=== PATIENT | male | born 1990 | race Two or more races ===

== ENCOUNTER 2023-04-15 18:39 | Inpatient (IN) | payer MEDICAID, OTHER ==
[~2023-04-15] VITALS: Ht 177.8 cm; Wt 84.8 kg
[2023-04-15] MEDS ORDERED: LORazepam 2MG/ML-1ML VIAL IV ONE (19:15)
[2023-04-15 19:46] LABS: Basophils # (auto) 0.1 10 ^3/uL (0-0.2); Basophils % (auto) 0.9 % (0.0-2.0); Eosinophils # (auto) 0.1 10 ^3/uL (0-0.8); Eosinophils % (auto) 0.6 % (0.0-7.0); Hematocrit 50.3 % (41.0-53.0); Hemoglobin 16.8 g/dL (13.5-17.5); Lymphocytes # (auto) 0.6 10 ^3/uL (0.4-5.4); Mean Corpuscular Hgb Conc. 33.4 g/dL (32.0-36.0); Mean Corpuscular Volume 95.9 fL (80.0-100.0); Monocytes # (auto) 0.8 10 ^3/uL (0-1.3); Monocytes % (auto) 6.8 % (0.0-12.0); Neutrophils # (auto) 10.8 10 ^3/uL (1.6-8.6); Neutrophils % (auto) 86.7 % (37.0-80.0); Nucleated Red Blood Cells % 0.1 %; Red Blood Cells 5.24 10^6/uL (4.5-5.90); Red Cell Distribution Width 13.3 % (11.8-14.3); White Blood Cell 12.5 10^3/uL (4.4-10.8)
[2023-04-15 20:05] LABS: Alanine Aminotransferase 11 U/L (7-40); Albumin 4.7 g/dL (3.2-4.8); Alkaline Phosphatase 81 U/L (46-116); Anion Gap 11 (5-15); Aspartate Aminotransferase 16 U/L (13-40); BUN/Creatinine Ratio 17.6 (10.0-20.0); Bilirubin, Total 0.5 mg/dL (0.2-1.0); Blood Alcohol < 3.0 mg/dL (<10); Blood Urea Nitrogen 19 mg/dL (9-23); Carbon Dioxide 23 mmol/L (20-30); Chloride 108 mmol/L (98-107); Glucose 123 mg/dL (74-106); Potassium 4.1 mmol/L (3.5-5.1); Sodium 142 mmol/L (136-145); Total Protein 7.9 g/dL (5.7-8.2)
[2023-04-15 20:24] VITALS: PULSE 130; RESP 20; O2SAT 94
[2023-04-15] MEDS: LORazepam 2MG/ML-1ML VIAL ONE (20:58)
[2023-04-15] MEDS: LORazepam 2MG/ML-1ML VIAL IM ONE (21:07)
[2023-04-15] MEDS: levETIRAcetam 1000 mg/100ml 100 ML IV ONE ×2 (21:12→21:18)
[2023-04-15] MEDS ORDERED: LORazepam 2MG/ML-1ML VIAL IV PRN (21:45)
[2023-04-15] MEDS ORDERED: ONDANSETRON HCL 4 MG/2 ML VIAL IV PRN (21:45)
[2023-04-15] MEDS: ACETAMINOPHEN 325 MG TAB PO PRN (23:48)
[2023-04-16] VITALS (9 sets, daily range): BP systolic 108–124; BP diastolic 74–84; PULSE 83–129; RESP 16–22; TEMP 98–98.8; O2SAT 94–98
[2023-04-16 03:18] LABS: Urine Bacteria NONE SEEN /hpf (None Seen); Urine Blood Negative /uL (Negative); Urine Clarity Clear (Clear); Urine Color Yellow (Yellow); Urine Mucus FEW (None Seen); Urine Protein, UAD TRACE (Negative); Urine Specific Gravity 1.032 (1.001-1.035); Urine WBC 19 /hpf (0 - 3); Urine pH 5.5 (5.0-8.0)
[2023-04-16 03:19] LABS: Amphetamine Screen, Urine Neg (NEGATIVE); Barbiturate Scree,Urine Neg (NEGATIVE); Benzodiazephine Screen, Urine Neg (NEGATIVE); Cocaine Screen, Urine Neg (NEGATIVE); Opiate Scree,Urine Neg (NEGATIVE)
[2023-04-16 03:20] LABS: Cannabinoid Screen, Urine Neg (NEGATIVE); Phencyclidine Screen, Urine Neg (NEGATIVE)
[2023-04-16] MEDS ORDERED: DEXTROSE (50%) 50ML SYRG IV PRN (05:45)
[2023-04-16] MEDS: ACCU-CHEK COMFORT CURVE STRIP VI SCH (06:51)
[2023-04-16] MEDS: InsuLIN REG 1unit/0.01ml Soln (100units/ml) SC SCH (07:00)
[2023-04-16 07:29] LABS: Chloride 103 mmol/L (98-107); Potassium 3.9 mmol/L (3.5-5.1)
[2023-04-16 07:30] LABS: Anion Gap 9 (5-15); Basophils # (auto) 0 10 ^3/uL (0-0.2); Basophils % (auto) 0.3 % (0.0-2.0); Calcium 9.4 mg/dL (8.5-10.1); Carbon Dioxide 23 mmol/L (20-30); Eosinophils # (auto) 0.1 10 ^3/uL (0-0.8); Eosinophils % (auto) 0.6 % (0.0-7.0); Hematocrit 46.7 % (41.0-53.0); Hemoglobin 16.1 g/dL (13.5-17.5); Lymphocytes # (auto) 0.9 10 ^3/uL (0.4-5.4); Lymphocytes % (auto) 9.9 % (10.0-50.0); Mean Corpuscular Hemoglobin 32.8 pg (28.0-32.0); Mean Corpuscular Hgb Conc. 34.4 g/dL (32.0-36.0); Mean Corpuscular Volume 95.4 fL (80.0-100.0); Monocytes # (auto) 0.4 10 ^3/uL (0-1.3); Monocytes % (auto) 4.9 % (0.0-12.0); Neutrophils # (auto) 7.4 10 ^3/uL (1.6-8.6); Neutrophils % (auto) 84.3 % (37.0-80.0); Nucleated Red Blood Cells % 0.1 %; Red Cell Distribution Width 13.3 % (11.8-14.3); White Blood Cell 8.7 10^3/uL (4.4-10.8)
[2023-04-16 07:35] LABS: BUN/Creatinine Ratio 18.8 (10.0-20.0); Blood Urea Nitrogen 22 mg/dL (9-23)
[2023-04-16 07:42] LABS: Glucose 262 mg/dL (74-106); Sodium 135 mmol/L (136-145)
[2023-04-16] MEDS: ENOXAPARIN SOD 40 MG/0.4 ML SYRINGE SC SCH (10:25)
[2023-04-16] MEDS: levETIRAcetam 1000 mg/100ml 100 ML IV SCH (10:36)
[2023-04-17] VITALS (7 sets, daily range): BP systolic 111–122; BP diastolic 76–86; PULSE 79–96; RESP 17–22; TEMP 98–98.6; O2SAT 94–97
[2023-04-17] MEDS ORDERED: LORazepam 2MG/ML-1ML VIAL IV ONE (11:45)
[2023-04-17] MEDS: INSULIN LANTUS (GLARGINE) 1 /0.01ml (100units/ml) SC ONE (12:18)
[2023-04-17] MEDS: INSULIN LANTUS (GLARGINE) 1 /0.01ml (100units/ml) SC SCH (22:09)
[2023-04-18 05:00] VITALS: BP 130/73; PULSE 64; RESP 16; TEMP 98; O2SAT 96
[2023-04-18 08:00] VITALS: BP 113/88; PULSE 89; RESP 21; TEMP 98.3; O2SAT 94
[2023-04-18 08:06] VITALS: BP 113/88; PULSE 89; RESP 21; TEMP 98.3; O2SAT 94
[2023-04-18 12:00] VITALS: BP 133/76; PULSE 70; RESP 21; TEMP 98.3; O2SAT 93
[2023-04-18 16:00] VITALS: BP 139/69; PULSE 85; RESP 22; TEMP 98.3; O2SAT 95
[2023-04-18] MEDS: cefTRIAXone 1GM/50ML D5W 50 ML IV ONE (16:06)
[2023-04-18 21:54] VITALS: BP 136/79; PULSE 79; RESP 20; TEMP 98.6; O2SAT 96
[2023-04-18] MEDS: INSULIN LANTUS (GLARGINE) 1 /0.01ml (100units/ml) SC SCH (22:09)
[2023-04-19 05:00] VITALS: BP 133/66; PULSE 64; RESP 18; TEMP 98; O2SAT 97
[2023-04-19 08:37] VITALS: BP 122/72; PULSE 80; RESP 20; TEMP 98.4; O2SAT 94
[2023-04-19] MEDS: cefTRIAXone 1GM/50ML D5W 50 ML IV SCH (09:27)
[2023-04-19 13:18] VITALS: BP 124/72; PULSE 87; RESP 20; TEMP 98.7; O2SAT 96
[2023-04-19 16:59] VITALS: BP 117/78; PULSE 79; RESP 20; TEMP 98.3; O2SAT 96
[2023-04-19 22:00] VITALS: BP 108/71; PULSE 73; RESP 16; TEMP 98.3; O2SAT 95
[2023-04-20 05:00] VITALS: BP 111/63; PULSE 64; RESP 16; TEMP 98.4; O2SAT 97
[2023-04-20 08:50] VITALS: BP 109/79; PULSE 63; RESP 16; TEMP 98.2; O2SAT 97
[2023-04-20 12:54] VITALS: BP 123/80; PULSE 80; RESP 17; TEMP 98.1; O2SAT 95
[2023-04-20 17:00] VITALS: BP 124/87; PULSE 90; RESP 17; TEMP 98.2; O2SAT 94
[2023-04-20 22:00] VITALS: BP 124/87; PULSE 90; RESP 17; TEMP 98.4; O2SAT 94
[2023-04-20] MEDS: levETIRAcetam 500 MG TAB PO SCH (22:26)
[2023-04-21 05:00] VITALS: BP 111/74; PULSE 65; RESP 18; TEMP 98.2; O2SAT 95
[2023-04-21 09:00] VITALS: BP 121/77; PULSE 71; RESP 18; TEMP 97.7; O2SAT 95
[2023-04-21 13:00] VITALS: BP 122/80; PULSE 90; RESP 18; TEMP 98.8; O2SAT 95
[2023-04-21] MEDS ORDERED: LEVE100012 PO ×2 (14:56→16:27)
[2023-04-21] MEDS ORDERED: CEPH500C PO ×2 (15:02→16:27)
[2023-04-21 16:49] VITALS: BP 125/78; PULSE 84; RESP 20; TEMP 97.8; O2SAT 96
[2023-04-21] MEDS: INSULIN LANTUS (GLARGINE) 1 /0.01ml (100units/ml) SC SCH (21:52)
[2023-04-21 22:00] VITALS: BP 119/91; PULSE 72; RESP 21; TEMP 98.4; O2SAT 94
[2023-04-22 05:00] VITALS: BP 104/57; PULSE 88; RESP 18; TEMP 98.3; O2SAT 95
[2023-04-22 08:49] VITALS: BP 117/71; PULSE 72; RESP 16; TEMP 98.4; O2SAT 97
== END 2023-04-22 09:30 | disposition home or self-care (01) | DRG 53 ==
LOC: ER 18:39 → EDBD 18:39 → WEST WING 22:02 → OVERFLOW 22:02 → WEST WING 23:39
PROVIDERS: ADMIT Nurse Practitioner; ATTEND Internal Medicine Geriatric Medicine
DX: G40.909 Epilepsy, unspecified, not intractable, without status epilepticus (principal); G93.1 Anoxic brain damage, not elsewhere classified; R65.10 Systemic inflammatory response syndrome (SIRS) of non-infectious origin without acute organ dysfunction; E11.9 Type 2 diabetes mellitus without complications; N39.0 Urinary tract infection, site not specified
CPT/HCPCS: 36415; 70450; 70551; 80048; 80053; 80307; 80320; 81001; 82962; 85025; 87081; 93005; 96365; 96372; G0378; J1815

== ENCOUNTER 2023-06-10 10:55 | Emergency (ER) | payer MEDICAID ==
[~2023-06-10] VITALS: Ht 180.3 cm; Wt 84.0 kg
[~2023-06-10 10:55] MED LIST: CEPH500C PO; LEVE100012 PO
[2023-06-10 12:16] VITALS: PULSE 85; O2SAT 96
[2023-06-10] MEDS: SODIUM CHLORIDE 0.9% 1,000 ML IV ONE (13:00)
[2023-06-10] MEDS: SODIUM CHLORIDE 0.9% 500 ML IVB ONE (13:00)
[2023-06-10] MEDS: LORazepam 2MG/ML-1ML VIAL IV ONE (13:00)
[2023-06-10 13:36] LABS: Basophils # (auto) 0 10 ^3/uL (0-0.2); Basophils % (auto) 0.7 % (0.0-2.0); Eosinophils # (auto) 0.1 10 ^3/uL (0-0.8); Eosinophils % (auto) 1.2 % (0.0-7.0); Hematocrit 44.4 % (41.0-53.0); Lymphocytes # (auto) 1.9 10 ^3/uL (0.4-5.4); Lymphocytes % (auto) 31.6 % (10.0-50.0); Mean Corpuscular Hemoglobin 32.4 pg (28.0-32.0); Mean Corpuscular Hgb Conc. 33.7 g/dL (32.0-36.0); Monocytes # (auto) 0.5 10 ^3/uL (0-1.3); Monocytes % (auto) 7.7 % (0.0-12.0); Neutrophils # (auto) 3.4 10 ^3/uL (1.6-8.6); Neutrophils % (auto) 58.8 % (37.0-80.0); Nucleated Red Blood Cells % 0.3 %; Red Blood Cells 4.63 10^6/uL (4.5-5.90); White Blood Cell 5.9 10^3/uL (4.4-10.8)
[2023-06-10 14:28] LABS: Albumin 4.3 g/dL (3.2-4.8); Alkaline Phosphatase 84 U/L (46-116); Anion Gap 6 (5-15); Aspartate Aminotransferase < 8 U/L (13-40); BUN/Creatinine Ratio 12.1 (10.0-20.0); Blood Urea Nitrogen 11 mg/dL (9-23); Calcium 9.7 mg/dL (8.7-10.4); Carbon Dioxide 25 mmol/L (20-30); Chloride 107 mmol/L (98-107); Glucose 270 mg/dL (74-106); Magnesium 1.8 mg/dL (1.6-2.6); Potassium 4.1 mmol/L (3.5-5.1); Sodium 138 mmol/L (136-145)
[2023-06-10 14:29] LABS: Bilirubin, Total 0.6 mg/dL (0.2-1.0)
[2023-06-10 14:32] LABS: Alanine Aminotransferase < 9 U/L (7-40)
[2023-06-11 09:00] VITALS: TEMP 98.7
[2023-06-11 10:15] VITALS: BP 121/73; PULSE 77; RESP 18; O2SAT 98
== END 2023-06-11 10:30 | disposition home or self-care (01) ==
LOC: ER 10:55 → EDUNIT# 10:55 → EDBD 10:55 → ER 06-11 10:30
DX: S00.83XA Contusion of other part of head, initial encounter (principal); G40.909 Epilepsy, unspecified, not intractable, without status epilepticus; E11.65 Type 2 diabetes mellitus with hyperglycemia; R94.31 Abnormal electrocardiogram [ECG] [EKG]; W18.39XA Other fall on same level, initial encounter; Y93.89 Activity, other specified; Y92.89 Other specified places as the place of occurrence of the external cause; Y99.8 Other external cause status
CPT/HCPCS: 36415; 70450; 71045; 80053; 83735; 85025; 93005

== ENCOUNTER 2023-06-14 21:55 | Emergency (ER) | payer MEDICAID ==
[~2023-06-14] VITALS: Ht 170.2 cm; Wt 75.0 kg
[2023-06-14 21:55] VITALS: BP 125/80; PULSE 80; RESP 18; O2SAT 98
[2023-06-14 22:41] LABS: Basophils # (auto) 0.1 10 ^3/uL (0-0.2); Basophils % (auto) 1.2 % (0.0-2.0); Eosinophils # (auto) 0.2 10 ^3/uL (0-0.8); Eosinophils % (auto) 2.7 % (0.0-7.0); Hematocrit 40.4 % (41.0-53.0); Hemoglobin 13.7 g/dL (13.5-17.5); Lymphocytes % (auto) 32.5 % (10.0-50.0); Mean Corpuscular Hemoglobin 32.4 pg (28.0-32.0); Mean Corpuscular Volume 95.2 fL (80.0-100.0); Monocytes # (auto) 0.6 10 ^3/uL (0-1.3); Monocytes % (auto) 9.3 % (0.0-12.0); Neutrophils # (auto) 3.4 10 ^3/uL (1.6-8.6); Neutrophils % (auto) 54.3 % (37.0-80.0); Nucleated Red Blood Cells % 0.3 %; Red Blood Cells 4.24 10^6/uL (4.5-5.90); Red Cell Distribution Width 14.2 % (11.8-14.3); White Blood Cell 6.3 10^3/uL (4.4-10.8)
[2023-06-14 22:47] LABS: Chloride 109 mmol/L (98-107); Potassium 4.4 mmol/L (3.5-5.1); Sodium 139 mmol/L (136-145)
[2023-06-14 22:48] LABS: Anion Gap 6 (5-15); Calcium 9.1 mg/dL (8.5-10.1); Carbon Dioxide 24 mmol/L (20-30)
[2023-06-14 22:53] LABS: BUN/Creatinine Ratio 14.6 (10.0-20.0); Blood Urea Nitrogen 14 mg/dL (9-23); Glucose 273 mg/dL (74-106)
[2023-06-15] MEDS: LORazepam 2MG/ML-1ML VIAL IV ONE (06:02)
== END 2023-06-15 06:36 ==
LOC: EDSEX 21:55 → EDBD 21:55 → ER 21:55
DX: G40.909 Epilepsy, unspecified, not intractable, without status epilepticus (principal)
CPT/HCPCS: 36415; 80048; 85025; 96374; 99283; J2060

== ENCOUNTER 2023-10-23 11:23 | Inpatient (IN) | payer MEDICAID ==
[~2023-10-23] VITALS: Ht 170.2 cm; Wt 64.9 kg
[2023-10-23 12:40] LABS: Basophils # (auto) 0 10 ^3/uL (0-0.2); Basophils % (auto) 0.5 % (0.0-2.0); Eosinophils # (auto) 0.1 10 ^3/uL (0-0.8); Eosinophils % (auto) 1.1 % (0.0-7.0); Hematocrit 40.7 % (41.0-53.0); Hemoglobin 13.9 g/dL (13.5-17.5); Lymphocytes # (auto) 1.6 10 ^3/uL (0.4-5.4); Lymphocytes % (auto) 30.9 % (10.0-50.0); Mean Corpuscular Hemoglobin 33.4 pg (28.0-32.0); Mean Corpuscular Hgb Conc. 34.1 g/dL (32.0-36.0); Monocytes # (auto) 0.4 10 ^3/uL (0-1.3); Monocytes % (auto) 7.4 % (0.0-12.0); Neutrophils # (auto) 3.1 10 ^3/uL (1.6-8.6); Neutrophils % (auto) 60.1 % (37.0-80.0); Platelet Count (auto) 172 10^3/uL (140-450); Red Blood Cells 4.15 10^6/uL (4.5-5.90); Red Cell Distribution Width 14.2 % (11.8-14.3); White Blood Cell 5.1 10^3/uL (4.4-10.8)
[2023-10-23 13:38] LABS: Alanine Aminotransferase 13 U/L (7-40); Albumin 4.1 g/dL (3.2-4.8); Alkaline Phosphatase 81 U/L (46-116); Anion Gap 4 (5-15); Aspartate Aminotransferase 8 U/L (13-40); BUN/Creatinine Ratio 14.7 (10.0-20.0); Bilirubin, Total 0.5 mg/dL (0.2-1.0); Blood Urea Nitrogen 14 mg/dL (9-23); Calcium 9.7 mg/dL (8.7-10.4); Carbon Dioxide 26 mmol/L (20-30); Chloride 110 mmol/L (98-107); Glucose 226 mg/dL (74-106); Magnesium 1.7 mg/dL (1.6-2.6); Sodium 140 mmol/L (136-145); Total Protein 6.6 g/dL (5.7-8.2)
[2023-10-23] MEDS: ACETAMINOPHEN 325 MG TAB PO ONE (15:36)
[2023-10-23] MEDS: SODIUM CHLORIDE 0.9% 1,000 ML IV ONE (15:37)
[2023-10-23] MEDS: levETIRAcetam 1000 mg/100ml 100 ML IV ONE (15:39)
[2023-10-24] MEDS ORDERED: NITROGLYCERIN 0.4 MG SL TAB SL PRN (00:45)
[2023-10-24] MEDS ORDERED: DOCUSATE SOD 100 MG CAP PO PRN (00:45)
[2023-10-24] MEDS ORDERED: ACETAMINOPHEN 325 MG TAB PO PRN (00:45)
[2023-10-24] MEDS ORDERED: ONDANSETRON HCL 4 MG/2 ML VIAL IV PRN (00:45)
[2023-10-24] MEDS ORDERED: MORPHINE SULFATE INJ 2 MG/ml SYRG IV PRN (00:45)
[2023-10-24] MEDS: HYDROcodone-ACET 5/325MG TAB PO PRN (01:24)
[2023-10-24 01:31] LABS: Urine Bacteria None Seen /hpf (None Seen)
[2023-10-24 01:38] LABS: Urine Amorphous Crystal FEW /hpf (None Seen); Urine Blood Negative /uL (Negative); Urine Clarity Clear (Clear); Urine Protein, UAD Negative (Negative); Urine Specific Gravity 1.028 (1.001-1.035); Urine Urobilinogen Normal (Negative); Urine WBC <1 /hpf (0 - 3); Urine pH 7.5 (5.0-9.0)
[2023-10-24 01:40] LABS: Urine Color STRAW (Yellow)
[2023-10-24 01:45] LABS: Amphetamine Screen, Urine Neg (NEGATIVE); Benzodiazephine Screen, Urine Neg (NEGATIVE)
[2023-10-24 01:46] LABS: Barbiturate Scree,Urine Neg (NEGATIVE); Cannabinoid Screen, Urine Pos (NEGATIVE); Cocaine Screen, Urine Neg (NEGATIVE); Opiate Scree,Urine Neg (NEGATIVE); Phencyclidine Screen, Urine Neg (NEGATIVE)
[2023-10-24 05:00] VITALS: PULSE 76; RESP 17; O2SAT 98
[2023-10-24 05:41] LABS: Basophils # (auto) 0 10 ^3/uL (0-0.2); Eosinophils # (auto) 0.1 10 ^3/uL (0-0.8); Monocytes # (auto) 0.4 10 ^3/uL (0-1.3); White Blood Cell 5.9 10^3/uL (4.4-10.8)
[2023-10-24 05:43] LABS: Basophils % (auto) 0.8 % (0.0-2.0); Eosinophils % (auto) 1.7 % (0.0-7.0); Hematocrit 40.4 % (41.0-53.0); Hemoglobin 14.2 g/dL (13.5-17.5); Lymphocytes # (auto) 1.4 10 ^3/uL (0.4-5.4); Mean Corpuscular Hemoglobin 34.5 pg (28.0-32.0); Mean Corpuscular Hgb Conc. 35.1 g/dL (32.0-36.0); Mean Corpuscular Volume 98.2 fL (80.0-100.0); Monocytes % (auto) 6.4 % (0.0-12.0); Neutrophils % (auto) 67.1 % (37.0-80.0); Platelet Count (auto) 163 10^3/uL (140-450); Red Blood Cells 4.11 10^6/uL (4.5-5.90); Red Cell Distribution Width 13.8 % (11.8-14.3)
[2023-10-24 05:57] LABS: Alanine Aminotransferase 11 U/L (7-40); Alkaline Phosphatase 80 U/L (46-116); Anion Gap 8 (5-15); Aspartate Aminotransferase 9 U/L (13-40); BUN/Creatinine Ratio 13.8 (10.0-20.0); Blood Urea Nitrogen 12 mg/dL (9-23); Calcium 9.4 mg/dL (8.7-10.4); Carbon Dioxide 21 mmol/L (20-30); Chloride 109 mmol/L (98-107); Glucose 281 mg/dL (74-106); Potassium 3.8 mmol/L (3.5-5.1); Sodium 138 mmol/L (136-145)
[2023-10-24 05:58] LABS: Albumin 4.1 g/dL (3.2-4.8); Bilirubin, Total 0.7 mg/dL (0.2-1.0); Total Protein 6.5 g/dL (5.7-8.2)
[2023-10-24] MEDS: SODIUM CHLOR 0.9% PF (SALINE LOCK) 10ML VIAL/SYR IV SCH (06:07)
[2023-10-24] MEDS: ACCU-CHEK COMFORT CURVE STRIP VI SCH (06:32)
[2023-10-24] MEDS: InsuLIN REG 1unit/0.01ml Soln (100units/ml) SC SCH ×2 (06:38→21:47)
[2023-10-24 07:45] VITALS: PULSE 83; RESP 16; O2SAT 96
[2023-10-24] MEDS: levETIRAcetam 1000 mg/100ml 100 ML IV SCH (10:20)
[2023-10-24] MEDS: ASPirin 81 mg TAB PO SCH (10:20)
[2023-10-24] MEDS: INSULIN LANTUS (GLARGINE) 1 /0.01ml (100units/ml) SC SCH (11:25)
[2023-10-24] MEDS: LORazepam 2MG/ML-1ML VIAL IM ONE (12:20)
[2023-10-24] MEDS: LORazepam 2MG/ML-1ML VIAL ONE (13:24)
[2023-10-24] MEDS: levETIRAcetam 1000 mg/100ml 100 ML IV ONE (14:10)
[2023-10-24 17:55] VITALS: BP 131/90; PULSE 106; RESP 18; TEMP 98.2; O2SAT 97
[2023-10-24 18:26] VITALS: BP 131/90; PULSE 67; RESP 16; TEMP 98.2; O2SAT 97
[2023-10-24 20:00] VITALS: PULSE 67; PULSE 73; RESP 22; O2SAT 98
[2023-10-24 21:00] VITALS: BP 112/73; PULSE 73; RESP 22; TEMP 97.8; O2SAT 98
[2023-10-24] MEDS: ENOXAPARIN SOD 40 MG/0.4 ML SYRINGE SC ONE (22:07)
[2023-10-24] MEDS: MAGNESIUM OXIDE 400 MG TAB PO ONE (22:08)
[2023-10-25] VITALS (8 sets, daily range): BP systolic 114–133; BP diastolic 41–86; PULSE 59–97; RESP 18–22; TEMP 98–98.7; O2SAT 94–99
[2023-10-25 06:34] LABS: Basophils # (auto) 0 10 ^3/uL (0-0.2); Basophils % (auto) 0.6 % (0.0-2.0); Eosinophils # (auto) 0.1 10 ^3/uL (0-0.8); Eosinophils % (auto) 1.2 % (0.0-7.0); Lymphocytes # (auto) 1.7 10 ^3/uL (0.4-5.4); Monocytes # (auto) 0.6 10 ^3/uL (0-1.3); Neutrophils # (auto) 4.2 10 ^3/uL (1.6-8.6); Platelet Count (auto) 202 10^3/uL (140-450); Red Cell Distribution Width 14.2 % (11.8-14.3); White Blood Cell 6.6 10^3/uL (4.4-10.8)
[2023-10-25 06:54] LABS: Alanine Aminotransferase 12 U/L (7-40); Albumin 4.7 g/dL (3.2-4.8); Alkaline Phosphatase 93 U/L (46-116); Anion Gap 8 (5-15); Aspartate Aminotransferase 16 U/L (13-40); Blood Urea Nitrogen 15 mg/dL (9-23); Calcium 10.4 mg/dL (8.7-10.4); Carbon Dioxide 24 mmol/L (20-30); Chloride 107 mmol/L (98-107); Magnesium 1.9 mg/dL (1.6-2.6); Potassium 3.7 mmol/L (3.5-5.1); Sodium 139 mmol/L (136-145)
[2023-10-25 06:55] LABS: Bilirubin, Total 0.5 mg/dL (0.2-1.0); Total Protein 7.5 g/dL (5.7-8.2)
[2023-10-25 07:02] LABS: Glucose 126 mg/dL (74-106)
[2023-10-25 07:18] LABS: Hematocrit 45.7 % (41.0-53.0); Lymphocytes % (auto) 26.3 % (10.0-50.0); Mean Corpuscular Hemoglobin 34.3 pg (28.0-32.0); Mean Corpuscular Hgb Conc. 34.9 g/dL (32.0-36.0); Mean Corpuscular Volume 98.3 fL (80.0-100.0); Monocytes % (auto) 8.9 % (0.0-12.0); Red Blood Cells 4.65 10^6/uL (4.5-5.90)
[2023-10-25] MEDS: LORazepam 2MG/ML-1ML VIAL IV PRN ×2 (10:02→14:01)
[2023-10-25] MEDS: MAGNESIUM OXIDE 400 MG TAB PO SCH (10:04)
[2023-10-25] MEDS: ENOXAPARIN SOD 40 MG/0.4 ML SYRINGE SC SCH (10:05)
[2023-10-25] MEDS: BACLOFEN 10 MG TAB PO PRN (13:35)
[2023-10-25] MEDS: DEXTROSE (50%) 50ML SYRG IV PRN (15:34)
[2023-10-25] MEDS ORDERED: LEVEMIR SC (18:42)
[2023-10-25] MEDS ORDERED: OXYC325T14 PO (18:46)
[2023-10-25] MEDS ORDERED: METO5TAB2 PO (19:22)
[2023-10-25] MEDS ORDERED: POLYPOW85 PO (19:22)
[2023-10-25] MEDS ORDERED: BACL20TA PO (19:22)
[2023-10-25] MEDS ORDERED: PREG25CA PO (19:22)
[2023-10-25] MEDS ORDERED: PANT40TA2 PO (19:22)
[2023-10-25] MEDS ORDERED: APIX2.5T PO (19:22)
[2023-10-25] MEDS ORDERED: DIVA1TAB59 PO (19:22)
[2023-10-25] MEDS ORDERED: FAMO20TA10 PO (19:22)
[2023-10-25] MEDS ORDERED: ONDA-155 PO (19:22)
[2023-10-25] MEDS ORDERED: DIVA-139 PO (19:22)
[2023-10-25] MEDS ORDERED: TRAZ-228 PO (19:22)
[2023-10-25] MEDS ORDERED: DULO60CA41 PO (19:22)
[2023-10-25] MEDS: HYDROcodone-ACET 5/325MG TAB PO PRN (19:27)
[2023-10-25] MEDS ORDERED: CHOL20007 PO (21:08)
[2023-10-25] MEDS ORDERED: RAME8TAB17 PO (21:08)
[2023-10-25] MEDS ORDERED: SENN-58 PO (21:08)
[2023-10-25] MEDS ORDERED: TAMS1CAP25 PO (21:08)
[2023-10-25] MEDS ORDERED: ROSU5TAB5 PO (21:08)
[2023-10-25] MEDS ORDERED: [UNRECOGNIZED DRUG - CODE] PO (21:08)
[2023-10-25] MEDS ORDERED: TOPI50TA53 PO (21:08)
[2023-10-25] MEDS ORDERED: HYDR-3682 PO (21:08)
[2023-10-25] MEDS ORDERED: LIDO5DIS21 TOP (21:08)
[2023-10-25] MEDS ORDERED: ACET1CAP14 PO (21:08)
[2023-10-25] MEDS ORDERED: BISA-51 OR (21:08)
[2023-10-25] MEDS: MORPHINE SULFATE INJ 2 MG/ml SYRG IV PRN (21:12)
[2023-10-26] VITALS (8 sets, daily range): BP systolic 109–136; BP diastolic 62–82; PULSE 60–98; RESP 19–21; TEMP 97.9–98.4; O2SAT 95–100
[2023-10-26] MEDS ORDERED: DEXTROSE (50%) 50ML SYRG IV PRN ×2 (07:30→11:45)
[2023-10-26] MEDS: IBUPROFEN 400 MG TAB PO ONE (10:47)
[2023-10-26] MEDS ORDERED: InsuLIN REG 1unit/0.01ml Soln (100units/ml) SC SCH ×2 (11:30→22:00)
[2023-10-26] MEDS: ACCU-CHEK COMFORT CURVE STRIP VI SCH ×2 (11:34→16:52)
[2023-10-26] MEDS: HYDROcodone-ACET 5/325MG TAB PO PRN (11:34)
[2023-10-26] MEDS: InsuLIN REG 1unit/0.01ml Soln (100units/ml) SC SCH (12:12)
[2023-10-26 12:43] LABS: Alanine Aminotransferase 17 U/L (7-40); Albumin 4.6 g/dL (3.2-4.8); Alkaline Phosphatase 89 U/L (46-116); Anion Gap 4 (5-15); Aspartate Aminotransferase 14 U/L (13-40); BUN/Creatinine Ratio 18.8 (10.0-20.0); Blood Urea Nitrogen 18 mg/dL (9-23); Calcium 10.1 mg/dL (8.7-10.4); Carbon Dioxide 26 mmol/L (20-30); Chloride 105 mmol/L (98-107); Potassium 4.3 mmol/L (3.5-5.1); Sodium 135 mmol/L (136-145)
[2023-10-26 12:44] LABS: Bilirubin, Total 0.7 mg/dL (0.2-1.0); Phosphorus 2.6 mg/dL (2.4-5.1); Total Protein 7.3 g/dL (5.7-8.2)
[2023-10-26 12:47] LABS: Glucose 308 mg/dL (74-106)
[2023-10-26] MEDS: HYDROcodone-ACET 10/325MG TAB PO PRN (15:58)
[2023-10-26] MEDS ORDERED: ACETAMINOPHEN 325 MG TAB PO PRN (17:45)
[2023-10-26] MEDS: CYCLOBENZAPRINE HCL 10 MG TAB PO PRN (20:15)
[2023-10-27] VITALS (8 sets, daily range): BP systolic 110–141; BP diastolic 60–99; PULSE 62–101; RESP 18–20; TEMP 97.8–98.4; O2SAT 95–99
[2023-10-27] MEDS ORDERED: DEXTROSE (50%) 50ML SYRG IV PRN
[2023-10-27] MEDS: ACCU-CHEK COMFORT CURVE STRIP VI SCH (00:14)
[2023-10-27] MEDS: HYDROcodone-ACET 10/325MG TAB PO PRN (00:21)
[2023-10-27] MEDS: InsuLIN REG 1unit/0.01ml Soln (100units/ml) SC SCH (00:37)
[2023-10-27 07:21] LABS: Anion Gap 11 (5-15); Calcium 9.5 mg/dL (8.7-10.4); Carbon Dioxide 21 mmol/L (20-30); Chloride 104 mmol/L (98-107); Sodium 136 mmol/L (136-145)
[2023-10-27 07:27] LABS: BUN/Creatinine Ratio 14.5 (10.0-20.0); Blood Urea Nitrogen 12 mg/dL (9-23)
[2023-10-27 07:28] LABS: Glucose 115 mg/dL (74-106)
[2023-10-27] MEDS: levETIRAcetam 500 MG TAB PO SCH (21:50)
[2023-10-28] VITALS (7 sets, daily range): BP systolic 104–133; BP diastolic 60–81; PULSE 66–85; RESP 16–20; TEMP 97.6–98.1; O2SAT 95–99
[2023-10-28 08:07] LABS: Calcium 9.9 mg/dL (8.7-10.4); Chloride 102 mmol/L (98-107); Potassium 4.1 mmol/L (3.5-5.1); Sodium 136 mmol/L (136-145)
[2023-10-28 08:08] LABS: Anion Gap 6 (5-15); Carbon Dioxide 28 mmol/L (20-30)
[2023-10-28 08:14] LABS: BUN/Creatinine Ratio 16.5 (10.0-20.0); Blood Urea Nitrogen 16 mg/dL (9-23); Magnesium 1.9 mg/dL (1.6-2.6)
[2023-10-28 08:16] LABS: Glucose 218 mg/dL (74-106)
[2023-10-28] MEDS ORDERED: LORazepam 2MG/ML-1ML VIAL IV PRN (13:15)
== END 2023-10-28 18:05 | disposition home or self-care (01) | DRG 53 ==
LOC: EDBD 11:23 → ER 11:23 → TELE 10-24 00:44 → TELE-WESTW 10-24 00:44
PROVIDERS: ADMIT Internal Medicine; ATTEND Internal Medicine
DX: G40.909 Epilepsy, unspecified, not intractable, without status epilepticus (principal); E11.65 Type 2 diabetes mellitus with hyperglycemia; E78.5 Hyperlipidemia, unspecified; E83.42 Hypomagnesemia; F12.90 Cannabis use, unspecified, uncomplicated; G89.29 Other chronic pain; Z87.820 Personal history of traumatic brain injury; Z91.199 Patient's noncompliance with other medical treatment and regimen due to unspecified reason
CPT/HCPCS: 36415; 70450; 80048; 80053; 80307; 81001; 82542; 82550; 82962; 83036; 83605; 83735; 84100; 84484; 85025; 87081; 93005; 97110; 97163; G0378; J1815

== ENCOUNTER 2023-12-23 11:48 | Emergency (ER) | payer MEDICAID ==
[~2023-12-23] VITALS: Ht 172.7 cm; Wt 63.5 kg
[~2023-12-23 11:48] MED LIST changes: +ACET1CAP14 PO; +APIX2.5T PO; +BACL20TA PO; +BISA-51 OR; -CEPH500C PO; +CHOL20007 PO; +DIVA-139 PO; +DIVA1TAB59 PO; +DULO60CA41 PO; +FAMO20TA10 PO; +HYDR-3682 PO; +LEVEMIR SC; +LIDO5DIS21 TOP; +METO5TAB2 PO; +ONDA-155 PO; +OXYC325T14 PO; +PANT40TA2 PO; +POLYPOW85 PO; +PREG25CA PO; +RAME8TAB17 PO; +ROSU5TAB5 PO; +SENN-58 PO; +TAMS1CAP25 PO; +TOPI50TA53 PO; +TRAZ-228 PO; +[UNRECOGNIZED DRUG - CODE] PO
--- NOTE | 2023-12-23 11:53 | ED.PDOC ---
Back pain HPI HPI Comments HPI: Poor Historian. 33-year-old male brought in by ambulance from for [facility] facility where he resides there for a long time. Patient takes Percocet for chronic left hip pain. Patient has been complaining of worsening left hip pain lately. He is nonambulatory bed ridden. No history of fall or trauma or injury. Patient was brought to the ED for evaluation of acute on chronic left hip pain. Patient denies any other symptoms. PMHx: TBI, Seizures, HLD, DM, Chronic Left Hip Pain PSHx: None Allergies: Unknown Insulin Medication Initial Vital Signs: BP: 108/69 HR: 70 Temp: 98.6F SpO2: 98% RR: 18 REVIEW OF SYSTEMS: CONSTITUTIONAL: Denies acute: fever, diaphoresis, chills, generalized weakness. HEAD: Denies acute: headache, photophobia Eyes: Denies acute: Double vision, vision loss, eye pain, eye discharge. EARS: Denies acute: tinnitus, hearing loss, ear discharge, ear pain, THROAT: Denies acute: sore throat, swelling, difficulty swallowing , pain with swallowing, change in voice. NECK: Denies acute: neck pain, neck swelling, stiff neck. HEART: Denies acute : chest pain, palpitations, LUNGS: Denies acute: SOB, wheezing, cough, hemoptysis ABDOMEN: Denies acute: abdominal pain, Nausea, Vomiting, diarrhea, melena , hematemesis, hematochezia SKIN: Denies acute: rash, redness, lesions, itchiness. EXTREMITIES: Denies acute: calf pain, numbness, tingling, weakness, denies pain in extremity. Denies acute: Low back pain. Neuro: Denies acute: focal neurological deficit, motor or sensory focal neurological deficit, tremors, seizure like activity, confusion, dizziness, change in mental status, loss of bowel or bladder function, cauda equina like symptoms. : Denies acute: dysuria, hematuria, flank pain, increase in urinary frequency. PSYCH: Denies acute: hallucination, suicidal ideation, homicidal ideation. PHYSICAL EXAM: General: no acute distress, awake and alert. Head: normocephalic, atraumatic. Neck: supple, trachea is midline, no swelling. Throat: Normal phonation. Eyes:, no erythema, no purulent discharge, no proptosis, no icterus. Heart: regular rate, regular rhythm, no significant murmur appreciated. Lungs: no apparent respiratory distress, Able to speak in full sentences. No wheezing, no rhonchi, no crackles. No stridors Clear to auscultation bilaterally. Abdomen: non tender to palpation, non distended, soft, no guarding, no rebound, + bowel sounds. Neuro: Awake, Alert, oriented to name, self, situation, follows commands GCS=15. Speech is disabled due to brain injury. Skin: no petechia, no purpura, no cyanosis, non-pale, not jaundice. Lower extremities: --no - Pitting edema no deformity, no focal swelling, no calf TTP. Makes eye contact. moves all four extremities. Face: no apparent facial droop. 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 Home Meds Active Scripts Levetiracetam (Keppra) 1,000 Mg Tab, 1 TAB PO BID, #60 TAB 5 Refills Prov:REIGNA SANCHEZ MD 04/21/23 Reported Medications Cholecalciferol (VITAMIN D3) 2,000 Unit Tab, 25 MCG PO DAILY, TAB 10/25/23 Topiramate (Topiramate) 50 Mg Tab, 50 MG PO QPM, TAB 10/25/23 Tamsulosin HCl (Tamsulosin Hydrochloride) 0.4 Mg Cap, 0.4 MG PO, CAP 10/25/23 Acetaminophen (Tylenol) 325 Mg Cap, 500 MG PO DAILY, CAP 10/25/23 Lidocaine (LIDODERM 5% TOPICAL PATCH) 1 Patch Ph, 1 PATCH TOP DAILY, #30 PATCH 10/25/23 Hydroxyzine Hcl (Hydroxyzine Hcl) 25 Mg Tab, 25 MG PO Q6HPRN PRN for ANXIETY, TAB 10/25/23 Bisacodyl (KP BISACODYL) 5 Mg Tab, 10 MG OR, TAB 10/25/23 Alum & Mag Hydrox-Simethicone (Antacid Anti-Gas) 1 Ml Loree, 30 ML PO Q4HPRN, ML 10/25/23 Senna (Senokot) 8.6 Mg Tab, 1 TAB PO BID, #40 TAB 10/25/23 Rosuvastatin Calcium (Crestor) 5 Mg Tab, 5 MG PO QPM, TAB 10/25/23 Ramelteon (Rozerem) 8 Mg Tab, 1 TAB PO QPM, #30 TAB 1 Refill 10/25/23 Trazodone Hcl (Trazodone Hcl) 100 Mg Tab, 1 TAB PO QPM, #30 TAB 10/25/23 Ondansetron HCl (Ondansetron) 4 Mg Tab, 4 MG PO PRN PRN for Q6, TAB 10/25/23 Pantoprazole Sodium Sesquihydr (Protonix) 40 Mg Tab, 40 MG PO DAILY, #30 TAB 10/25/23 Metoclopramide Hcl (Metoclopramide Hcl) 5 Mg Tab, 5 MG PO TID, TAB 10/25/23 Famotidine (PEPCID TABLET) 20 Mg Tb, 1 TAB PO BID, #60 TAB 5 Refills 10/25/23 Duloxetine Hcl (Cymbalta) 60 Mg Cap, 1 CAP PO DAILY, #90 CAP 3 Refills 10/25/23 Divalproex Sodium (Divalproex Sodium Dr) 500 Mg Tab, 1 TAB PO BID, #60 TAB 1 Refill 10/25/23 Polyethylene Glycol 3350 (Clearlax) 17 Gm/Scoop Pow, 17 GM PO BID, POW 10/25/23 Baclofen (Baclofen) 20 Mg Tab, 5 MG PO TID, TAB 10/25/23 Pregabalin (LYRICA CAPSULE) 25 Mg Cp, 25 MG PO, CAP 10/25/23 Apixaban Base (ELIQUIS) 2.5 Mg Tab, 2.5 MG PO BID, TAB 10/25/23 Divalproex Sodium (Depakote) 250 Mg Tab, 1 TAB PO BID, #60 TAB 2 Refills 10/25/23 Oxycodone W/ Acetaminophen (Apap/Oxycodone) 1 Tab Tab, 1 TAB PO QID for hip pain, #120 TAB 10/25/23 Insulin Detemir (Levemir) Inj, 11 SC BID, INJ 10/25/23 Mode of Arrival: EMS Past Medical History PAST MEDICAL HISTORY: DM, High Lipids, Seizures Surgical History: Denies all surgeries Family History Family History: Reviewed,noncontributory to illness Social History Smoker: Non-Smoker Alcohol: Denies ETOH Use Drugs: Denies Drug Use Lives In: Assisted Care Was a procedure done? Was a procedure done?: No Back Pain Differential Dx Differential Diagnosis: Fracture (Dislocation, referred pain, chronic pain, radiculopathy,), Musculoskeletal Pain, Other X-Ray, Labs, Meds, VS Vital Signs Date Time Temp Pulse Resp B/P (MAP) Pulse Ox O2 Delivery O2 Flow Rate FiO2 12/23/23 12:37 72 18 98 Room Air* 0 21 12/23/23 12:37 98.3 72 26 119/65 (83) 98 98.3 12/23/23 12:31 98.6 70 18 108/69 (82) 98 Current Medications Medications (Trade) Dose Ordered Sig/Lisa Route Start Time Stop Time Status Last Admin Acetaminophen/ Hydrocodone Bitart ([place] 5/325MG Tab) 1 tab ONCE ONCE PO 12/23/23 12:45 12/23/23 12:46 DC 12/23/23 13:35 [place] [id number] Ph: [phone] DIAGNOSTIC IMAGING Diagnostic Imaging Report : [id number] Signed PATIENT: EMERY ANDRADE ACCT: [id number] UNIT: [id number] : 1990 LOC: ER ROOM / BED: / AGE / SEX: 33 / M ADM STATUS: REG ER SERVICE 1159 ORDERING PHYSICIAN: J LUIS JEROME DO PROCEDURE(s): LHIP - L HIP COMPLETE XRAY REASON: PAIN ORDER NUMBER(s): [id number], ACCESSION NUMBER(s): [id number] CLINICAL INDICATION: PAIN TECHNIQUE: 2 radiographic views of the pelvis and 2 views of the left hip were obtained. Comparison: None FINDINGS/IMPRESSION: Chronic deformity of the left proximal femur with severe osteoarthrosis of the left femoroacetabular joint. ATED BY: TROY WALTERS MD DICTATED DATE/TIME: 12/23/23 1257 SIGNED BY: TROY WALTERS MD SIGNED DATE/TIME: 12/23/23 1257 Time of 1ST Reevaluation: 13:43 Reevaluation 1ST: Improved Patient Education/Counseling: Diagnosis, Treatment Family Education/Counseling: No Family Present Comments Patient presented with the above HPI.--chronic hip pain----workup was initiated. patient was found with the above mentioned diagnosis. Patient was given: [place] Patient ED course and VS have been stabilized. Patient has been reassessed in the ED and remained in a stable condition. Pertinent incidental findings were discussed with the patient and/or family. Patient/family voices understanding and is agreeable with plan. Patient has been observed in the ED adequate length of time to insure improvement/stability. Patient is not in any acute distress. Patient denies any other symptoms. Patient will be discharged back to his facility. patient was discharged home in a stable condition. All the reports of any imaging studies that were ordered by myself were reviewed by myself. Departure 1 Departure Time of Disposition: 13:17 Impression: Primary Impression: Chronic hip pain Disposition: 01 HOME / SELF CARE / HOMELESS Condition: Stable Additional Instructions: Additional discharge instructions: You MUST follow-up with your primary care/family doctor in 1 to 2 days. If you are unable to see your primary care/family doctor, please return to our emergency room for re-assessment and re-evaluation in 1 to 2 days. Return to the emergency room here in our facility or to the nearest ER [facility] if your symptoms change or worsen. CONSULTATIONS: you MUST Follow-up for consultation as soon as possible with: -orthopedic surgery in 1-2 days. Please call for appointment You MUST call the consultants office yourself to make an appointment. You may need to arrange that through your insurance and/or your primary/family doctor. If you are unable to see the outbound sales consultant in 1 to 2 days, you must return to our emergency room (or any other ER of your choice) for re-assessment and re- evaluation. Adequate fluid hydration. [place] [address] Ph: [phone] DIAGNOSTIC IMAGING Diagnostic Imaging Report : [id number] Signed PATIENT: EMERY ANDRADE ACCT: [id number] UNIT: [id number] : 1990 LOC: ER ROOM / BED: / AGE / SEX: 33 / M ADM STATUS: REG ER SERVICE 1159 ORDERING PHYSICIAN: J LUIS JEROME DO PROCEDURE(s): LHIP - L HIP COMPLETE XRAY REASON: PAIN ORDER NUMBER(s): [id number], ACCESSION NUMBER(s): [id number] CLINICAL INDICATION: PAIN TECHNIQUE: 2 radiographic views of the pelvis and 2 views of the left hip were obtained. Comparison: None FINDINGS/IMPRESSION: Chronic deformity of the left proximal femur with severe osteoarthrosis of the left femoroacetabular joint. ATED BY: TROY WALTERS MD DICTATED DATE/TIME: 12/23/23 1257 SIGNED BY: TROY WALTERS MD SIGNED DATE/TIME: 12/23/23 1257 CC: Discharged With: Self Critical Care Note Critical Care Time?: No I personally scribed for J LUIS JEROME DO ([email or web address]) on 12/23/23 at 11:53. Electronically submitted by Kaushal Matthews ([email or web address]). I personally scribed for J LUIS JEROME DO ([email or web address]) on 12/23/23 at 11:56. Electronically submitted by Kaushal Matthews ([email or web address]). I personally scribed for J LUIS JEROME DO ([email or web address]) on 12/23/23 at 12:03. Electronically submitted by Kaushal Matthews ([email or web address]). I personally scribed for J LUIS JEROME DO ([email or web address]) on 12/23/23 at 13:05. Electronically submitted by Kaushal Matthews ([email or web address]). J LUIS JEROME DO Dec 23, 2023 11:53
[2023-12-23 12:37] VITALS: PULSE 72; RESP 18; O2SAT 98
--- NOTE | 2023-12-23 12:58 | DVH ---
CLINICAL INDICATION: PAIN TECHNIQUE: 2 radiographic views of the pelvis and 2 views of the left hip were obtained. Comparison: None FINDINGS/IMPRESSION: Chronic deformity of the left proximal femur with severe osteoarthrosis of the left femoroacetabular joint.
[2023-12-23] MEDS: HYDROcodone-ACET 5/325MG TAB PO ONE (13:35)
[2023-12-23 15:58] VITALS: TEMP 98.1
[2023-12-23 17:55] VITALS: BP 89/47; PULSE 60; RESP 15; O2SAT 97
== END 2023-12-23 19:24 ==
LOC: EDBD 11:48 → ER 11:48
DX: G89.29 Other chronic pain (principal); M25.552 Pain in left hip; E11.9 Type 2 diabetes mellitus without complications; E78.5 Hyperlipidemia, unspecified; Z79.01 Long term (current) use of anticoagulants; Z79.4 Long term (current) use of insulin; Z79.899 Other long term (current) drug therapy
CPT/HCPCS: 73502; 82962

== ENCOUNTER 2024-07-06 01:00 | Emergency (ER) | payer MEDICAID ==
[~2024-07-06] VITALS: Ht 172.7 cm; Wt 77.2 kg
[2024-07-06 02:00] VITALS: PULSE 78; RESP 18; O2SAT 96
--- NOTE | 2024-07-06 02:09 | ED.PDOC ---
Musculoskeletal HPI Comments 34 year old male presents to ER with complaints of left leg pain x 1 day. Patient presents VIA EMS from [facility] with PMH of anoxic brain injury, seizures, DM and chronic left hip pain/bed ridden stating that he fell while attempting to get into his wheelchair and landed on his left leg yesterday afternoon onto asphalt and has since been experiencing 10/10 left hip and left knee pain. Notes he did hit his forehead upon falling denying any LOC/denying seizure. Patient does present to ER febrile on arrival at 100.8 F, denying any known fever prior to arrival ER. Denies headache, neck pain, n/v, shortness of breath, chest pain, abdominal/pelvic pain, back pain or any further symptoms/complaints Chief Complaint: Lower Extremity Time Seen by MD: 01:42 Primary Care Provider: UNKNOWN NAME Reviewed Notes: Nurses Notes, Medications, Allergies Allergies: Coded Allergies: NO KNOWN ALLERGIES (Unverified , 10/25/23) [facility], where pt lives, states he is not allergic to anything. Home Meds Active Scripts Sulfamethoxazole W/Trimethopri (Bactrim Ds Tablet) 1 Tab Tb, 1 TAB PO BID for 7 Days, #14 TAB 0 Refills Prov:MEETA SALINAS 07/06/24 Levetiracetam (Keppra) 1,000 Mg Tab, 1 TAB PO BID, #60 TAB 5 Refills Prov:REGINA SANCHEZ MD 04/21/23 Reported Medications Cholecalciferol (VITAMIN D3) 2,000 Unit Tab, 25 MCG PO DAILY, TAB 10/25/23 Topiramate (Topiramate) 50 Mg Tab, 50 MG PO QPM, TAB 10/25/23 Tamsulosin HCl (Tamsulosin Hydrochloride) 0.4 Mg Cap, 0.4 MG PO, CAP 10/25/23 Acetaminophen (Tylenol) 325 Mg Cap, 500 MG PO DAILY, CAP 10/25/23 Lidocaine (LIDODERM 5% TOPICAL PATCH) 1 Patch Ph, 1 PATCH TOP DAILY, #30 PATCH 10/25/23 Hydroxyzine Hcl (Hydroxyzine Hcl) 25 Mg Tab, 25 MG PO Q6HPRN PRN for ANXIETY, TAB 10/25/23 Bisacodyl (KP BISACODYL) 5 Mg Tab, 10 MG OR, TAB 10/25/23 Alum & Mag Hydrox-Simethicone (Antacid Anti-Gas) 1 Ml Loree, 30 ML PO Q4HPRN, ML 10/25/23 Senna (Senokot) 8.6 Mg Tab, 1 TAB PO BID, #40 TAB 10/25/23 Rosuvastatin Calcium (Crestor) 5 Mg Tab, 5 MG PO QPM, TAB 10/25/23 Ramelteon (Rozerem) 8 Mg Tab, 1 TAB PO QPM, #30 TAB 1 Refill 10/25/23 Trazodone Hcl (Trazodone Hcl) 100 Mg Tab, 1 TAB PO QPM, #30 TAB 10/25/23 Ondansetron HCl (Ondansetron) 4 Mg Tab, 4 MG PO PRN PRN for Q6, TAB 10/25/23 Pantoprazole Sodium Sesquihydr (Protonix) 40 Mg Tab, 40 MG PO DAILY, #30 TAB 10/25/23 Metoclopramide Hcl (Metoclopramide Hcl) 5 Mg Tab, 5 MG PO TID, TAB 10/25/23 Famotidine (PEPCID TABLET) 20 Mg Tb, 1 TAB PO BID, #60 TAB 5 Refills 10/25/23 Duloxetine Hcl (Cymbalta) 60 Mg Cap, 1 CAP PO DAILY, #90 CAP 3 Refills 10/25/23 Divalproex Sodium (Divalproex Sodium Dr) 500 Mg Tab, 1 TAB PO BID, #60 TAB 1 Refill 10/25/23 Polyethylene Glycol 3350 (Clearlax) 17 Gm/Scoop Pow, 17 GM PO BID, POW 10/25/23 Baclofen (Baclofen) 20 Mg Tab, 5 MG PO TID, TAB 10/25/23 Pregabalin (LYRICA CAPSULE) 25 Mg Cp, 25 MG PO, CAP 10/25/23 Apixaban Base (ELIQUIS) 2.5 Mg Tab, 2.5 MG PO BID, TAB 10/25/23 Divalproex Sodium (Depakote) 250 Mg Tab, 1 TAB PO BID, #60 TAB 2 Refills 10/25/23 Oxycodone W/ Acetaminophen (Apap/Oxycodone) 1 Tab Tab, 1 TAB PO QID for hip pain, #120 TAB 10/25/23 Insulin Detemir (Levemir) Inj, 11 SC BID, INJ 10/25/23 Information Source: Patient Mode of Arrival: EMS Past Medical History PAST MEDICAL HISTORY: DM, High Lipids, Seizures Past Medical History (Other): Chronic left hip pain with chronic deformity to left hip anoxic brain injury/Bedbound Surgical History: Denies all surgeries Family History Family History: Unknown Social History Smoker: Non-Smoker Alcohol: Denies ETOH Use Drugs: Denies Drug Use Lives In: Assisted Care Constitutional: reports: others (As stated in HPI) EENTM: denies: blurred vision, double vision, ear bleeding, ear discharge, ear drainage, ear pain, ear ringing, eye pain, eye redness, hearing loss, mouth pain, mouth swelling, nasal discharge, nose bleeding, nose congestion, nose pain, photophobia, tearing, throat pain, throat swelling, voice changes, others Respiratory: denies: cough, hemoptysis, orthopnea, SOB at rest, shortness of breath, SOB with excertion, stridor, wheezing, others Cardiovascular: denies: chest pain, dizzy spells, diaphoresis, Dyspnea on exertion, edema, irregular heart beat, left arm pain, lightheadedness, palpitations, PND, syncope, others Gastrointestinal: denies: abdomen distended, abdominal pain, blood streaked bowels, constipated, diarrhea, dysphagia, difficulty swallowing, hematemesis, melena, nausea, poor appetite, poor fluid intake, rectal bleeding, rectal pain, vomiting, others Genitourinary: denies: burning, dysuria, flank pain, frequency, hematuria, incontinence, penile discharge, penile sore, pain, testicle pain, testicle swelling, urgency, others Neurological: reports: others (As stated in HPI) Musculoskeletal: reports: others (As stated in HPI) Integumetry: denies: bruises, change in color, change in hair/nails, dryness, laceration, lesions, lumps, rash, wounds, others Allergic/Immunocompromised: denies: Difficulty Healing, Frequent Infections, Hives, Itching, others Hematologic/Lymphatic: denies: anemia, blood clots, easy bleeding, easy bruising, swollen glands, others Endocrine: denies: excessive hunger, excessive sweating, excessive thirst, excessive urination, flushing, intolerance to cold, intolerance to heat, unexplained weight gain, unexplained weight loss, others Psychiatric: denies: anxiety, bipolar disorder, depression, hopeless, panic disorder, schizophrenia, sleepless, suicidal, others Physical Exam General Appearance: No Apparent Distress HEENT: Normal ENT Inspection, PERRL/EOMI, Pharynx Normal, TMs Normal Neck: Full Range of Motion, Non-Tender, Normal Respiratory: Chest Non-Tender, Lungs Clear, No Accessory Muscle Use, No Respiratory Distress, Normal Breath Sounds Cardiovascular: No Murmur, No Gallop, Regular Rate/Rhythm Breast Exam: Deferred Gastrointestinal: Non Tender, No Pulsatile Mass, Soft Genitalia: Deferred Pelvic: Deferred Rectal: Deferred Extremities: No calf tenderness, Normal capillary refill Musculoskeletal : Extremity Location: Hip (TTP to left hip and to left knee noted. Chronic ap pearing deformity to left hip noted, no deformity to left knee noted) Neurologic: Alert (GCS 15), sharepoint trainer II-XII nml as Tested, Motor Weakness (Chronic bilateral lower extremity), Normal Affect, No Sensory Deficits Cerebellar Function: Tremor (patient reports chronic from prior brain injury) Reflexes: Normal Skin: Dry, Normal Color, Warm Peripheral Pulses: 2+ carotid (R), 2+ carotid (L), 2+ femoral (R), 2+ femoral (L), 2+ dorsalis pedis (R), 2+ dorsalis pedis (L), 2+ Radial (R), 2+ Radial (L), 2+ Brachial (R), 2+ Brachial (L) Lymphatic: No Adenopathy Was a procedure done? Was a procedure done?: No Sedation Sedation?: No Differential Diagnosis EXT Differential Diagnosis: Fracture, Dislocation, Laceration, Septic, Neurovascular injury, Other (Subarachnoid hemorrhage, subdural hematoma, laceration) X-Ray, Labs, Meds, VS Vital Signs Date Time Temp Pulse Resp B/P (MAP) Pulse Ox O2 Delivery O2 Flow Rate FiO2 07/06/24 12:00 98.6 80 16 142/79 (100) 97 98.6 07/06/24 08:29 98.7 86 16 122/72 (89) 97 98.7 07/06/24 08:00 86 18 97 Room Air* 0 21 07/06/24 06:01 98.8 88 18 109/72 (84) 95 98.8 07/06/24 05:33 78 18 109/78 07/06/24 05:03 79 20 109/69 07/06/24 04:00 99.1 89 18 121/79 (93) 95 99.1 07/06/24 02:00 99.1 91 18 115/80 (92) 95 99.1 07/06/24 02:00 78 18 96 Room Air* 0 21 07/06/24 01:15 100.8 88 16 130/78 (95) 98 100.8 Lab Test 07/06/24 04:08 07/06/24 02:35 07/06/24 02:10 07/06/24 02:05 Range/Units Urine Color Colorless Yellow Urine Clarity Clear Clear Urine pH 7.5 5.0-9.0 Urine Specific [place] 1.012 1.001-1.035 Urine Protein Negative Negative Urine Ketones Negative Negative Urine Blood Negative Negative /uL Urine Nitrite Negative Negative Urine Bilirubin Negative Negative Urine Urobilinogen Normal Negative mg/dL Urine Leukocyte Esterase Trace Negative /uL Urine RBC 1 0 - 3 /hpf Urine Microscopic WBC 3 0-3 /HPF Urine Squamous Epithelial Cells Few <5 /hpf Urine Bacteria None seen None Seen /hpf Urine Glucose 3+ H Normal mg/dL Lactic Acid Level 1.6 0.4-2.0 mmol/L Influenza Type A Antigen Negative Negative Influenza Type B Antigen Negative Negative SARS-CoV-2 Antigen (Rapid) Negative NEGATIVE White Blood Count 9.5 4.4-10.8 10^3/uL Red Blood Count 3.91 L 4.5-5.90 10^6/uL Hemoglobin 13.1 L 13.5-17.5 g/dL Hematocrit 38.2 L 41.0-53.0 % Mean Corpuscular Volume 97.8 80.0-100.0 fL Mean Corpuscular Hemoglobin 33.5 H 28.0-32.0 pg Mean Corpuscular Hemoglobin Concent 34.2 32.0-36.0 g/dL Red Cell Distribution Width 13.7 11.8-14.3 % Platelet Count 164 140-450 10^3/uL Mean Platelet Volume 9.3 6.9-10.8 fL Neutrophils (%) (Auto) 80.4 H 37.0-80.0 % Lymphocytes (%) (Auto) 10.3 10.0-50.0 % Monocytes (%) (Auto) 8.1 0.0-12.0 % Eosinophils (%) (Auto) 0.8 0.0-7.0 % Basophils (%) (Auto) 0.4 0.0-2.0 % Neutrophils # (Auto) 7.7 1.6-8.6 10 ^3/uL Lymphocytes # (Auto) 1.0 0.4-5.4 10 ^3/uL Monocytes # (Auto) 0.8 0-1.3 10 ^3/uL Eosinophils # (Auto) 0.1 0-0.8 10 ^3/uL Basophils # (Auto) 0 0-0.2 10 ^3/uL Nucleated Red Blood Cells 0.0 % Erythrocyte Sedimentation Rate 2 0-20 mm/hr Prothrombin Time 10.5 9.3-11.8 sec Prothrombin Time INR 0.99 0.9-1.15 Activated Partial Thromboplast Time 28.6 24.5-34.5 SEC Sodium Level 139 136-145 mmol/L Potassium Level 3.6 3.5-5.1 mmol/L Chloride Level 106 98-107 mmol/L Carbon Dioxide Level 24 20-31 mmol/L Anion Gap 9 5-15 Blood Urea Nitrogen 17 9-23 mg/dL Creatinine 0.93 0.700-1.30 mg/dL Glomerular Filtration Rate Calc 110 >90 mL/min BUN/Creatinine Ratio 18.3 10.0-20.0 Serum Glucose 217 H 74-106 mg/dL Calcium Level 9.0 8.7-10.4 mg/dL Current Medications Medications (Trade) Dose Ordered Sig/Lisa Route Start Time Stop Time Status Last Admin Acetaminophen/ Hydrocodone Bitart ([facility] 5/325MG Tab) 1 tab ONCE ONCE PO 07/06/24 02:00 07/06/24 02:01 DC 07/06/24 02:19 Ondansetron HCl (Zofran Po) 4 mg ONCE ONCE PO 07/06/24 02:00 07/06/24 02:01 DC 07/06/24 02:22 Morphine Sulfate 2 mg ONCE ONCE IM 07/06/24 02:45 07/06/24 02:46 DC 07/06/24 05:03 Ceftriaxone Sodium (Rocephin) 1,000 mg ONCE ONCE IM 07/06/24 05:30 07/06/24 05:31 DC 07/06/24 05:52 PATIENT: LUPELOVET: [id number]: [id number] : 1990 LOC: ER ROOM / BED: / AGE / SEX: 34 / M ADM STATUS: REG ER SERVICE 0154 ORDERING PHYSICIAN: MEETA SALINAS PROCEDURE(s): LKNE3 - L KNEE 3V XRAY REASON: left knee pain ORDER NUMBER(s): [id number], ACCESSION NUMBER(s): [id number] EXAM: XY L KNEE 3V XRAY HISTORY: left knee pain COMPARISON: None TECHNIQUE: 3 views of the left knee were performed. FINDINGS: No acute fracture is identified about the left knee. No significant joint space narrowing. No evidence of significant joint effusion. Diffuse osseous demineralization. IMPRESSION: 1. No acute findings. ATED BY: MONTRELL ALCARAZ MD DICTATED DATE/TIME: 07/06/24339 SIGNED BY: MONTRELL ALCARAZ MD SIGNED DATE/TIME: 07/06/24339 CC: PATIENT: EMERY ANDRADE ACCT: [id number] UNIT: [id number] : 1990 LOC: ER ROOM / BED: / AGE / SEX: 34 / M ADM STATUS: REG ER SERVICE 0154 ORDERING PHYSICIAN: MEETA SALINAS PROCEDURE(s): LHIP - L HIP COMPLETE XRAY REASON: left hip pain ORDER NUMBER(s): [id number], ACCESSION NUMBER(s): [id number] XY L HIP COMPLETE XRAY, INDICATION: left hip pain TECHNICAL DATA: Frontal and frog lateral views were obtained of the left hip.] COMPARISON: XY L HIP COMPLETE XRAY on DOS: 12/23/23 IMPRESSION: No acute fracture or dislocation. Chronic appearing deformity of the left hip and acetabulum likely due to congenital hip dysplasia or other congenital etiology palm. Erosive changes at the superior aspect of the expected location of the left femoral neck is impossible to exclude. Consider CT or MRI if there is concern for osteomyelitis. ATED BY: MONTRELL ALCARAZ MD DICTATED DATE/TIME: 07/06/24341 SIGNED BY: MONTRELL ALCARAZ MD SIGNED DATE/TIME: 07/06/24 0342 CC: PATIENT: EMERY ANDRADE ACCT: [id number] UNIT: [id number] : 1990 LOC: ER ROOM / BED: / AGE / SEX: 34 / M ADM STATUS: REG ER SERVICE 0154 ORDERING PHYSICIAN: MEETA SALINAS PROCEDURE(s): HWOCT - HEAD WITHOUT CONTRAST REASON: head injury ORDER NUMBER(s): [id number], ACCESSION NUMBER(s): [id number] EXAM: CT HEAD WITHOUT CONTRAST INDICATION: head injury TECHNIQUE: CT of the head without intravenous contrast. Coronal and sagittal reformatted images are submitted. Radiation Dose : 1. Head: CT Dose: CTDI volume is 64.0 mGy. Dose-length product is 1024 mGy*cm The dose indicators for CT are the volume Computed Tomography (CT) Dose Index (CTDIvol) and the Dose Length Product (DLP), and are measured in units of mGy and mGy-cm, respectively. These indicators are not patient dose, but values generated from the CT scanner acquisition factors. The report includes radiation exposure data for exposures received during this examination. All CT scans at this medical facility are performed using dose modulation techniques as appropriate to a performed exam including the following: Automated exposure control was utilized; adjustment of the MA and/or KV according to patient size; and use of iterative reconstruction technique. COMPARISON: CT HEAD WITHOUT CONTRAST on DOS: 06/10/23 FINDINGS: There is no evidence of acute intracranial hemorrhage, extra-axial collection, mass effect, midline shift, herniation or hydrocephalus. Generalized volume loss. The ventricles, sulci and cisterns are age appropriate. The slater-white differentiation is intact. The visualized paranasal sinuses and mastoid air cells are clear. No depressed calvarial fracture. The surrounding soft tissues are unremarkable. IMPRESSION: 1. No evidence of acute intracranial abnormality. ATED BY: SAUMYA MURDOCK MD DICTATED DATE/TIME: 07/06/24413 SIGNED BY: SAUMYA MURDOCK MD SIGNED DATE/TIME: 07/06/24413 CC: PATIENT: EMERY ANDRADE ACCT: [id number] UNIT: [id number] : 1990 LOC: ER ROOM / BED: / AGE / SEX: 34 / M ADM STATUS: REG ER SERVICE 0347 ORDERING PHYSICIAN: MEETA SALINAS PROCEDURE(s): PL2CT - PELVIS WO CONTRAST REASON: left hip pain, r/o osteomyelitis ORDER NUMBER(s): [id number], ACCESSION NUMBER(s): [id number] Exam: CT PELVIS WO CONTRAST History: left hip pain, r/o osteomyelitis Comparison Study: None TECHNIQUE: CT of the abdomen pelvis was performed without intravenous contrast. Coronal and sagittal reformatted images are provided.. Radiation Dose Information: CT Dose: CTDI volume is 22.96 mGy. Dose-length product is 771.02 mGy*cm FINDINGS: Evaluation of solid organs is limited due to lack of intravenous contrast use. Bones: No acute fracture. There is left hip dysplasia with chronic superior subluxation of the femoral head which articulates with the lateral aspect of the acetabulum. There are bulky marginal osteophytes and loose bodies in the left hip joint. There is no cortical destruction to suggest osteomyelitis. Mild right hip joint space narrowing. Osteophyte formation along the superior margin of the acetabulum. The right hip alignment is maintained. Lower lumbar spine unremarkable. Soft tissues: Mild soft tissue thickening about the left hip. No fluid collection. No significant joint effusion. Fecal distention of the rectum. IMPRESSION: 1. No evidence of osteomyelitis. 2. 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 3. Stool in the rectum. Radiation optimization: All CT scans at this facility use at least one of these dose optimization techniques: automated exposure control mA and/or kV adjustment per patient size (includes targeted exams where dose is matched to clinical indication) or iterative reconstruction. ATED BY: SAUMYA MURDOCK MD DICTATED DATE/TIME: 07/06/24512 SIGNED BY: SAUMYA MURDOCK MD SIGNED DATE/TIME: 07/06/24512 CC: CBC reviewed without any significant abnormalities BMP reviewed without any significant abnormalities Lactic acid reviewed-normal PT/PTT reviewed - normal ESR reviewed - normal Urinalysis reviewed - leukocyte esterase trace, urine blood negative, urine nitrites negative CT head without contrast reviewed Left femur x-ray reviewed Left knee x-ray reviewed CT pelvis w/o contrast reviewed Swab results reviewed-negative [facility] 5/325 mg p.o. ordered Zofran 4 mg p.o. ordered Morphine 2 mg IM ordered Rocephin 1 g IM ordered Previous chart visits reviewed Advised to continue pain medications as currently prescribed Patient neurovascularly intact and had improvement in symptoms prior to discharge Patient will be discharged calli to [facility] Images Reviewed?: Images reviewed and evaluated by me Time of 1ST Reevaluation: 02:00 Reevaluation 1ST: N/A Time of 2ND Reevaluation: 04:10 Reevaluation 2ND: Improved Patient Education/Counseling: Diagnosis, Treatment, Prognosis, Need For Follow Up Family Education/Counseling: No Family Present Departure 1 Departure Time of Disposition: 05:12 Impression: Primary Impression: Head injury Qualified Codes: S09.90XA - Unspecified injury of head, initial encounter Additional Impressions: Contusion of left hip Qualified Codes: S70.02XA - Contusion of left hip, initial encounter History of anoxic brain injury Contusion of left knee Qualified Codes: S80.02XA - Contusion of left knee, initial encounter UTI (urinary tract infection) Qualified Codes: N30.00 - Acute cystitis without hematuria Disposition: 01 HOME / SELF CARE / HOMELESS ([facility]) Condition: Stable e-Prescriptions Sulfamethoxazole W/Trimethopri (Bactrim Ds Tablet) 1 Tab Tb 1 TAB PO BID for 7 Days, #14 TAB 0 Refills Prov: MEETA SALINAS 07/06/24 Discharged With: Friend Critical Care Note Critical Care Time?: No Stability Stability form required: No Heart Score Heart Score: Heart Score Response (Comments) Value History N/A 0 EKG N/A 0 Age N/A 0 Risk Factors N/A 0 Troponin N/A 0 Total 0 MEETA SALINAS July 06, 2024 02:09
[2024-07-06 02:19] LABS: Basophils # (auto) 0 10 ^3/uL (0-0.2); Basophils % (auto) 0.4 % (0.0-2.0); Eosinophils # (auto) 0.1 10 ^3/uL (0-0.8); Eosinophils % (auto) 0.8 % (0.0-7.0); Hematocrit 38.2 % (41.0-53.0); Hemoglobin 13.1 g/dL (13.5-17.5); Lymphocytes % (auto) 10.3 % (10.0-50.0); Mean Corpuscular Hemoglobin 33.5 pg (28.0-32.0); Mean Corpuscular Hgb Conc. 34.2 g/dL (32.0-36.0); Mean Corpuscular Volume 97.8 fL (80.0-100.0); Monocytes # (auto) 0.8 10 ^3/uL (0-1.3); Monocytes % (auto) 8.1 % (0.0-12.0); Neutrophils # (auto) 7.7 10 ^3/uL (1.6-8.6); Neutrophils % (auto) 80.4 % (37.0-80.0); Platelet Count (auto) 164 10^3/uL (140-450); Red Blood Cells 3.91 10^6/uL (4.5-5.90); Red Cell Distribution Width 13.7 % (11.8-14.3); White Blood Cell 9.5 10^3/uL (4.4-10.8)
[2024-07-06] MEDS: HYDROcodone-ACET 5/325MG TAB PO ONE (02:19)
[2024-07-06] MEDS: ONDANSETRON ODT 4 MG TAB PO ONE (02:22)
[2024-07-06 02:34] LABS: INR 0.99 (0.9-1.15); Partial Thromboplastin Time 28.6 SEC (24.5-34.5); Prothrombin Time 10.5 sec (9.3-11.8)
[2024-07-06 02:36] LABS: Anion Gap 9 (5-15); Carbon Dioxide 24 mmol/L (20-31); Chloride 106 mmol/L (98-107); Potassium 3.6 mmol/L (3.5-5.1); Sodium 139 mmol/L (136-145)
[2024-07-06 02:39] LABS: Rapid Influenza A Negative (Negative); Rapid Influenza B Negative (Negative)
[2024-07-06 02:40] LABS: COVID19 ANTIGEN SOFIA FIA NEGATIVE (NEGATIVE)
[2024-07-06 02:42] LABS: BUN/Creatinine Ratio 18.3 (10.0-20.0); Blood Urea Nitrogen 17 mg/dL (9-23)
[2024-07-06 02:59] VITALS: PULSE 91; O2SAT 96
[2024-07-06 03:34] LABS: Glucose 217 mg/dL (74-106)
--- NOTE | 2024-07-06 03:43 | DVH ---
EXAM: XY L KNEE 3V XRAY HISTORY: left knee pain COMPARISON: None TECHNIQUE: 3 views of the left knee were performed. FINDINGS: No acute fracture is identified about the left knee. No significant joint space narrowing. No evide nce of significant joint effusion. Diffuse osseous demineralization. IMPRESSION: 1. No acute findings.
--- NOTE | 2024-07-06 03:44 | DVH ---
XY L HIP COMPLETE XRAY, INDICATION: left hip pain TECHNICAL DATA: Frontal and frog lateral views were obtained of the left hip.] COMPARISON: XY L HIP COMPLETE XRAY on DOS: 12/23/23 IMPRESSION: No acute fracture or dislocation. Chronic appearing deformity of the left hip and acetabulum likely due to congenital hip dysplasia or other congenital etiology palm. Erosive changes at the superior as pect of the expected location of the left femoral neck is impossible to exclude. Consider CT or MRI i f there is concern for osteomyelitis.
--- NOTE | 2024-07-06 04:17 | DVH ---
EXAM: CT HEAD WITHOUT CONTRAST INDICATION: head injury TECHNIQUE: CT of the head without intravenous contrast. Coronal and sagittal reformatted images are s ubmitted. Radiation Dose : 1. Head: CT Dose: CTDI volume is 64.0 mGy. Dose-length product is 1024 mGy*cm The dose indicators for CT are the volume Computed Tomography (CT) Dose Index (CTDIvol) and the Dose Length Product (DLP), and are measured in units of mGy and mGy-cm, respectively. These indicators are not patient dose, but values generated from the CT scanner acquisition factors. The report includes radiation exposure data for exposures received during this examination. All CT scans at this medical facility are performed using dose modulation techniques as appropriate to a performed exam including the following: Automated exposure control was utilized; adjustment of the MA and/or KV according to patient size; and use of iterative reconstruction technique. COMPARISON: CT HEAD WITHOUT CONTRAST on DOS: 06/10/23 FINDINGS: There is no evidence of acute intracranial hemorrhage, extra-axial collection, mass effect, midline s hift, herniation or hydrocephalus. Generalized volume loss. The ventricles, sulci and cisterns are age appropriate. The slater-white differentiation is intact. The visualized paranasal sinuses and mastoid air cells are clear. No depressed calvarial fracture. The surrounding soft tissues are unremarkable. IMPRESSION: 1. No evidence of acute intracranial abnormality.
[2024-07-06 04:25] LABS: Urine Bacteria None Seen /hpf (None Seen)
[2024-07-06 04:52] LABS: Urine Blood Negative /uL (Negative); Urine Clarity Clear (Clear); Urine Color Colorless (Yellow); Urine Protein, UAD Negative (Negative); Urine Specific Gravity 1.012 (1.001-1.035); Urine Squamous Epithelial Cell FEW /hpf (<5); Urine Urobilinogen Normal (Negative); Urine WBC 3 /HPF (0-3); Urine pH 7.5 (5.0-9.0)
[2024-07-06] MEDS: MORPHINE SULFATE INJ 2 MG/ml SYRG IM ONE (05:03)
[2024-07-06 05:07] LABS: Erythrocyte Sedimentation Rate 2 mm/hr (0-20)
--- NOTE | 2024-07-06 05:16 | DVH ---
Exam: CT PELVIS WO CONTRAST History: left hip pain, r/o osteomyelitis Comparison Study: None TECHNIQUE: CT of the abdomen pelvis was performed without intravenous contrast. Coronal and sagittal reformatted images are provided.. Radiation Dose Information: CT Dose: CTDI volume is 22.96 mGy. Dose-length product is 771.02 mGy*cm FINDINGS: Evaluation of solid organs is limited due to lack of intravenous contrast use. Bones: No acute fracture. There is left hip dysplasia with chronic superior subluxation of the femora l head which articulates with the lateral aspect of the acetabulum. There are bulky marginal osteoph ytes and loose bodies in the left hip joint. There is no cortical destruction to suggest osteomyeliti s. Mild right hip joint space narrowing. Osteophyte formation along the superior margin of the aceta bulum. The right hip alignment is maintained. Lower lumbar spine unremarkable. Soft tissues: Mild soft tissue thickening about the left hip. No fluid collection. No significant caty int effusion. Fecal distention of the rectum. IMPRESSION: 1. No evidence of osteomyelitis. 2. 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 3. Stool in the rectum. Radiation optimization: All CT scans at this facility use at least one of these dose optimization paul hniques: automated exposure control mA and/or kV adjustment per patient size (includes targeted exam s where dose is matched to clinical indication) or iterative reconstruction.
[2024-07-06] MEDS ORDERED: BACDST PO (05:19)
[2024-07-06] MEDS: cefTRIAXone SOD 1,000 MG VL IM ONE (05:52)
[2024-07-06 08:00] VITALS: PULSE 86; RESP 18; O2SAT 97
[2024-07-06 12:00] VITALS: BP 142/79; PULSE 80; RESP 16; TEMP 98.6; O2SAT 97
== END 2024-07-06 12:53 | disposition home or self-care (01) ==
LOC: ER 01:00 → EDBD 01:00 → EDUNIT# 01:00 → ER 12:53
DX: S09.90XA Unspecified injury of head, initial encounter (principal); S70.02XA Contusion of left hip, initial encounter; S80.02XA Contusion of left knee, initial encounter; N39.0 Urinary tract infection, site not specified; E11.9 Type 2 diabetes mellitus without complications; E78.5 Hyperlipidemia, unspecified; Z87.898 Personal history of other specified conditions; Z87.820 Personal history of traumatic brain injury; Z79.899 Other long term (current) drug therapy; Z79.01 Long term (current) use of anticoagulants; Z20.822 Contact with and (suspected) exposure to COVID-19; Z79.4 Long term (current) use of insulin; W18.31XA Fall on same level due to stepping on an object, initial encounter; Y93.89 Activity, other specified; Y92.89 Other specified places as the place of occurrence of the external cause; Y99.0 Civilian activity done for income or pay
CPT/HCPCS: 36415; 70450; 72192; 73502; 73562; 80048; 81001; 83605; 85025; 85610; 85652; 85730; 87040; 87426; 87804; 96372; 99285; J0696; J2270; Q0162

== ENCOUNTER 2024-10-18 22:34 | Inpatient (IN) | payer MEDICAID ==
[~2024-10-18] VITALS: Ht 185.4 cm; Wt 75.2 kg
[~2024-10-18 22:34] MED LIST changes: +BACDST PO
--- NOTE | 2024-10-18 23:19 | ED.PDOC ---
History of Present Illness HPI Comments 34 year old male presents to the ED via EMS with a chief complaint of chronic LT hip pain. Per EMS, patient is from [facility], EMS was called due to chronic LT hip pain, upon EMS arrival patient was hyperglycemic was BS 385. Upon ED arrival, BS was 397. PMHx TBI - bed ridden, seizure, DM, chronic LT hip pain. Denies any fall, injury, fever, chills, nausea, vomiting, diarrhea, chest pain, shortness of breath. No other symptoms or modifying factors present at this time. Chief Complaint: Hyperglycemia Time Seen by MD: 22:55 Primary Care Provider: UNKNOWN NAME Reviewed Notes: Medications, Allergies Allergies: Coded Allergies: NO KNOWN ALLERGIES (Unverified , 10/25/23) [facility], where pt lives, states he is not allergic to anything. Home Meds Active Scripts Sulfamethoxazole W/Trimethopri (Bactrim Ds Tablet) 1 Tab Tb, 1 TAB PO BID for 7 Days, #14 TAB 0 Refills Prov:MEETA SALINAS 07/06/24 Levetiracetam (Keppra) 1,000 Mg Tab, 1 TAB PO BID, #60 TAB 5 Refills Prov:REGINA SANCHEZ MD 04/21/23 Reported Medications Cholecalciferol (VITAMIN D3) 2,000 Unit Tab, 25 MCG PO DAILY, TAB 10/25/23 Topiramate (Topiramate) 50 Mg Tab, 50 MG PO QPM, TAB 10/25/23 Tamsulosin HCl (Tamsulosin Hydrochloride) 0.4 Mg Cap, 0.4 MG PO, CAP 10/25/23 Acetaminophen (Tylenol) 325 Mg Cap, 500 MG PO DAILY, CAP 10/25/23 Lidocaine (LIDODERM 5% TOPICAL PATCH) 1 Patch Ph, 1 PATCH TOP DAILY, #30 PATCH 10/25/23 Hydroxyzine Hcl (Hydroxyzine Hcl) 25 Mg Tab, 25 MG PO Q6HPRN PRN for ANXIETY, TAB 10/25/23 Bisacodyl (KP BISACODYL) 5 Mg Tab, 10 MG OR, TAB 10/25/23 Alum & Mag Hydrox-Simethicone (Antacid Anti-Gas) 1 Ml Loree, 30 ML PO Q4HPRN, ML 10/25/23 Senna (Senokot) 8.6 Mg Tab, 1 TAB PO BID, #40 TAB 10/25/23 Rosuvastatin Calcium (Crestor) 5 Mg Tab, 5 MG PO QPM, TAB 10/25/23 Ramelteon (Rozerem) 8 Mg Tab, 1 TAB PO QPM, #30 TAB 1 Refill 10/25/23 Trazodone Hcl (Trazodone Hcl) 100 Mg Tab, 1 TAB PO QPM, #30 TAB 10/25/23 Ondansetron HCl (Ondansetron) 4 Mg Tab, 4 MG PO PRN PRN for Q6, TAB 10/25/23 Pantoprazole Sodium Sesquihydr (Protonix) 40 Mg Tab, 40 MG PO DAILY, #30 TAB 10/25/23 Metoclopramide Hcl (Metoclopramide Hcl) 5 Mg Tab, 5 MG PO TID, TAB 10/25/23 Famotidine (PEPCID TABLET) 20 Mg Tb, 1 TAB PO BID, #60 TAB 5 Refills 10/25/23 Duloxetine Hcl (Cymbalta) 60 Mg Cap, 1 CAP PO DAILY, #90 CAP 3 Refills 10/25/23 Divalproex Sodium (Divalproex Sodium Dr) 500 Mg Tab, 1 TAB PO BID, #60 TAB 1 Refill 10/25/23 Polyethylene Glycol 3350 (Clearlax) 17 Gm/Scoop Pow, 17 GM PO BID, POW 10/25/23 Baclofen (Baclofen) 20 Mg Tab, 5 MG PO TID, TAB 10/25/23 Pregabalin (LYRICA CAPSULE) 25 Mg Cp, 25 MG PO, CAP 10/25/23 Apixaban Base (ELIQUIS) 2.5 Mg Tab, 2.5 MG PO BID, TAB 10/25/23 Divalproex Sodium (Depakote) 250 Mg Tab, 1 TAB PO BID, #60 TAB 2 Refills 10/25/23 Oxycodone W/ Acetaminophen (Apap/Oxycodone) 1 Tab Tab, 1 TAB PO QID for hip pain, #120 TAB 10/25/23 Insulin Detemir (Levemir) Inj, 11 SC BID, INJ 10/25/23 Information Source: Patient, Emergency Med Personnel Mode of Arrival: EMS Severity: Moderate Timing: Hours Duration: Since onset Prehospital treatment: None Past Medical History PAST MEDICAL HISTORY: DM, High Lipids, Seizures Past Medical History (Other): TBI Surgical History: Denies all surgeries Family History Family History: Unknown Social History Smoker: Non-Smoker Alcohol: Denies ETOH Use Drugs: Denies Drug Use Lives In: Assisted Care Constitutional: denies: chills, diaphoresis, fatigue, fever, malaise, sweats, weakness, others EENTM: denies: blurred vision, double vision, ear bleeding, ear discharge, ear drainage, ear pain, ear ringing, eye pain, eye redness, hearing loss, mouth pa in, mouth swelling, nasal discharge, nose bleeding, nose congestion, nose pain, photophobia, tearing, throat pain, throat swelling, voice changes, others Respiratory: denies: cough, hemoptysis, orthopnea, SOB at rest, shortness of breath, SOB with excertion, stridor, wheezing, others Cardiovascular: denies: chest pain, dizzy spells, diaphoresis, Dyspnea on exertion, edema, irregular heart beat, left arm pain, lightheadedness, palpitations, PND, syncope, others Gastrointestinal: denies: abdomen distended, abdominal pain, blood streaked bowels, constipated, diarrhea, dysphagia, difficulty swallowing, hematemesis, melena, nausea, poor appetite, poor fluid intake, rectal bleeding, rectal pain, vomiting, others Genitourinary: denies: burning, dysuria, flank pain, frequency, hematuria, incontinence, penile discharge, penile sore, pain, testicle pain, testicle swelling, urgency, others Neurological: denies: dizziness, fainting, headache, left sided numbness, left sided weakness, numbness, paresthesia, pre-existing deficit, right sided numbness, right sided weakness, seizure, speech problems, tingling, tremors, weakness, others Musculoskeletal: reports: others (chronic LT hip pain); denies: back pain, gout, joint pain, joint swelling, muscle pain, muscle stiffness, neck pain Integumetry: denies: bruises, change in color, change in hair/nails, dryness, laceration, lesions, lumps, rash, wounds, others Allergic/Immunocompromised: denies: Difficulty Healing, Frequent Infections, Hives, Itching, others Hematologic/Lymphatic: denies: anemia, blood clots, easy bleeding, easy bruising, swollen glands, others Endocrine: reports: others (hyperglycemia); denies: excessive hunger, excessive sweating, excessive thirst, excessive urination, flushing, intolerance to cold, intolerance to heat, unexplained weight gain, unexplained weight loss Psychiatric: denies: anxiety, bipolar disorder, depression, hopeless, panic disorder, schizophrenia, sleepless, suicidal, others All Other Systems: Reviewed and Negative Physical Exam General Appearance: Normal HEENT: Normal ENT Inspection, Pharynx Normal, TMs Normal Neck: Full Range of Motion, Non-Tender, Normal, Normal Inspection Respiratory: Chest Non-Tender, Lungs Clear, No Accessory Muscle Use, No Respiratory Distress, Normal Breath Sounds Cardiovascular: No Edema, No JVD, No Murmur, No Gallop, Normal Peripheral Pulses, Regular Rate/Rhythm Breast Exam: Deferred Gastrointestinal: No Organomegaly, Non Tender, No Pulsatile Mass, Normal Bowel Sounds, Soft Genitalia: Deferred Pelvic: Deferred Rectal: Deferred Extremities: Other (Chronic left hip dislocation) Musculoskeletal : Apperance: Normal Neurologic: Motor Weakness Cerebellar Function: NOT DONE Reflexes: NOT DONE Skin: Dry, Normal Color, Warm Lymphatic: No Adenopathy Was a procedure done? Was a procedure done?: No Differential Dx Considerations may include: Chronic hip dislocation, uncontrolled diabetes X-Ray, Labs, Meds, VS Vital Signs Date Time Temp Pulse Resp B/P (MAP) Pulse Ox O2 Delivery O2 Flow Rate FiO2 10/19/24 02:02 73 15 Room Air* 0 21 10/19/24 01:29 68 16 122/79 10/19/24 01:00 98.2 68 14 105/62 (76) 98.2 10/19/24 00:00 75 10/18/24 23:00 98.2 77 21 108/60 (76) 98.2 10/18/24 22:53 98.2 73 15 105/64 (78) 98.2 10/18/24 22:38 98.1 97 16 121/89 97 98.1 Lab Test 10/18/24 23:49 10/18/24 23:14 Range/Units White Blood Count 7.6 4.4-10.8 10^3/uL Red Blood Count 4.19 L 4.5-5.90 10^6/uL Hemoglobin 14.0 13.5-17.5 g/dL Hematocrit 40.2 L 41.0-53.0 % Mean Corpuscular Volume 96.1 80.0-100.0 fL Mean Corpuscular Hemoglobin 33.5 H 28.0-32.0 pg Mean Corpuscular Hemoglobin Concent 34.9 32.0-36.0 g/dL Red Cell Distribution Width 13.3 11.8-14.3 % Platelet Count 238 140-450 10^3/uL Mean Platelet Volume 9.2 6.9-10.8 fL Neutrophils (%) (Auto) 72.6 37.0-80.0 % Lymphocytes (%) (Auto) 16.8 10.0-50.0 % Monocytes (%) (Auto) 9.6 0.0-12.0 % Eosinophils (%) (Auto) 0.4 0.0-7.0 % Basophils (%) (Auto) 0.6 0.0-2.0 % Neutrophils # (Auto) 5.6 1.6-8.6 10 ^3/uL Lymphocytes # (Auto) 1.3 0.4-5.4 10 ^3/uL Monocytes # (Auto) 0.7 0-1.3 10 ^3/uL Eosinophils # (Auto) 0 0-0.8 10 ^3/uL Basophils # (Auto) 0 0-0.2 10 ^3/uL Nucleated Red Blood Cells 0.0 % Sodium Level 135 L 136-145 mmol/L Potassium Level 4.3 3.5-5.1 mmol/L Chloride Level 105 98-107 mmol/L Carbon Dioxide Level 18 L 20-31 mmol/L Anion Gap 12 5-15 Blood Urea Nitrogen 11 9-23 mg/dL Creatinine 1.00 0.700-1.30 mg/dL Glomerular Filtration Rate Calc 101 >90 mL/min BUN/Creatinine Ratio 11.0 10.0-20.0 Serum Glucose 376 H 74-106 mg/dL Calcium Level 9.5 8.7-10.4 mg/dL Current Medications Medications (Trade) Dose Ordered Sig/Lisa Route Start Time Stop Time Status Last Admin Morphine Sulfate 4 mg ONCE ONCE IV 10/19/24 01:00 10/19/24 01:01 SD 10/19/24 01:29 Ondansetron HCl (Zofran) 4 mg ONCE ONCE IV 10/19/24 01:00 10/19/24 01:01 DC 10/19/24 01:29 Time of 1ST Reevaluation: 23:25 Reevaluation 1ST: Unchanged Patient Education/Counseling: Diagnosis, Treatment, Prognosis Family Education/Counseling: No Family Present SEPSIS Sepsis Screen Date sepsis recognized/suspect: Oct 18, 2024 Time Sepsis recognized/suspect: 2229 Recent Procedure: No On Antibiotic Therapy: No Respiratory Rate >20: No Heart Rate >90: Yes Temp<36 C (96.8 F) or >38.3 C: No SBP <90 or MAP <65 mmHG: No New Acute Mental Status Change: No Is the patient on CPAP, BIPAP,: No Physician Orders L Hip Complete Xray (10/19/24 01:09) Vital Signs Date Time Temp Pulse Resp B/P (MAP) Pulse Ox O2 Delivery O2 Flow Rate FiO2 10/19/24 02:02 73 15 Room Air* 0 21 10/19/24 01:29 68 16 122/79 10/19/24 01:00 98.2 68 14 105/62 (76) 98.2 10/19/24 00:00 75 10/18/24 23:00 98.2 77 21 108/60 (76) 98.2 10/18/24 22:53 98.2 73 15 105/64 (78) 98.2 10/18/24 22:38 98.1 97 16 121/89 97 98.1 Laboratory Tests Test 10/18/24 23:49 White Blood Count 7.6 10^3/uL (4.4-10.8) Medications Medications Dose Ordered Sig/Lias Route Start Time Stop Time Status Last Admin Dose Admin Morphine Sulfate 4 mg ONCE ONCE IV 10/19/24 01:00 10/19/24 01:01 DC 10/19/24 01:29 Ondansetron HCl 4 mg ONCE ONCE IV 10/19/24 01:00 10/19/24 01:01 DC 10/19/24 01:29 Departure 1 Departure Time of Disposition: 02:48 (Patient with a chronic left hip dislocation but with intractable pain. We will admit patient for pain control) Impression: Primary Impression: Left hip pain Additional Impression: Hip dislocation, congenital Disposition: 09 ADMITTED INPATIENT Admit to: Med Surg Condition: Serious Critical Care Note Critical Care Time?: No Stability Stability form required: No I personally scribed for MICHAEL DAY MD ([email or web address]) on 10/18/24 at 23:19. Electronically submitted by Mireya Trotter ([email or web address]). MICHAEL DAY MD Oct 18, 2024 23:19
[2024-10-18 23:39] LABS: Chloride 105 mmol/L (98-107); Potassium 4.3 mmol/L (3.5-5.1)
[2024-10-18 23:40] LABS: Anion Gap 12 (5-15); Calcium 9.5 mg/dL (8.7-10.4)
[2024-10-18 23:41] LABS: Carbon Dioxide 18 mmol/L (20-31); Sodium 135 mmol/L (136-145)
[2024-10-18 23:45] LABS: Glucose 376 mg/dL (74-106)
[2024-10-19 00:23] LABS: Hematocrit 40.2 % (41.0-53.0); Hemoglobin 14.0 g/dL (13.5-17.5); Mean Corpuscular Hemoglobin 33.5 pg (28.0-32.0); Mean Corpuscular Volume 96.1 fL (80.0-100.0); Nucleated Red Blood Cells % 0.0 %
[2024-10-19 00:24] LABS: BUN/Creatinine Ratio 11.0 (10.0-20.0); Blood Urea Nitrogen 11 mg/dL (9-23)
[2024-10-19] MEDS: MORPHINE SULFATE 4 MG/ML SYR/VIAL IV ONE (01:29)
[2024-10-19] MEDS: ONDANSETRON HCL 4 MG/2 ML VIAL IV ONE (01:29)
--- NOTE | 2024-10-19 01:57 | DVH ---
CLINICAL INDICATION: hip pain TECHNIQUE: XY L HIP COMPLETE XRAY Comparison: CT PELVIS WO CONTRAST on DOS: 07/06/24, FINDINGS/IMPRESSION: : Redemonstration of dysplasia of the left hip with chronic posterior and superior left hip dislocation . Pseudoarthrosis of the left femoral head and the left iliac bone posterior and superior to the acetab ulum. No acute fracture. Normal mineralization alignment. Right hip joint space is preserved. Overlying soft tissues are intact. Visualized bowel gas is nonobstructed.
[2024-10-19 02:02] VITALS: PULSE 73; RESP 15
[2024-10-19] MEDS ORDERED: DOCUSATE SOD 100 MG CAP PO PRN (06:15)
[2024-10-19] MEDS ORDERED: DEXTROSE (50%) 50ML SYRG IV PRN (07:00)
[2024-10-19 07:54] LABS: Hematocrit 42.9 % (41.0-53.0); Hemoglobin 14.3 g/dL (13.5-17.5); Mean Corpuscular Hemoglobin 33.0 pg (28.0-32.0); Mean Corpuscular Volume 99.2 fL (80.0-100.0); Nucleated Red Blood Cells % 0.1 %
[2024-10-19] MEDS: InsuLIN REG 1unit/0.01ml Soln (100units/ml) SC SCH (08:00)
[2024-10-19] MEDS: ACCU-CHEK COMFORT CURVE STRIP VI SCH (08:00)
[2024-10-19 08:10] LABS: Alanine Aminotransferase 10 U/L (7-40); Albumin 4.3 g/dL (3.2-4.8); Alkaline Phosphatase 69 U/L (46-116); Anion Gap 9 (5-15); BUN/Creatinine Ratio 9.9 (10.0-20.0); Bilirubin, Total 0.6 mg/dL (0.2-1.0); Blood Urea Nitrogen 9 mg/dL (9-23); Calcium 9.4 mg/dL (8.7-10.4); Carbon Dioxide 22 mmol/L (20-31); Potassium 3.8 mmol/L (3.5-5.1); Sodium 140 mmol/L (136-145); Total Protein 7.1 g/dL (5.7-8.2)
[2024-10-19 08:13] LABS: Chloride 109 mmol/L (98-107); Glucose 108 mg/dL (74-106)
[2024-10-19 08:21] LABS: Magnesium 2.1 mg/dL (1.6-2.6)
[2024-10-19 08:43] VITALS: PULSE 62
--- NOTE | 2024-10-19 09:32 | DVHHPRES ---
History of Present Illness Resident Creating Document: JOSE ROBERTO WHARTON RESIDENT History of Present Illness 37-year-old bed-bound patient with past medical history of seizures, traumatic brain injury, type 2 diabetes mellitus, polysubstance abuse, recurrent left dislocation, cardiac arrest as a child came with complaints of left hip pain. On admission the blood glucose was 376. X-ray showed left hip dislocation. PSHx: Patient denies Family history: Patient denies Social history: Admits to using alcohol, smoking and recreational drugs. Lives in [facility] Home medication: Reconcile home medications Allergic history: Patient denies Review of Systems Review of Systems General: patient denies fever, fatigue, weaknes, sweating, any recent changes in appetite and weight HEENT: No headaches, visiual changes, hearing loss, tinnitus, nasal congestion and discharge, and sore throat. Cardiovascular: Denies chest pain, palpitations, dyspnea on exertion, orthopnea, or claudication. Respiratory: No cough, and wheezing. Gastrointestinal: Denies nausea, vomiting, dysphagia, odynophagia, heartburn, abdominal pain, flatulence, bloating, diarrhea, constipation, change in stool, or blood in stool. Genitourinary: No dysuria, hematuria, discharge, frequency, urgency, nocturia, incontinence, and urinary retention. Endocrine: No heat or cold intolerance, polydipsia, polyuria, and polyphagia. Neurological: No dizziness, extremity weakness and numbness, tremors, gait disturbance, seizures, and memory impairment. Psychiatric: Denies depression, anxiety,or insomnia. Musculoskeletal: Complains of left hip pain Skin: No rashes, itching, skin lesion, changes in hair, nail, skin texture and breast. Hematologic/Lymphatic: Denies easy bruising, bleeding tendencies, or lymph node enlargement. Allergies: Coded Allergies: NO KNOWN ALLERGIES (Unverified , 10/25/23) [facility], where pt lives, states he is not allergic to anything. Medications Current Medications Medications Dose Ordered Sig/Lisa Route Start Time Stop Time Status Last Admin Dose Admin Ondansetron HCl 4 mg Q4HP PRN IV 10/19/24 06:15 Docusate Sodium 100 mg BIDPRN PRN PO 10/19/24 06:15 Diagnostic Test (Pha) 1 strip IQ4HR 10/19/24 08:00 Insulin Human Regular IQ4HR SC 10/19/24 08:00 Dextrose 50 ml UD PRN IV 10/19/24 07:00 Apixaban 2.5 mg BID PO 10/19/24 10:00 Lidocaine 1 patch DAILY TOP 10/19/24 10:00 Pantoprazole Sodium 40 mg DAILY PO 10/19/24 10:00 Pregabalin 25 mg DAILY PO 10/19/24 10:00 Tamsulosin HCl 0.4 mg DAILY PO 10/19/24 10:00 Patient Own Medication 5 mg TID PO 10/19/24 14:00 UNV Patient Own Medication 1 tab BID PO 10/19/24 10:00 UNV Patient Own Medication 1 cap DAILY PO 10/19/24 10:00 UNV Patient Own Medication 1 tab BID PO 10/19/24 10:00 UNV Patient Own Medication 17 gm BID PO 10/19/24 10:00 UNV Patient Own Medication 1 tab QPM PO 10/19/24 18:00 Patient Own Medication 5 mg QPM PO 10/19/24 18:00 UNV Patient Own Medication 50 mg QPM PO 10/19/24 18:00 UNV Patient Own Medication 1 tab QPM PO 10/19/24 18:00 UNV Baclofen 5 mg TID PO 10/19/24 14:00 Divalproex Sodium 500 mg BID PO 10/19/24 10:00 Duloxetine HCl 60 mg DAILY PO 10/19/24 10:00 Levetiracetam 1,000 mg BID PO 10/19/24 10:00 Polyethylene Glycol 17 gm BID PO 10/19/24 10:00 Atorvastatin Calcium 20 mg HS PO 10/19/24 22:00 Exam Vital Signs Vital Signs Date Time Temp Pulse Resp B/P (MAP) Pulse Ox O2 Delivery O2 Flow Rate FiO2 10/19/24 08:43 62 10/19/24 08:36 98.2 11 117/68 (84) 95 98.2 10/19/24 02:02 Room Air* 0 21 Exam General Appearance: Alert, Oriented X3, Cooperative, mild distress HEENT: Atraumatic, PERRLA, EOMI, Mucous membrane moist/pink Respiratory: Clear to auscultation, Normal air movement Cardiovascular: Regular rate, Normal S1, Normal S2, No murmurs, no chest wall tenderness Abdominal: Normal bowel sounds, Soft, No tenderness, No hepatospenomegaly, No masses Extremities: Tenderness in left hip joint Skin: No rashes, No breakdown, No significant lesion Neuro: Normal gait, Normal speech, Strength at 5/5 X4 ext, Normal tone, Sensation intact, Cranial nerves 3-12 NL, Reflexes 2+ Psych/Mental Status: Mental status NL, Mood NL Labs/Xrays Labs Test 10/19/24 07:42 10/19/24 03:23 Range/Units White Blood Count 6.5 4.4-10.8 10^3/uL Red Blood Count 4.33 L 4.5-5.90 10^6/uL Hemoglobin 14.3 13.5-17.5 g/dL Hematocrit 42.9 41.0-53.0 % Mean Corpuscular Volume 99.2 80.0-100.0 fL Mean Corpuscular Hemoglobin 33.0 H 28.0-32.0 pg Mean Corpuscular Hemoglobin Concent 33.3 32.0-36.0 g/dL Red Cell Distribution Width 13.7 11.8-14.3 % Platelet Count 249 140-450 10^3/uL Mean Platelet Volume 8.6 6.9-10.8 fL Neutrophils (%) (Auto) 55.5 37.0-80.0 % Lymphocytes (%) (Auto) 30.4 10.0-50.0 % Monocytes (%) (Auto) 11.6 0.0-12.0 % Eosinophils (%) (Auto) 1.7 0.0-7.0 % Basophils (%) (Auto) 0.8 0.0-2.0 % Neutrophils # (Auto) 3.6 1.6-8.6 10 ^3/uL Lymphocytes # (Auto) 2.0 0.4-5.4 10 ^3/uL Monocytes # (Auto) 0.8 0-1.3 10 ^3/uL Eosinophils # (Auto) 0.1 0-0.8 10 ^3/uL Basophils # (Auto) 0.1 0-0.2 10 ^3/uL Nucleated Red Blood Cells 0.1 % Sodium Level 140 # 136-145 mmol/L Potassium Level 3.8 3.5-5.1 mmol/L Chloride Level 109 H 98-107 mmol/L Carbon Dioxide Level 22 20-31 mmol/L Anion Gap 9 5-15 Blood Urea Nitrogen 9 9-23 mg/dL Creatinine 0.91 0.700-1.30 mg/dL Glomerular Filtration Rate Calc 113 >90 mL/min BUN/Creatinine Ratio 9.9 L 10.0-20.0 Serum Glucose 108 #H 74-106 mg/dL Hemoglobin A1c 10.1 H <5.7 % A1C Calcium Level 9.4 8.7-10.4 mg/dL Phosphorus Level 2.9 2.4-5.1 mg/dL Magnesium Level 2.1 1.6-2.6 mg/dL Total Bilirubin 0.6 0.2-1.0 mg/dL Aspartate Amino Transferase (AST) 16 13-40 U/L Alanine Aminotransferase (ALT) 10 7-40 U/L Alkaline Phosphatase 69 46-116 U/L Total Protein 7.1 5.7-8.2 g/dL Albumin 4.3 3.2-4.8 g/dL Vitamin D 25-Hydroxy 56.0 30.0-100 ng/mL POC Glucose 206 H 70-106 mg/dl SEPSIS Sepsis Screen Date sepsis recognized/suspect: Oct 18, 2024 Time Sepsis recognized/suspect: 2299 Recent Procedure: No On Antibiotic Therapy: No Respiratory Rate >20: No Heart Rate >90: No Temp<36 C (96.8 F) or >38.3 C: No SBP <90 or MAP <65 mmHG: No New Acute Mental Status Change: No Is the patient on CPAP, BIPAP,: No Physician Orders Admit (10/19/24 06:08) Allergies (10/19/24 06:08) Code Status (10/19/24 06:08) Ondansetron Hcl (Zofran) (10/19/24 06:15) Docusate Sodium Capsule (Colace Capsule) (10/19/24 06:15) Condition: Fair (10/19/24 06:08) Bedside Commode (10/19/24 06:08) Consistent Carb(Ccho)Diabetes (10/19/24 Breakfast) Glucose Blood (Accu-Chek Comfort Curve T (10/19/24 08:00) Insulin R (Human) (Insulin R) (10/19/24 08:00) Dextrose 50% Syringe (10/19/24 07:00) Vitamin B12 (10/19/24 07:46) Urinalysis (10/19/24 07:46) Thyroid Stimulating Hormone (10/19/24 07:46) * Orthopedic Consult (10/19/24 07:46) Apixaban (Eliquis) (10/19/24 10:00) Lidocaine 5% Topical Patch (Lidoderm 5% (10/19/24 10:00) Pantoprazole Tablet (Protonix Tablet) (10/19/24 10:00) Pregabalin Capsule (Lyrica Capsule) (10/19/24 10:00) Tamsulosin Hydrochloride (Flomax) (10/19/24 10:00) (Nf) Ramelteon (Rozerem) (10/19/24 18:00) (Nf) Rosuvastatin Calcium (Crestor) (10/19/24 18:00) (Nf) Topiramate (10/19/24 18:00) (Nf) Trazodone Hcl (10/19/24 18:00) Baclofen Tablet (Liorisal Tablet) (10/19/24 14:00) Divalproex Dr Tablet (Depakote "Dr" Tabl (10/19/24 10:00) Duloxetine Hcl Capsule (Cymbalta Capsule (10/19/24 10:00) Levetiracetam Tablet (Keppra Tablet) (10/19/24 10:00) Polyethylene Glycol 17g Powder (Miralax (10/19/24 10:00) Atorvastatin (Lipitor) (10/19/24 22:00) Vital Signs Date Time Temp Pulse Resp B/P (MAP) Pulse Ox O2 Delivery O2 Flow Rate FiO2 10/19/24 08:43 62 10/19/24 08:36 98.2 62 11 117/68 (84) 95 98.2 10/19/24 06:00 77 14 108/65 (79) 96 10/19/24 04:00 59 10/19/24 03:00 57 15 104/65 (78) 96 10/19/24 02:02 73 15 Room Air* 0 21 10/19/24 02:00 98.2 74 13 104/83 (90) 98.2 10/19/24 01:59 70 14 122/79 10/19/24 01:29 68 16 122/79 Laboratory Tests Test 10/18/24 23:49 10/19/24 07:42 White Blood Count 7.6 10^3/uL (4.4-10.8) 6.5 10^3/uL (4.4-10.8) Medications Medications Dose Ordered Sig/Lisa Route Start Time Stop Time Status Last Admin Dose Admin Morphine Sulfate 4 mg ONCE ONCE IV 10/19/24 01:00 10/19/24 01:01 DC 10/19/24 01:29 4 MG Ondansetron HCl 4 mg ONCE ONCE IV 10/19/24 01:00 10/19/24 01:01 DC 10/19/24 01:29 4 MG Assessment/Plan Assessment/Plan #Left hip dislocation on x-ray-ortho consult #Recurrent left hip dislocation, pain-rule out neurovascular compromise #Pseudoarthrosis of the left femoral head in the left iliac wounds posterior and superior to the acetabulum # no acute fracture. Normal mineralization and alignment. Right hip joint is preserved #Type 2 diabetes mellitus, blood glucose 376 on presentation-HB A1c, sliding scale #History of polysubstance abuse-urine drug screen #Follow seizure precaution #Follow alcohol level results #Order IV hydration #History of dyslipidemia #Chronic traumatic brain injury Barriers to discharge: Medical management in progress. Case discussed with Dr. Burnette Code status: Full code. Complex patient care discussion needed total 35 minutes Plan discussed with: Patient My Orders Orders - JOSE ROBERTO WHARTON RESIDENT Procedure Category Date Status Time Admit ADMIT 10/19/24 Transmitted 06:08 Allergies LISA 10/19/24 In Process 06:08 Code Status CODE 10/19/24 Transmitted 06:08 Ondansetron Hcl PHA 10/19/24 In Process (Zofran) 06:15 Docusate Sodium PHA 10/19/24 In Process Capsule (Colace 06:15 Condition: Fair LISA 10/19/24 In Process 06:08 Bedside Commode LISA 10/19/24 In Process 06:08 Consistent DIET 10/19/24 Transmitted Carb(Ccho)Diabetes Breakfast Glucose Blood PHA 10/19/24 In Process (Accu-Chek Comfort 08:00 Insulin R (Human) PHA 10/19/24 In Process (Insulin R) 08:00 Dextrose 50% Syringe PHA 10/19/24 In Process 07:00 Date of Service: Oct 19, 2024 Billing Provider: JOSETTE BURNETTE MD Common Visit Codes: 01478-[id number] INP/OBS CARE (HIGH) Secondary Visit Codes: [id number] CARE PLAN 30 MINUTES JOSE ROBERTO WHARTON RESIDENT Oct 19, 2024 09:17
[2024-10-19] MEDS ORDERED: PATIENTS OWN MEDICATION (Levetiracetam (Keppra) 1 TAB) PO SCH (10:00)
[2024-10-19] MEDS ORDERED: POLYETHYLENE GLYCOL 17 GM PO SCH (10:00)
[2024-10-19] MEDS: TAMSULOSIN HYDROCHLORIDE 0.4 MG CAP PO SCH (10:00)
[2024-10-19] MEDS ORDERED: DIVALPROEX SODIUM PO SCH (10:00)
[2024-10-19] MEDS: POLYETHYLENE GLYCOL 17 GM PWDR PO SCH (10:00)
[2024-10-19] MEDS ORDERED: PATIENTS OWN MEDICATION (Duloxetine Hcl (Cymbalta) 1 CAP) PO SCH (10:00)
[2024-10-19] MEDS: levETIRAcetam 500 MG TAB PO SCH (10:02)
[2024-10-19] MEDS: APIXABAN 2.5 MG TAB PO SCH (10:02)
[2024-10-19] MEDS: PANTOPRAZOLE 40 MG TAB PO SCH (10:03)
[2024-10-19] MEDS: PREGABALIN 25 MG CAP PO SCH (10:03)
[2024-10-19] MEDS: LIDOCAINE 5% TOPICAL PATCH TOP SCH (10:15)
[2024-10-19 12:00] VITALS: PULSE 68; RESP 15; O2SAT 96
[2024-10-19] MEDS ORDERED: BACLOFEN 5 MG PO SCH (14:00)
[2024-10-19] MEDS: BACLOFEN 10 MG TAB PO SCH (14:08)
--- NOTE | 2024-10-19 14:26 | DVHINCON2 ---
Consult Note Consult Consult Note The patient is a 34-year-old male with a significant past medical history of L hip dysplasia, hyperglycemia, seizure disorder, history of cardiac arrest as a child, traumatic brain injury (TBI), and polysubstance abuse. He was admitted through the Emergency Department for worsening left hip pain in the setting of hyperglycemia. He resides in an assisted living facility. He reports chronic left hip pain but states that the pain has been worse over the past several days. Pain is localized to the left groin and worsens with movement. No recent trauma report ed. No constitutional symptoms such as fever or chills were endorsed. Past Medical History Hip dysplasia Hyperglycemia Seizure disorder Cardiac arrest as a child Traumatic brain injury (TBI) Polysubstance abuse Social History Resides in assisted living. History of polysubstance abuse. Physical Exam pt laying in bed focused. Left Hip/Groin: Tenderness to palpation over the left groin. Pain with passive and active range of motion. Restricted motion due to pain. Neurovascular: Distal pulses palpable. Sensation grossly intact distally. Motor function intact. Other: No obvious deformity noted externally. Imaging X-rays of the pelvis and left hip (reviewed): Findings consistent with chronic left hip dysplasia. Advanced degenerative changes with significant deformity of the femoral head and acetabulum. Subchondral sclerosis and irregular joint margins. No acute displaced fracture identified on available images. Appearance consistent with chronic changes and likely progression of degenerative hip disease. Assessment 34-year-old male with history of hip dysplasia, chronic left hip pain, hyperglycemia, seizures, TBI, and polysubstance abuse, presenting with acute worsening of chronic left hip pain. X-ray demonstrates severe chronic deformity and degenerative changes of the left hip without evidence of acute fracture. Exam notable for tenderness over the left groin and pain with motion. Case discussed with Dr. Espino (on-call orthopedics). Given the chronicity, left hip pain,medical comorbidities and need for higher level of care, once patients pain and comorbidities are stable and well management, Patient can followup with [facility] Outpatient orthopedic Clinic for further care coordination for left hip. Plan 1. Pain Management: Optimize multimodal analgesia as per ER/primary team/HOSPITALIST. 2. Medical Optimization: Continue management of hyperglycemia and other comorbidities Per hospitalist 3. Follow-Up: [facility] Plan discussed with: Patient, Other (ER PROVIDER) Visit Coding Surgery Date of Service if different f: Oct 19, 2024 Billing Provider: MAGGIE MAK Surgery Visit Codes: 02698 - INP CONSULT <55 MIN MAGGIE MAK Oct 19, 2024 14:26
[2024-10-19] MEDS: ONDANSETRON HCL 4 MG/2 ML VIAL IV PRN (14:47)
[2024-10-19] MEDS: MORPHINE SULFATE INJ 2 MG/ml SYRG IV PRN (14:48)
[2024-10-19] MEDS ORDERED: GABA-1308 PO (17:31)
[2024-10-19] MEDS ORDERED: TAMS-35 PO (17:31)
[2024-10-19] MEDS ORDERED: METF-370 PO (17:31)
--- NOTE | 2024-10-19 17:48 | DVHPNRES ---
Progress Note Date Seen: Oct 19, 2024 Resident Creating Document: KEREN WEBSTER RESIDENT Medical Necessity Reason Pt with a Central, PICC or Fol: No Subjective Review of Systems This is a 34-year-old bed-bound male with a history of traumatic brain injury (TBI), seizures, type 2 diabetes mellitus, and chronic left hip pain presented to the ED via EMS from [facility]. EMS was called due to worsening chronic left hip pain. Patient history of fall few months ago and treated assisted living facility with pain management. As per patient, last night during shower he fall again on left side of the and hitting his left hip area since then continuous pain aggravated on movement and mildly relieved on rest. Patient also complained lower abdominal pain and dark-colored urine but denies any hematuria. Patient denies any recent fall, trauma, fever, chills, nausea, vomiting, diarrhea, chest pain, or shortness of breath. No other associated symptoms or modifying factors reported. PAST MEDICAL HISTORY: DM2, High Lipids, Seizures, TBI Surgical History: Denies all surgeries Family History: Unknown Lives In: Assisted Care, no family members Patient seen and evaluated in bedside. Patient currently denies any acute problem exit feeling anxious. Home medication started. Orthopedic consulted for left hip displacement. Orthopedic recommended referral for higher care possible left hip surgery. Objective vital signs Vital Sign Date Time Temp Pulse Resp B/P (MAP) Pulse Ox O2 Delivery O2 Flow Rate FiO2 10/19/24 15:38 68 14 103/62 (76) 10/19/24 12:00 96 Room Air* 0 21 10/19/24 08:36 98.2 98.2 medications Current Medications Medications Dose Ordered Sig/Lisa Route Start Time Stop Time Status Last Admin Dose Admin Ondansetron HCl 4 mg Q4HP PRN IV 10/19/24 06:15 10/19/24 14:47 4 MG Docusate Sodium 100 mg BIDPRN PRN PO 10/19/24 06:15 Diagnostic Test (Pha) 1 strip IQ4HR 10/19/24 08:00 10/19/24 12:08 1 STRIP Insulin Human Regular IQ4HR SC 10/19/24 08:00 10/19/24 12:15 6 UNITS Dextrose 50 ml UD PRN IV 10/19/24 07:00 Apixaban 2.5 mg BID PO 10/19/24 10:00 10/19/24 10:02 2.5 MG Lidocaine 1 patch DAILY TOP 10/19/24 10:00 10/19/24 10:15 1 PATCH Pantoprazole Sodium 40 mg DAILY PO 10/19/24 10:00 10/19/24 10:03 40 MG Pregabalin 25 mg DAILY PO 10/19/24 10:00 10/19/24 10:03 25 MG Tamsulosin HCl 0.4 mg DAILY PO 10/19/24 10:00 Patient Own Medication 5 mg TID PO 10/19/24 14:00 UNV Patient Own Medication 1 tab BID PO 10/19/24 10:00 UNV Patient Own Medication 1 cap DAILY PO 10/19/24 10:00 UNV Patient Own Medication 1 tab BID PO 10/19/24 10:00 UNV Patient Own Medication 17 gm BID PO 10/19/24 10:00 UNV Patient Own Medication 1 tab QPM PO 10/19/24 18:00 Patient Own Medication 5 mg QPM PO 10/19/24 18:00 UNV Patient Own Medication 50 mg QPM PO 10/19/24 18:00 UNV Patient Own Medication 1 tab QPM PO 10/19/24 18:00 UNV Baclofen 5 mg TID PO 10/19/24 14:00 10/19/24 14:08 5 MG Divalproex Sodium 500 mg BID PO 10/19/24 10:00 10/19/24 10:01 500 MG Duloxetine HCl 60 mg DAILY PO 10/19/24 10:00 10/19/24 10:00 60 MG Levetiracetam 1,000 mg BID PO 10/19/24 10:00 10/19/24 10:02 1,000 MG Polyethylene Glycol 17 gm BID PO 10/19/24 10:00 10/19/24 10:00 17 GM Atorvastatin Calcium 20 mg HS PO 10/19/24 22:00 Topiramate 50 mg QPM PO 10/19/24 18:00 Trazodone HCl 100 mg QPM PO 10/19/24 18:00 Morphine Sulfate 1 mg Q4HP PRN IV 10/19/24 14:30 10/19/24 14:48 1 MG Examination General: Generalized uncontrolled movement noted both upper and lower extremity, bedridden HEENT: No headaches, visiual changes, hearing loss Cardiovascular: Denies chest pain, palpitations, dyspnea Respiratory: No cough, and wheezing. Gastrointestinal: Denies nausea, vomiting, dysphagia, odynophagia, heartburn Genitourinary: No dysuria, hematuria, Endocrine: No heat or cold intolerance, polydipsia, polyuria, and polyphagia. Neurological: Patient having generalized moment unable to determine reflex Musculoskeletal: Complains of left hip pain Skin: No rashes, itching, skin lesion, changes in hair, nail, skin texture and breast. laboratory and microbiology Laboratory Tests 10/19/24 07:42 Test 10/19/24 07:42 Range/Units Serum Glucose 108 #H 74-106 mg/dL Problem List/Assessment/Plan Problem List/Assessment/Plan Assessment & Plan #Left Hip Dislocation X-ray tissues dysplasia left hip with chronic posterior and superior displacement. Orthopedic recommended continue pain management, higher level of care referral initiated for further orthopedic management. History of fall; consider underlying instability or chronic changes. No acute fracture noted. Normal mineralization and alignment. Right hip joint preserved. Monitor for functional impairment and pain management. #Type 2 Diabetes Mellitus with hyperglycemia Hemoglobin A1c 10.1 Blood glucose on presentation: 376 mg/dL. Initiate sliding scale insulin. Monitor for signs of hyperglycemia or complications. Detemir insulin 11 units-home medication #Polysubstance Abuse History of alcohol, tobacco, and recreational drug use. Order urine drug screen. Follow alcohol level results. Consider addiction medicine consult if appropriate. #Seizure disorder Review antiepileptic medication Started divalproex and levetiracetam regimen and levels if applicable. #Hyperlipidemia Home medication rosuvastatin 5 mg Continue atorvastatin 20 mg Review lipid panel. Continue or initiate statin therapy as indicated. #Chronic Traumatic Brain Injury Eliquis 2.5 mg b.i.d. Baclofen 20 mg t.i.d. #Bed-bound status likely related to neurological sequelae. #Supportive care and neuro follow-up as needed. #GERD Maalox-home medication #Chronic constipation likely due to bedridden Polyethylene glycol #Anxiety and depression Trazodone 100 mg Topiramate 50 mg Duloxetine 60 mg DVT prophylaxis: Lovenox 30 mg sc daily GI prophylaxis: Famotidine 40 mg p.o. daily Goals of care discussions. Spent 27 minute with patient. Full code status. Case discussed with Dr. Fercho Howell discussed with: Patient, Other My Orders My Orders Orders - KEREN WEBSTER Procedure Category Date Status Time Apixaban (Eliquis) PHA 10/19/24 In Process 10:00 Lidocaine 5% Topical PHA 10/19/24 In Process Patch (Lidoderm 5% 10:00 Pantoprazole Tablet PHA 10/19/24 In Process (Protonix Tablet) 10:00 Pregabalin Capsule PHA 10/19/24 In Process (Lyrica Capsule) 10:00 Tamsulosin PHA 10/19/24 In Process Hydrochloride (Flomax) 10:00 (Nf) Ramelteon PHA 10/19/24 In Process (Rozerem) 18:00 Baclofen Tablet PHA 10/19/24 In Process (Liorisal Tablet) 14:[address] Tablet PHA 10/19/24 In Process (Depakote "Dr" Tabl 10:00 Duloxetine Hcl PHA 10/19/24 In Process Capsule (Cymbalta 10:00 Levetiracetam Tablet PHA 10/19/24 In Process (Keppra Tablet) 10:00 Polyethylene Glycol PHA 10/19/24 In Process 17g Powder (Miralax 10:00 Atorvastatin (Lipitor) PHA 10/19/24 In Process 22:00 Topiramate (Topamax) PHA 10/19/24 In Process 18:00 Trazodone Hcl PHA 10/19/24 In Process (Desyrel) 18:00 Date of Service: Oct 19, 2024 Billing Provider: LIVIA ELIZABETH MD Common Visit Codes: [id number] INP/OBS CARE(HIGH) KEREN WEBSTER RESIDENT Oct 19, 2024 17:48 YASMANI CHU RESIDENT Oct 21, 2024 02:40 LIVIA ELIZABETH MD Oct 21, 2024 22:41
[2024-10-19] MEDS ORDERED: PATIENTS OWN MEDICATION (Trazodone Hcl 1 TAB) PO SCH (18:00)
[2024-10-19] MEDS ORDERED: PATIENTS OWN MEDICATION (Topiramate 50 MG) PO SCH (18:00)
[2024-10-19] MEDS ORDERED: ROSUVASTATIN CALCIUM 5 MG PO SCH (18:00)
[2024-10-19] MEDS: TOPIRAMATE 25 MG TAB PO SCH (18:00)
[2024-10-19 20:00] VITALS: PULSE 56; RESP 20; O2SAT 98
[2024-10-19 21:00] VITALS: BP 121/76; PULSE 56; RESP 20; TEMP 97.5; O2SAT 98
[2024-10-19] MEDS: INSULIN LANTUS (GLARGINE) 1 /0.01ml (100units/ml) SC SCH (22:40)
[2024-10-19] MEDS: ATORVASTATIN 20 MG TAB PO SCH (22:41)
[2024-10-20 05:00] VITALS: BP 96/64; PULSE 60; RESP 20; TEMP 97.6; O2SAT 98
[2024-10-20 06:53] LABS: Anion Gap 7 (5-15); Carbon Dioxide 26 mmol/L (20-31); Chloride 105 mmol/L (98-107); Potassium 4.1 mmol/L (3.5-5.1); Sodium 138 mmol/L (136-145)
[2024-10-20 06:54] LABS: Calcium 9.1 mg/dL (8.7-10.4)
[2024-10-20 06:59] LABS: BUN/Creatinine Ratio 11.4 (10.0-20.0); Blood Urea Nitrogen 12 mg/dL (9-23); Glucose 294 mg/dL (74-106)
[2024-10-20 07:04] LABS: Hematocrit 40.9 % (41.0-53.0); Hemoglobin 14.0 g/dL (13.5-17.5); Mean Corpuscular Hemoglobin 33.2 pg (28.0-32.0); Mean Corpuscular Volume 97.2 fL (80.0-100.0); Nucleated Red Blood Cells % 0.0 %
[2024-10-20 08:00] VITALS: RESP 16; O2SAT 98
[2024-10-20 09:00] VITALS: BP_SYST 108; BP_SYST 118; BP_DIAS 73; BP_DIAS 74; PULSE 67; PULSE 70; RESP 16; RESP 20; TEMP 97; TEMP 98.6; O2SAT 99
[2024-10-20] MEDS: ENOXAPARIN SOD 40 MG/0.4 ML SYRINGE SC SCH (10:04)
[2024-10-20] MEDS: INSULIN LISPRO (HUMAN) 100 UNITS/ML ML SC SCH (12:26)
[2024-10-20 17:00] VITALS: BP 113/66; PULSE 68; RESP 17; TEMP 98; O2SAT 96
[2024-10-20] MEDS: MORPHINE SULFATE 4 MG/ML SYR/VIAL IV PRN (18:17)
--- NOTE | 2024-10-20 19:59 | DVHDSRES ---
Discharge Summary Date of Admission Resident Creating Document: KEREN WEBSTER RESIDENT Oct 19, 2024 at 06:08 Date of Discharge: Oct 20, 2024 Labs/Diagnostic Data: Laboratory Results Test 10/20/24 17:04 10/20/24 06:02 10/19/24 07:42 POC Glucose 169 mg/dl (70-106) White Blood Count 6.5 10^3/uL (4.4-10.8) Red Blood Count 4.21 10^6/uL (4.5-5.90) Hemoglobin 14.0 g/dL (13.5-17.5) Hematocrit 40.9 % (41.0-53.0) Mean Corpuscular Volume 97.2 fL (80.0-100.0) Mean Corpuscular Hemoglobin 33.2 pg (28.0-32.0) Mean Corpuscular Hemoglobin Concent 34.1 g/dL (32.0-36.0) Red Cell Distribution Width 13.6 % (11.8-14.3) Platelet Count 236 10^3/uL (140-450) Mean Platelet Volume 9.1 fL (6.9-10.8) Neutrophils (%) (Auto) 62.4 % (37.0-80.0) Lymphocytes (%) (Auto) 26.3 % (10.0-50.0) Monocytes (%) (Auto) 9.4 % (0.0-12.0) Eosinophils (%) (Auto) 1.4 % (0.0-7.0) Basophils (%) (Auto) 0.5 % (0.0-2.0) Neutrophils # (Auto) 4.0 10 ^3/uL (1.6-8.6) Lymphocytes # (Auto) 1.7 10 ^3/uL (0.4-5.4) Monocytes # (Auto) 0.6 10 ^3/uL (0-1.3) Eosinophils # (Auto) 0.1 10 ^3/uL (0-0.8) Basophils # (Auto) 0 10 ^3/uL (0-0.2) Nucleated Red Blood Cells 0.0 % Sodium Level 138 mmol/L (136-145) Potassium Level 4.1 mmol/L (3.5-5.1) Chloride Level 105 mmol/L (98-107) Carbon Dioxide Level 26 mmol/L (20-31) Anion Gap 7 (5-15) Blood Urea Nitrogen 12 mg/dL (9-23) Creatinine 1.05 mg/dL (0.700-1.30) Glomerular Filtration Rate Calc 95 mL/min (>90) BUN/Creatinine Ratio 11.4 (10.0-20.0) Serum Glucose 294 mg/dL (74-106) Calcium Level 9.1 mg/dL (8.7-10.4) Hemoglobin A1c 10.1 % A1C (<5.7) Phosphorus Level 2.9 mg/dL (2.4-5.1) Magnesium Level 2.1 mg/dL (1.6-2.6) Total Bilirubin 0.6 mg/dL (0.2-1.0) Aspartate Amino Transferase (AST) 16 U/L (13-40) Alanine Aminotransferase (ALT) 10 U/L (7-40) Alkaline Phosphatase 69 U/L (46-116) Total Protein 7.1 g/dL (5.7-8.2) Albumin 4.3 g/dL (3.2-4.8) Vitamin B12 Level 585 pg/mL (211-911) Vitamin D 25-Hydroxy 56.0 ng/mL (30.0-100) Thyroid Stimulating Hormone (TSH) 2.59 uIU/mL (0.55-4.78) Other Laboratory Tests 10/20/24 06:02 Brief Hx & Hospital Course: This is a 34-year-old bed-bound male with a history of traumatic brain injury (TBI), seizures, type 2 diabetes mellitus, and chronic left hip pain presented to the ED via EMS from [facility]. EMS was called due to worsening chronic left hip pain. Patient history of fall few months ago and treated assisted living facility with pain management. As per patient, last night during shower he fall again on left side of the and hitting his left hip area since then continuous pain aggravated on movement and mildly relieved on rest. Patient also complained lower abdominal pain and dark-colored urine but denies any hematuria. Patient denies any recent fall, trauma, fever, chills, nausea, vomiting, diarrhea, chest pain, or shortness of breath. No other associated symptoms or modifying factors reported. PAST MEDICAL HISTORY: DM2, High Lipids, Seizure, TBI Surgical History: Denies all surgeries Family History: Unknown Lives In: Assisted Care, no family members PCP: Unknown Hospital course: This is a 34-year-old bed-bound male with a history of traumatic brain injury, seizures, type 2 diabetes mellitus, and chronic left hip pain was brought to the ED from [facility] due to worsening left hip pain following a reported fall during showering. The patient described continuous pain aggravated by movement and mildly relieved by rest, along with lower abdominal discomfort and dark-colored urine without hematuria. Physical exam revealed tenderness over the left hip; imaging showed chronic posterior and superior displacement consistent with tissue dysplasia, without acute fracture. Orthopedic consultation recommended referral to a higher level of care for possible surgical intervention. Patient advised to follow-up orthopedic department in [facility]. Pain management continued, and the patient was discharged with instructions to follow up for orthopedic evaluation and monitor for worsening symptoms or functional impairment. Patient is hemodynamically stable for discharge. Patient has received maximum benefit from inpatient treatment. Time was given to answer patient is questions and concerns in Layman terms. Patient verbalized understanding and agree with treatment and follow-up plan patient was recommended to return to ER if any experienced or any worsening of symptoms including fever, hemoptysis, worsening pain. Follow-up with outpatient discharge clinic on Thursday morning, with primary care within 2 weeks after discharge . Make schedule orthopedic department in [facility] for higher level of care. Patient is also advised to continue his home medication. Before discharge we will talk to [id number] to organized eventual higher level of care as outpatient for hip surgery. Physical examination General: Generalized uncontrolled movement noted both upper and lower extremity, bedridden HEENT: No headaches, visiual changes, hearing loss Cardiovascular: Denies chest pain, palpitations, dyspnea Respiratory: No cough, and wheezing. Gastrointestinal: Denies nausea, vomiting, dysphagia, odynophagia, heartburn Genitourinary: No dysuria, hematuria, Endocrine: No heat or cold intolerance, polydipsia, polyuria, and polyphagia. Neurological: Patient having generalized moment unable to determine reflex Musculoskeletal: Mild left hip pain, no swelling Skin: No rashes, itching, skin lesion, changes in hair, nail, skin texture and breast. Operations or Procedures ORDERING PHYSICIAN: MICHAEL DAY MD PROCEDURE(s): LHIP - L HIP COMPLETE XRAY REASON: hip pain ORDER NUMBER(s): [id number], ACCESSION NUMBER(s): [id number] CLINICAL INDICATION: hip pain TECHNIQUE: XY L HIP COMPLETE XRAY Comparison: CT PELVIS WO CONTRAST on DOS: 07/06/24, FINDINGS/IMPRESSION: : Redemonstration of dysplasia of the left hip with chronic posterior and superior left hip dislocation. Pseudoarthrosis of the left femoral head and the left iliac bone posterior and superior to the acetabulum. No acute fracture. Normal mineralization alignment. Right hip joint space is preserved. Overlying soft tissues are intact. Visualized bowel gas is nonobstructed. 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 Pseudoarthrosis of the left femoral head Left hip pain Hip dislocation, congenital Type 2 Diabetes Mellitus with hyperglycemia Polysubstance abuse Seizure disorder Hyperlipidemia Chronic traumatic brain injury Bed-bound status likely related to neurological sequelae GERD Chronic constipation due to bedridden Anxiety and depression Discharge Disposition: Assisted Living Facility Discharge Instruct/Medications Follow Up/Referral: Follow-up with PCP within 2 weeks. Follow-up outpatient clinic 1 week after discharge. Follow-up with orthopedic clinic within 2 weeks of discharge Follow-up orthopedic department in [facility]. Scheduled Acetaminophen (Tylenol), 500 MG PO DAILY, (Reported) Alum & Mag Hydrox-Simethicone (Antacid Anti-Gas), 30 ML PO Q4HPRN, (Reported) Apixaban Base (Eliquis), 2.5 MG PO BID, (Reported) Baclofen (Baclofen), 5 MG PO TID, (Reported) Cholecalciferol (Vitamin D3), 25 MCG PO DAILY, (Reported) Divalproex Sodium (Depakote), 1 TAB PO BID, (Reported) Divalproex Sodium (Divalproex Sodium Dr), 1 TAB PO BID, (Reported) Duloxetine Hcl (Cymbalta), 1 CAP PO DAILY, (Reported) Famotidine (Pepcid Tablet), 1 TAB PO BID, (Reported) Gabapentin (Gabapentin), Unknown Dose PO BID, (Reported) Ibuprofen Micronized (Motrin Tablet), 600 MG PO TID Insulin Detemir (Levemir), 11 SC BID, (Reported) Levetiracetam (Keppra), 1 TAB PO BID Lidocaine (Lidoderm 5% Topical Patch), 1 PATCH TOP DAILY, (Reported) Metformin Hydrochloride (Metformin Hcl), Unknown Dose PO DAILY, (Reported) Metoclopramide Hcl (Metoclopramide Hcl), 5 MG PO TID, (Reported) Oxycodone W/ Acetaminophen (Apap/Oxycodone), 1 TAB PO QID, (Reported) Pantoprazole Sodium Sesquihydr (Protonix), 40 MG PO DAILY, (Reported) Polyethylene Glycol 3350 (Clearlax), 17 GM PO BID, (Reported) Ramelteon (Rozerem), 1 TAB PO QPM, (Reported) Rosuvastatin Calcium (Crestor), 5 MG PO QPM, (Reported) Senna (Senokot), 1 TAB PO BID, (Reported) Sulfamethoxazole W/Trimethopri (Bactrim Ds Tablet), 1 TAB PO BID Tamsulosin Hcl (Flomax), 1 CAP PO DAILY, (Reported) Topiramate (Topiramate), 50 MG PO QPM, (Reported) Trazodone Hcl (Trazodone Hcl), 1 TAB PO QPM, (Reported) Scheduled PRN Hydrocodone-Acetaminophen (Hydrocodone Bitartrate/AC 5-325 mg), 1 TAB PO Q6HP PRN Hydroxyzine Hcl (Hydroxyzine Hcl), 25 MG PO Q6HPRN PRN for ANXIETY, (Reported) Ondansetron HCl (Ondansetron), 4 MG PO PRN PRN for Q6, (Reported) Miscellaneous Medications Bisacodyl (Kp Bisacodyl), 10 MG OR, (Reported) Pregabalin (Lyrica Capsule), 25 MG PO, (Reported) Tamsulosin HCl (Tamsulosin Hydrochloride), 0.4 MG PO, (Reported) Discharge Statement: "Patient was advised to return to the ER or call 911 if any headaches, dizziness, shortness of breath, chest pain, abdominal pain, bleeding, fevers, or worsening of medical condition. Patient was counseled about treatment plan, medications, possible side effects, patientverbalized understanding. All questions were answered to the best of my ability. This discharge took greater then 30 minutes in planning, reviewing documentation, counseling the patient, and discussing with other team members." ASSESSMENT ASSESSMENT Assessment KEREN WEBSTER RESIDENT Oct 20, 2024 19:59 YASMANI CHU RESIDENT Oct 21, 2024 02:44
[2024-10-20 20:00] VITALS: PULSE 67; RESP 19; O2SAT 97
[2024-10-20 20:43] VITALS: BP 114/76; PULSE 67; RESP 19; TEMP 98; O2SAT 97
[2024-10-21 05:21] VITALS: BP 103/67; PULSE 59; RESP 20; TEMP 98.7; O2SAT 100
[2024-10-21 07:48] LABS: Anion Gap 6 (5-15); Carbon Dioxide 26 mmol/L (20-31); Chloride 103 mmol/L (98-107); Potassium 4.3 mmol/L (3.5-5.1)
[2024-10-21 07:49] LABS: Calcium 9.3 mg/dL (8.7-10.4); Hematocrit 41.9 % (41.0-53.0); Hemoglobin 14.8 g/dL (13.5-17.5); Mean Corpuscular Hemoglobin 34.0 pg (28.0-32.0); Mean Corpuscular Volume 96.3 fL (80.0-100.0); Nucleated Red Blood Cells % 0.1 %
[2024-10-21 07:54] LABS: BUN/Creatinine Ratio 11.2 (10.0-20.0); Blood Urea Nitrogen 11 mg/dL (9-23)
[2024-10-21 07:57] LABS: Glucose 279 mg/dL (74-106); Sodium 135 mmol/L (136-145)
[2024-10-21 08:00] VITALS: PULSE 70; RESP 20; O2SAT 99
[2024-10-21 09:00] VITALS: BP 102/75; PULSE 55; RESP 17; TEMP 97.9; O2SAT 99
[2024-10-21 13:00] VITALS: BP 104/65; PULSE 84; RESP 19; TEMP 98.2; O2SAT 99
[2024-10-21] MEDS ORDERED: HYDR-4902 PO (14:01)
[2024-10-21] MEDS ORDERED: IBU600T PO (14:01)
[2024-10-21 15:38] VITALS: BP 115/70; PULSE 70; RESP 16
--- NOTE | 2024-10-21 20:35 | DVHPNRES ---
Progress Note Date Seen: Oct 21, 2024 Resident Creating Document: LEONIDAS WEBSTER Medical Necessity Reason Pt with a Central, PICC or Fol: No Subjective Review of Systems This is a 34-year-old bed-bound male with a history of traumatic brain injury (TBI), seizures, type 2 diabetes mellitus, and chronic left hip pain presented to the ED via EMS from [facility]. EMS was called due to worsening chronic left hip pain. Patient history of fall few months ago and treated assisted living facility with pain management. As per patient, last night during shower he fall again on left side of the and hitting his left hip area since then continuous pain aggravated on movement and mildly relieved on rest. Patient also complained lower abdominal pain and dark-colored urine but denies any hematuria. Patient denies any recent fall, trauma, fever, chills, nausea, vomiting, diarrhea, chest pain, or shortness of breath. No other associated symptoms or modifying factors reported. PAST MEDICAL HISTORY: DM2, High Lipids, Seizures, TBI Surgical History: Denies all surgeries Family History: Unknown Lives In: Assisted Care, no family members Patient seen and evaluated in bedside. Patient medically stable for discharge. Patient will be benefited for wheel chair due to limitation of mobility. Objective vital signs Vital Sign Date Time Temp Pulse Resp B/P (MAP) Pulse Ox O2 Delivery O2 Flow Rate FiO2 10/21/24 20:13 Room Air* 0 21 10/21/24 15:38 70 16 115/70 10/21/24 13:00 98.2 99 98.2 Total Intake and Output 10/20/24 10/20/24 10/21/24 15:00 23:00 07:00 Intake Total 983 ml 600 ml Balance 983 ml 600 ml medications Current Medications Medications Dose Ordered Sig/Lisa Route Start Time Stop Time Status Last Admin Dose Admin Patient Own Medication 5 mg TID PO 10/19/24 14:00 UNV Patient Own Medication 1 tab BID PO 10/19/24 10:00 UNV Patient Own Medication 1 cap DAILY PO 10/19/24 10:00 UNV Patient Own Medication 1 tab BID PO 10/19/24 10:00 UNV Patient Own Medication 17 gm BID PO 10/19/24 10:00 UNV Patient Own Medication 5 mg QPM PO 10/19/24 18:00 UNV Patient Own Medication 50 mg QPM PO 10/19/24 18:00 UNV Patient Own Medication 1 tab QPM PO 10/19/24 18:00 UNV Examination General: Generalized uncontrolled movement noted both upper and lower extremity, bedridden HEENT: No headaches, visiual changes, hearing loss Cardiovascular: Denies chest pain, palpitations, dyspnea Respiratory: No cough, and wheezing. Gastrointestinal: Denies nausea, vomiting, dysphagia, odynophagia, heartburn Genitourinary: No dysuria, hematuria, Endocrine: No heat or cold intolerance, polydipsia, polyuria, and polyphagia. Neurological: Patient having generalized moment unable to determine reflex Musculoskeletal: Complains of left hip pain Skin: No rashes, itching, skin lesion, changes in hair, nail, skin texture and breast. laboratory and microbiology Laboratory Tests 10/21/24 06:43 Test 10/21/24 06:43 Range/Units Serum Glucose 279 H 74-106 mg/dL Problem List/Assessment/Plan Problem List/Assessment/Plan #Left Hip Dislocation #Gait instability pt will be benefited with wheel chair due to limited mobility X-ray tissues dysplasia left hip with chronic posterior and superior displacement. Orthopedic recommended continue pain management, higher level of care referral initiated for further orthopedic management. History of fall; consider underlying instability or chronic changes. No acute fracture noted. Normal mineralization and alignment. Right hip joint preserved. Monitor for functional impairment and pain management. #Type 2 Diabetes Mellitus with hyperglycemia Hemoglobin A1c 10.1 Blood glucose on presentation: 376 mg/dL. Initiate sliding scale insulin. Monitor for signs of hyperglycemia or complications. Detemir insulin 11 units-home medication #Polysubstance Abuse History of alcohol, tobacco, and recreational drug use. Order urine drug screen. Follow alcohol level results. Consider addiction medicine consult if appropriate. #Seizure disorder Review antiepileptic medication Started divalproex and levetiracetam regimen and levels if applicable. #Hyperlipidemia Home medication rosuvastatin 5 mg Continue atorvastatin 20 mg Review lipid panel. Continue or initiate statin therapy as indicated. #Chronic Traumatic Brain Injury Eliquis 2.5 mg b.i.d. Baclofen 20 mg t.i.d. #Bed-bound status likely related to neurological sequelae. #Supportive care and neuro follow-up as needed. #GERD Maalox-home medication #Chronic constipation likely due to bedridden Polyethylene glycol #Anxiety and depression Trazodone 100 mg Topiramate 50 mg Duloxetine 60 mg DVT prophylaxis: Lovenox 30 mg sc daily GI prophylaxis: Famotidine 40 mg p.o. daily Goals of care discussions. Spent 19 minute with patient. Full code status. Medically stable for discharged. Case discussed with Dr. Elizabeth Plan discussed with: Patient, Other (nurse) My Orders My Orders Orders - KEREN WEBSTER Procedure Category Date Status Time Discharge DISCHARGE 10/21/24 Transmitted 15:19 * Database Operator CONS 10/21/24 Transmitted Consult Dietary Evaluation Review Comments: [id number] Eliot BID for wound healing Avoid drug use Expected Outcomes/Goals: controlled DM, healed wounds, gradual wt gain Date of Service: Oct 21, 2024 Billing Provider: LIVIA ELIZABETH MD Common Visit Codes: [id number] INP/OBS CARE(HIGH) KEREN WEBSTER Oct 21, 2024 20:35 LIVIA ELIZABETH MD Oct 21, 2024 21:52
== END 2024-10-21 20:20 | disposition home or self-care (01) | DRG 351 ==
LOC: EDBD 22:34 → ER 22:34 → OVERFLOW 10-19 06:08 → EAST 10-19 15:57
PROVIDERS: ADMIT Student in an Organized Health Care Education/Training Program; ATTEND Student in an Organized Health Care Education/Training Program
DX: Q65.02 Congenital dislocation of left hip, unilateral (principal); R53.2 Functional quadriplegia; Z86.74 Personal history of sudden cardiac arrest; Q65.89 Other specified congenital deformities of hip; S73.015A Posterior dislocation of left hip, initial encounter; E11.65 Type 2 diabetes mellitus with hyperglycemia; E78.5 Hyperlipidemia, unspecified; G40.909 Epilepsy, unspecified, not intractable, without status epilepticus; K21.9 Gastro-esophageal reflux disease without esophagitis; G89.29 Other chronic pain; K59.09 Other constipation; R26.89 Other abnormalities of gait and mobility; F41.9 Anxiety disorder, unspecified; F19.10 Other psychoactive substance abuse, uncomplicated; Z79.4 Long term (current) use of insulin; Z79.01 Long term (current) use of anticoagulants; Z79.899 Other long term (current) drug therapy; Z74.01 Bed confinement status; Z87.820 Personal history of traumatic brain injury; W18.39XA Other fall on same level, initial encounter; Y93.89 Activity, other specified; Y92.89 Other specified places as the place of occurrence of the external cause; Y99.8 Other external cause status
CPT/HCPCS: 36415; 73502; 80048; 80053; 82306; 82607; 82962; 83036; 83735; 84100; 84443; 85025; G0378; J1815; J2405

== ENCOUNTER 2024-10-23 22:08 | Inpatient (IN) | payer MEDICAID ==
[~2024-10-23] VITALS: Ht 172.7 cm; Wt 79.1 kg
[~2024-10-23 22:08] MED LIST changes: -BACDST PO; +GABA-1308 PO; +HYDR-4902 PO; +IBU600T PO; +METF-370 PO
--- NOTE | 2024-10-23 22:28 | ED.PDOC ---
History of Present Illness HPI Comments 34 y/o M is BIBA from [facility] for c/c left hip pain. Patient has a history of chronic left hip pain after shattering his left hip at the age of 17. Patient reports flare up of pain over the past few days. Was seen at another ED facility, yesterday, before being discharged back to facility. Additional hi story of anoxic brain injury, epilepsy, and DM. Denial of any further acute symptoms. Chief Complaint: Lower Extremity Time Seen by MD: 22:10 Primary Care Provider: UNKNOWN NAME Reviewed Notes: Nurses Notes, Box Brander Notes, Medications, Allergies Allergies: Coded Allergies: NO KNOWN ALLERGIES (Unverified , 10/25/23) [facility], where pt lives, states he is not allergic to anything. Home Meds Active Scripts Hydrocodone-Acetaminophen (Hydrocodone Bitartrate/AC 5-325 mg) 1 Tab Tab, 1 TAB PO Q6HP PRN for 5 Days, #20 TAB Prov:LIVIA ELIZABETH MD 10/21/24 Ibuprofen Micronized (MOTRIN TABLET) 600 Mg Tb, 600 MG PO TID for 5 Days, #15 TAB *Black box warning-NSAIDS can increase risk of RI & hypertension, GI irritation, ulceration, bleed, perferation. Do not use post cardiac surgery. Use short duration/lowest effective dose. Prov:LIVIA ELIZABETH MD 10/21/24 Levetiracetam (Keppra) 1,000 Mg Tab, 1 TAB PO BID, #60 TAB 5 Refills Prov:REGINA SANCHEZ MD 04/21/23 Reported Medications Metformin Hydrochloride (Metformin Hcl) 500 Mg Tab, PO DAILY for 30 Days, MG 10/19/24 Gabapentin (Gabapentin) 100 Mg Cap, PO BID for 30 Days, MG 10/19/24 Cholecalciferol (VITAMIN D3) 2,000 Unit Tab, 25 MCG PO DAILY, TAB 10/25/23 Topiramate (Topiramate) 50 Mg Tab, 50 MG PO QPM, TAB 10/25/23 Tamsulosin HCl (Tamsulosin Hydrochloride) 0.4 Mg Cap, 0.4 MG PO, CAP 10/25/23 Acetaminophen (Tylenol) 325 Mg Cap, 500 MG PO DAILY, CAP 10/25/23 Lidocaine (LIDODERM 5% TOPICAL PATCH) 1 Patch Ph, 1 PATCH TOP DAILY, #30 PATCH 10/25/23 Hydroxyzine Hcl (Hydroxyzine Hcl) 25 Mg Tab, 25 MG PO Q6HPRN PRN for ANXIETY, TAB 10/25/23 Bisacodyl (KP BISACODYL) 5 Mg Tab, 10 MG OR, TAB 10/25/23 Alum & Mag Hydrox-Simethicone (Antacid Anti-Gas) 1 Ml Loree, 30 ML PO Q4HPRN, ML 10/25/23 Senna (Senokot) 8.6 Mg Tab, 1 TAB PO BID, #40 TAB 10/25/23 Rosuvastatin Calcium (Crestor) 5 Mg Tab, 5 MG PO QPM, TAB 10/25/23 Ramelteon (Rozerem) 8 Mg Tab, 1 TAB PO QPM, #30 TAB 1 Refill 10/25/23 Trazodone Hcl (Trazodone Hcl) 100 Mg Tab, 1 TAB PO QPM, #30 TAB 10/25/23 Ondansetron HCl (Ondansetron) 4 Mg Tab, 4 MG PO PRN PRN for Q6, TAB 10/25/23 Pantoprazole Sodium Sesquihydr (Protonix) 40 Mg Tab, 40 MG PO DAILY, #30 TAB 10/25/23 Metoclopramide Hcl (Metoclopramide Hcl) 5 Mg Tab, 5 MG PO TID, TAB 10/25/23 Famotidine (PEPCID TABLET) 20 Mg Tb, 1 TAB PO BID, #60 TAB 5 Refills 10/25/23 Duloxetine Hcl (Cymbalta) 60 Mg Cap, 1 CAP PO DAILY, #90 CAP 3 Refills 10/25/23 Divalproex Sodium (Divalproex Sodium Dr) 500 Mg Tab, 1 TAB PO BID, #60 TAB 1 Refill 10/25/23 Polyethylene Glycol 3350 (Clearlax) 17 Gm/Scoop Pow, 17 GM PO BID, POW 10/25/23 Baclofen (Baclofen) 20 Mg Tab, 5 MG PO TID, TAB 10/25/23 Pregabalin (LYRICA CAPSULE) 25 Mg Cp, 25 MG PO, CAP 10/25/23 Apixaban Base (ELIQUIS) 2.5 Mg Tab, 2.5 MG PO BID, TAB 10/25/23 Divalproex Sodium (Depakote) 250 Mg Tab, 1 TAB PO BID, #60 TAB 2 Refills 10/25/23 Oxycodone W/ Acetaminophen (Apap/Oxycodone) 1 Tab Tab, 1 TAB PO QID for hip pain, #120 TAB 10/25/23 Insulin Detemir (Levemir) Inj, 11 SC BID, INJ 10/25/23 Discontinued Reported Medications Tamsulosin Hcl (Flomax) 0.4 Mg Cap, 1 CAP PO DAILY, #30 CAP 11 Refills 10/19/24 Discontinued Scripts Sulfamethoxazole W/Trimethopri (Bactrim Ds Tablet) 1 Tab Tb, 1 TAB PO BID for 7 Days, #14 TAB 0 Refills Prov:MEETA SALINAS 07/06/24 Information Source: Patient, Emergency Med Personnel Mode of Arrival: EMS Past Medical History PAST MEDICAL HISTORY: DM, High Lipids, Seizures Surgical History: Denies all surgeries Family History Family History: Unknown Social History Smoker: Non-Smoker Alcohol: Denies ETOH Use Drugs: Denies Drug Use Lives In: Assisted Care All Other Systems: Reviewed and Negative (As per HPI) Physical Exam General Appearance: No Apparent Distress, Normal HEENT: Normal ENT Inspection, Pharynx Normal, TMs Normal Neck: Full Range of Motion, Non-Tender, Normal, Normal Inspection Respiratory: Chest Non-Tender, Lungs Clear, No Accessory Muscle Use, No Respiratory Distress, Normal Breath Sounds Cardiovascular: No Edema, No JVD, No Murmur, No Gallop, Normal Peripheral Pulses, Regular Rate/Rhythm Breast Exam: Deferred Gastrointestinal: No Organomegaly, Non Tender, No Pulsatile Mass, Normal Bowel Sounds, Soft Genitalia: Deferred Pelvic: Deferred Rectal: Deferred Extremities: No calf tenderness, Normal capillary refill, Normal inspection, Normal range of motion, Non-tender, No pedal edema Musculoskeletal : Location: Left Extremity Location: Hip Apperance: Normal, Tenderness Neurologic: Alert, 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 Was a procedure done?: No Differential Dx Considerations may include: chronic hip pain, fracture, contusion, sprain, among others X-Ray, Labs, Meds, VS Vital Signs Date Time Temp Pulse Resp B/P (MAP) Pulse Ox O2 Delivery O2 Flow Rate FiO2 10/23/24 22:08 98.6 92 16 117/72 98 98.6 Lab Test 10/23/24 22:26 Range/Units White Blood Count 7.9 # 4.4-10.8 10^3/uL Red Blood Count 4.03 L 4.5-5.90 10^6/uL Hemoglobin 13.4 L 13.5-17.5 g/dL Hematocrit 38.4 L 41.0-53.0 % Mean Corpuscular Volume 95.3 80.0-100.0 fL Mean Corpuscular Hemoglobin 33.1 H 28.0-32.0 pg Mean Corpuscular Hemoglobin Concent 34.8 32.0-36.0 g/dL Red Cell Distribution Width 13.4 11.8-14.3 % Platelet Count 213 140-450 10^3/uL Mean Platelet Volume 9.1 6.9-10.8 fL Neutrophils (%) (Auto) 67.7 37.0-80.0 % Lymphocytes (%) (Auto) 23.2 10.0-50.0 % Monocytes (%) (Auto) 6.7 0.0-12.0 % Eosinophils (%) (Auto) 1.4 0.0-7.0 % Basophils (%) (Auto) 1.0 0.0-2.0 % Neutrophils # (Auto) 5.3 1.6-8.6 10 ^3/uL Lymphocytes # (Auto) 1.8 0.4-5.4 10 ^3/uL Monocytes # (Auto) 0.5 0-1.3 10 ^3/uL Eosinophils # (Auto) 0.1 0-0.8 10 ^3/uL Basophils # (Auto) 0.1 0-0.2 10 ^3/uL Nucleated Red Blood Cells 0.1 % Sodium Level 142 # 136-145 mmol/L Potassium Level 3.5 3.5-5.1 mmol/L Chloride Level 107 98-107 mmol/L Carbon Dioxide Level 28 20-31 mmol/L Anion Gap 7 5-15 Blood Urea Nitrogen 11 9-23 mg/dL Creatinine 0.88 0.700-1.30 mg/dL Glomerular Filtration Rate Calc 115 >90 mL/min BUN/Creatinine Ratio 12.5 10.0-20.0 Serum Glucose 101 # 74-106 mg/dL Calcium Level 9.2 8.7-10.4 mg/dL Magnesium Level 1.6 1.6-2.6 mg/dL Total Bilirubin 0.4 0.2-1.0 mg/dL Aspartate Amino Transferase (AST) 11 L 13-40 U/L Alanine Aminotransferase (ALT) 9 7-40 U/L Alkaline Phosphatase 70 46-116 U/L Total Protein 6.7 5.7-8.2 g/dL Albumin 4.3 3.2-4.8 g/dL Time of 1ST Reevaluation: 22:40 Reevaluation 1ST: Unchanged Patient Education/Counseling: Diagnosis, Treatment, Need For Follow Up Family Education/Counseling: No Family Present SEPSIS Sepsis Screen Physician Orders L Hip Complete Xray (10/23/24 22:18) Chest Xray 1 View (10/23/24 22:18) Vital Signs Date Time Temp Pulse Resp B/P (MAP) Pulse Ox O2 Delivery O2 Flow Rate FiO2 10/23/24 22:08 98.6 92 16 117/72 98 98.6 Laboratory Tests Test 10/23/24 22:26 White Blood Count 7.9 10^3/uL (4.4-10.8) # Departure 1 Departure Time of Disposition: 23:41 Impression: Primary Impression: Hip dislocation, congenital Additional Impressions: History of anoxic brain injury Metabolic encephalopathy Disposition: ADMITTED INPATIENT Condition: Guarded Comments 34-year-old male with a history of chronic left hip dislocation and anoxic brain injury now presents with persistent left hip pain and generalized weakness. Lab results reviewed. X-ray results reviewed. Left hip x-ray does show chronic dislocation of the left hip. Patient was given pain medicine but still is uncomfortable on re-evaluation. Patient will need to be admitted for metabolic encephalopathy and anoxic brain injury and left hip dislocation Critical Care Note Critical Care Time?: No Stability Stability form required: No Heart Score Heart Score: Heart Score Response (Comments) Value History N/A 0 EKG N/A 0 Age N/A 0 Risk Factors N/A 0 Troponin N/A 0 Total 0 I personally scribed for SOLE BISHOP MD ([email or web address]) on 10/23/24 at 22:28. Electronically submitted by Tariq Lo [email or web address]). SOLE BISHOP MD Oct 23, 2024 22:28
[2024-10-23 22:46] LABS: Hematocrit 38.4 % (41.0-53.0); Hemoglobin 13.4 g/dL (13.5-17.5); Mean Corpuscular Hemoglobin 33.1 pg (28.0-32.0); Mean Corpuscular Volume 95.3 fL (80.0-100.0); Nucleated Red Blood Cells % 0.1 %
[2024-10-23 23:03] LABS: Albumin 4.3 g/dL (3.2-4.8); Alkaline Phosphatase 70 U/L (46-116); Anion Gap 7 (5-15); BUN/Creatinine Ratio 12.5 (10.0-20.0); Bilirubin, Total 0.4 mg/dL (0.2-1.0); Blood Urea Nitrogen 11 mg/dL (9-23); Calcium 9.2 mg/dL (8.7-10.4); Carbon Dioxide 28 mmol/L (20-31); Glucose 101 mg/dL (74-106); Magnesium 1.6 mg/dL (1.6-2.6); Sodium 142 mmol/L (136-145); Total Protein 6.7 g/dL (5.7-8.2)
[2024-10-23 23:06] LABS: Alanine Aminotransferase 9 U/L (7-40); Chloride 107 mmol/L (98-107); Potassium 3.5 mmol/L (3.5-5.1)
--- NOTE | 2024-10-24 00:34 | DVH ---
CHEST RADIOGRAPH Indication: SOB Technique: Single frontal view of the chest was obtained COMPARISON: XY CHEST PORTABLE on DOS: 10/28/23, XY CHEST PORTABLE on DOS: 06/10/23 FINDINGS: Lines and Tubes: None Lungs: Clear. Left costophrenic sulcus excluded from the image. Pleura: No effusion. No pneumothorax. Cardiomediastinal contours: Unremarkable Bones: Unremarkable IMPRESSION: 1. No acute disease.
--- NOTE | 2024-10-24 00:38 | DVH ---
CLINICAL INDICATION: left hip pain TECHNIQUE: XY L HIP COMPLETE XRAY Comparison: CT PELVIS on DOS: 10/23/24, XY L HIP COMPLETE XRAY on DOS: 10/19/24, CT PELVIS WO CONTRAST on DOS: 07/06/24, XY L HIP COMPLETE XRAY on DOS: 07/06/24, XY L HIP COMPLETE XRAY on DOS: 12/23/23 FINDINGS/IMPRESSION: : Severe chronic appearing degeneration of the left hip marked by morphologic distortion and flattening of the femoral head, severe acetabular and femoral subchondral sclerosis and extensive periarticular and marginal osteophytosis. Moderate degenerative changes of the right hip include joint space narrowing, marginal osteophytosis and acetabular subchondral sclerosis. Soft tissues are unremarkable. Probable rectal fecal impaction.
[2024-10-24] MEDS: MORPHINE SULFATE 4 MG/ML SYR/VIAL IV ONE ×2 (01:51→11:40)
[2024-10-24] MEDS: ONDANSETRON HCL 4 MG/2 ML VIAL IV ONE (01:51)
[2024-10-24] MEDS: HYDROmorphone HCL 2 MG/ML VL/or syr IV ONE ×2 (03:00→03:49)
[2024-10-24] MEDS ORDERED: DOCUSATE SOD 100 MG CAP PO PRN (03:30)
--- NOTE | 2024-10-24 03:30 | DVHHPRES ---
History of Present Illness Resident Creating Document: LEO AARON RESIDENT History of Present Illness Philip Timmons is a 34-year-old male with past medical history of diabetes mellitus, left hip dysplasia, epilepsy, hyperlipidemia, chronic anoxic brain injury, GERD, anxiety, depression came to the ED with chief complaints of 10/10 pain in the left hip which has been increasing since the last 3 months. Patient states that he fell on his left hip 20 years ago after falling of his bed in the senior living, which never fully healed, but since 1 year his left leg has been stuck and stiff and he can not move the left leg without pain. He uses a wheelchair for ambulation at home. Past medical history : diabetes mellitus, left hip dysplasia, epilepsy, hyperlipidemia, chronic anoxic brain injury, GERD, anxiety, depression Past surgical history: Denies Family history: Reviewed, noncontributory Personal history: Does not smoke cigarettes or drink alcohol but smokes weed. Lives : In senior living Review of Systems Constitutional: No: Fever, Chills, Sweats, Weakness, Malaise, Other Eyes: No: Pain, Vision change, Conjunctivae inflammation, Eyelid inflammation, Other, Redness ENT: No: Ear pain, Ear discharge, Nose pain, Nose discharge, Nose congestion, Mouth pain, Mouth swelling, Throat pain, Throat swelling, Other Respiratory: No: Cough, Dry, Shortness of breath, SOB with excertion, Wheezing, Hemoptysis, Pleuritic Pain, Sputum, Wheezing, Other Cardiovascular: No: Chest Pain, Palpitations, Orthopnea, Paroxysmal Noc. Dyspnea, Edema, Lt Headedness, Other Gastrointestinal: No: Nausea, Vomiting, Abdominal Pain, Diarrhea, Constipation, Melena, Hematochezia, Other Genitourinary: No Dysuria, No Frequency, No Incontinence, No Hematuria, No Retention, No Other Musculoskeletal: other (left hip pain), leg pain; No: neck pain, shoulder pain, arm pain, back pain, hand pain, foot pain Skin: No: Rash, Lesions, Jaundice, Bruising, Other Neurological: No: Weakness, Numbness, Incoordination, Change in speech, Confusion, Seizures, Other Allergies: Coded Allergies: NO KNOWN ALLERGIES (Unverified , 10/25/23) [facility], where pt lives, states he is not allergic to anything. Exam Vital Signs Vital Signs Date Time Temp Pulse Resp B/P (MAP) Pulse Ox O2 Delivery O2 Flow Rate FiO2 10/24/24 01:51 76 18 116/67 10/23/24 22:08 98.6 98 98.6 Exam General: Patient alert and oriented in person, place and time. Patient following commands. In moderate distress HEENT: Normocephalic, atraumatic, moist mucous membranes Respiratory/pulmonary: Clear lungs bilaterally, vesicular murmurs present in almost all lung frank, no associated crackles or wheezes. Cardiovascular: Normal heart sounds S1 and S2 with no associated murmurs Abdomen: Abdomen nondistended, there is no pain to palpation in any of the abdominal quadrants, no palpable masses. Extremities: Left Hip tenderness and stiffness Peripheral Pulses: 3+ Radial (R). 3+ Radial (L). 3+ Dorsalis pedis (R). 3+ Dorsalis pedis(L) Skin: No rashes or pruritus, there is no sacral edema present at this time. Neurological: Intact cranial nerves with no focal neurologic deficits Psych/mood: Normal psych/mood Labs/Xrays Labs Test 10/23/24 22:26 Range/Units White Blood Count 7.9 # 4.4-10.8 10^3/uL Red Blood Count 4.03 L 4.5-5.90 10^6/uL Hemoglobin 13.4 L 13.5-17.5 g/dL Hematocrit 38.4 L 41.0-53.0 % Mean Corpuscular Volume 95.3 80.0-100.0 fL Mean Corpuscular Hemoglobin 33.1 H 28.0-32.0 pg Mean Corpuscular Hemoglobin Concent 34.8 32.0-36.0 g/dL Red Cell Distribution Width 13.4 11.8-14.3 % Platelet Count 213 140-450 10^3/uL Mean Platelet Volume 9.1 6.9-10.8 fL Neutrophils (%) (Auto) 67.7 37.0-80.0 % Lymphocytes (%) (Auto) 23.2 10.0-50.0 % Monocytes (%) (Auto) 6.7 0.0-12.0 % Eosinophils (%) (Auto) 1.4 0.0-7.0 % Basophils (%) (Auto) 1.0 0.0-2.0 % Neutrophils # (Auto) 5.3 1.6-8.6 10 ^3/uL Lymphocytes # (Auto) 1.8 0.4-5.4 10 ^3/uL Monocytes # (Auto) 0.5 0-1.3 10 ^3/uL Eosinophils # (Auto) 0.1 0-0.8 10 ^3/uL Basophils # (Auto) 0.1 0-0.2 10 ^3/uL Nucleated Red Blood Cells 0.1 % Sodium Level 142 # 136-145 mmol/L Potassium Level 3.5 3.5-5.1 mmol/L Chloride Level 107 98-107 mmol/L Carbon Dioxide Level 28 20-31 mmol/L Anion Gap 7 5-15 Blood Urea Nitrogen 11 9-23 mg/dL Creatinine 0.88 0.700-1.30 mg/dL Glomerular Filtration Rate Calc 115 >90 mL/min BUN/Creatinine Ratio 12.5 10.0-20.0 Serum Glucose 101 # 74-106 mg/dL Calcium Level 9.2 8.7-10.4 mg/dL Magnesium Level 1.6 1.6-2.6 mg/dL Total Bilirubin 0.4 0.2-1.0 mg/dL Aspartate Amino Transferase (AST) 11 L 13-40 U/L Alanine Aminotransferase (ALT) 9 7-40 U/L Alkaline Phosphatase 70 46-116 U/L Total Protein 6.7 5.7-8.2 g/dL Albumin 4.3 3.2-4.8 g/dL SEPSIS Sepsis Screen Date sepsis recognized/suspect: Oct 23, 2024 Time Sepsis recognized/suspect: 2207 Recent Procedure: No On Antibiotic Therapy: No Respiratory Rate >20: No Heart Rate >90: No Temp<36 C (96.8 F) or >38.3 C: No SBP <90 or MAP <65 mmHG: No New Acute Mental Status Change: No Is the patient on CPAP, BIPAP,: No Physician Orders L Hip Complete Xray (10/23/24 22:18) Chest Xray 1 View (10/23/24 22:18) Admit (10/24/24 03:04) Ketorolac Injection (Toradol Injection) (10/24/24 03:30) Docusate Sodium Capsule (Colace Capsule) (10/24/24 03:30) Tap Water Enema (10/24/24 03:17) * Orthopedic Consult (10/24/24 03:17) Vital Signs Date Time Temp Pulse Resp B/P (MAP) Pulse Ox O2 Delivery O2 Flow Rate FiO2 10/24/24 01:51 76 18 116/67 10/23/24 22:08 98.6 92 16 117/72 98 98.6 Laboratory Tests Test 10/23/24 22:26 White Blood Count 7.9 10^3/uL (4.4-10.8) # Medications Medications Dose Ordered Sig/Lisa Route Start Time Stop Time Status Last Admin Dose Admin Morphine Sulfate 4 mg ONCE ONCE IV 10/23/24 22:30 10/23/24 22:31 DC 10/24/24 01:51 4 MG Ondansetron HCl 4 mg ONCE ONCE IV 10/23/24 22:30 10/23/24 22:31 DC 10/24/24 01:51 4 MG Assessment/Plan Assessment/Plan # Intractable hip pain, likely due to hip dysplasia # Severe chronic degeneration of the left hip - left hip x-ray Severe chronic appearing degeneration of the left hip marked by morphologic distortion and flattening of the femoral head, severe acetabular and femoral subchondral sclerosis and extensive periarticular and marginal osteophytosis. Moderate degenerative changes of the right hip include joint space narrowing, marginal osteophytosis and acetabular subchondral sclerosis. - orthopedic consult, pending - Toradol 30 mg # abnormal involuntary body movements likely due to anoxic brain injury # H/O traumatic brain injury -consider neurology consult # uncontrolled diabetes mellitus HBA1c: 10.6 - consider mild ISS # hyperlipidemia -continue home meds # epilepsy -continue home meds # GERD - Continue home meds # slow transit constipation -water enema -Colace 100 mg # anxiety # depression -continue home meds # polysubstance abuse disorder - patient advised on cessation of marijuana, alcohol use for 13 minutes PPI prophylaxis: Pantoprazole 40 mg DVT prophylaxis: lovenox 30 mg Goals of care addressed with the patient for more than 31 minutes: Full code status Case discussed with , patient and nurse Plan discussed with: Patient My Orders Orders - LEO AARON RESIDENT Procedure Category Date Status Time Admit ADMIT 10/24/24 Transmitted 03:04 Ketorolac Injection PHA 10/24/24 Verified (Toradol Injection) 03:30 Docusate Sodium PHA 10/24/24 Verified Capsule (Colace 03:30 Tap Water Enema ORDERS 10/24/24 Verified 03:17 * Orthopedic Consult CONS 10/24/24 Verified 03:17 LEO AARON RESIDENT Oct 24, 2024 03:30
[2024-10-24 05:04] LABS: INR 1.04 (0.9-1.15); Prothrombin Time 11.0 sec (9.3-11.8)
[2024-10-24] MEDS: ENOXAPARIN SOD 30 MG/0.3 ML SYRINGE SC ONE (08:00)
[2024-10-24 08:10] LABS: Hematocrit 37.2 % (41.0-53.0); Hemoglobin 13.1 g/dL (13.5-17.5); Mean Corpuscular Hemoglobin 33.6 pg (28.0-32.0); Mean Corpuscular Volume 95.1 fL (80.0-100.0); Nucleated Red Blood Cells % 0.1 %
[2024-10-24 08:14] LABS: Alkaline Phosphatase 64 U/L (46-116)
[2024-10-24 08:15] LABS: Albumin 4.1 g/dL (3.2-4.8); Anion Gap 7 (5-15); BUN/Creatinine Ratio 13.8 (10.0-20.0); Bilirubin, Total 0.4 mg/dL (0.2-1.0); Blood Urea Nitrogen 12 mg/dL (9-23); Calcium 9.1 mg/dL (8.7-10.4); Carbon Dioxide 27 mmol/L (20-31); Glucose 89 mg/dL (74-106); Potassium 3.8 mmol/L (3.5-5.1); Sodium 143 mmol/L (136-145); Total Protein 6.7 g/dL (5.7-8.2)
[2024-10-24 08:18] LABS: Alanine Aminotransferase < 9 U/L (7-40); Chloride 109 mmol/L (98-107)
[2024-10-24] MEDS: KETOROLAC TROMETH 30 MG/ML 1ML VIAL IV PRN (09:15)
[2024-10-24] MEDS: SODIUM CHLORIDE 0.9% 1,000 ML IVB ONE (09:19)
[2024-10-24] MEDS: PANTOPRAZOLE 40 MG/10 ML VIAL INJ IV ONE (09:26)
[2024-10-24] MEDS ORDERED: ENOXAPARIN SOD 30 MG/0.3 ML SYRINGE SC SCH (10:00)
[2024-10-24 11:25] VITALS: PULSE 117; RESP 20; O2SAT 98
--- NOTE | 2024-10-24 17:06 | DVHPNRES ---
Progress Note Date Seen: Oct 24, 2024 Resident Creating Document: KEREN WEBSTER RESIDENT Medical Necessity Reason Pt with a Central, PICC or Fol: No Subjective Review of Systems This is a 34-year-old male came from assisted living facility with a complaint of left hip pain. Patient recently discharged from hospital on 10/21/2024 due to left hip pain. X-ray left hip on last admission shows dysplasia of left hip joint. Orthopedic consulted and recommended higher level of care for surgical intervention. Patient admitted today for same reason left hip pain. X-ray left hip10/23/2024-Severe chronic appearing degeneration of the left hip marked by morphologic distortion and flattening of the femoral head, severe acetabular and femoral subchondral sclerosis and extensive periarticular and marginal osteophytosis. Patient. Seen on bedside and no significant changes compared to last admission. offal worker consulted for transfer the patient. PAST MEDICAL HISTORY: DM2, High Lipids, Seizure, TBI Surgical History: Denies all surgeries Family History: Unknown Lives In: Assisted Care, no family members PCP: Unknown Patient seen and evaluated today. Patient still complained of left hip pain. Home medication started. Objective vital signs Vital Sign Date Time Temp Pulse Resp B/P (MAP) Pulse Ox O2 Delivery O2 Flow Rate FiO2 10/24/24 14:45 98.4 73 18 148/72 (97) 99 98.4 10/24/24 11:25 Room Air* 0 21 medications Current Medications Medications Dose Ordered Sig/Lisa Route Start Time Stop Time Status Last Admin Dose Admin Ketorolac Tromethamine 30 mg Q6HPRN PRN IV 10/24/24 03:30 10/29/24 03:29 10/24/24 15:25 30 MG Pantoprazole Sodium 40 mg DAILY IV 10/25/24 10:00 Apixaban 2.5 mg BID PO 10/24/24 22:00 UNV Patient Own Medication 500 mg DAILY PO 10/25/24 10:00 UNV Patient Own Medication 5 mg TID PO 10/24/24 22:00 UNV Patient Own Medication 1 tab BID PO 10/24/24 22:00 UNV Patient Own Medication 1 cap DAILY PO 10/25/24 10:00 UNV Patient Own Medication 11 unit HS SC 10/24/24 22:00 UNV Patient Own Medication 1 tab BID PO 10/24/24 22:00 UNV Patient Own Medication 17 gm BID PO 10/24/24 22:00 UNV Patient Own Medication 1 tab QPM PO 10/24/24 18:00 UNV Patient Own Medication 5 mg QPM PO 10/24/24 18:00 UNV Patient Own Medication 50 mg QPM PO 10/24/24 18:00 UNV Patient Own Medication 1 tab QPM PO 10/24/24 18:00 UNV Insulin Human Lispro AC SC 10/24/24 17:00 UNV Enoxaparin Sodium 40 mg DAILY SC 10/25/24 10:00 UNV Examination General: Patient alert and oriented in person, place and time. Patient following commands. In moderate distress HEENT: Normocephalic, atraumatic, moist mucous membranes Respiratory/pulmonary: Clear lungs bilaterally, vesicular murmurs present in almost all lung frank, no associated crackles or wheezes. Cardiovascular: Normal heart sounds S1 and S2 with no associated murmurs Abdomen: Abdomen nondistended, there is no pain to palpation in any of the abdominal quadrants, no palpable masses. Extremities: Left Hip tender on deep palpation and stiffness Peripheral Pulses: 3+ Radial (R). 3+ Radial (L). 3+ Dorsalis pedis (R). 3+ Dorsalis pedis(L) Skin: No rashes or pruritus, there is no sacral edema present at this time. Neurological: Unable to detect due to movement disorders Psych/mood: Normal psych/mood laboratory and microbiology Laboratory Tests 10/24/24 04:38 Test 10/24/24 04:38 Range/Units Serum Glucose 89 74-106 mg/dL Problem List/Assessment/Plan Problem List/Assessment/Plan # Left hip chronic dysplasia likely congenital #Left Hip Dislocation #Gait instability #Left hip morphologic distortion with severe acetabular and femoral subchondral sclerosis X-ray left hip10/23/2024-Severe chronic appearing degeneration of the left hip marked by morphologic distortion and flattening of the femoral head. severe acetabular and femoral subchondral sclerosis and extensive periarticular and marginal osteophytosis Recent admission, X-ray tissues dysplasia left hip with chronic posterior and superior displacement. Orthopedic recommended continue pain management, higher level of care referral initiated for further orthopedic management. History of fall; consider underlying instability or chronic changes. Pain management. Patient needs to transfer higher level of care for surgical procedure. #Type 2 Diabetes Mellitus - uncontrolled (Hemoglobin A1c 10.1) Initiate sliding scale insulin. Detemir insulin 11 units-home medication #Polysubstance Abuse History of alcohol, tobacco, and recreational drug use. Order urine drug screen. Follow alcohol level results. Consider addiction medicine consult if appropriate. #Seizure disorder Review antiepileptic medication Started divalproex and levetiracetam regimen and levels if applicable. #Hyperlipidemia Continue atorvastatin 20 mg Continue or initiate statin therapy as indicated. #Bed-bound status likely related to neurological sequelae. #Supportive care and neuro follow-up as needed. #Chronic Traumatic Brain Injury Eliquis 2.5 mg b.i.d.-HOME medication Baclofen #GERD Maalox-home medication #Chronic constipation likely due to bedridden Polyethylene glycol #Anxiety and depression Trazodone 100 mg Topiramate 50 mg Duloxetine 60 mg DVT prophylaxis: Lovenox 40 mg sc daily GI prophylaxis: Famotidine 40 mg p.o. daily Goals of care discussions. Spent 24 minute with patient. Full code status. Case discussed with Dr. Brantley Plan discussed with: Patient, Other (Nurse) My Orders My Orders Orders - KEREN WEBSTER RESIDENT Procedure Category Date Status Time (Nf) Acetaminophen PHA 10/25/24 Logged (Tylenol) 10:00 (Nf) Divalproex PHA 10/24/24 Logged Sodium (Divalproex 22:00 (Nf) Duloxetine Hcl PHA 10/25/24 Logged (Cymbalta) 10:00 (Nf) Insulin Detemir PHA 10/24/24 Logged (Levemir) 22:00 (Nf) Levetiracetam PHA 10/24/24 Logged (Keppra) 22:00 (Nf) Polyethylene PHA 10/24/24 Logged Glycol 3350 (Clearlax) 22:00 (Nf) Ramelteon PHA 10/24/24 Logged (Rozerem) 18:00 (Nf) Rosuvastatin PHA 10/24/24 Logged Calcium (Crestor) 18:00 (Nf) Topiramate PHA 10/24/24 Logged 18:00 (Nf) Trazodone Hcl PHA 10/24/24 Logged 18:00 Insulin Lispro PHA 10/24/24 Logged (Human) (Humalog) 17:00 (Nf) Baclofen PHA 10/24/24 Logged 22:00 * Spindraw Operator CONS 10/24/24 Transmitted Consult 16:48 Enoxaparin Sodium PHA 10/25/24 Logged (Lovenox) 10:00 Date of Service: Oct 24, 2024 Billing Provider: LIVIA BRANTLEY MD Common Visit Codes: [id number] INP/OBS CARE(HIGH) KEREN WEBSTER RESIDENT Oct 24, 2024 17:06 YASMANI CHU RESIDENT Oct 25, 2024 21:40 LIVIA BRANTLEY MD Oct 29, 2024 21:11
[2024-10-24] MEDS: RAMELTEON 8 MG PO SCH (18:00)
[2024-10-24] MEDS: INSULIN LISPRO (HUMAN) 100 UNITS/ML ML SC SCH (20:02)
[2024-10-24] MEDS: levETIRAcetam 500 MG TAB PO SCH (21:55)
[2024-10-24] MEDS: BACLOFEN 10 MG TAB PO SCH (21:56)
[2024-10-24] MEDS ORDERED: INSULIN DETEMIR SC SCH (22:00)
[2024-10-24] MEDS ORDERED: APIXABAN 2.5 MG TAB PO SCH (22:00)
[2024-10-24] MEDS: POLYETHYLENE GLYCOL 17 GM PWDR PO SCH (22:00)
[2024-10-24] MEDS: INSULIN DETEMIR SC SCH (22:00)
[2024-10-24] MEDS: MORPHINE SULFATE INJ 2 MG/ml SYRG IV ONE (22:40)
[2024-10-24 23:44] VITALS: PULSE 77; RESP 19; O2SAT 97
[2024-10-25 01:00] VITALS: BP 116/75; PULSE 93; RESP 19; TEMP 96.2; O2SAT 97
[2024-10-25 05:00] VITALS: BP 104/64; PULSE 60; RESP 18; TEMP 97.1; O2SAT 99
[2024-10-25 07:11] LABS: Hematocrit 41.0 % (41.0-53.0); Hemoglobin 14.1 g/dL (13.5-17.5); Mean Corpuscular Hemoglobin 34.2 pg (28.0-32.0); Mean Corpuscular Volume 99.6 fL (80.0-100.0); Nucleated Red Blood Cells % 0.0 %
[2024-10-25 07:14] LABS: Calcium 9.3 mg/dL (8.7-10.4); Chloride 101 mmol/L (98-107); Potassium 4.2 mmol/L (3.5-5.1)
[2024-10-25 07:15] LABS: Anion Gap 16 (5-15)
[2024-10-25 07:20] LABS: BUN/Creatinine Ratio 10.5 (10.0-20.0); Blood Urea Nitrogen 13 mg/dL (9-23)
[2024-10-25 07:27] LABS: Carbon Dioxide 17 mmol/L (20-31); Sodium 134 mmol/L (136-145)
[2024-10-25 07:29] LABS: Glucose 468 mg/dL (74-106)
[2024-10-25 07:30] VITALS: RESP 16
[2024-10-25 08:50] VITALS: BP 105/63; PULSE 67; RESP 17; TEMP 97.9; O2SAT 98
[2024-10-25] MEDS: PANTOPRAZOLE 40 MG/10 ML VIAL INJ IV SCH (08:54)
[2024-10-25] MEDS: ENOXAPARIN SOD 40 MG/0.4 ML SYRINGE SC SCH (08:55)
[2024-10-25] MEDS: ACETAMINOPHEN 500 MG TAB or CAP PO SCH (09:11)
[2024-10-25] MEDS ORDERED: INSULIN DETEMIR(LEVEMIR) 1unit/0.01ml Soln (100units/ml) SC SCH (10:00)
[2024-10-25] MEDS ORDERED: INSULIN DETEMIR SC SCH (10:00)
[2024-10-25] MEDS: INSULIN LANTUS (GLARGINE) 1 /0.01ml (100units/ml) SC SCH (10:00)
[2024-10-25] MEDS: SODIUM CHLORIDE 0.9% 1,000 ML IV ONE (10:52)
--- NOTE | 2024-10-25 11:41 | DVHPNRES ---
Progress Note Medical Necessity Reason Pt with a Central, PICC or Fol: No Objective vital signs Vital Sign Date Time Temp Pulse Resp B/P (MAP) Pulse Ox O2 Delivery O2 Flow Rate FiO2 10/25/24 08:50 97.9 67 17 105/63 (77) 98 97.9 10/25/24 07:30 Room Air* 0 21 Total Intake and Output 10/24/24 10/24/24 10/25/24 15:00 23:00 07:00 Intake Total 500 ml Balance 500 ml medications Current Medications Medications Dose Ordered Sig/Lisa Route Start Time Stop Time Status Last Admin Dose Admin Ketorolac Tromethamine 30 mg Q6HPRN PRN IV 10/24/24 03:30 10/29/24 03:29 10/25/24 08:54 30 MG Pantoprazole Sodium 40 mg DAILY IV 10/25/24 10:00 10/25/24 08:54 40 MG Apixaban 2.5 mg BID PO 10/24/24 22:00 UNV Acetaminophen 500 mg DAILY PO 10/25/24 10:00 Baclofen 5 mg TID PO 10/24/24 22:00 10/25/24 06:18 5 MG Divalproex Sodium 500 mg BID PO 10/24/24 22:00 10/25/24 08:54 500 MG Duloxetine HCl 60 mg DAILY PO 10/25/24 10:00 10/25/24 08:55 60 MG Levetiracetam 1,000 mg BID PO 10/24/24 22:00 10/25/24 08:54 1,000 MG Polyethylene Glycol 17 gm BID PO 10/24/24 22:00 10/24/24 22:33 17 GM Patient Own Medication 1 tab QPM PO 10/24/24 18:00 Atorvastatin Calcium 10 mg QPM PO 10/25/24 18:00 Topiramate 50 mg QPM PO 10/25/24 18:00 Trazodone HCl 100 mg HS PO 10/24/24 22:00 Insulin Human Lispro AC SC 10/24/24 17:00 10/25/24 10:51 5 UNITS Enoxaparin Sodium 40 mg DAILY SC 10/25/24 10:00 10/25/24 08:55 40 MG Insulin Detemir 15 BID SC 10/25/24 10:00 UNV Insulin Glargine 15 units BID@1000,2200 SC 10/25/24 10:00 10/25/24 10:00 15 UNITS laboratory and microbiology Laboratory Tests 10/25/24 05:51 Test 10/25/24 05:51 Range/Units Serum Glucose 468 #*H 74-106 mg/dL Problem List/Assessment/Plan Problem List/Assessment/Plan # 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 severe acetabular and femoral subchondral sclerosis and extensive periarticular and marginal osteophytosis Recent admission, X-ray tissues dysplasia left hip with chronic posterior and superior displacement. Orthopedic recommended continue pain management, higher level of care referral initiated for further orthopedic management. History of fall; consider underlying instability or chronic changes. Pain management. Patient needs to transfer higher level of care for surgical procedure. #Type 2 Diabetes Mellitus with hyperglycemia Hemoglobin A1c 10.1 Initiate sliding scale insulin. Detemir insulin 11 units-home medication #Polysubstance Abuse History of alcohol, tobacco, and recreational drug use. Order urine drug screen. Follow alcohol level results. Consider addiction medicine consult if appropriate. #Seizure disorder Review antiepileptic medication Started divalproex and levetiracetam regimen and levels if applicable. #Hyperlipidemia Continue atorvastatin 20 mg Continue or initiate statin therapy as indicated. #Chronic Traumatic Brain Injury Eliquis 2.5 mg b.i.d.-HOME medication Baclofen #Bed-bound status likely related to neurological sequelae. #Supportive care and neuro follow-up as needed. #GERD Maalox-home medication #Chronic constipation likely due to bedridden Polyethylene glycol #Anxiety and depression Trazodone 100 mg Topiramate 50 mg Duloxetine 60 mg DVT prophylaxis: Lovenox 40 mg sc daily GI prophylaxis: Famotidine 40 mg p.o. daily Goals of care discussions. Spent 24 minute with patient. Full code status. Case discussed with Dr. Brantley My Orders My Orders Orders - KEREN WEBSTER RESIDENT Procedure Category Date Status Time Acetaminophen Tab Or PHA 10/25/24 In Process Cap (Tylenol Tablet 10:[address] Tablet PHA 10/24/24 In Process (Depakote "Dr" Tabl 22:00 Duloxetine Hcl PHA 10/25/24 In Process Capsule (Cymbalta 10:00 Levetiracetam Tablet PHA 10/24/24 In Process (Keppra Tablet) 22:00 Polyethylene Glycol PHA 10/24/24 In Process 17g Powder (Miralax 22:00 (Nf) Ramelteon PHA 10/24/24 In Process (Rozerem) 18:00 Trazodone Hcl PHA 10/24/24 In Process (Desyrel) 22:00 Insulin Lispro PHA 10/24/24 In Process (Human) (Humalog) 17:00 Baclofen Tablet PHA 10/24/24 In Process (Liorisal Tablet) 22:00 * Cosmetic Chemist CONS 10/24/24 Transmitted Consult 16:48 Enoxaparin Sodium PHA 10/25/24 In Process (Lovenox) 10:00 Topiramate (Topamax) PHA 10/25/24 In Process 18:00 Atorvastatin (Lipitor) PHA 10/25/24 In Process 18:00 Mrsa Screen SILVIA 10/25/24 Uncollected 03:46 * Cosmetic Chemist CONS 10/25/24 Transmitted Consult Insulin Lantus PHA 10/25/24 In Process (Glargine) (Lantus) 10:00 Insulin Lispro PHA 10/25/24 Logged (Human) (Humalog) 11:45 KEREN WEBSTER RESIDENT Oct 25, 2024 11:41
[2024-10-25] MEDS: INSULIN LISPRO (HUMAN) 100 UNITS/ML ML SC ONE (11:45)
[2024-10-25 13:00] VITALS: BP 105/56; PULSE 81; RESP 18; TEMP 98.1; O2SAT 99
[2024-10-25] MEDS ORDERED: OXYC-900 PO (13:27)
[2024-10-25] MEDS ORDERED: ATORVASTATIN 20 MG TAB PO SCH (18:00)
[2024-10-25] MEDS ORDERED: TOPIRAMATE 25 MG TAB PO SCH (18:00)
--- NOTE | 2024-10-25 20:15 | DVHDSRES ---
Discharge Summary Date of Admission Resident Creating Document: KEREN WEBSTER RESIDENT Oct 24, 2024 at 03:04 Date of Discharge: Oct 25, 2024 Labs/Diagnostic Data: Laboratory Results Test 10/25/24 13:57 10/25/24 05:51 10/24/24 04:38 10/23/24 22:26 POC Glucose 281 mg/dl (70-106) White Blood Count 7.5 10^3/uL (4.4-10.8) Red Blood Count 4.12 10^6/uL (4.5-5.90) Hemoglobin 14.1 g/dL (13.5-17.5) Hematocrit 41.0 % (41.0-53.0) Mean Corpuscular Volume 99.6 fL (80.0-100.0) Mean Corpuscular Hemoglobin 34.2 pg (28.0-32.0) Mean Corpuscular Hemoglobin Concent 34.3 g/dL (32.0-36.0) Red Cell Distribution Width 13.3 % (11.8-14.3) Platelet Count 202 10^3/uL (140-450) Mean Platelet Volume 10.0 fL (6.9-10.8) Neutrophils (%) (Auto) 76.8 % (37.0-80.0) Lymphocytes (%) (Auto) 15.9 % (10.0-50.0) Monocytes (%) (Auto) 6.4 % (0.0-12.0) Eosinophils (%) (Auto) 0.5 % (0.0-7.0) Basophils (%) (Auto) 0.4 % (0.0-2.0) Neutrophils # (Auto) 5.8 10 ^3/uL (1.6-8.6) Lymphocytes # (Auto) 1.2 10 ^3/uL (0.4-5.4) Monocytes # (Auto) 0.5 10 ^3/uL (0-1.3) Eosinophils # (Auto) 0 10 ^3/uL (0-0.8) Basophils # (Auto) 0 10 ^3/uL (0-0.2) Nucleated Red Blood Cells 0.0 % Sodium Level 134 mmol/L (136-145) Potassium Level 4.2 mmol/L (3.5-5.1) Chloride Level 101 mmol/L (98-107) Carbon Dioxide Level 17 mmol/L (20-31) Anion Gap 16 (5-15) Blood Urea Nitrogen 13 mg/dL (9-23) Creatinine 1.24 mg/dL (0.700-1.30) Glomerular Filtration Rate Calc 78 mL/min (>90) BUN/Creatinine Ratio 10.5 (10.0-20.0) Serum Glucose 468 mg/dL (74-106) Serum Osmolality 309 mOsm/kg (278-298) Calcium Level 9.3 mg/dL (8.7-10.4) Beta-Hydroxybutyric Acid > 4.500 mmol/L (< 0.4) Prothrombin Time 11.0 sec (9.3-11.8) Prothrombin Time INR 1.04 (0.9-1.15) Total Bilirubin 0.4 mg/dL (0.2-1.0) Aspartate Amino Transferase (AST) 15 U/L (13-40) Alanine Aminotransferase (ALT) < 9 U/L (7-40) Alkaline Phosphatase 64 U/L (46-116) Total Protein 6.7 g/dL (5.7-8.2) Albumin 4.1 g/dL (3.2-4.8) Magnesium Level 1.6 mg/dL (1.6-2.6) Other Laboratory Tests 10/25/24 05:51 Brief Hx & Hospital Course: This is a 34-year-old male came from assisted living facility with a complaint of left hip pain. Patient recently discharged from hospital on 10/21/2024 due to left hip pain. X-ray left hip on last admission shows dysplasia of left hip joint. Orthopedic consulted and recommended higher level of care for surgical intervention. Patient admitted today for same reason left hip pain. X-ray left hip10/23/2024-Severe chronic appearing degeneration of the left hip marked by morphologic distortion and flattening of the femoral head, severe acetabular and femoral subchondral sclerosis and extensive periarticular and marginal osteophytosis. Patient Seen on bedside and no significant changes compared to last admission. bog worker consulted for transfer the patient. Past medical history: DM2, High Lipids, Seizure, TBI, chronic left hip pain due to dysplasia, 3 moth comatose state in 2015 (per chart secondary to polysubstance abuse) Surgical History: Denies all surgeries Family History: Unknown Lives In: Assisted Care ([facility]), no family members PCP: Unknown Hospital course: Readmitted due to intractable pain of left hip pain, repeating x-ray left hip which shows Severe chronic appearing degeneration of the left hip marked by morphologic distortion and flattening of the femoral head, severe acetabular and femoral subchondral sclerosis and extensive periarticular and marginal osteophytosis. Orthopedic recommended referral to a higher level of care for surgical intervention. fulfillment specialist had peer to peer with orthopedic some of higher level of Care, recommending outpatient follow-up with Orthopedic since left hip lesion is chronic. Optimized pain management and discharged patient with instructions to follow up for orthopedic evaluation as outpatient to complete elective surgery. Patient is hemodynamically stable for discharge. Patient has received maximum benefit from inpatient treatment. Time was given to answer patient's questions and concerns in Layman terms. Patient verbalized understanding and agree with treatment and follow-up plan patient was recommended to return to ER if any experienced or any worsening of symptoms including fever, hemoptysis, worsening pain. Follow-up with outpatient discharge clinic on Thursday morning, with primary care within 2 weeks after discharge . Make schedule orthopedic department in [facility] for higher level of care. Patient is also advised to continue his home medication. [facility] will organize eventually higher level of care as outpatient for left hip surgery. Goals of care discussed with patient for over 18 minutes: Full code status. Sp marianna to mother (Alyssa:[phone]) discussed about the current management plan Discussed plan with Dr. Brantley, patient and nurses. Physical examination General: Patient alert and oriented in person, place and time. Patient following commands. In moderate distress HEENT: Normocephalic, atraumatic, moist mucous membranes Respiratory/pulmonary: Clear lungs bilaterally, vesicular murmurs present in almost all lung frank, no associated crackles or wheezes. Cardiovascular: Normal heart sounds S1 and S2 with no associated murmurs Abdomen: Abdomen nondistended, there is no pain to palpation in any of the abdominal quadrants, no palpable masses. Extremities: Left Hip tender on deep palpation and stiffness Peripheral Pulses: 3+ Radial (R). 3+ Radial (L). 3+ Dorsalis pedis (R). 3+ Dorsalis pedis(L) Skin: No rashes or pruritus, there is no sacral edema present at this time. Neurological: Unable to detect due to movement disorders Psych/mood: Normal psych/mood Operations or Procedures CHEST RADIOGRAPH Indication: SOB Technique: Single frontal view of the chest was obtained COMPARISON: XY CHEST PORTABLE on DOS: 10/28/23, XY CHEST PORTABLE on DOS: 06/10/23 FINDINGS: Lines and Tubes: None Lungs: Clear. Left costophrenic sulcus excluded from the image. Pleura: No effusion. No pneumothorax. Cardiomediastinal contours: Unremarkable Bones: Unremarkable IMPRESSION: 1. No acute disease. ATED BY: RAMSES JAMES MD DICTATED DATE/TIME: 10/24/2431. CLINICAL INDICATION: left hip pain TECHNIQUE: XY L HIP COMPLETE XRAY Comparison: CT PELVIS on DOS: 10/23/24, XY L HIP COMPLETE XRAY on DOS: 10/19/24, CT PELVIS WO CONTRAST on DOS: 07/06/24, XY L HIP COMPLETE XRAY on DOS: 07/06/24, XY L HIP COMPLETE XRAY on DOS: 12/23/23 FINDINGS/IMPRESSION: : Severe chronic appearing degeneration of the left hip marked by morphologic distortion and flattening of the femoral head, severe acetabular and femoral subchondral sclerosis and extensive periarticular and marginal osteophytosis. Moderate degenerative changes of the right hip include joint space narrowing, marginal osteophytosis and acetabular subchondral sclerosis. Soft tissues are unremarkable. Probable rectal fecal impaction. ATED BY: RAMSES JAMES MD DICTATED DATE/TIME: 10/24/2434 Condition at Discharge: Stable Final Diagnosis/Problems List Intractable left hip pain due to dysplasia Left hip morphologic distortion with severe acetabular and femoral subchondral sclerosis Dysplasia left hip with chronic posterior and superior displacement. Pseudoarthrosis of the left femoral head Left hip pain Hip dislocation, congenital Type 2 Diabetes Mellitus with hyperglycemia Polysubstance abuse Seizure disorder Hyperlipidemia Chronic traumatic brain injury Bed-bound status likely related to neurological sequelae GERD Chronic constipation due to bedridden Anxiety and depression Discharge Disposition: Assisted Living Facility Discharge Instruct/Medications Diet: Regular Activity: No Restrictions, As Tolerated Follow Up/Referral: PCP Discharge clinic Orthopedics Medications: Oxycodone Scheduled Acetaminophen (Tylenol), 500 MG PO DAILY, (Reported) Alum & Mag Hydrox-Simethicone (Antacid Anti-Gas), 30 ML PO Q4HPRN, (Reported) Apixaban Base (Eliquis), 2.5 MG PO BID, (Reported) Baclofen (Baclofen), 5 MG PO TID, (Reported) Cholecalciferol (Vitamin D3), 25 MCG PO DAILY, (Reported) Divalproex Sodium (Depakote), 1 TAB PO BID, (Reported) Duloxetine Hcl (Cymbalta), 1 CAP PO DAILY, (Reported) Famotidine (Pepcid Tablet), 1 TAB PO BID, (Reported) Gabapentin (Gabapentin), Unknown Dose PO BID, (Reported) Ibuprofen Micronized (Motrin Tablet), 600 MG PO TID Insulin Detemir (Levemir), 11 SC BID, (Reported) Levetiracetam (Keppra), 1 TAB PO BID Lidocaine (Lidoderm 5% Topical Patch), 1 PATCH TOP DAILY, (Reported) Metformin Hydrochloride (Metformin Hcl), Unknown Dose PO DAILY, (Reported) Metoclopramide Hcl (Metoclopramide Hcl), 5 MG PO TID, (Reported) Oxycodone HCl (Oxycodone Hydrochloride), 5 MG PO Q6HR Oxycodone W/ Acetaminophen (Apap/Oxycodone), 1 TAB PO QID, (Reported) Pantoprazole Sodium Sesquihydr (Protonix), 40 MG PO DAILY, (Reported) Polyethylene Glycol 3350 (Clearlax), 17 GM PO BID, (Reported) Ramelteon (Rozerem), 1 TAB PO QPM, (Reported) Rosuvastatin Calcium (Crestor), 5 MG PO QPM, (Reported) Senna (Senokot), 1 TAB PO BID, (Reported) Topiramate (Topiramate), 50 MG PO QPM, (Reported) Trazodone Hcl (Trazodone Hcl), 1 TAB PO QPM, (Reported) Scheduled PRN Hydrocodone-Acetaminophen (Hydrocodone Bitartrate/AC 5-325 mg), 1 TAB PO Q6HP PRN Hydroxyzine Hcl (Hydroxyzine Hcl), 25 MG PO Q6HPRN PRN for ANXIETY, (Reported) Ondansetron HCl (Ondansetron), 4 MG PO PRN PRN for Q6, (Reported) Miscellaneous Medications Bisacodyl ( Bisacodyl), 10 MG OR, (Reported) Pregabalin (Lyrica Capsule), 25 MG PO, (Reported) Tamsulosin HCl (Tamsulosin Hydrochloride), 0.4 MG PO, (Reported) Discontinued Medications Divalproex Sodium (Divalproex Sodium Dr), 1 TAB PO BID, (Reported) Discharge Statement: "Patient was advised to return to the ER or call 911 if any headaches, dizziness, shortness of breath, chest pain, abdominal pain, bleeding, fevers, or worsening of medical condition. Patient was counseled about treatment plan, medications, possible side effects, patientverbalized understanding. All questions were answered to the best of my ability. This discharge took greater then 30 minutes in planning, reviewing documentation, counseling the patient, and discussing with other team members." ASSESSMENT ASSESSMENT Assessment Intractable pain due to left jip displasia Date of Service: Oct 25, 2024 Billing Provider: LIVIA BRANTLEY MD Common Visit Codes: 44345-MOM/OBS DISCH DAY >30min KEREN WEBSTER RESIDENT Oct 25, 2024 20:15 YASMANI CHU RESIDENT Oct 25, 2024 22:05 LIVIA BRANTLEY MD Oct 29, 2024 21:37
== END 2024-10-25 16:26 | disposition home or self-care (01) | DRG 351 ==
LOC: EDBD 22:08 → ER 22:08 → OVERFLOW 10-24 03:04 → CENTRAL 10-24 21:10
PROVIDERS: ADMIT Student in an Organized Health Care Education/Training Program; ATTEND Student in an Organized Health Care Education/Training Program
DX: Q65.89 Other specified congenital deformities of hip (principal); E11.65 Type 2 diabetes mellitus with hyperglycemia; E78.5 Hyperlipidemia, unspecified; G40.909 Epilepsy, unspecified, not intractable, without status epilepticus; K21.9 Gastro-esophageal reflux disease without esophagitis; F41.9 Anxiety disorder, unspecified; F32.A Depression, unspecified; K59.01 Slow transit constipation; F19.10 Other psychoactive substance abuse, uncomplicated; Q65.02 Congenital dislocation of left hip, unilateral; Z87.820 Personal history of traumatic brain injury; Z74.01 Bed confinement status; Q68.8 Other specified congenital musculoskeletal deformities
CPT/HCPCS: 36415; 36600; 80048; 80053; 82010; 82805; 82962; 83735; 83930; 85025; 85610; 87081; 96361; 96374; 96375; G0378; J1815; J1885; J2405; J2470

== ENCOUNTER 2024-12-10 23:24 | Inpatient (IN) | payer MEDICAID ==
[~2024-12-10] VITALS: Ht 170.2 cm; Wt 74.2 kg
[~2024-12-10 23:24] MED LIST changes: -DIVA1TAB59 PO; +OXYC-900 PO
[2024-12-10] MEDS: InsuLIN REG 1unit/0.01ml Soln (100units/ml) SC ONE (23:59)
[2024-12-11] LABS: Hematocrit 36.0 % (41.0-53.0); Hemoglobin 12.4 g/dL (13.5-17.5); Mean Corpuscular Hemoglobin 33.7 pg (28.0-32.0); Mean Corpuscular Volume 98.3 fL (80.0-100.0); Nucleated Red Blood Cells % 0.0 %
[2024-12-11] MEDS: SODIUM CHLORIDE 0.9% 1,000 ML IV ONE (00:02)
[2024-12-11 00:07] LABS: Chloride 103 mmol/L (98-107); Potassium 4.9 mmol/L (3.5-5.1); Sodium 136 mmol/L (136-145)
[2024-12-11 00:08] LABS: Anion Gap 6 (5-15); Calcium 9.3 mg/dL (8.7-10.4); Carbon Dioxide 27 mmol/L (20-31)
[2024-12-11 00:13] LABS: BUN/Creatinine Ratio 17.6 (10.0-20.0); Blood Urea Nitrogen 19 mg/dL (9-23)
[2024-12-11 00:14] LABS: Glucose 374 mg/dL (74-106)
[2024-12-11] MEDS: HYDROcodone-ACET 10/325MG TAB PO ONE (00:52)
--- NOTE | 2024-12-11 01:19 | ED.PDOC ---
History of Present Illness HPI Comments This patient is a 34-year-old male who lives at [facility] assisted living due to medical concerns of TBI, diabetes and history of chronic left hip pain. Patient arrives via EMS due to a hyperglycemic event at [facility] with a blood sugar of 332. Additionally, patient continues to complain of left hip pain. Patient denies any recent traumatic events. Patient appears to be relatively bed-bound due to multiple concerns. Patient's speech pattern and cognition has been affected. Patient denies any fever nausea or vomiting. Vital signs were stable. Chief Complaint: Hyperglycemia Time Seen by MD: 23:40 Primary Care Provider: UNKNOWN NAME Reviewed Notes: Nurses Notes, Dry Molder Notes Allergies: Coded Allergies: NO KNOWN ALLERGIES (Unverified , 10/25/23) [facility], where pt lives, states he is not allergic to anything. Home Meds Active Scripts Oxycodone HCl (Oxycodone Hydrochloride) 5 Mg Tab, 5 MG PO Q6HR for 14 Days, #56 TAB Prov:LIVIA ELIZABETH MD 10/25/24 Hydrocodone-Acetaminophen (Hydrocodone Bitartrate/AC 5-325 mg) 1 Tab Tab, 1 TAB PO Q6HP PRN for 5 Days, #20 TAB Prov:LIVIA ELIZABETH MD 10/21/24 Ibuprofen Micronized (MOTRIN TABLET) 600 Mg Tb, 600 MG PO TID for 5 Days, #15 TAB *Black box warning-NSAIDS can increase risk of [place] & hypertension, GI irritation, ulceration, bleed, perferation. Do not use post cardiac surgery. Use short duration/lowest effective dose. Prov:LIVIA ELIZABETH MD 10/21/24 Levetiracetam (Keppra) 1,000 Mg Tab, 1 TAB PO BID, #60 TAB 5 Refills Prov:REGINA SANCHEZ MD 04/21/23 Reported Medications Metformin Hydrochloride (Metformin Hcl) 500 Mg Tab, PO DAILY for 30 Days, MG 10/19/24 Gabapentin (Gabapentin) 100 Mg Cap, PO BID for 30 Days, MG 10/19/24 Cholecalciferol (VITAMIN D3) 2,000 Unit Tab, 25 MCG PO DAILY, TAB 10/25/23 Topiramate (Topiramate) 50 Mg Tab, 50 MG PO QPM, TAB 10/25/23 Tamsulosin HCl (Tamsulosin Hydrochloride) 0.4 Mg Cap, 0.4 MG PO, CAP 10/25/23 Acetaminophen (Tylenol) 325 Mg Cap, 500 MG PO DAILY, CAP 10/25/23 Lidocaine (LIDODERM 5% TOPICAL PATCH) 1 Patch Ph, 1 PATCH TOP DAILY, #30 PATCH 10/25/23 Hydroxyzine Hcl (Hydroxyzine Hcl) 25 Mg Tab, 25 MG PO Q6HPRN PRN for ANXIETY, TAB 10/25/23 Bisacodyl (KP BISACODYL) 5 Mg Tab, 10 MG OR, TAB 10/25/23 Alum & Mag Hydrox-Simethicone (Antacid Anti-Gas) 1 Ml Loree, 30 ML PO Q4HPRN, ML 10/25/23 Senna (Senokot) 8.6 Mg Tab, 1 TAB PO BID, #40 TAB 10/25/23 Rosuvastatin Calcium (Crestor) 5 Mg Tab, 5 MG PO QPM, TAB 10/25/23 Ramelteon (Rozerem) 8 Mg Tab, 1 TAB PO QPM, #30 TAB 1 Refill 10/25/23 Trazodone Hcl (Trazodone Hcl) 100 Mg Tab, 1 TAB PO QPM, #30 TAB 10/25/23 Ondansetron HCl (Ondansetron) 4 Mg Tab, 4 MG PO PRN PRN for Q6, TAB 10/25/23 Pantoprazole Sodium Sesquihydr (Protonix) 40 Mg Tab, 40 MG PO DAILY, #30 TAB 10/25/23 Metoclopramide Hcl (Metoclopramide Hcl) 5 Mg Tab, 5 MG PO TID, TAB 10/25/23 Famotidine (PEPCID TABLET) 20 Mg Tb, 1 TAB PO BID, #60 TAB 5 Refills 10/25/23 Duloxetine Hcl (Cymbalta) 60 Mg Cap, 1 CAP PO DAILY, #90 CAP 3 Refills 10/25/23 Polyethylene Glycol 3350 (Clearlax) 17 Gm/Scoop Pow, 17 GM PO BID, POW 10/25/23 Baclofen (Baclofen) 20 Mg Tab, 5 MG PO TID, TAB 10/25/23 Pregabalin (LYRICA CAPSULE) 25 Mg Cp, 25 MG PO, CAP 10/25/23 Apixaban Base (ELIQUIS) 2.5 Mg Tab, 2.5 MG PO BID, TAB 10/25/23 Divalproex Sodium (Depakote) 250 Mg Tab, 1 TAB PO BID, #60 TAB 2 Refills 10/25/23 Oxycodone W/ Acetaminophen (Apap/Oxycodone) 1 Tab Tab, 1 TAB PO QID for hip pain, #120 TAB 10/25/23 Insulin Detemir (Levemir) Inj, 11 SC BID, INJ 10/25/23 Information Source: Patient, Emergency Med Personnel Mode of Arrival: EMS Severity: Moderate Timing: Hours Duration: Since onset Prehospital treatment: [facility] Past Medical History PAST MEDICAL HISTORY: DM, High Lipids, [place], Seizures Past Medical History (Other): History of TBI Surgical History: Denies all surgeries Family History Family History: Unknown Social History Smoker: Non-Smoker Alcohol: Denies ETOH Use Drugs: Denies Drug Use Lives In: Assisted Care Constitutional: denies: chills, diaphoresis, fatigue, fever, malaise, sweats, weakness, others EENTM: denies: blurred vision, double vision, ear bleeding, ear discharge, ear drainage, ear pain, ear ringing, eye pain, eye redness, hearing loss, mouth pain, mouth swelling, nasal discharge, nose bleeding, nose congestion, nose pain, photophobia, tearing, throat pain, throat swelling, voice changes, others Respiratory: denies: cough, hemoptysis, orthopnea, SOB at rest, shortness of breath, SOB with excertion, stridor, wheezing, others Cardiovascular: denies: chest pain, dizzy spells, diaphoresis, Dyspnea on exertion, edema, irregular heart beat, left arm pain, lightheadedness, palpitations, PND, syncope, others Gastrointestinal: denies: abdomen distended, abdominal pain, blood streaked bowels, constipated, diarrhea, dysphagia, difficulty swallowing, hematemesis, melena, nausea, poor appetite, poor fluid intake, rectal bleeding, rectal pain, vomiting, others Genitourinary: denies: burning, dysuria, flank pain, frequency, hematuria, i ncontinence, penile discharge, penile sore, pain, testicle pain, testicle swelling, urgency, others Neurological: denies: dizziness, fainting, headache, left sided numbness, left sided weakness, numbness, paresthesia, pre-existing deficit, right sided numbness, right sided weakness, seizure, speech problems, tingling, tremors, weakness, others Musculoskeletal: reports: others (Hip pain); denies: back pain, gout, joint pain, joint swelling, muscle pain, muscle stiffness, neck pain Integumetry: denies: bruises, change in color, change in hair/nails, dryness, laceration, lesions, lumps, rash, wounds, others Allergic/Immunocompromised: denies: Difficulty Healing, Frequent Infections, Hives, Itching, others Hematologic/Lymphatic: denies: anemia, blood clots, easy bleeding, easy bruising, swollen glands, others Endocrine: denies: excessive hunger, excessive sweating, excessive thirst, excessive urination, flushing, intolerance to cold, intolerance to heat, unexplained weight gain, unexplained weight loss, others Psychiatric: denies: anxiety, bipolar disorder, depression, hopeless, panic disorder, schizophrenia, sleepless, suicidal, others Physical Exam General Appearance: Moderate Distress (Patient was in moderate distress due to hip pain concerns. Patient is status post TBI with significant cognition and verbal deficits.), Normal HEENT: Normal ENT Inspection, Pharynx Normal, TMs Normal Neck: Full Range of Motion, Non-Tender, Normal, Normal Inspection Respiratory: Chest Non-Tender, Lungs Clear, No Accessory Muscle Use, No Respiratory Distress, Normal Breath Sounds Cardiovascular: No Edema, No JVD, No Murmur, No Gallop, Normal Peripheral Pulses, Regular Rate/Rhythm Breast Exam: Deferred Gastrointestinal: No Organomegaly, Non Tender, No Pulsatile Mass, Normal Bowel Sounds, Soft Genitalia: Deferred Pelvic: Deferred Rectal: Deferred Extremities: Other (Diffuse anterior and lateral left hip pain extending into the leg. No signs of recent trauma.) Neurologic: Alert Cerebellar Function: NOT DONE Reflexes: NOT DONE Skin: Dry, Normal Color, Warm Lymphatic: No Adenopathy Was a procedure done? Was a procedure done?: No Differential Dx Considerations may include: Hyperglycemia due to diabetes myelitis, chronic left hip pain , sepsis, electrolyte abnormality X-Ray, Labs, Meds, VS Vital Signs Date Time Temp Pulse Resp B/P (MAP) Pulse Ox O2 Delivery O2 Flow Rate FiO2 12/10/24 23:31 97.9 70 20 113/7 99 97.9 Lab Test 12/11/24 00:20 12/10/24 23:23 Range/Units Troponin I High Sensitivity 4 3 L </=54 ng/L White Blood Count 7.9 4.4-10.8 10^3/uL Red Blood Count 3.66 L 4.5-5.90 10^6/uL Hemoglobin 12.4 L 13.5-17.5 g/dL Hematocrit 36.0 L 41.0-53.0 % Mean Corpuscular Volume 98.3 80.0-100.0 fL Mean Corpuscular Hemoglobin 33.7 H 28.0-32.0 pg Mean Corpuscular Hemoglobin Concent 34.3 32.0-36.0 g/dL Red Cell Distribution Width 13.6 11.8-14.3 % Platelet Count 192 140-450 10^3/uL Mean Platelet Volume 9.2 6.9-10.8 fL Neutrophils (%) (Auto) 63.4 37.0-80.0 % Lymphocytes (%) (Auto) 27.3 10.0-50.0 % Monocytes (%) (Auto) 7.5 0.0-12.0 % Eosinophils (%) (Auto) 0.9 0.0-7.0 % Basophils (%) (Auto) 0.9 0.0-2.0 % Neutrophils # (Auto) 5.0 1.6-8.6 10 ^3/uL Lymphocytes # (Auto) 2.2 0.4-5.4 10 ^3/uL Monocytes # (Auto) 0.6 0-1.3 10 ^3/uL Eosinophils # (Auto) 0.1 0-0.8 10 ^3/uL Basophils # (Auto) 0.1 0-0.2 10 ^3/uL Nucleated Red Blood Cells 0.0 % Sodium Level 136 136-145 mmol/L Potassium Level 4.9 3.5-5.1 mmol/L Chloride Level 103 98-107 mmol/L Carbon Dioxide Level 27 20-31 mmol/L Anion Gap 6 5-15 Blood Urea Nitrogen 19 9-23 mg/dL Creatinine 1.08 0.700-1.30 mg/dL Glomerular Filtration Rate Calc 92 >90 mL/min BUN/Creatinine Ratio 17.6 10.0-20.0 Serum Glucose 374 H 74-106 mg/dL Calcium Level 9.3 8.7-10.4 mg/dL B-Type Natriuretic Peptide 52.67 0-100 pg/mL Beta-Hydroxybutyric Acid Pending Current Medications Medications (Trade) Dose Ordered Sig/Lisa Route Start Time Stop Time Status Last Admin Sodium Chloride 1,000 ml @ 1,000 mls/hr Q1H ONCE IV 12/10/24 23:45 12/11/24 00:44 DC 12/11/24 00:02 Insulin Human Regular (InsuLIN R) 8 units ONCE ONCE SC 12/10/24 23:45 12/10/24 23:47 DC 12/10/24 23:59 Acetaminophen/ Hydrocodone Bitart ([place] 10/325MG Tab) 1 tab ONCE ONCE PO 12/11/24 00:15 12/11/24 00:16 DC 12/11/24 00:52 X-Ray, Labs, Meds, VS Comment All studies performed the ED were evaluated by me personally. Serum laboratories revealed a blood glucose of 374. Cardiac markers were unremarkable. Patient received rehydration and insulin as well as pain medication. Once treatment is completed, patient will be available for discharge back to [facility]. Time of 1ST Reevaluation: 01:17 Reevaluation 1ST: Improved Consultation: PCP Patient Education/Counseling: Diagnosis, Treatment Family Education/Counseling: Diagnosis, Treatment SEPSIS Sepsis Screen Date sepsis recognized/suspect: Dec 10, 2024 Time Sepsis recognized/suspect: 2326 Recent Procedure: No On Antibiotic Therapy: No Respiratory Rate >20: No Heart Rate >90: No Temp<36 C (96.8 F) or >38.3 C: No SBP <90 or MAP <65 mmHG: No New Acute Mental Status Change: No Is the patient on CPAP, BIPAP,: No Physician Orders Urinalysis (12/10/24 23:45) Electrocardigram (12/10/24 23:45) Troponin-I Hs (12/11/24 02:45) Beta-Hydroxybutyrate (12/10/24 23:45) Vital Signs Date Time Temp Pulse Resp B/P (MAP) Pulse Ox O2 Delivery O2 Flow Rate FiO2 12/10/24 23:31 97.9 70 20 113/7 99 97.9 Laboratory Tests Test 12/10/24 23:23 White Blood Count 7.9 10^3/uL (4.4-10.8) Medications Medications Dose Ordered Sig/Lisa Route Start Time Stop Time Status Last Admin Dose Admin Acetaminophen/ Hydrocodone Bitart 1 tab ONCE ONCE PO 12/11/24 00:15 12/11/24 00:16 DC 12/11/24 00:52 Insulin Human Regular 8 units ONCE ONCE SC 12/10/24 23:45 12/10/24 23:47 DC 12/10/24 23:59 Sodium Chloride 1,000 ml @ 1,000 mls/hr Q1H ONCE IV 12/10/24 23:45 12/11/24 00:44 DC 12/11/24 00:02 Departure 1 Departure Time of Disposition: 01:17 Impression: Primary Impression: Diabetes mellitus with hyperglycemia Additional Impressions: Chronic hip pain TBI (traumatic brain injury) Disposition: 04 INTERMEDIATE CARE FACILITY Condition: Stable Additional Instructions: Patient needs to follow up with his primary care provider for evaluation of blood sugar management as well as assistance with left hip pain management. Discharged With: Self, [facility] Critical Care Note Critical Care Time?: No Stability Stability form required: No Heart Score Heart Score: Heart Score Response (Comments) Value History Slightly Suspicious 0 EKG Repolarization Disturb 1 Age <45 0 Risk Factors 1 or 2 risk factors 1 Troponin Normal limit 0 Total 2 CAMILA AVILA PAC Dec 11, 2024 01:19
[2024-12-11 07:20] VITALS: PULSE 60; RESP 16; O2SAT 95
--- NOTE | 2024-12-11 08:19 | DVHHP2 ---
History of Present Illness HPI This patient is a 34-year-old male who lives at [facility] assisted living due to medical concerns of TBI, diabetes and history of chronic left hip pain. Patient arrives via EMS due to a hyperglycemic event at [facility] with a blood sugar of 332. Additionally, patient continues to complain of left hip pain. Patient denies any recent traumatic events. Patient appears to be relatively bed-bound due to multiple concerns. Patient's speech pattern and cognition has been affected. Patient denies any fever nausea or vomiting. Vital signs were stable. Home Meds Active Scripts Oxycodone HCl (Oxycodone Hydrochloride) 5 Mg Tab, 5 MG PO Q6HR for 14 Days, #56 TAB Prov:LIVIA ELIZABETH MD 10/25/24 Hydrocodone-Acetaminophen (Hydrocodone Bitartrate/AC 5-325 mg) 1 Tab Tab, 1 TAB PO Q6HP PRN for 5 Days, #20 TAB Prov:LIVIA ELIZABETH MD 10/21/24 Ibuprofen Micronized (MOTRIN TABLET) 600 Mg Tb, 600 MG PO TID for 5 Days, #15 TAB *Black box warning-NSAIDS can increase risk of [place] & hypertension, GI irritation, ulceration, bleed, perferation. Do not use post cardiac surgery. Use short duration/lowest effective dose. Prov:LIVIA ELIZABETH MD 10/21/24 Levetiracetam (Keppra) 1,000 Mg Tab, 1 TAB PO BID, #60 TAB 5 Refills Prov:REGINA SANCHEZ MD 04/21/23 Reported Medications Metformin Hydrochloride (Metformin Hcl) 500 Mg Tab, PO DAILY for 30 Days, MG 10/19/24 Gabapentin (Gabapentin) 100 Mg Cap, PO BID for 30 Days, MG 10/19/24 Cholecalciferol (VITAMIN D3) 2,000 Unit Tab, 25 MCG PO DAILY, TAB 10/25/23 Topiramate (Topiramate) 50 Mg Tab, 50 MG PO QPM, TAB 10/25/23 Tamsulosin HCl (Tamsulosin Hydrochloride) 0.4 Mg Cap, 0.4 MG PO, CAP 10/25/23 Acetaminophen (Tylenol) 325 Mg Cap, 500 MG PO DAILY, CAP 10/25/23 Lidocaine (LIDODERM 5% TOPICAL PATCH) 1 Patch Ph, 1 PATCH TOP DAILY, #30 PATCH 10/25/23 Hydroxyzine Hcl (Hydroxyzine Hcl) 25 Mg Tab, 25 MG PO Q6HPRN PRN for ANXIETY, TAB 10/25/23 Bisacodyl (KP BISACODYL) 5 Mg Tab, 10 MG OR, TAB 10/25/23 Alum & Mag Hydrox-Simethicone (Antacid Anti-Gas) 1 Ml Loree, 30 ML PO Q4HPRN, ML 10/25/23 Senna (Senokot) 8.6 Mg Tab, 1 TAB PO BID, #40 TAB 10/25/23 Rosuvastatin Calcium (Crestor) 5 Mg Tab, 5 MG PO QPM, TAB 10/25/23 Ramelteon (Rozerem) 8 Mg Tab, 1 TAB PO QPM, #30 TAB 1 Refill 10/25/23 Trazodone Hcl (Trazodone Hcl) 100 Mg Tab, 1 TAB PO QPM, #30 TAB 10/25/23 Ondansetron HCl (Ondansetron) 4 Mg Tab, 4 MG PO PRN PRN for Q6, TAB 10/25/23 Pantoprazole Sodium Sesquihydr (Protonix) 40 Mg Tab, 40 MG PO DAILY, #30 TAB 10/25/23 Metoclopramide Hcl (Metoclopramide Hcl) 5 Mg Tab, 5 MG PO TID, TAB 10/25/23 Famotidine (PEPCID TABLET) 20 Mg Tb, 1 TAB PO BID, #60 TAB 5 Refills 10/25/23 Duloxetine Hcl (Cymbalta) 60 Mg Cap, 1 CAP PO DAILY, #90 CAP 3 Refills 10/25/23 Polyethylene Glycol 3350 (Clearlax) 17 Gm/Scoop Pow, 17 GM PO BID, POW 10/25/23 Baclofen (Baclofen) 20 Mg Tab, 5 MG PO TID, TAB 10/25/23 Pregabalin (LYRICA CAPSULE) 25 Mg Cp, 25 MG PO, CAP 10/25/23 Apixaban Base (ELIQUIS) 2.5 Mg Tab, 2.5 MG PO BID, TAB 10/25/23 Divalproex Sodium (Depakote) 250 Mg Tab, 1 TAB PO BID, #60 TAB 2 Refills 10/25/23 Oxycodone W/ Acetaminophen (Apap/Oxycodone) 1 Tab Tab, 1 TAB PO QID for hip pain, #120 TAB 10/25/23 Insulin Detemir (Levemir) Inj, 11 SC BID, INJ 10/25/23 Past Medical History Patient Family History: Patient reports no known family medical history. Review of Systems Pulmonary/Respiratory: Dyspnea Gastrointestinal: Nausea, Vomiting Psychiatric: Tremors H&P Exam Vital Signs Vital Signs Date Time Temp Pulse Resp B/P (MAP) Pulse Ox O2 Delivery O2 Flow Rate FiO2 12/11/24 07:20 97.7 60 16 115/71 (86) 95 97.7 12/10/24 23:50 Room Air* 0 21 General Appeara: Well developed Head Exam: Normal inspection Pulmonary/Respiratory: Normal inspection SEPSIS Sepsis Screen Date sepsis recognized/suspect: Dec 10, 2024 Time Sepsis recognized/suspect: 2326 Recent Procedure: No On Antibiotic Therapy: No Respiratory Rate >20: No Heart Rate >90: No Temp<36 C (96.8 F) or >38.3 C: No SBP <90 or MAP <65 mmHG: No New Acute Mental Status Change: No Is the patient on CPAP, BIPAP,: No Vital Signs Date Time Temp Pulse Resp B/P (MAP) Pulse Ox O2 Delivery O2 Flow Rate FiO2 12/11/24 07:20 97.7 60 16 115/71 (86) 95 97.7 12/11/24 05:55 98.1 80 18 148/87 (107) 97 98.1 Laboratory Tests Test 12/10/24 23:23 White Blood Count 7.9 10^3/uL (4.4-10.8) Medications Medications Dose Ordered Sig/Lisa Route Start Time Stop Time Status Last Admin Dose Admin Acetaminophen/ Hydrocodone Bitart 1 tab ONCE ONCE PO 12/11/24 00:15 12/11/24 00:16 DC 12/11/24 00:52 1 TAB Insulin Human Regular 8 units ONCE ONCE SC 12/10/24 23:45 12/10/24 23:47 DC 12/10/24 23:59 8 UNITS Sodium Chloride 1,000 ml @ 1,000 mls/hr Q1H ONCE IV 12/10/24 23:45 12/11/24 00:44 DC 12/11/24 00:02 1,000 MLS/HR Labs/Xrays Labs Test 12/11/24 07:41 12/11/24 00:20 12/10/24 23:23 Range/Units POC Glucose 53 L 70-106 mg/dl Troponin I High Sensitivity 4 </=54 ng/L White Blood Count 7.9 4.4-10.8 10^3/uL Red Blood Count 3.66 L 4.5-5.90 10^6/uL Hemoglobin 12.4 L 13.5-17.5 g/dL Hematocrit 36.0 L 41.0-53.0 % Mean Corpuscular Volume 98.3 80.0-100.0 fL Mean Corpuscular Hemoglobin 33.7 H 28.0-32.0 pg Mean Corpuscular Hemoglobin Concent 34.3 32.0-36.0 g/dL Red Cell Distribution Width 13.6 11.8-14.3 % Platelet Count 192 140-450 10^3/uL Mean Platelet Volume 9.2 6.9-10.8 fL Neutrophils (%) (Auto) 63.4 37.0-80.0 % Lymphocytes (%) (Auto) 27.3 10.0-50.0 % Monocytes (%) (Auto) 7.5 0.0-12.0 % Eosinophils (%) (Auto) 0.9 0.0-7.0 % Basophils (%) (Auto) 0.9 0.0-2.0 % Neutrophils # (Auto) 5.0 1.6-8.6 10 ^3/uL Lymphocytes # (Auto) 2.2 0.4-5.4 10 ^3/uL Monocytes # (Auto) 0.6 0-1.3 10 ^3/uL Eosinophils # (Auto) 0.1 0-0.8 10 ^3/uL Basophils # (Auto) 0.1 0-0.2 10 ^3/uL Nucleated Red Blood Cells 0.0 % Sodium Level 136 136-145 mmol/L Potassium Level 4.9 3.5-5.1 mmol/L Chloride Level 103 98-107 mmol/L Carbon Dioxide Level 27 20-31 mmol/L Anion Gap 6 5-15 Blood Urea Nitrogen 19 9-23 mg/dL Creatinine 1.08 0.700-1.30 mg/dL Glomerular Filtration Rate Calc 92 >90 mL/min BUN/Creatinine Ratio 17.6 10.0-20.0 Serum Glucose 374 H 74-106 mg/dL Calcium Level 9.3 8.7-10.4 mg/dL B-Type Natriuretic Peptide 52.67 0-100 pg/mL Assessment/Plan Primary Diagnosis This patient is a 34-year-old male who lives at [facility] assisted living due to medical concerns of TBI, diabetes and history of chronic left hip pain. Patient arrives via EMS due to a hyperglycemic event at [facility] with a blood sugar of 332. Additionally, patient continues to complain of left hip pain. Patient denies any recent traumatic events. Patient appears to be relatively bed-bound due to multiple concerns. Patient's speech pattern and cognition has been affected. Patient denies any fever nausea or vomiting. Vital signs were stable. [facility] suspected seizure bed riddent hip pain, chronic TBI hx DM type II with hyperosmolarity admitted to med/surg sliding scale glargine started pain control Plan discussed with: Patient SUSANTARA Muñiz DO Dec 11, 2024 08:19
[2024-12-11] MEDS ORDERED: NITROGLYCERIN 0.4 MG SL TAB SL PRN (08:30)
[2024-12-11] MEDS ORDERED: ACETAMINOPHEN 325 MG TAB PO PRN (08:30)
[2024-12-11] MEDS: SODIUM CHLORIDE 0.9% 1,000 ML IV SCH (08:30)
[2024-12-11] MEDS ORDERED: MORPHINE SULFATE INJ 2 MG/ml SYRG IV PRN (08:30)
[2024-12-11] MEDS: ENOXAPARIN SOD 40 MG/0.4 ML SYRINGE SC SCH (10:00)
[2024-12-11] MEDS ORDERED: D5W/SOD CHLO 0.9% 1,000 ML IV SCH (11:30)
[2024-12-11] MEDS: D5W/SOD CHLO 0.9% 1,000 ML IV SCH (11:48)
[2024-12-11 20:10] VITALS: PULSE 67; RESP 21; O2SAT 96
[2024-12-11] MEDS: MORPHINE SULFATE INJ 2 MG/ml SYRG IV PRN (20:16)
[2024-12-11 21:07] VITALS: BP 152/91; PULSE 72; RESP 19; TEMP 98.2; O2SAT 97
[2024-12-11] MEDS: HYDROcodone-ACET 5/325MG TAB PO PRN (22:22)
[2024-12-12] VITALS (8 sets, daily range): BP systolic 102–134; BP diastolic 64–92; PULSE 60–88; RESP 17–20; TEMP 97.7–98.4; O2SAT 94–97
[2024-12-12 05:57] LABS: Hematocrit 38.6 % (41.0-53.0); Hemoglobin 13.2 g/dL (13.5-17.5); Mean Corpuscular Hemoglobin 33.0 pg (28.0-32.0); Mean Corpuscular Volume 96.7 fL (80.0-100.0); Nucleated Red Blood Cells % 0.1 %
[2024-12-12 06:27] LABS: Alanine Aminotransferase 10 U/L (7-40); Albumin 3.9 g/dL (3.2-4.8); Alkaline Phosphatase 69 U/L (46-116); Anion Gap 10 (5-15); BUN/Creatinine Ratio 13.6 (10.0-20.0); Bilirubin, Total 0.4 mg/dL (0.2-1.0); Blood Urea Nitrogen 12 mg/dL (9-23); Calcium 8.9 mg/dL (8.7-10.4); Carbon Dioxide 24 mmol/L (20-31); Chloride 104 mmol/L (98-107); Potassium 4.0 mmol/L (3.5-5.1); Sodium 138 mmol/L (136-145); Total Protein 6.4 g/dL (5.7-8.2)
[2024-12-12 06:33] LABS: Glucose 258 mg/dL (74-106)
[2024-12-12] MEDS ORDERED: LORazepam 2MG/ML-1ML VIAL ONE (11:30)
[2024-12-12] MEDS: levETIRAcetam 1000 mg/100ml 100 ML IV ONE ×2 (11:45→11:46)
[2024-12-12] MEDS ORDERED: DEXTROSE (50%) 50ML SYRG IV PRN ×2 (11:45→12:00)
[2024-12-12] MEDS ORDERED: LORazepam 2MG/ML-1ML VIAL IV PRN (11:45)
[2024-12-12 11:50] LABS: Hemoglobin 14.3 g/dL (13.5-17.5)
[2024-12-12 11:51] LABS: Hematocrit 43.9 % (41.0-53.0); Mean Corpuscular Hemoglobin 33.6 pg (28.0-32.0); Mean Corpuscular Volume 103.2 fL (80.0-100.0); Nucleated Red Blood Cells % 0.0 %
[2024-12-12] MEDS: InsuLIN REG 1unit/0.01ml Soln (100units/ml) SC SCH ×2 (11:58→11:59)
[2024-12-12] MEDS: ACCU-CHEK COMFORT CURVE STRIP VI SCH (11:59)
[2024-12-12 12:07] LABS: Alanine Aminotransferase 13 U/L (7-40); Alkaline Phosphatase 85 U/L (46-116); Anion Gap 22 (5-15); BUN/Creatinine Ratio 8.6 (10.0-20.0); Blood Urea Nitrogen 11 mg/dL (9-23); Calcium 9.7 mg/dL (8.7-10.4); Potassium 4.4 mmol/L (3.5-5.1); Total Protein 7.3 g/dL (5.7-8.2)
[2024-12-12 12:08] LABS: Albumin 4.4 g/dL (3.2-4.8); Bilirubin, Total 0.6 mg/dL (0.2-1.0)
[2024-12-12 12:31] LABS: Carbon Dioxide 16 mmol/L (20-31); Chloride 97 mmol/L (98-107); Sodium 135 mmol/L (136-145)
[2024-12-12 12:32] LABS: Glucose 569 mg/dL (74-106)
[2024-12-12 12:33] LABS: Lactic Acid w/Reflex 5.3 mmol/L (0.4-2.0)
[2024-12-12] MEDS: SODIUM CHLORIDE 0.9% 1,000 ML IV ONE (13:18)
--- NOTE | 2024-12-12 14:47 | DVH ---
CHEST RADIOGRAPH Indication: sob Technique: Single frontal view of the chest was obtained Comparison: XY CHEST XRAY 1 VIEW on DOS: 10/24/24, XY CHEST PORTABLE on DOS: 10/28/23, XY CHEST PORTABLE on DOS: 06/10/23 FINDINGS: Lines and Tubes: None Lungs: No focal consolidation. Pleura: No effusion. No pneumothorax. Cardiomediastinal contours: Cardiomegaly Bones: No acute osseous abnormality. IMPRESSION: Cardiomegaly with mild pulmonary edema
[2024-12-12] MEDS: SODIUM CHLORIDE 0.9% 1,000 ML IV SCH (16:02)
[2024-12-12] MEDS: OXYCODONE W/ ACETAMINOPHEN 5/325MG TABLET PO PRN (16:21)
[2024-12-12] MEDS ORDERED: ACCU-CHEK COMFORT CURVE STRIP VI SCH (17:00)
[2024-12-12] MEDS ORDERED: InsuLIN REG 1unit/0.01ml Soln (100units/ml) SC SCH ×2 (17:00→22:00)
--- NOTE | 2024-12-12 18:01 | RESUS ---
CODE ASSIST ASSESSSMENT Initial Information Code Assist Date: Dec 12, 2024 Code Assist Time: 11:23 Location of Arrest: [facility] Room # 221-A Provider Name Chago Tapia MD, Cece LOGAN Time Notified: 11:23 Time PMD returned call: 11:25 Crash Cart Opened and Supplies: No Situation Staff concerned/worried, speci: Seizures Situation comment: Per primary nurse Natalia RN, patient with seizure-like activity, became concerned due to sudden change in condition. Rapid response called. Upon staff arrival to room, seizure activity confirmed by provider. Hx seizures. Background Background: Hx seizures, TBI, diabetes Assessment Blood Pressure Systolic: 128 (1125) Blood Pressure Diastolic: 70 Respiratory Rate: 18 O2 Sat by Pulse Oximetry: 93 (room air) Bedside Blood Glucose: 561 (Checked at 1128) Assessment comment: 1132: BP 128/73, HR 91, O2sat 93% RA Recommendations/Interventions Procedures: Accu check, CMP, Suctioned Other Interventions Labs ordered: Lactic acid, hgb A1c, UA, UDS and Keppra 1 gm IVPB x1 Outcome Outcome: Problem Resolved Follow up Report Follow up Report No further seizure activity noted. Patient back to baseline. Able to answer simple questions as prior to seizure activity. Patient known history of seizures and diabetes. New orders received. See EMR. Team Members Team Members Dr. Zhao, Wil Tapia MD, Dee RN, Berkley RN, Natalia RN, Prateek RN, Brit RN, Radha RN, Moni Colunga RN Dec 12, 2024 18:01
[2024-12-12] MEDS: HYDROmorphone HCL 2 MG/ML VL/or syr IV PRN (20:31)
[2024-12-12] MEDS ORDERED: levETIRAcetam 1000 mg/100ml 100 ML IV SCH (22:00)
[2024-12-12] MEDS: levETIRAcetam 1000 mg/100ml 100 ML IV SCH (23:03)
[2024-12-13] VITALS (7 sets, daily range): BP systolic 100–131; BP diastolic 55–85; PULSE 57–85; RESP 17–20; TEMP 97.5–98.4; O2SAT 94–99
--- NOTE | 2024-12-13 14:43 | DVHPN2 ---
Progress Note Date Seen: Dec 13, 2024 Medical Necessity Reason Pt with a Central, PICC or Fol: No Subjective Patient reports: No new complaints Objective vital signs Vital Sign Date Time Temp Pulse Resp B/P (MAP) Pulse Ox O2 Delivery O2 Flow Rate FiO2 12/13/24 11:47 64 18 107/69 12/13/24 08:00 Room Air* 0 21 12/13/24 05:00 97.5 98 97.5 Total Intake and Output 12/12/24 12/12/24 12/13/24 15:00 23:00 07:00 Intake Total 1240 ml 2160 ml 1780 ml Balance 1240 ml 2160 ml 1780 ml medications Current Medications Medications Dose Ordered Sig/Lisa Route Start Time Stop Time Status Last Admin Dose Admin Enoxaparin Sodium 40 mg DAILY SC 12/11/24 10:00 12/13/24 09:11 40 MG Acetaminophen 650 mg Q6HP PRN PO 12/11/24 08:30 Nitroglycerin 0.4 mg Q5MINP PRN SL 12/11/24 08:30 Morphine Sulfate 2 mg Q30M PRN IV 12/11/24 08:30 Levetiracetam 100 ml @ 400 mls/hr BID IV 12/12/24 22:00 Cancel Lorazepam 1 mg Q5MINP PRN IV 12/12/24 11:45 Levetiracetam 100 ml @ 400 mls/hr BID IV 12/12/24 22:00 12/13/24 09:11 400 MLS/HR Diagnostic Test (Pha) 1 strip ACHS 12/12/24 12:00 12/13/24 11:35 1 STRIP Insulin Human Regular HS SC 12/12/24 12:00 12/12/24 23:03 10 UNITS Insulin Human Regular AC SC 12/12/24 12:00 12/13/24 11:34 15 UNITS Dextrose 50 ml UD PRN IV 12/12/24 12:00 Sodium Chloride 1,000 ml @ 75 mls/hr [id number] IV 12/12/24 15:30 12/13/24 04:10 75 MLS/HR Hydromorphone HCl 0.5 mg Q4HPRN PRN IV 12/12/24 15:30 12/13/24 11:17 0.5 MG Oxycodone/ Acetaminophen 1 tab Q4HP PRN PO 12/12/24 15:30 12/13/24 07:21 1 TAB Insulin Glargine 10 units BID@0700,2200 SC 12/13/24 22:00 laboratory and microbiology Laboratory Tests 12/12/24 11:37 Test 12/12/24 11:37 Range/Units Serum Glucose 569 #*H 74-106 mg/dL Labs and/or images reviewed: Labs reviewed by me, Image(s) reviewed by me Problem List/Assessment/Plan Problem List/Assessment/Plan This patient is a 34-year-old male who lives at [facility] assisted living due to medical concerns of TBI, diabetes and history of chronic left hip pain. Patient arrives via EMS due to a hyperglycemic event at [facility] with a blood sugar of 332. Additionally, patient continues to complain of left hip pain. Patient denies any recent traumatic events. Patient appears to be relatively bed-bound due to multiple concerns. Patient's speech pattern and cognition has been affected. Patient denies any fever nausea or vomiting. Vital signs were stable. [facility] seizure bed riddent hip pain, chronic TBI hx DM type II with hyperosmolarity admitted to med/surg sliding scale glargine started pain control Plan discussed with: Patient My Orders My Orders Orders - TARA DAVIS DO Procedure Category Date Status Time Sodium Chloride 0.9% PHA 12/12/24 In Process 15:30 Hydromorphone PHA 12/12/24 In Process Injection (Dilaudid 15:30 Oxycodone W/ Acet PHA 12/12/24 In Process 5/325mg Tab (Percocet 15:30 Insulin Lantus PHA 12/13/24 In Process (Glargine) (Lantus) 22:00 TARA DAVIS DO Dec 13, 2024 14:43
[2024-12-13] MEDS: INSULIN LANTUS (GLARGINE) 1 /0.01ml (100units/ml) SC SCH ×2 (16:02→22:01)
[2024-12-13] MEDS ORDERED: DEXTROSE (50%) 50ML SYRG IV PRN (18:15)
[2024-12-13] MEDS: ACCU-CHEK COMFORT CURVE STRIP VI SCH (20:26)
[2024-12-13] MEDS: InsuLIN REG 1unit/0.01ml Soln (100units/ml) SC SCH (20:26)
[2024-12-13] MEDS ORDERED: INSULIN LANTUS (GLARGINE) 1 /0.01ml (100units/ml) SC SCH (22:00)
[2024-12-14] VITALS (7 sets, daily range): BP systolic 110–136; BP diastolic 65–87; PULSE 61–77; RESP 16–20; TEMP 97.7–98.6; O2SAT 94–99
--- NOTE | 2024-12-16 11:17 | DVHPN2 ---
Progress Note Date Seen: Dec 14, 2024 Medical Necessity Reason Pt with a Central, PICC or Fol: No Subjective Review of Systems: HEENT:Normal, CVS:Normal, RESPIRATORY:Normal Objective vital signs Vital Sign Date Time Temp Pulse Resp B/P (MAP) Pulse Ox O2 Delivery O2 Flow Rate FiO2 12/14/24 19:08 77 18 118/77 12/14/24 17:00 98.1 99 98.1 12/14/24 08:30 Room Air* 0 21 Total Intake and Output 12/14/24 12/14/24 12/15/24 15:00 23:00 07:00 Intake Total 1060 ml Balance 1060 ml medications Current Medications Medications Dose Ordered Sig/Lisa Route Start Time Stop Time Status Last Admin Dose Admin Levetiracetam 100 ml @ 400 mls/hr BID IV 12/12/24 22:00 Cancel Examination: GENERAL:Normal, HEENT:Normal laboratory and microbiology Laboratory Tests 12/12/24 11:37 Test 12/12/24 11:37 Range/Units Serum Glucose 569 #*H 74-106 mg/dL Labs and/or images reviewed: Labs reviewed by me, Image(s) reviewed by me Problem List/Assessment/Plan Problem List/Assessment/Plan This patient is a 34-year-old male who lives at [facility] assisted living due to medical concerns of TBI, diabetes and history of chronic left hip pain. Patient arrives via EMS due to a hyperglycemic event at [facility] with a blood sugar of 332. Additionally, patient continues to complain of left hip pain. Patient denies any recent traumatic events. Patient appears to be relatively bed-bound due to multiple concerns. Patient's speech pattern and cognition has been affected. Patient denies any fever nausea or vomiting. Vital signs were stable. [facility] suspected seizure bed riddent hip pain, chronic TBI hx DM type II with hyperosmolarity admitted to med/surg sliding scale glargine started pain control Plan discussed with: Patient My Orders My Orders Orders - TARA DAVIS DO Procedure Category Date Status Time * Pipe Testing Technician CONS 12/14/24 Transmitted Consult Dietary Evaluation Review Recommendations by RD: Dietary education by RD Comments: 1) Continue 45g CCHO diet 2) Advise patient to limit intake of added sugars including sugar-sweetened beverages, desserts, candy, etc. Aim for a consistent intake of complex carbohydrates, paired with protein to promote glycemic control 3) Collect HbA1c 4) Refer to outpatient RD/CD[facility] for diabetes education 5) Continue to monitor I&O, labs, and skin integrity Expected Outcomes/Goals: 1) appetite and labs to improve 2) f/u in 3-5 days TARA DAVIS DO Dec 15, 2024 15:16
--- NOTE | 2024-12-16 11:17 | DVHDS2 ---
Discharge Summary Date of Admission Dec 11, 2024 at 08:20 Date of Discharge: Dec 14, 2024 Labs/Diagnostic Data: Laboratory Results Test 12/14/24 19:55 12/12/24 13:25 12/12/24 11:37 12/11/24 00:20 POC Glucose 186 mg/dl (70-106) Lactic Acid Level 4.3 mmol/L (0.4-2.0) White Blood Count 8.8 10^3/uL (4.4-10.8) Red Blood Count 4.25 10^6/uL (4.5-5.90) Hemoglobin 14.3 g/dL (13.5-17.5) Hematocrit 43.9 % (41.0-53.0) Mean Corpuscular Volume 103.2 fL (80.0-100.0) Mean Corpuscular Hemoglobin 33.6 pg (28.0-32.0) Mean Corpuscular Hemoglobin Concent 32.6 g/dL (32.0-36.0) Red Cell Distribution Width 13.7 % (11.8-14.3) Platelet Count 228 10^3/uL (140-450) Mean Platelet Volume 9.8 fL (6.9-10.8) Neutrophils (%) (Auto) 74.4 % (37.0-80.0) Lymphocytes (%) (Auto) 19.9 % (10.0-50.0) Monocytes (%) (Auto) 4.9 % (0.0-12.0) Eosinophils (%) (Auto) 0.4 % (0.0-7.0) Basophils (%) (Auto) 0.4 % (0.0-2.0) Neutrophils # (Auto) 6.6 10 ^3/uL (1.6-8.6) Lymphocytes # (Auto) 1.8 10 ^3/uL (0.4-5.4) Monocytes # (Auto) 0.4 10 ^3/uL (0-1.3) Eosinophils # (Auto) 0 10 ^3/uL (0-0.8) Basophils # (Auto) 0 10 ^3/uL (0-0.2) Nucleated Red Blood Cells 0.0 % Sodium Level 135 mmol/L (136-145) Potassium Level 4.4 mmol/L (3.5-5.1) Chloride Level 97 mmol/L (98-107) Carbon Dioxide Level 16 mmol/L (20-31) Anion Gap 22 (5-15) Blood Urea Nitrogen 11 mg/dL (9-23) Creatinine 1.28 mg/dL (0.700-1.30) Glomerular Filtration Rate Calc 75 mL/min (>90) BUN/Creatinine Ratio 8.6 (10.0-20.0) Serum Glucose 569 mg/dL (74-106) Calcium Level 9.7 mg/dL (8.7-10.4) Total Bilirubin 0.6 mg/dL (0.2-1.0) Aspartate Amino Transferase (AST) 24 U/L (13-40) Alanine Aminotransferase (ALT) 13 U/L (7-40) Alkaline Phosphatase 85 U/L (46-116) Total Protein 7.3 g/dL (5.7-8.2) Albumin 4.4 g/dL (3.2-4.8) Troponin I High Sensitivity 4 ng/L (</=54) Test 12/10/24 23:23 B-Type Natriuretic Peptide 52.67 pg/mL (0-100) Beta-Hydroxybutyric Acid 0.11 mmol/L (< 0.4) Other Laboratory Tests 12/12/24 11:37 Brief Hx & Hospital Course: This patient is a 34-year-old male who lives at [facility] assisted living due to medical concerns of TBI, diabetes and history of chronic left hip pain. Patient arrives via EMS due to a hyperglycemic event at [facility] with a blood sugar of 332. Additionally, patient continues to complain of left hip pain. Patient denies any recent traumatic events. Patient appears to be relatively bed-bound due to multiple concerns. Patient's speech pattern and cognition has been affected. Patient denies any fever nausea or vomiting. Vital signs were stable. [facility] suspected seizure bed riddent hip pain, chronic TBI hx DM type II with hyperosmolarity admitted to med/surg sliding scale glargine started pain control Condition at Discharge: Fair Final Diagnosis/Problems List hip pain Discharge Disposition: Assisted Living Facility Discharge Instruct/Medications Diet: Cardiac 2g Na,low cholest Activity: No Restrictions, As Tolerated Scheduled Acetaminophen (Tylenol), 500 MG PO DAILY, (Reported) Alum & Mag Hydrox-Simethicone (Antacid Anti-Gas), 30 ML PO Q4HPRN, (Reported) Apixaban Base (Eliquis), 2.5 MG PO BID, (Reported) Baclofen (Baclofen), 5 MG PO TID, (Reported) Cholecalciferol (Vitamin D3), 25 MCG PO DAILY, (Reported) Divalproex Sodium (Depakote), 1 TAB PO BID, (Reported) Duloxetine Hcl (Cymbalta), 1 CAP PO DAILY, (Reported) Famotidine (Pepcid Tablet), 1 TAB PO BID, (Reported) Gabapentin (Gabapentin), Unknown Dose PO BID, (Reported) Ibuprofen Micronized (Motrin Tablet), 600 MG PO TID Insulin Detemir (Levemir), 11 SC BID, (Reported) Levetiracetam (Keppra), 1 TAB PO BID Lidocaine (Lidoderm 5% Topical Patch), 1 PATCH TOP DAILY, (Reported) Metformin Hydrochloride (Metformin Hcl), Unknown Dose PO DAILY, (Reported) Metoclopramide Hcl (Metoclopramide Hcl), 5 MG PO TID, (Reported) Oxycodone HCl (Oxycodone Hydrochloride), 5 MG PO Q6HR Oxycodone W/ Acetaminophen (Apap/Oxycodone), 1 TAB PO QID, (Reported) Pantoprazole Sodium Sesquihydr (Protonix), 40 MG PO DAILY, (Reported) Polyethylene Glycol 3350 (Clearlax), 17 GM PO BID, (Reported) Ramelteon (Rozerem), 1 TAB PO QPM, (Reported) Rosuvastatin Calcium (Crestor), 5 MG PO QPM, (Reported) Senna (Senokot), 1 TAB PO BID, (Reported) Topiramate (Topiramate), 50 MG PO QPM, (Reported) Trazodone Hcl (Trazodone Hcl), 1 TAB PO QPM, (Reported) Scheduled PRN Hydrocodone-Acetaminophen (Hydrocodone Bitartrate/AC 5-325 mg), 1 TAB PO Q6HP PRN Hydroxyzine Hcl (Hydroxyzine Hcl), 25 MG PO Q6HPRN PRN for ANXIETY, (Reported) Ondansetron HCl (Ondansetron), 4 MG PO PRN PRN for Q6, (Reported) Miscellaneous Medications Bisacodyl (Kp Bisacodyl), 10 MG OR, (Reported) Pregabalin (Lyrica Capsule), 25 MG PO, (Reported) Tamsulosin HCl (Tamsulosin Hydrochloride), 0.4 MG PO, (Reported) Discharge Statement: "Patient was advised to return to the ER or call 911 if any headaches, dizziness, shortness of breath, chest pain, abdominal pain, bleeding, fevers, or worsening of medical condition. Patient was counseled about treatment plan, medications, possible side effects, patientverbalized understanding. All questions were answered to the best of my ability. This discharge took greater then 30 minutes in planning, reviewing documentation, counseling the patient, and discussing with other team members." ASSESSMENT ASSESSMENT Assessment hip pain TARA DAVIS DO Dec 15, 2024 15:16
--- NOTE | 2024-12-16 11:30 | DVHPN2 ---
Progress Note Date Seen: Dec 12, 2024 Medical Necessity Reason Pt with a Central, PICC or Fol: No Objective vital signs Vital Sign Date Time Temp Pulse Resp B/P (MAP) Pulse Ox O2 Delivery O2 Flow Rate FiO2 12/14/24 19:08 77 18 118/77 12/14/24 17:00 98.1 99 98.1 12/14/24 08:30 Room Air* 0 21 medications Current Medications Medications Dose Ordered Sig/Lisa Route Start Time Stop Time Status Last Admin Dose Admin Levetiracetam 100 ml @ 400 mls/hr BID IV 12/12/24 22:00 Cancel laboratory and microbiology Laboratory Tests 12/12/24 11:37 Test 12/12/24 11:37 Range/Units Serum Glucose 569 #*H 74-106 mg/dL Labs and/or images reviewed: Labs reviewed by me, Image(s) reviewed by me Problem List/Assessment/Plan Problem List/Assessment/Plan This patient is a 34-year-old male who lives at [facility] assisted living due to medical concerns of TBI, diabetes and history of chronic left hip pain. Patient arrives via EMS due to a hyperglycemic event at [facility] with a blood sugar of 332. Additionally, patient continues to complain of left hip pain. Patient denies any recent traumatic events. Patient appears to be relatively bed-bound due to multiple concerns. Patient's speech pattern and cognition has been affected. Patient denies any fever nausea or vomiting. Vital signs were stable. [facility] suspected seizure bed riddent hip pain, chronic TBI hx DM type II with hyperosmolarity admitted to med/surg sliding scale glargine started pain control Plan discussed with: Patient Dietary Evaluation Review Recommendations by RD: Dietary education by RD Comments: 1) Continue 45g CCHO diet 2) Advise patient to limit intake of added sugars including sugar-sweetened beverages, desserts, candy, etc. Aim for a consistent intake of complex carbohydrates, paired with protein to promote glycemic control 3) Collect HbA1c 4) Refer to outpatient RD/[facility] for diabetes education 5) Continue to monitor I&O, labs, and skin integrity Expected Outcomes/Goals: 1) appetite and labs to improve 2) f/u in 3-5 days TARA DAVIS DO Dec 16, 2024 00:23
== END 2024-12-14 20:25 | disposition home or self-care (01) | DRG 420 ==
LOC: ER 23:24 → EDBD 23:24 → OVERFLOW 12-11 08:20 → CENTRAL 12-11 21:07
PROVIDERS: ADMIT Internal Medicine; ATTEND Internal Medicine
DX: E11.00 Type 2 diabetes mellitus with hyperosmolarity without nonketotic hyperglycemic-hyperosmolar coma (NKHHC) (principal); R53.2 Functional quadriplegia; E87.20 Acidosis, unspecified; G40.89 Other seizures; G89.29 Other chronic pain; M25.552 Pain in left hip; Z87.820 Personal history of traumatic brain injury; Z79.899 Other long term (current) drug therapy
CPT/HCPCS: 36415; 71045; 80048; 80053; 82010; 82962; 83605; 83880; 84484; 85025; 96360; 96372; G0378; J1815

== ENCOUNTER 2024-12-15 14:03 | Inpatient (IN) | payer MEDICAID ==
[~2024-12-15] VITALS: Ht 182.9 cm; Wt 66.2 kg
[2024-12-15 14:45] VITALS: PULSE 88; RESP 13; O2SAT 96
[2024-12-15] MEDS: SODIUM CHLORIDE 0.9% 1,000 ML IV ONE (15:54)
[2024-12-15] MEDS: ONDANSETRON HCL 4 MG/2 ML VIAL IV ONE (15:54)
[2024-12-15] MEDS: HYDROmorphone HCL 2 MG/ML VL/or syr IV ONE ×2 (15:55→20:43)
--- NOTE | 2024-12-15 18:59 | DVH ---
CLINICAL INDICATION: left hip pain TECHNIQUE: 4 radiographic views of left hip were obtained. 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 There is flattening of the femoral head suggesting avascular necrosis and erosion of the superior por tion of the acetabulum. There may also be superior dislocation of the left femur. Consider CT of the pelvis for further evaluation.
[2024-12-15 19:51] VITALS: PULSE 60; RESP 12; O2SAT 96
--- NOTE | 2024-12-15 20:22 | DVH ---
COMPUTERIZED TOMOGRAPHY OF THE LEFT FEMUR WITHOUT CONTRAST REASON FOR EXAM: left hip pain COMPARISON: XY L HIP COMPLETE XRAY on DOS: 12/15/24, XY L HIP COMPLETE XRAY on DOS: 10/24/24, CT PELVIS on DOS: 10/23/24, XY L HIP COMPLETE XRAY on DOS: 10/19/24, CT PELVIS WO CONTRAST on DOS: 07/06/24 TECHNIQUE: The exam was performed on a multidetector scanner. Thin slices were acquired through the left femur. Sagittal and coronal reformations were performed on a separate workstation. Radiation optimization: All CT scans at this facility use at least one of these dose optimization paul hniques: Automated exposure control mA and/or kV adjustment per patient size (includes targeted exams where dose is matched to clinical indication) or iterative reconstruction. RADIATION DOSE: CTDI: 9 mGy DLP: 443 mGy-cm FINDINGS: Motion artifact degrades evaluation. There is severe chronic deformity of the left hip join t with a shallow acetabulum. There is deformity of the left femoral head. There are left hip joint b odies. There is severe periarticular sclerosis. No significant effusion is identified. No acute fract ure is identified. The visualized bony pelvis appears intact. No knee effusion is identified. There i s diffuse circumferential rectal wall thickening. The bladder wall appears thickened although this ma y be secondary to nondistention. IMPRESSION: Severe chronic deformity of the left hip joint. No acute fracture is identified. Circumferential rectal wall thickening. Correlate clinically for proctitis.
[2024-12-15] MEDS ORDERED: ACETAMINOPHEN 325 MG TAB PO PRN (20:30)
[2024-12-15] MEDS ORDERED: NITROGLYCERIN 0.4 MG SL TAB SL PRN (20:30)
[2024-12-15] MEDS ORDERED: MORPHINE SULFATE INJ 2 MG/ml SYRG IV PRN (20:30)
[2024-12-15] MEDS: HYDROcodone-ACET 5/325MG TAB PO PRN (22:26)
[2024-12-15] MEDS: INSULIN LANTUS (GLARGINE) 1 /0.01ml (100units/ml) SC SCH (23:10)
[2024-12-15 23:14] VITALS: BP 142/92; PULSE 71; RESP 18; TEMP 98.1; O2SAT 96
[2024-12-15 23:15] VITALS: BP 142/92; PULSE 71; RESP 18; TEMP 98.1; O2SAT 96
[2024-12-16] MEDS: ACCU-CHEK COMFORT CURVE STRIP VI SCH
[2024-12-16] MEDS: InsuLIN REG 1unit/0.01ml Soln (100units/ml) SC SCH (00:33)
[2024-12-16] MEDS: MORPHINE SULFATE INJ 2 MG/ml SYRG IV PRN (00:34)
[2024-12-16 01:00] VITALS: BP 112/78; PULSE 64; RESP 17; TEMP 97.9; O2SAT 98
[2024-12-16] MEDS ORDERED: ARIP2TAB PO (03:49)
[2024-12-16] MEDS ORDERED: INSU100I4 SC (03:52)
[2024-12-16 05:00] VITALS: BP 117/87; PULSE 57; RESP 18; TEMP 97.5; O2SAT 98
[2024-12-16 05:48] LABS: Hematocrit 38.0 % (41.0-53.0); Hemoglobin 13.1 g/dL (13.5-17.5); Mean Corpuscular Hemoglobin 33.3 pg (28.0-32.0); Mean Corpuscular Volume 97.0 fL (80.0-100.0); Nucleated Red Blood Cells % 0.1 %
[2024-12-16 06:08] LABS: Alanine Aminotransferase 11 U/L (7-40); Albumin 4.0 g/dL (3.2-4.8); Alkaline Phosphatase 67 U/L (46-116); Anion Gap 8 (5-15); BUN/Creatinine Ratio 17.2 (10.0-20.0); Bilirubin, Total 0.3 mg/dL (0.2-1.0); Blood Urea Nitrogen 15 mg/dL (9-23); Calcium 9.3 mg/dL (8.7-10.4); Carbon Dioxide 25 mmol/L (20-31); Chloride 106 mmol/L (98-107); Potassium 4.2 mmol/L (3.5-5.1); Sodium 139 mmol/L (136-145); Total Protein 6.4 g/dL (5.7-8.2)
[2024-12-16 06:22] LABS: Glucose 130 mg/dL (74-106)
[2024-12-16] MEDS: ONDANSETRON HCL 4 MG/2 ML VIAL IV ONE (07:49)
[2024-12-16] MEDS: ENOXAPARIN SOD 40 MG/0.4 ML SYRINGE SC SCH (08:46)
[2024-12-16 08:59] VITALS: BP 120/78; PULSE 61; RESP 18; TEMP 98; O2SAT 98
[2024-12-16 10:46] LABS: Hepatitis B Surface Antigen Negative (Negative)
[2024-12-16 11:10] LABS: Hepatitis C Antibody Negative (Negative)
--- NOTE | 2024-12-16 11:17 | ED.PDOC ---
Musculoskeletal HPI Comments 34-year-old male who presents to the ED via EMS for chief complaint of upper extremity pain. Patient lives at care home [facility] hand states he told staff that he has been having left hip pain since last night p.m. EMS was called today due to patient's increasing pain. EMS arrived on scene and states they were called due to patient having high blood sugar and noted Accu-Chek was in the 300s after hospital staff gave patient insulin. Patient now in ED denies any associated fall or trauma. Patient now in the ED has Accu-Chek of 188 but otherwise stable vitals. Patient otherwise has not noted history of TBI, type 2 diabetes. Patient otherwise denies any other symptoms. Chief Complaint: Lower Extremity Time Seen by MD: 15:39 Primary Care Provider: UNKNOWN NAME Reviewed Notes: Medications, Allergies Allergies: Coded Allergies: NO KNOWN ALLERGIES (Unverified , 10/25/23) [facility], where pt lives, states he is not allergic to anything. Home Meds Active Scripts Oxycodone HCl (Oxycodone Hydrochloride) 5 Mg Tab, 5 MG PO Q6HR for 14 Days, #56 TAB Prov:LIVIA ELIZABETH MD 10/25/24 Hydrocodone-Acetaminophen (Hydrocodone Bitartrate/AC 5-325 mg) 1 Tab Tab, 1 TAB PO Q6HP PRN for 5 Days, #20 TAB Prov:LIVIA ELIZABETH MD 10/21/24 Ibuprofen Micronized (MOTRIN TABLET) 600 Mg Tb, 600 MG PO TID for 5 Days, #15 TAB *Black box warning-NSAIDS can increase risk of [place] & hypertension, GI irritation, ulceration, bleed, perferation. Do not use post cardiac surgery. Use short duration/lowest effective dose. Prov:LIVIA ELIZABETH MD 10/21/24 Levetiracetam (Keppra) 1,000 Mg Tab, 1 TAB PO BID, #60 TAB 5 Refills Prov:REGINA SANCHEZ MD 04/21/23 Reported Medications Insulin Lispro (Humalog Kwikpen) 100 Unit/Ml Inj, 100 UNIT SC, INJ 12/16/24 Aripiprazole (Abilify) 2 Mg Tab, 5 TAB PO DAILY, #30 TAB 2 Refills 12/16/24 Metformin Hydrochloride (Metformin Hcl) 500 Mg Tab, PO DAILY for 30 Days, MG 10/19/24 Gabapentin (Gabapentin) 100 Mg Cap, PO BID for 30 Days, MG 10/19/24 Cholecalciferol (VITAMIN D3) 2,000 Unit Tab, 25 MCG PO DAILY, TAB 10/25/23 Topiramate (Topiramate) 50 Mg Tab, 50 MG PO QPM, TAB 10/25/23 Tamsulosin HCl (Tamsulosin Hydrochloride) 0.4 Mg Cap, 0.4 MG PO, CAP 10/25/23 Acetaminophen (Tylenol) 325 Mg Cap, 500 MG PO DAILY, CAP 10/25/23 Lidocaine (LIDODERM 5% TOPICAL PATCH) 1 Patch Ph, 1 PATCH TOP DAILY, #30 PATCH 10/25/23 Hydroxyzine Hcl (Hydroxyzine Hcl) 25 Mg Tab, 25 MG PO Q6HPRN PRN for ANXIETY, TAB 10/25/23 Bisacodyl (KP BISACODYL) 5 Mg Tab, 10 MG OR, TAB 10/25/23 Alum & Mag Hydrox-Simethicone (Antacid Anti-Gas) 1 Ml Loree, 30 ML PO Q4HPRN, ML 10/25/23 Senna (Senokot) 8.6 Mg Tab, 1 TAB PO BID, #40 TAB 10/25/23 Rosuvastatin Calcium (Crestor) 5 Mg Tab, 5 MG PO QPM, TAB 10/25/23 Ramelteon (Rozerem) 8 Mg Tab, 1 TAB PO QPM, #30 TAB 1 Refill 10/25/23 Trazodone Hcl (Trazodone Hcl) 100 Mg Tab, 1 TAB PO QPM, #30 TAB 10/25/23 Ondansetron HCl (Ondansetron) 4 Mg Tab, 4 MG PO PRN PRN for Q6, TAB 10/25/23 Pantoprazole Sodium Sesquihydr (Protonix) 40 Mg Tab, 40 MG PO DAILY, #30 TAB 10/25/23 Metoclopramide Hcl (Metoclopramide Hcl) 5 Mg Tab, 5 MG PO TID, TAB 10/25/23 Famotidine (PEPCID TABLET) 20 Mg Tb, 1 TAB PO BID, #60 TAB 5 Refills 10/25/23 Duloxetine Hcl (Cymbalta) 60 Mg Cap, 1 CAP PO DAILY, #90 CAP 3 Refills 9/8/24 Polyethylene Glycol 3350 (Clearlax) 17 Gm/Scoop Pow, 17 GM PO BID, POW 10/25/23 Baclofen (Baclofen) 20 Mg Tab, 5 MG PO TID, TAB 10/25/23 Pregabalin (LYRICA CAPSULE) 25 Mg Cp, 25 MG PO, CAP 10/25/23 Apixaban Base (ELIQUIS) 2.5 Mg Tab, 2.5 MG PO BID, TAB 10/25/23 Divalproex Sodium (Depakote) 250 Mg Tab, 1 TAB PO BID, #60 TAB 2 Refills 10/25/23 Oxycodone W/ Acetaminophen (Apap/Oxycodone) 1 Tab Tab, 1 TAB PO QID for hip pain, #120 TAB 10/25/23 Insulin Detemir (Levemir) Inj, 11 SC BID, INJ 10/25/23 Information Source: Patient, Emergency Med Personnel Mode of Arrival: EMS Brought in by: EMS Past Medical History PAST MEDICAL HISTORY: DM, High Lipids, [place], Seizures Surgical History: Denies all surgeries Family History Family History: Unknown Social History Smoker: Non-Smoker Alcohol: Denies ETOH Use Drugs: Denies Drug Use Lives In: Assisted Care Constitutional: denies: chills, diaphoresis, fatigue, fever, malaise, sweats, weakness, others EENTM: denies: blurred vision, double vision, ear bleeding, ear discharge, ear drainage, ear pain, ear ringing, eye pain, eye redness, hearing loss, mouth pain, mouth swelling, nasal discharge, nose bleeding, nose congestion, nose pain, photophobia, tearing, throat pain, throat swelling, voice changes, others Respiratory: denies: cough, hemoptysis, orthopnea, SOB at rest, shortness of breath, SOB with excertion, stridor, wheezing, others Cardiovascular: denies: chest pain, dizzy spells, diaphoresis, Dyspnea on exertion, edema, irregular heart beat, left arm pain, lightheadedness, palpitations, PND, syncope, others Gastrointestinal: denies: abdomen distended, abdominal pain, blood streaked bowels, constipated, diarrhea, dysphagia, difficulty swallowing, hematemesis, melena, nausea, poor appetite, poor fluid intake, rectal bleeding, rectal pain, vomiting, others Genitourinary: denies: burning, dysuria, flank pain, frequency, hematuria, incontinence, penile discharge, penile sore, pain, testicle pain, testicle swelling, urgency, others Neurological: denies: dizziness, fainting, headache, left sided numbness, left sided weakness, numbness, paresthesia, pre-existing deficit, right sided nu mbness, right sided weakness, seizure, speech problems, tingling, tremors, weakness, others Musculoskeletal: reports: joint pain (Left upper and lower extremity); denies: back pain, gout, joint swelling, muscle pain, muscle stiffness, neck pain, others Integumetry: denies: bruises, change in color, change in hair/nails, dryness, laceration, lesions, lumps, rash, wounds, others Allergic/Immunocompromised: denies: Difficulty Healing, Frequent Infections, Hives, Itching, others Hematologic/Lymphatic: denies: anemia, blood clots, easy bleeding, easy bruising, swollen glands, others Endocrine: denies: excessive hunger, excessive sweating, excessive thirst, excessive urination, flushing, intolerance to cold, intolerance to heat, unexplained weight gain, unexplained weight loss, others Psychiatric: denies: anxiety, bipolar disorder, depression, hopeless, panic disorder, schizophrenia, sleepless, suicidal, others All Other Systems: Reviewed and Negative Physical Exam General Appearance: No Apparent Distress, Normal HEENT: Normal ENT Inspection, Pharynx Normal, TMs Normal Neck: Full Range of Motion, Non-Tender, Normal, Normal Inspection Respiratory: Chest Non-Tender, Lungs Clear, No Accessory Muscle Use, No Respiratory Distress, Normal Breath Sounds Cardiovascular: No Edema, No JVD, No Murmur, No Gallop, Normal Peripheral Pulses, Regular Rate/Rhythm Breast Exam: Deferred Gastrointestinal: No Organomegaly, Non Tender, No Pulsatile Mass, Normal Bowel Sounds, Soft Genitalia: Deferred Pelvic: Deferred Rectal: Deferred Extremities: No calf tenderness, Other (left hip with severe tenderness to palpation) Musculoskeletal : Apperance: Normal Neurologic: Alert, 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 Was a procedure done?: No Differential Diagnosis EXT Differential Diagnosis: Deep Vein Thrombosis, Fracture, Sprain, Strain, Arthritis X-Ray, Labs, Meds, VS Vital Signs Date Time Temp Pulse Resp B/P (MAP) Pulse Ox O2 Delivery O2 Flow Rate FiO2 12/15/24 20:00 66 12/15/24 19:51 60 12 96 Room Air* 0 21 12/15/24 19:50 60 12 101/63 (76) 96 12/15/24 18:00 64 12 99/58 (72) 96 12/15/24 17:10 64 12 99/58 12/15/24 16:00 71 18 100/71 (81) 93 12/15/24 15:55 88 13 111/73 12/15/24 14:45 88 13 96 Room Air* 0 21 12/15/24 14:45 99.3 88 13 111/73 (86) 96 99.3 12/15/24 14:07 98.7 95 16 134/48 98 98.7 Lab Test 12/15/24 17:25 12/15/24 14:57 Range/Units POC Glucose 74 188 H 70-106 mg/dl Time of 1ST Reevaluation: 16:10 Reevaluation 1ST: Unchanged Patient Education/Counseling: Diagnosis, Treatment Family Education/Counseling: No Family Present Departure 1 Departure Time of Disposition: 18:55 (Patient with concern for left hip fracture. Will admit for ct and ortho evaluation) Impression: Primary Impression: Left hip pain Additional Impression: Inability to ambulate due to hip Disposition: ADMITTED INPATIENT Admit to: Med Surg Condition: Guarded Critical Care Note Critical Care Time?: No Stability Stability form required: No Heart Score Heart Score: Heart Score Response (Comments) Value History N/A 0 EKG N/A 0 Age N/A 0 Risk Factors N/A 0 Troponin N/A 0 Total 0 I personally scribed for MICHAEL DAY MD ([email or web address]) on 12/15/24 at 15:23. Electronically submitted by Fanny Jaquez ([facility] I personally scribed for MICHAEL DAY MD ([email or web address]) on 12/15/24 at 15:40. Electronically submitted by Fanny Jaquez ([email or web address]). MICHAEL DAY MD Dec 15, 2024 15:23
--- NOTE | 2024-12-16 11:25 | DVHHP2 ---
Admitting Diagnosis: [facility] History of Present Illness HPI 34-year-old male who presents to the ED via EMS for chief complaint of upper extremity pain. Patient lives at senior care facility hand states he told staff that he has been having left hip pain since last night p.m. EMS was called today due to patient's increasing pain. EMS arrived on scene and states they were called due to patient having high blood sugar and noted Accu-Chek was in the 300s after hospital staff gave patient insulin. Patient now in ED denies any associated fall or trauma. Patient now in the ED has Accu-Chek of 188 but otherwise stable vitals. Patient otherwise has not noted history of TBI, type 2 diabetes. Patient otherwise denies any other symptoms. Home Meds Active Scripts Oxycodone HCl (Oxycodone Hydrochloride) 5 Mg Tab, 5 MG PO Q6HR for 14 Days, #56 TAB Prov:LIVIA ELIZABETH MD 10/25/24 Hydrocodone-Acetaminophen (Hydrocodone Bitartrate/AC 5-325 mg) 1 Tab Tab, 1 TAB PO Q6HP PRN for 5 Days, #20 TAB Prov:LIVIA ELZIABETH MD 10/21/24 Ibuprofen Micronized (MOTRIN TABLET) 600 Mg Tb, 600 MG PO TID for 5 Days, #15 TAB *Black box warning-NSAIDS can increase risk of ID & hypertension, GI irritation, ulceration, bleed, perferation. Do not use post cardiac surgery. Use short duration/lowest effective dose. Prov:LIVIA ELIZABETH MD 10/21/24 Levetiracetam (Keppra) 1,000 Mg Tab, 1 TAB PO BID, #60 TAB 5 Refills Prov:REGINA SANCHEZ MD 04/21/23 Reported Medications Insulin Lispro (Humalog Kwikpen) 100 Unit/Ml Inj, 100 UNIT SC, INJ 12/16/24 Aripiprazole (Abilify) 2 Mg Tab, 5 TAB PO DAILY, #30 TAB 2 Refills 12/16/24 Metformin Hydrochloride (Metformin Hcl) 500 Mg Tab, PO DAILY for 30 Days, MG 10/19/24 Gabapentin (Gabapentin) 100 Mg Cap, PO BID for 30 Days, MG 10/19/24 Cholecalciferol (VITAMIN D3) 2,000 Unit Tab, 25 MCG PO DAILY, TAB 10/25/23 Topiramate (Topiramate) 50 Mg Tab, 50 MG PO QPM, TAB 10/25/23 Tamsulosin HCl (Tamsulosin Hydrochloride) 0.4 Mg Cap, 0.4 MG PO, CAP 10/25/23 Acetaminophen (Tylenol) 325 Mg Cap, 500 MG PO DAILY, CAP 10/25/23 Lidocaine (LIDODERM 5% TOPICAL PATCH) 1 Patch Ph, 1 PATCH TOP DAILY, #30 PATCH 10/25/23 Hydroxyzine Hcl (Hydroxyzine Hcl) 25 Mg Tab, 25 MG PO Q6HPRN PRN for ANXIETY, TAB 10/25/23 Bisacodyl (KP BISACODYL) 5 Mg Tab, 10 MG OR, TAB 10/25/23 Alum & Mag Hydrox-Simethicone (Antacid Anti-Gas) 1 Ml Loree, 30 ML PO Q4HPRN, ML 10/25/23 Senna (Senokot) 8.6 Mg Tab, 1 TAB PO BID, #40 TAB 10/25/23 Rosuvastatin Calcium (Crestor) 5 Mg Tab, 5 MG PO QPM, TAB 10/25/23 Ramelteon (Rozerem) 8 Mg Tab, 1 TAB PO QPM, #30 TAB 1 Refill 10/25/23 Trazodone Hcl (Trazodone Hcl) 100 Mg Tab, 1 TAB PO QPM, #30 TAB 10/25/23 Ondansetron HCl (Ondansetron) 4 Mg Tab, 4 MG PO PRN PRN for Q6, TAB 10/25/23 Pantoprazole Sodium Sesquihydr (Protonix) 40 Mg Tab, 40 MG PO DAILY, #30 TAB 10/25/23 Metoclopramide Hcl (Metoclopramide Hcl) 5 Mg Tab, 5 MG PO TID, TAB 10/25/23 Famotidine (PEPCID TABLET) 20 Mg Tb, 1 TAB PO BID, #60 TAB 5 Refills 10/25/23 Duloxetine Hcl (Cymbalta) 60 Mg Cap, 1 CAP PO DAILY, #90 CAP 3 Refills 10/25/23 Polyethylene Glycol 3350 (Clearlax) 17 Gm/Scoop Pow, 17 GM PO BID, POW 10/25/23 Baclofen (Baclofen) 20 Mg Tab, 5 MG PO TID, TAB 10/25/23 Pregabalin (LYRICA CAPSULE) 25 Mg Cp, 25 MG PO, CAP 10/25/23 Apixaban Base (ELIQUIS) 2.5 Mg Tab, 2.5 MG PO BID, TAB 10/25/23 Divalproex Sodium (Depakote) 250 Mg Tab, 1 TAB PO BID, #60 TAB 2 Refills 10/25/23 Oxycodone W/ Acetaminophen (Apap/Oxycodone) 1 Tab Tab, 1 TAB PO QID for hip pain, #120 TAB 10/25/23 Insulin Detemir (Levemir) Inj, 11 SC BID, INJ 10/25/23 Past Medical History Patient Family History: Patient reports no known family medical history. Review of Systems Constitutional: No symptom reported Pulmonary/Respiratory: No symptom reported Cardiovascular: No symptom reported Genitourinary: No symptom reported H&P Exam Vital Signs Vital Signs Date Time Temp Pulse Resp B/P (MAP) Pulse Ox O2 Delivery O2 Flow Rate FiO2 12/15/24 19:51 60 12 96 Room Air* 0 21 12/15/24 19:50 101/63 (76) 12/15/24 14:45 99.3 99.3 General Appeara: Well developed Head Exam: Normal inspection Neck Exam: Normal inspection Back Exam: Normal inspection Pelvic Exam: Not done SEPSIS Sepsis Screen Date sepsis recognized/suspect: Dec 15, 2024 Time Sepsis recognized/suspect: 1949 Recent Procedure: No On Antibiotic Therapy: No Respiratory Rate >20: No Heart Rate >90: No Temp<36 C (96.8 F) or >38.3 C: No SBP <90 or MAP <65 mmHG: No New Acute Mental Status Change: No Is the patient on CPAP, BIPAP,: No Physician Orders L Hip Complete Xray (12/15/24 18:19) Ct L Femur Wo Contrast (12/15/24 19:16) Admit (12/15/24 20:16) Allergies (12/15/24 20:16) Code Status (12/15/24 20:16) Hydrocodone-Acet 5/325mg Tab ([place] 5/32 (12/15/24 20:30) Enoxaparin Sodium (Lovenox) (12/16/24 10:00) Fall Risk Precautions In Place QSHIFT (12/15/24 20:16) Complete Blood Count (12/16/24 04:00) Comprehensive Metabolic Panel (12/16/24 04:00) Condition: Serious (12/15/24 20:16) Acetaminophen Tablet (Tylenol Tablet) (12/15/24 20:30) Morphine Sulfate Injection (12/15/24 20:30) Nitroglycerin Sublingual (Ntrostat Subli (12/15/24 20:30) Morphine Sulfate Injection (12/15/24 20:30) Stat Ekg For Chest Pain (12/15/24 20:16) Notify Md Of Changes From Base (12/15/24 20:16) Public Relations Writer For 24 Hours (12/15/24 20:16) Emergency Dysrhythmia Protocol (12/15/24 20:16) Rhythm Strips Once Every Shift (12/15/24 20:16) Oxygen By Nasal Cannula (12/15/24 20:16) Vital Signs Date Time Temp Pulse Resp B/P (MAP) Pulse Ox O2 Delivery O2 Flow Rate FiO2 12/15/24 19:51 60 12 96 Room Air* 0 21 12/15/24 19:50 60 12 101/63 (76) 96 12/15/24 18:00 64 12 99/58 (72) 96 12/15/24 17:10 64 12 99/58 12/15/24 16:00 71 18 100/71 (81) 93 12/15/24 15:55 88 13 111/73 12/15/24 14:45 88 13 96 Room Air* 0 21 12/15/24 14:45 99.3 88 13 111/73 (86) 96 99.3 12/15/24 14:07 98.7 95 16 134/48 98 98.7 Medications Medications Dose Ordered Sig/Lisa Route Start Time Stop Time Status Last Admin Dose Admin Hydromorphone HCl 1 mg ONCE ONCE IV 12/15/24 15:30 12/15/24 15:40 DC 12/15/24 15:55 1 MG Ondansetron HCl 4 mg ONCE ONCE IV 12/15/24 15:30 12/15/24 15:40 DC 12/15/24 15:54 4 MG Sodium Chloride 1,000 ml @ 1,000 mls/hr Q1H ONCE IV 12/15/24 15:30 12/15/24 16:29 DC 12/15/24 15:54 1,000 MLS/HR Labs/Xrays Labs Test 12/15/24 17:25 Range/Units POC Glucose 74 70-106 mg/dl Assessment/Plan Primary Diagnosis 34-year-old male who presents to the ED via EMS for chief complaint of upper extremity pain. Patient lives at [facility] hand states he told staff that he has been having left hip pain since last night p.m. EMS was called today due to patient's increasing pain. EMS arrived on scene and states they were called due to patient having high blood sugar and noted Accu-Chek was in the 300s after hospital staff gave patient insulin. Patient now in ED denies any associated fall or trauma. Patient now in the ED has Accu-Chek of 188 but otherwise stable vitals. Patient otherwise has not noted history of TBI, type 2 diabetes. Patient otherwise denies any other symptoms. hip pain intractable pain [facility] Inability to ambulate due to hip chronic pain dehydration admitted to med/surg started on sliding scale and glargine pain control imaging reviewed Plan discussed with: Patient DAVISTARA Cee Antonino DO Dec 15, 2024 20:21
[2024-12-16 12:55] VITALS: BP 111/63; PULSE 70; RESP 18; TEMP 98; O2SAT 98
[2024-12-16 16:47] VITALS: BP 115/75; PULSE 70; RESP 16; TEMP 98.1; O2SAT 97
[2024-12-16 21:00] VITALS: BP 119/72; PULSE 64; RESP 17; TEMP 98.7; O2SAT 95
[2024-12-16] MEDS: MUPIROCIN 2% OINT 15gm or 22gm FOR MRSA NARES EACHNOSTRI SCH (23:11)
[2024-12-17 01:00] VITALS: BP 125/90; PULSE 62; RESP 17; TEMP 98.1; O2SAT 98
[2024-12-17 05:00] VITALS: BP 112/59; PULSE 65; RESP 17; TEMP 97; O2SAT 97
[2024-12-17 09:00] VITALS: BP 130/91; PULSE 70; RESP 18; TEMP 98.5; O2SAT 98
[2024-12-17 16:37] VITALS: BP 128/87; PULSE 70; RESP 20; TEMP 99; O2SAT 98
[2024-12-17 20:58] VITALS: BP 128/86; PULSE 75; RESP 17; TEMP 97.8; O2SAT 96
[2024-12-18 00:40] VITALS: BP 127/70; PULSE 67; RESP 17; TEMP 97.8; O2SAT 95
[2024-12-18 04:57] VITALS: BP 130/90; PULSE 73; RESP 19; TEMP 97.8; O2SAT 99
[2024-12-18 09:00] VITALS: BP 119/68; PULSE 77; RESP 17; TEMP 98.9; O2SAT 99
--- NOTE | 2024-12-18 13:55 | DVHPN2 ---
Progress Note Date Seen: Dec 17, 2024 Medical Necessity Reason Pt with a Central, PICC or Fol: No Objective vital signs Vital Sign Date Time Temp Pulse Resp B/P (MAP) Pulse Ox O2 Delivery O2 Flow Rate FiO2 12/18/24 09:00 98.9 77 17 119/68 (85) 99 98.9 12/18/24 08:00 Room Air* 0 21 Total Intake and Output 12/17/24 12/17/24 12/18/24 15:00 23:00 07:00 Intake Total 760 ml 900 ml Balance 760 ml 900 ml medications Current Medications Medications Dose Ordered Sig/Lisa Route Start Time Stop Time Status Last Admin Dose Admin Acetaminophen/ Hydrocodone Bitart 1 tab Q4HP PRN PO 12/15/24 20:30 12/18/24 06:47 1 TAB Enoxaparin Sodium 40 mg DAILY SC 12/16/24 10:00 12/18/24 11:17 40 MG Acetaminophen 650 mg Q6HP PRN PO 12/15/24 20:30 Morphine Sulfate 2 mg Q4HPRN PRN IV 12/15/24 20:30 12/18/24 08:25 2 MG Nitroglycerin 0.4 mg Q5MINP PRN SL 12/15/24 20:30 Morphine Sulfate 2 mg Q30M PRN IV 12/15/24 20:30 Diagnostic Test (Pha) 1 strip Q6HR 12/16/24 00:00 12/18/24 11:27 1 STRIP Insulin Human Regular Q6HR SC 12/16/24 00:00 12/17/24 17:44 6 UNITS Dextrose 50 ml UD PRN IV 12/15/24 20:30 Insulin Glargine 10 units BID@0700,2200 SC 12/15/24 22:00 12/18/24 06:28 10 UNITS Mupirocin 1 applic BID EACHNOSTRI 12/16/24 22:00 12/21/24 21:59 12/18/24 11:17 1 APPLIC Metronidazole 100 ml @ 100 mls/hr Q8HR IV 12/17/24 14:00 12/18/24 06:31 100 MLS/HR Examination: GENERAL:Normal, HEENT:Abnormal laboratory and microbiology Laboratory Tests 12/16/24 05:27 Test 12/16/24 05:27 Range/Units Serum Glucose 130 #H 74-106 mg/dL Microbiology Date/Time Source Procedure Growth Status 12/16/24 03:52 Nose MRSA Screen - Final Methicillin Resistant S.aureus Complete Labs and/or images reviewed: Labs reviewed by me, Image(s) reviewed by me Problem List/Assessment/Plan Problem List/Assessment/Plan 34-year-old male who presents to the ED via EMS for chief complaint of upper extremity pain. [facility] lives at [facility] hand states he told staff that he has been having left hip pain since last night p.m. EMS was called today due to patient's increasing pain. EMS arrived on scene and states they were called due to patient having high blood sugar and noted Accu-Chek was in the 300s after hospital staff gave patient insulin. Patient now in ED denies any associated fall or trauma. Patient now in the ED has Accu-Chek of 188 but otherwise stable vitals. Patient otherwise has not noted history of TBI, type 2 diabetes. Patient otherwise denies any other symptoms. hip pain intractable pain HHS Inability to ambulate due to hip chronic pain dehydration pain control serum glucose control Plan discussed with: Patient My Orders My Orders Orders - TARA DAVIS DO Procedure Category Date Status Time Discharge DISCHARGE 12/18/24 Verified 13:53 Dietary Evaluation Review Comments: 1) Continue 60g CCHO diet 2) Encourage optimal PO intake 3) Collect HbA1c 4) Refer to outpatient RD/[facility] for diabetes counseling 5) Continue to monitor I&O, labs, and skin integrity Expected Outcomes/Goals: 1) appetite and labs to improve 2) f/u in 3-5 days TARA DAVIS DO Dec 18, 2024 13:55
--- NOTE | 2024-12-18 20:56 | DVHDS2 ---
Discharge Summary Date of Admission Dec 15, 2024 at 20:16 Date of Discharge: Dec 18, 2024 Labs/Diagnostic Data: Laboratory Results Test 12/18/24 17:34 12/16/24 05:27 POC Glucose 113 mg/dl (70-106) White Blood Count 5.9 10^3/uL (4.4-10.8) Red Blood Count 3.92 10^6/uL (4.5-5.90) Hemoglobin 13.1 g/dL (13.5-17.5) Hematocrit 38.0 % (41.0-53.0) Mean Corpuscular Volume 97.0 fL (80.0-100.0) Mean Corpuscular Hemoglobin 33.3 pg (28.0-32.0) Mean Corpuscular Hemoglobin Concent 34.4 g/dL (32.0-36.0) Red Cell Distribution Width 13.2 % (11.8-14.3) Platelet Count 207 10^3/uL (140-450) Mean Platelet Volume 8.8 fL (6.9-10.8) Neutrophils (%) (Auto) 53.9 % (37.0-80.0) Lymphocytes (%) (Auto) 35.0 % (10.0-50.0) Monocytes (%) (Auto) 7.6 % (0.0-12.0) Eosinophils (%) (Auto) 2.4 % (0.0-7.0) Basophils (%) (Auto) 1.1 % (0.0-2.0) Neutrophils # (Auto) 3.2 10 ^3/uL (1.6-8.6) Lymphocytes # (Auto) 2.1 10 ^3/uL (0.4-5.4) Monocytes # (Auto) 0.4 10 ^3/uL (0-1.3) Eosinophils # (Auto) 0.1 10 ^3/uL (0-0.8) Basophils # (Auto) 0.1 10 ^3/uL (0-0.2) Nucleated Red Blood Cells 0.1 % Sodium Level 139 mmol/L (136-145) Potassium Level 4.2 mmol/L (3.5-5.1) Chloride Level 106 mmol/L (98-107) Carbon Dioxide Level 25 mmol/L (20-31) Anion Gap 8 (5-15) Blood Urea Nitrogen 15 mg/dL (9-23) Creatinine 0.87 mg/dL (0.700-1.30) Glomerular Filtration Rate Calc 115 mL/min (>90) BUN/Creatinine Ratio 17.2 (10.0-20.0) Serum Glucose 130 mg/dL (74-106) Calcium Level 9.3 mg/dL (8.7-10.4) Total Bilirubin 0.3 mg/dL (0.2-1.0) Aspartate Amino Transferase (AST) 14 U/L (13-40) Alanine Aminotransferase (ALT) 11 U/L (7-40) Alkaline Phosphatase 67 U/L (46-116) Total Protein 6.4 g/dL (5.7-8.2) Albumin 4.0 g/dL (3.2-4.8) Hepatitis B Surface Antigen Negative (Negative) Hepatitis C Antibody Negative (Negative) Other Laboratory Tests 12/16/24 05:27 Brief Hx & Hospital Course: 34-year-old male who presents to the ED via EMS for chief complaint of upper extremity pain. Patient lives at [facility] hand states he told staff that he has been having left hip pain since last night p.m. EMS was called today due to patient's increasing pain. EMS arrived on scene and states they were called due to patient having high blood sugar and noted Accu-Chek was in the 300s after hospital staff gave patient insulin. Patient now in ED denies any associated fall or trauma. Patient now in the ED has Accu-Chek of 188 but otherwise stable vitals. Patient otherwise has not noted history of TBI, type 2 diabetes. Patient otherwise denies any other symptoms. hip pain intractable pain HHS Inability to ambulate due to hip chronic pain dehydration discharged back to [facility] Condition at Discharge: Fair Final Diagnosis/Problems List see above Discharge Disposition: Assisted Living Facility Discharge Instruct/Medications Diet: Cardiac 2g Na,low cholest Activity: No Restrictions, As Tolerated Scheduled Acetaminophen (Tylenol), 500 MG PO DAILY, (Reported) Alum & Mag Hydrox-Simethicone (Antacid Anti-Gas), 30 ML PO Q4HPRN, (Reported) Apixaban Base (Eliquis), 2.5 MG PO BID, (Reported) Aripiprazole (Abilify), 5 TAB PO DAILY, (Reported) Baclofen (Baclofen), 5 MG PO TID, (Reported) Cholecalciferol (Vitamin D3), 25 MCG PO DAILY, (Reported) Divalproex Sodium (Depakote), 1 TAB PO BID, (Reported) Duloxetine Hcl (Cymbalta), 1 CAP PO DAILY, (Reported) Famotidine (Pepcid Tablet), 1 TAB PO BID, (Reported) Gabapentin (Gabapentin), Unknown Dose PO BID, (Reported) Ibuprofen Micronized (Motrin Tablet), 600 MG PO TID Insulin Detemir (Levemir), 11 SC BID, (Reported) Levetiracetam (Keppra), 1 TAB PO BID Lidocaine (Lidoderm 5% Topical Patch), 1 PATCH TOP DAILY, (Reported) Metformin Hydrochloride (Metformin Hcl), Unknown Dose PO DAILY, (Reported) Metoclopramide Hcl (Metoclopramide Hcl), 5 MG PO TID, (Reported) Oxycodone HCl (Oxycodone Hydrochloride), 5 MG PO Q6HR Oxycodone W/ Acetaminophen (Apap/Oxycodone), 1 TAB PO QID, (Reported) Pantoprazole Sodium Sesquihydr (Protonix), 40 MG PO DAILY, (Reported) Polyethylene Glycol 3350 (Clearlax), 17 GM PO BID, (Reported) Ramelteon (Rozerem), 1 TAB PO QPM, (Reported) Rosuvastatin Calcium (Crestor), 5 MG PO QPM, (Reported) Senna (Senokot), 1 TAB PO BID, (Reported) Topiramate (Topiramate), 50 MG PO QPM, (Reported) Trazodone Hcl (Trazodone Hcl), 1 TAB PO QPM, (Reported) Scheduled PRN Hydrocodone-Acetaminophen (Hydrocodone Bitartrate/AC 5-325 mg), 1 TAB PO Q6HP PRN Hydroxyzine Hcl (Hydroxyzine Hcl), 25 MG PO Q6HPRN PRN for ANXIETY, (Reported) Ondansetron HCl (Ondansetron), 4 MG PO PRN PRN for Q6, (Reported) Miscellaneous Medications Bisacodyl (Kp Bisacodyl), 10 MG OR, (Reported) Insulin Lispro (Humalog Kwikpen), 100 UNIT SC, (Reported) Pregabalin (Lyrica Capsule), 25 MG PO, (Reported) Tamsulosin HCl (Tamsulosin Hydrochloride), 0.4 MG PO, (Reported) Discharge Statement: "Patient was advised to return to the ER or call 911 if any headaches, dizziness, shortness of breath, chest pain, abdominal pain, bleeding, fevers, or worsening of medical condition. Patient was counseled about treatment plan, medications, possible side effects, patientverbalized understanding. All questions were answered to the best of my ability. This discharge took greater then 30 minutes in planning, reviewing documentation, counseling the patient, and discussing with other team members." ASSESSMENT ASSESSMENT Assessment TARA DAVIS DO Dec 18, 2024 20:56
[2024-12-18 21:00] VITALS: BP 121/92; PULSE 86; RESP 19; TEMP 97.7; O2SAT 96
[2024-12-19 01:00] VITALS: BP 117/75; PULSE 65; RESP 20; TEMP 97.7; O2SAT 96
[2024-12-19] MEDS: DEXTROSE (50%) 50ML SYRG IV PRN (02:39)
[2024-12-19 04:33] VITALS: BP 125/78; PULSE 59; RESP 19; TEMP 97.7; O2SAT 94
[2024-12-19 08:37] VITALS: BP 137/87; PULSE 71; RESP 18; TEMP 98.2; O2SAT 99
[2024-12-19 09:00] VITALS: BP 137/87; PULSE 71; RESP 18; TEMP 98.2; O2SAT 99
[2024-12-19 09:54] VITALS: BP 125/85; PULSE 78; RESP 20
== END 2024-12-19 12:04 | DRG 420 ==
LOC: EDUNIT# 14:03 → EDBD 14:03 → ER 14:03 → OVERFLOW 20:16 → WEST WING 22:00 → EAST 12-16 21:00
PROVIDERS: ADMIT Internal Medicine; ATTEND Internal Medicine
DX: E11.00 Type 2 diabetes mellitus with hyperosmolarity without nonketotic hyperglycemic-hyperosmolar coma (NKHHC) (principal); E86.0 Dehydration; M25.552 Pain in left hip; G89.29 Other chronic pain; I25.2 Old myocardial infarction; Z79.4 Long term (current) use of insulin; Z79.899 Other long term (current) drug therapy
CPT/HCPCS: 36415; 73502; 73700; 80053; 82962; 85025; 86803; 87081; 87340; 96361; 96374; 96375; G0378; J1815; J2405; J3490

== ENCOUNTER 2024-12-20 05:47 | Emergency (ER) | payer MEDICAID ==
[~2024-12-20] VITALS: Ht 177.8 cm; Wt 72.6 kg
[~2024-12-20 05:47] MED LIST changes: +ARIP2TAB PO; +INSU100I4 SC
[2024-12-20 05:53] VITALS: TEMP 98.3
--- NOTE | 2024-12-20 07:20 | ED.PDOC ---
Back pain HPI HPI Comments 34-year-old male brought in by ambulance with a prior MHx of seizures, high lipids, CT, diabetes in the chief complaint of a fall injury. Patient is a poor historian but triage notes stated that the patient came from [facility] facility, came to the ER due from having chronic left hip pain S/P falling out of his bed two weeks ago. To contact [facility] nursing facility or Dr. Ortiz is [phone] was admitted doing and/or to contact Dr. Mancia is [phone]. Denies any other symptoms at this time. Chief Complaint: Fall Injury Time Seen by MD: 07:00 Primary Care Provider: UNKNOWN NAME Reviewed Notes: Nurses Notes, Medications, Allergies Allergies: Coded Allergies: NO KNOWN ALLERGIES (Unverified , 10/25/23) [facility] staff, where pt lives, states he is not allergic to anything. Home Meds Active Scripts Oxycodone HCl (Oxycodone Hydrochloride) 5 Mg Tab, 5 MG PO Q6HR for 14 Days, #56 TAB Prov:LIVIA ELIZABETH MD 10/25/24 Hydrocodone-Acetaminophen (Hydrocodone Bitartrate/AC 5-325 mg) 1 Tab Tab, 1 TAB PO Q6HP PRN for 5 Days, #20 TAB Prov:LIVIA ELIZABETH MD 10/21/24 Ibuprofen Micronized (MOTRIN TABLET) 600 Mg Tb, 600 MG PO TID for 5 Days, #15 TAB *Black box warning-NSAIDS can increase risk of CT & hypertension, GI irritation, ulceration, bleed, perferation. Do not use post cardiac surgery. Use short duration/lowest effective dose. Prov:LIVIA ELIZABETH MD 10/21/24 Levetiracetam (Keppra) 1,000 Mg Tab, 1 TAB PO BID, #60 TAB 5 Refills Prov:REGINA SANCHEZ MD 04/21/23 Reported Medications Insulin Lispro (Humalog Kwikpen) 100 Unit/Ml Inj, 100 UNIT SC, INJ 12/16/24 Aripiprazole (Abilify) 2 Mg Tab, 5 TAB PO DAILY, #30 TAB 2 Refills 12/16/24 Metformin Hydrochloride (Metformin Hcl) 500 Mg Tab, PO DAILY for 30 Days, MG 10/19/24 Gabapentin (Gabapentin) 100 Mg Cap, PO BID for 30 Days, MG 10/19/24 Cholecalciferol (VITAMIN D3) 2,000 Unit Tab, 25 MCG PO DAILY, TAB 10/25/23 Topiramate (Topiramate) 50 Mg Tab, 50 MG PO QPM, TAB 10/25/23 Tamsulosin HCl (Tamsulosin Hydrochloride) 0.4 Mg Cap, 0.4 MG PO, CAP 10/25/23 Acetaminophen (Tylenol) 325 Mg Cap, 500 MG PO DAILY, CAP 10/25/23 Lidocaine (LIDODERM 5% TOPICAL PATCH) 1 Patch Ph, 1 PATCH TOP DAILY, #30 PATCH 10/25/23 Hydroxyzine Hcl (Hydroxyzine Hcl) 25 Mg Tab, 25 MG PO Q6HPRN PRN for ANXIETY, TAB 10/25/23 Bisacodyl (KP BISACODYL) 5 Mg Tab, 10 MG OR, TAB 10/25/23 Alum & Mag Hydrox-Simethicone (Antacid Anti-Gas) 1 Ml Loree, 30 ML PO Q4HPRN, ML 10/25/23 Senna (Senokot) 8.6 Mg Tab, 1 TAB PO BID, #40 TAB 10/25/23 Rosuvastatin Calcium (Crestor) 5 Mg Tab, 5 MG PO QPM, TAB 10/25/23 Ramelteon (Rozerem) 8 Mg Tab, 1 TAB PO QPM, #30 TAB 1 Refill 10/25/23 Trazodone Hcl (Trazodone Hcl) 100 Mg Tab, 1 TAB PO QPM, #30 TAB 10/25/23 Ondansetron HCl (Ondansetron) 4 Mg Tab, 4 MG PO PRN PRN for Q6, TAB 10/25/23 Pantoprazole Sodium Sesquihydr (Protonix) 40 Mg Tab, 40 MG PO DAILY, #30 TAB 10/25/23 Metoclopramide Hcl (Metoclopramide Hcl) 5 Mg Tab, 5 MG PO TID, TAB 10/25/23 Famotidine (PEPCID TABLET) 20 Mg Tb, 1 TAB PO BID, #60 TAB 5 Refills 10/25/23 Duloxetine Hcl (Cymbalta) 60 Mg Cap, 1 CAP PO DAILY, #90 CAP 3 Refills 10/25/23 Polyethylene Glycol 3350 (Clearlax) 17 Gm/Scoop Pow, 17 GM PO BID, POW 10/25/23 Baclofen (Baclofen) 20 Mg Tab, 5 MG PO TID, TAB 10/25/23 Pregabalin (LYRICA CAPSULE) 25 Mg Cp, 25 MG PO, CAP 10/25/23 Apixaban Base (ELIQUIS) 2.5 Mg Tab, 2.5 MG PO BID, TAB 10/25/23 Divalproex Sodium (Depakote) 250 Mg Tab, 1 TAB PO BID, #60 TAB 2 Refills 10/25/23 Oxycodone W/ Acetaminophen (Apap/Oxycodone) 1 Tab Tab, 1 TAB PO QID for hip pain, #120 TAB 10/25/23 Insulin Detemir (Levemir) Inj, 11 SC BID, INJ 10/25/23 Information Source: Patient Mode of Arrival: EMS Timing: Weeks Duration: Since onset Severity: Moderate Prehospital treatment: None Quality: Burning Onset: Fall (Two weeks ago) History of: None Associated signs and symptoms: None Past Medical History PAST MEDICAL HISTORY: DM, High Lipids, CT, Seizures Surgical History: Denies all surgeries Family History Family History: Reviewed,noncontributory to illness, Unknown Social History Smoker: Non-Smoker Alcohol: Denies ETOH Use Drugs: Denies Drug Use Lives In: Assisted Care Constitutional: denies: chills, diaphoresis, fatigue, fever, malaise, sweats, weakness, others EENTM: denies: blurred vision, double vision, ear bleeding, ear discharge, ear drainage, ear pain, ear ringing, eye pain, eye redness, hearing loss, mouth pain, mouth swelling, nasal discharge, nose bleeding, nose congestion, nose pain, photophobia, tearing, throat pain, throat swelling, voice changes, others Respiratory: denies: cough, hemoptysis, orthopnea, SOB at rest, shortness of breath, SOB with excertion, stridor, wheezing, others Cardiovascular: denies: chest pain, dizzy spells, diaphoresis, Dyspnea on exertion, edema, irregular heart beat, left arm pain, lightheadedness, palpitations, PND, syncope, others Gastrointestinal: denies: abdomen distended, abdominal pain, blood streaked bowels, constipated, diarrhea, dysphagia, difficulty swallowing, hematemesis, melena, nausea, poor appetite, poor fluid intake, rectal bleeding, rectal pain, vomiting, others Genitourinary: denies: burning, dysuria, flank pain, frequency, hematuria, incontinence, penile discharge, penile sore, pain, testicle pain, testicle swelling, urgency, others Neurological: denies: dizziness, fainting, headache, left sided numbness, left sided weakness, numbness, paresthesia, pre-existing deficit, right sided numbness, right sided weakness, seizure, speech problems, tingling, tremors, weakness, others Musculoskeletal: reports: others (Left hip pain S/P fall two weeks ago); denies: back pain, gout, joint pain, joint swelling, muscle pain, muscle stiffness, neck pain Integumetry: denies: bruises, change in color, change in hair/nails, dryness, laceration, lesions, lumps, rash, wounds, others Allergic/Immunocompromised: denies: Difficulty Healing, Frequent Infections, Hives, Itching, others Hematologic/Lymphatic: denies: anemia, blood clots, easy bleeding, easy bruising, swollen glands, others Endocrine: denies: excessive hunger, excessive sweating, excessive thirst, excessive urination, flushing, intolerance to cold, intolerance to heat, unexp lained weight gain, unexplained weight loss, others Psychiatric: denies: anxiety, bipolar disorder, depression, hopeless, panic disorder, schizophrenia, sleepless, suicidal, others All Other Systems: Reviewed and Negative Physical Exam General Appearance: No Apparent Distress, Normal HEENT: Normal ENT Inspection, Pharynx Normal, TMs Normal Neck: Full Range of Motion, Non-Tender, Normal, Normal Inspection Respiratory: Chest Non-Tender, Lungs Clear, No Accessory Muscle Use, No Respiratory Distress, Normal Breath Sounds Cardiovascular: No Edema, No JVD, No Murmur, No Gallop, Normal Peripheral Pulse s, Regular Rate/Rhythm Breast Exam: Deferred Gastrointestinal: No Organomegaly, Non Tender, No Pulsatile Mass, Normal Bowel Sounds, Soft Genitalia: Deferred Pelvic: Deferred Rectal: Deferred Extremities: No calf tenderness, Normal capillary refill, Normal inspection, Normal range of motion, Non-tender, No pedal edema Musculoskeletal : Location: Right Extremity Location: Hip (Localized TTP) Apperance: Normal Neurologic: Alert, relay worker II-XII nml as Tested, No Motor Deficits, Normal Affect, Normal Mood, No Sensory Deficits Cerebellar Function: Normal Reflexes: Normal Skin: Dry, Normal Color, Warm Lymphatic: No Adenopathy Was a procedure done? Was a procedure done?: No Back Pain Differential Dx Differential Diagnosis: Other X-Ray, Labs, Meds, VS Vital Signs Date Time Temp Pulse Resp B/P (MAP) Pulse Ox O2 Delivery O2 Flow Rate FiO2 12/20/24 10:06 63 17 101/58 (72) 99 12/20/24 08:12 78 17 104/63 12/20/24 05:53 98.3 77 16 116/78 99 98.3 Lab Test 12/20/24 07:27 Range/Units White Blood Count 5.3 4.4-10.8 10^3/uL Red Blood Count 4.11 L 4.5-5.90 10^6/uL Hemoglobin 13.8 13.5-17.5 g/dL Hematocrit 39.8 L 41.0-53.0 % Mean Corpuscular Volume 96.8 80.0-100.0 fL Mean Corpuscular Hemoglobin 33.5 H 28.0-32.0 pg Mean Corpuscular Hemoglobin Concent 34.6 32.0-36.0 g/dL Red Cell Distribution Width 13.3 11.8-14.3 % Platelet Count 201 140-450 10^3/uL Mean Platelet Volume 8.8 6.9-10.8 fL Neutrophils (%) (Auto) 62.8 37.0-80.0 % Lymphocytes (%) (Auto) 20.7 10.0-50.0 % Monocytes (%) (Auto) 14.1 H 0.0-12.0 % Eosinophils (%) (Auto) 1.2 0.0-7.0 % Basophils (%) (Auto) 1.2 0.0-2.0 % Neutrophils # (Auto) 3.3 1.6-8.6 10 ^3/uL Lymphocytes # (Auto) 1.1 0.4-5.4 10 ^3/uL Monocytes # (Auto) 0.8 0-1.3 10 ^3/uL Eosinophils # (Auto) 0.1 0-0.8 10 ^3/uL Basophils # (Auto) 0.1 0-0.2 10 ^3/uL Nucleated Red Blood Cells 0.1 % Sodium Level 144 # 136-145 mmol/L Potassium Level 4.4 3.5-5.1 mmol/L Chloride Level 107 98-107 mmol/L Carbon Dioxide Level 28 20-31 mmol/L Anion Gap 9 5-15 Blood Urea Nitrogen 18 9-23 mg/dL Creatinine 1.00 0.700-1.30 mg/dL Glomerular Filtration Rate Calc 101 >90 mL/min BUN/Creatinine Ratio 18.0 10.0-20.0 Serum Glucose 117 H 74-106 mg/dL Calcium Level 9.4 8.7-10.4 mg/dL PATIENT: LOVE ANDRADET: [id number]: [id number] : 1990 LOC: ER ROOM / BED: / AGE / SEX: 34 / M ADM STATUS: REG ER SERVICE 0 ORDERING PHYSICIAN: CATHERINE MARAVILLA NP PROCEDURE(s): LHIP - L HIP COMPLETE XRAY REASON: Chx HIp pain ORDER NUMBER(s): [id number], ACCESSION NUMBER(s): [id number] PROCEDURE: Left hip Radiographs. INDICATION: Chx HIp pain TECHNIQUE: Frontal and lateral radiographs of the left hip. COMPARISON: Radiographs left hip 12/15/2024. FINDINGS: Left hip dysplasia with chronic subluxation of the left femoral head relative to the shallow acetabulum. There is severe left hip joint space narro wing with [id number] contact and subchondral sclerosis on both size of the left hip joint. Extensive sclerosis overlies the left femoral neck precluding adequate evaluation for fracture. Mild right hip joint space narrowing. Foreshortening of the right femoral neck. IMPRESSION: 1. Foreshortening of the right femoral neck. This could be positional. Dedicated radiographs of the right hip recommended to exclude fracture. 2. Severe left hip osteoarthritis. Sclerosis and osteophyte formation from the Left hip Osteoarthritis limit evaluation for acute fracture of the left femoral neck. No definite fracture seen. ATED BY: SAUMYA MURDOCK MD DICTATED DATE/TIME: 12/20/24846 SIGNED BY: SAUMYA MURDOCK MD SIGNED DATE/TIME: 12/20/24846 CC: X-Ray, Labs, Meds, VS Comment 42-year-old male brought in by ambulance with a prior MHx of seizures, high lipids, CT, diabetes in the chief complaint of a fall injury. Patient arrives alert and oriented, ABC's intact, afebrile, vital signs stable, saturating well in room air Peripheral IV insertion+ labs were ordered. CBC was ordered to exclude anemia, blood loss, or infection. BMP was ordered to exclude electrolyte abnormalities, renal failure, dehydration, hyperglycemia Diagnostic imaging ordered by me and results interpreted by radiology : X-ray to the left hip 1. Foreshortening of the right femoral neck. This could be positional. Dedicated radiographs of the right hip recommended to exclude fracture. 2. Severe left hip osteoarthritis. Sclerosis and osteophyte formation from the Left hip Osteoarthritis limit evaluation for acute fracture of the left femoral neck. No definite fracture seen. X-ray of the left knee X-ray interpreted by radiologist and reviewed by me Prescribed NSAIDs for the management of acute knee pain. Take ibuprofen p.o. 600 mg every 8 hours with food as needed for pain Recommend light walking under the sun for 30 minutes a day Avoiding running jogging high-impact activities Stretch as tolerated Ice 3x/day for 5 minutes Patient is stable for discharge at this time. External notes reviewed. Test results and diagnostic imaging interpreted. All diagnostic findings, discharge care, education and instructions provided Follow-up with PCP in 2 to 3 days Patient verbalized understanding and agreed to treatment plan Vital signs stable, afebrile, no acute distress noted Patient ambulatory with strong steady gait Advised to return precautions for any new or worsening symptoms, return to ER immediately for re-evaluation Patient is aware that the purpose of this visit was for an acute medical emergency requiring emergent stabilization. Chronic conditions, including malignancies have not been ruled out. Patient is instructed to follow up with PCP as directed and discharge instructions for continued care and workup. If unable to arrange follow-up, patient is to return to the emergency department for reassessment. Patient (parent or legal guardian if applicable) was given verbal and written discharge instructions and acknowledges understanding. Patients work up was remarkable for right hip pain and severe hip OA. On re-evaluation patient reported minimal improvement therefore patient will be admitted for intractable hip pain The patient's workup reveals that the patient needs further evaluation and/or treatment for the above medical conditions. Patient verbalized understanding of the above and is awaiting further evaluation by the admitting service. Time of 1ST Reevaluation: 07:30 Reevaluation 1ST: Unchanged Patient Education/Counseling: Diagnosis, Treatment, Prognosis Family Education/Counseling: No Family Present SEPSIS Sepsis Screen Date sepsis recognized/suspect: Dec 20, 2024 Time Sepsis recognized/suspect: 05 Recent Procedure: No On Antibiotic Therapy: No Respiratory Rate >20: No Heart Rate >90: No Temp<36 C (96.8 F) or >38.3 C: No SBP <90 or MAP <65 mmHG: No New Acute Mental Status Change: No Is the patient on CPAP, BIPAP,: No Physician Orders L Hip Complete Xray (12/20/24 07:11) Vital Signs Date Time Temp Pulse Resp B/P (MAP) Pulse Ox O2 Delivery O2 Flow Rate FiO2 12/20/24 10:06 63 17 101/58 (72) 99 12/20/24 08:12 78 17 104/63 12/20/24 05:53 98.3 77 16 116/78 99 98.3 Laboratory Tests Test 12/20/24 07:27 White Blood Count 5.3 10^3/uL (4.4-10.8) Departure 1 Departure Time of Disposition: 09:02 Impression: Primary Impression: Hip osteoarthritis Qualified Codes: M16.12 - Unilateral primary osteoarthritis, left hip Disposition: 01 HOME / SELF CARE / HOMELESS Condition: Fair Critical Care Note Critical Care Time?: No Stability Stability form required: No Heart Score Heart Score: Heart Score Response (Comments) Value History N/A 0 EKG N/A 0 Age N/A 0 Risk Factors N/A 0 Troponin N/A 0 Total 0 I personally scribed for CATHERINE MARAVILLA NP ([email or web address]) on 12/20/24 at 07:20. Electronically submitted by Almas Pastor ([email or web address]). CATHERINE MARAVILLA NP Dec 20, 2024 07:20
[2024-12-20 07:46] LABS: Hematocrit 39.8 % (41.0-53.0); Hemoglobin 13.8 g/dL (13.5-17.5); Mean Corpuscular Hemoglobin 33.5 pg (28.0-32.0); Mean Corpuscular Volume 96.8 fL (80.0-100.0); Nucleated Red Blood Cells % 0.1 %
[2024-12-20 07:48] LABS: Chloride 107 mmol/L (98-107); Potassium 4.4 mmol/L (3.5-5.1); Sodium 144 mmol/L (136-145)
[2024-12-20 07:49] LABS: Anion Gap 9 (5-15); Calcium 9.4 mg/dL (8.7-10.4); Carbon Dioxide 28 mmol/L (20-31)
[2024-12-20 07:54] LABS: BUN/Creatinine Ratio 18.0 (10.0-20.0); Blood Urea Nitrogen 18 mg/dL (9-23); Glucose 117 mg/dL (74-106)
[2024-12-20] MEDS: MORPHINE SULFATE 4 MG/ML SYR/VIAL IV ONE (08:12)
[2024-12-20] MEDS: SODIUM CHLORIDE 0.9% 1,000 ML IV ONE (08:14)
--- NOTE | 2024-12-20 08:49 | DVH ---
PROCEDURE: Left hip Radiographs. INDICATION: Chx HIp pain TECHNIQUE: Frontal and lateral radiographs of the left hip. COMPARISON: Radiographs left hip 12/15/2024. FINDINGS: Left hip dysplasia with chronic subluxation of the left femoral head relative to the shallow acetabulum. There is severe left hip joint space narrowing with [id number] contact and subchondral sclerosis on both size of the left hip joint. Extensive sclerosis overlies the left femoral neck pr ecluding adequate evaluation for fracture. Mild right hip joint space narrowing. Foreshortening of the right femoral neck. IMPRESSION: 1. Foreshortening of the right femoral neck. This could be positional. Dedicated radiographs of the right hip recommended to exclude fracture. 2. Severe left hip osteoarthritis. Sclerosis and osteophyte formation from the Left hip Osteoarthritis limit evaluation for acute fracture of the left femoral neck. No definite fracture seen.
[2024-12-20 10:06] VITALS: BP 101/58; PULSE 63; RESP 17; O2SAT 99
== END 2024-12-20 11:15 | disposition home or self-care (01) ==
LOC: EDBD 05:47 → ER 05:47
DX: M16.12 Unilateral primary osteoarthritis, left hip (principal); I10 Essential (primary) hypertension; E11.9 Type 2 diabetes mellitus without complications; E78.5 Hyperlipidemia, unspecified; Z79.84 Long term (current) use of oral hypoglycemic drugs; Z79.899 Other long term (current) drug therapy; Z88.8 Allergy status to other drugs, medicaments and biological substances
CPT/HCPCS: 36415; 73502; 80048; 85025; 96361; 96374; 99284; J2270; J7030

== ENCOUNTER 2024-12-28 20:28 | Emergency (ER) | payer MEDICAID ==
[~2024-12-28] VITALS: Ht 180.3 cm; Wt 72.2 kg
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
[2024-12-29 00:05] VITALS: PULSE 88; RESP 18; TEMP 98.5; O2SAT 98
[2024-12-29] MEDS: HYDROmorphone HCL 2 MG/ML VL/or syr IM ONE (00:10)
[2024-12-29 00:40] VITALS: BP 108/69; PULSE 82; RESP 16
== END 2024-12-29 03:46 | disposition home or self-care (01) ==
LOC: EDBD 20:28 → ER 20:28
DX: T24.012A Burn of unspecified degree of left thigh, initial encounter (principal); E11.9 Type 2 diabetes mellitus without complications; E78.5 Hyperlipidemia, unspecified; Z79.899 Other long term (current) drug therapy; Z79.84 Long term (current) use of oral hypoglycemic drugs; Z79.4 Long term (current) use of insulin; Z79.1 Long term (current) use of non-steroidal anti-inflammatories (NSAID); Z79.01 Long term (current) use of anticoagulants; X08.8XXA Exposure to other specified smoke, fire and flames, initial encounter; Y93.89 Activity, other specified; Y92.89 Other specified places as the place of occurrence of the external cause; Y99.8 Other external cause status
CPT/HCPCS: 96372; 99283; J1171

== ENCOUNTER 2024-12-30 00:27 | Emergency (ER) | payer MEDICAID ==
[~2024-12-30] VITALS: Ht 172.7 cm; Wt 72.0 kg
[2024-12-30 00:30] VITALS: BP 139/89; PULSE 88; RESP 16; TEMP 98.2; O2SAT 99
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
[2024-12-30] MEDS: KETOROLAC TROMETH 60MG/2ML VIAL IM ONE (02:11)
[2024-12-30] MEDS: OXYCODONE W/ ACETAMINOPHEN 5/325MG TABLET PO ONE (02:19)
== END 2024-12-31 11:21 | disposition home or self-care (01) ==
LOC: ER 00:27 → EDBD 00:27 → ER 12-31 11:21
DX: T24.202D Burn of second degree of unspecified site of left lower limb, except ankle and foot, subsequent encounter (principal); E11.9 Type 2 diabetes mellitus without complications; Z79.84 Long term (current) use of oral hypoglycemic drugs; Z79.899 Other long term (current) drug therapy; Z87.820 Personal history of traumatic brain injury; X58.XXXD Exposure to other specified factors, subsequent encounter
CPT/HCPCS: 82947; J1885

== ENCOUNTER 2025-01-06 00:13 | Inpatient (IN) | payer MEDICAID, OTHER ==
[~2025-01-06] VITALS: Ht 175.3 cm; Wt 69.9 kg
--- NOTE | 2025-01-06 00:54 | ED.PDOC ---
History of Present Illness HPI Comments 34-year-old male who came to ER via EMS for hyperglycemia. Patient picked up at [facility]. Has history of the type 1 diabetes, anoxic brain injury and seizures. Was having headaches, abdominal pain and diarrhea for a week. Upon arrival of paramedics noted blood sugar levels showed Err (meaning blood sugar levels of >600), was bradycardic at 40s REVIEW OF SYSTEMS: General: No fever, no chills, or fatigue HEENT: No sore throat, no earache, no congestion, no neck pain. Cardiac: No chest pain. No palpitations. Lungs: No shortness of breath, no cough. GI: No nausea, no vomiting, (+) diarrhea, no constipation, (+) abdominal pain : No dysuria, frequency, or urgency. No hematuria. Musculoskeletal: No joint pain , no joint swelling, no extremity edema. Skin: No rash, no itching. Neuro: (+) headache, no dizziness, no weakness EXAM: General: Awake, alert and oriented. No acute distress. Skin: Skin in warm, dry and intact. Appropriate color for ethnicity. HEENT: Healing wounds over left face. Conjunctivae are clear without exudates or hemorrhage. Sclera is non-icteric. EOM are intact. No signs of nystagmus. Eyelids are normal in appearance without swelling or lesions. Oral mucosa is pink and moist Neck: The neck is supple with normal range of motion. No JVD. Cardiac: Heart rate and rhythm are normal. No murmurs, gallops, or rubs are auscultated. Respiratory: No signs of respiratory distress. Lung sounds are clear in all l obes bilaterally without rales, rhonchi, or wheezes. Abdominal: Abdomen is soft, generally-tender without distention. Bowel sounds are present and normoactive in all four quadrants. Extremities: Upper and lower extremities are atraumatic in appearance without deformity or edema. Neurological: The patient is awake, alert and oriented to person, place, and time with normal speech. Speech is clear. There is no facial asymmetry. Psychiatric: Appropriate mood and affect. Good judgement and insight Chief Complaint: Hyperglycemia Time Seen by MD: 00:53 Reviewed Notes: Nurses Notes Allergies: Coded Allergies: NO KNOWN ALLERGIES (Unverified , 01/06/25) Information Source: Patient, Emergency Med Personnel Mode of Arrival: EMS Past Medical History PAST MEDICAL HISTORY: DM, Seizures Past Medical History (Other): Anoxic brain injury, bed-bound Surgical History: Denies all surgeries Family History Family History: Reviewed,noncontributory to illness Social History Smoker: Non-Smoker Alcohol: Denies ETOH Use Drugs: Denies Drug Use Lives In: Care Home Was a procedure done? Was a procedure done?: No EKG EKG : Pulse Rate (adult): 45 Cardiac Rhythm: SB Differential Dx Considerations may include: Anemia, electrolyte imbalance, hyperglycemia, diabetic ketoacidosis. Gastroenteritis X-Ray, Labs, Meds, VS Vital Signs Date Time Temp Pulse Resp B/P (MAP) Pulse Ox O2 Delivery O2 Flow Rate FiO2 01/06/25 03:33 55 14 128/64 01/06/25 00:54 45 01/06/25 00:30 98.0 50 14 117/73 (88) 99 98.0 01/06/25 00:17 45 01/06/25 00:13 98.5 40 18 139/84 98 98.5 Lab Test 01/06/25 01:26 01/06/25 01:12 Range/Units Blood Gas Specimen Type Arterial Blood Gas Sample Site Left radial Blood Gas Patient Temperature 37.0 Arterial Blood Date Drawn [id number] Arterial Blood pH 7.421 7.350-7.450 Arterial Blood Partial Pressure CO2 34.5 L 35.0-48.0 mmHg Arterial Blood Partial Pressure O2 87.4 83.0-108.0 mmHg Arterial Blood HCO3 21.9 21.0-28.0 mmol/L Arterial Blood Oxygen Saturation 95.8 94.0-98.0 % Arterial Blood Base Excess -1.9 -2.0-3.0 mmol/L Arterial Blood Oxyhemoglobin 93.9 L 94.0-98.0 % Arterial Blood Carboxyhemoglobin 1.7 H 0.5-1.5 % Arterial Blood Methemoglobin 0.3 0.0-1.5 % Lázaro Test Yes Blood Gas Total Hemoglobin 13.00 L 13.5-17.5 g/dL Blood Gas Liter Flow 0.00 Blood Gas Modality Room air FiO2 % 21.0 White Blood Count 6.9 4.4-10.8 10^3/uL Red Blood Count 3.68 L 4.5-5.90 10^6/uL Hemoglobin 12.4 L 13.5-17.5 g/dL Hematocrit 36.9 L 41.0-53.0 % Mean Corpuscular Volume 100.2 H 80.0-100.0 fL Mean Corpuscular Hemoglobin 33.7 H 28.0-32.0 pg Mean Corpuscular Hemoglobin Concent 33.7 32.0-36.0 g/dL Red Cell Distribution Width 13.1 11.8-14.3 % Platelet Count 233 140-450 10^3/uL Mean Platelet Volume 9.0 6.9-10.8 fL Neutrophils (%) (Auto) 58.8 37.0-80.0 % Lymphocytes (%) (Auto) 28.3 10.0-50.0 % Monocytes (%) (Auto) 11.2 0.0-12.0 % Eosinophils (%) (Auto) 1.0 0.0-7.0 % Basophils (%) (Auto) 0.7 0.0-2.0 % Neutrophils # (Auto) 4.1 1.6-8.6 10 ^3/uL Lymphocytes # (Auto) 2.0 0.4-5.4 10 ^3/uL Monocytes # (Auto) 0.8 0-1.3 10 ^3/uL Eosinophils # (Auto) 0.1 0-0.8 10 ^3/uL Basophils # (Auto) 0 0-0.2 10 ^3/uL Nucleated Red Blood Cells 0.1 % Sodium Level 124 L 136-145 mmol/L Potassium Level 4.7 3.5-5.1 mmol/L Chloride Level 94 L 98-107 mmol/L Carbon Dioxide Level 21 20-31 mmol/L Anion Gap 9 5-15 Blood Urea Nitrogen 20 9-23 mg/dL Creatinine 1.15 0.700-1.30 mg/dL Glomerular Filtration Rate Calc 85 >90 mL/min BUN/Creatinine Ratio 17.4 10.0-20.0 Serum Glucose 729 *H 74-106 mg/dL Calcium Level 9.5 8.7-10.4 mg/dL Magnesium Level 2.2 1.6-2.6 mg/dL Total Bilirubin 0.4 0.2-1.0 mg/dL Aspartate Amino Transferase (AST) 158 H 13-40 U/L Alanine Aminotransferase (ALT) 102 H 7-40 U/L Alkaline Phosphatase 179 H 46-116 U/L Total Protein 6.7 5.7-8.2 g/dL Albumin 4.0 3.2-4.8 g/dL Beta-Hydroxybutyric Acid 0.342 < 0.4 mmol/L Current Medications Medications (Trade) Dose Ordered Sig/Lisa Route Start Time Stop Time Status Last Admin Sodium Chloride 1,000 ml @ 1,000 mls/hr Q1H ONCE IV 01/06/25 01:15 01/06/25 02:14 DC 01/06/25 02:05 Morphine Sulfate 2 mg ONCE ONCE IV 01/06/25 01:15 01/06/25 01:16 DC 01/06/25 03:33 Time of 1ST Reevaluation: 00:50 Reevaluation 1ST: Unchanged Patient Education/Counseling: Need For Follow Up Family Education/Counseling: No Family Present SEPSIS Sepsis Screen Date sepsis recognized/suspect: Jan 06, 2025 Time Sepsis recognized/suspect: 12 Recent Procedure: No On Antibiotic Therapy: No Respiratory Rate >20: No Heart Rate >90: No Temp<36 C (96.8 F) or >38.3 C: No SBP <90 or MAP <65 mmHG: No New Acute Mental Status Change: No Is the patient on CPAP, BIPAP,: No Physician Orders Electrocardigram (01/06/25 00:21) Abg W/ Co-Ox (01/06/25 01:02) Saline Lock (01/06/25 01:02) Urinalysis (01/06/25 01:02) NS (01/06/25 04:00) Insulin R (Human) (Insulin R) (01/06/25 04:00) Dextrose 50% Syringe (01/06/25 04:00) Dextrose 50% Syringe (01/06/25 04:00) Glucose Blood (Accu-Chek Comfort Curve T (01/06/25 21:15) Glucose Blood (Accu-Chek Comfort Curve T (01/06/25 03:57) Vital Signs Date Time Temp Pulse Resp B/P (MAP) Pulse Ox O2 Delivery O2 Flow Rate FiO2 01/06/25 03:33 55 14 128/64 01/06/25 00:54 45 01/06/25 00:30 98.0 50 14 117/73 (88) 99 98.0 01/06/25 00:17 45 01/06/25 00:13 98.5 40 18 139/84 98 98.5 Laboratory Tests Test 01/06/25 01:12 White Blood Count 6.9 10^3/uL (4.4-10.8) Medications Medications Dose Ordered Sig/Lisa Route Start Time Stop Time Status Last Admin Dose Admin Morphine Sulfate 2 mg ONCE ONCE IV 01/06/25 01:15 01/06/25 01:16 DC 01/06/25 03:33 Sodium Chloride 1,000 ml @ 1,000 mls/hr Q1H ONCE IV 01/06/25 01:15 01/06/25 02:14 DC 01/06/25 02:05 Departure 1 Departure Time of Disposition: 04:00 Impression: Primary Impression: Hyperglycemia Disposition: ADMITTED INPATIENT Condition: Other Comments 34-year-old male with type 1 diabetes presents with hyperglycemia. No DKA. Patient admitted to hospitalist service for further treatment, evaluation and monitoring. Critical Care Note Critical Care Time?: No Stability Stability form required: No Heart Score Heart Score: Heart Score Response (Comments) Value History N/A 0 EKG N/A 0 Age N/A 0 Risk Factors N/A 0 Troponin N/A 0 Total 0 I personally scribed for GUEVARA GEIGER MD ([email or web address]) on 01/06/25 at 00:54. Electronically submitted by Joel Steel ([facility]). GUEVARA GEIGER MD Jan 06, 2025 00:54
[2025-01-06 01:37] LABS: Base Excess -1.9 mmol/L (-2.0-3.0)
[2025-01-06] MEDS: SODIUM CHLORIDE 0.9% 1,000 ML IV ONE ×2 (02:05→04:51)
[2025-01-06 02:06] LABS: Hematocrit 36.9 % (41.0-53.0); Hemoglobin 12.4 g/dL (13.5-17.5); Mean Corpuscular Hemoglobin 33.7 pg (28.0-32.0); Mean Corpuscular Volume 100.2 fL (80.0-100.0); Nucleated Red Blood Cells % 0.1 %
[2025-01-06 02:08] LABS: Albumin 4.0 g/dL (3.2-4.8); Anion Gap 9 (5-15); BUN/Creatinine Ratio 17.4 (10.0-20.0); Blood Urea Nitrogen 20 mg/dL (9-23); Calcium 9.5 mg/dL (8.7-10.4); Carbon Dioxide 21 mmol/L (20-31); Magnesium 2.2 mg/dL (1.6-2.6); Potassium 4.7 mmol/L (3.5-5.1); Total Protein 6.7 g/dL (5.7-8.2)
[2025-01-06 02:09] LABS: Bilirubin, Total 0.4 mg/dL (0.2-1.0)
[2025-01-06 02:28] LABS: Alanine Aminotransferase 102 U/L (7-40); Alkaline Phosphatase 179 U/L (46-116); Chloride 94 mmol/L (98-107); Sodium 124 mmol/L (136-145)
[2025-01-06 02:34] LABS: Glucose 729 mg/dL (74-106)
[2025-01-06] MEDS ORDERED: MORPHINE SULFATE INJ 2 MG/ml SYRG ONE (03:31)
[2025-01-06] MEDS: MORPHINE SULFATE INJ 2 MG/ml SYRG IV ONE ×3 (03:33→23:06)
[2025-01-06 03:47] VITALS: PULSE 50; O2SAT 95
[2025-01-06] MEDS ORDERED: DEXTROSE (50%) 50ML SYRG IV PRN ×2 (04:00→04:15)
--- NOTE | 2025-01-06 04:11 | DVHHP2 ---
History of Present Illness Reason for Visit: Diabetes mellitus with hyperglycemia History of Present Illness The patient is a 34-year-old male bed-bound with past medical history of diabetes mellitus, seizure, and anoxic brain injury presented to [facility] ED for evaluation of elevated blood sugar. Patient was picked up at [facility] having headaches, abdominal pain, and diarrhea for a week. EMS noted patient to have hyperglycemia above 600, bradycardia in the 40s, EN route to our facility ED. Patient was seen and evaluated in the ED, laboratory data shows WBC 6.9, hemoglobin 12.4, hematocrit 36.9, platelets 233, sodium 124, potassium 4.7, BUN 20, creatinine 1.15, GFR 85, blood glucose 729, anion gap 9, calcium 9.5, AST 158, ALT 102, acetone 0.342, blood pressure 128/64, heart rate 55, temperature 98.0 F, O2 saturation 99% on room air. Please see medication orders section in the computer. On my assessment, patient denied chest pain, no headache, dizziness, diaphoresis, seizures activity, dizziness, shortness of breaths, no diarrhea, nausea, vomiting, fever, no chills. Patient was admitted for further evaluation and medical management. Past Medical History DM, Seizures, Anoxic brain injury, Bed-bound Past Surgical History Denies all surgeries Family History Reviewed, noncontributory to the management of this case. Past Social History The [facility], denies smoking, alcohol or illicit drugs abuse. Review of Systems Constitutional: Yes: Weakness; No: Fever, Chills, Sweats, Malaise, Other Eyes: No: Pain, Vision change, Conjunctivae inflammation, Eyelid inflammation, Other, Redness ENT: No: Ear pain, Ear discharge, Nose pain, Nose discharge, Nose congestion, Mouth pain, Mouth swelling, Throat pain, Throat swelling, Other Respiratory: No: Cough, Dry, Shortness of breath, SOB with excertion, Wheezing, Hemoptysis, Pleuritic Pain, Sputum, Wheezing, Other Cardiovascular: No: Chest Pain, Palpitations, Orthopnea, Paroxysmal Noc. Dyspnea, Edema, Lt Headedness, Other Gastrointestinal: No: Nausea, Vomiting, Abdominal Pain, Diarrhea, Constipation, Melena, Hematochezia, Other Genitourinary: No Dysuria, No Frequency, No Incontinence, No Hematuria, No Retention, No Other Musculoskeletal: No: other, neck pain, shoulder pain, arm pain, back pain, hand pain, leg pain, foot pain Skin: No: Rash, Lesions, Jaundice, Bruising, Other Neurological: No: Weakness, Numbness, Incoordination, Change in speech, Confusion, Seizures, Other Allergies: Coded Allergies: NO KNOWN ALLERGIES (Unverified , 01/06/25) Medications Current Medications Medications Dose Ordered Sig/Lisa Route Start Time Stop Time Status Last Admin Dose Admin Dextrose 50 ml PRN PRN IV 01/06/25 04:00 Dextrose 50 ml PRN PRN IV 01/06/25 04:00 Diagnostic Test (Pha) 1 strip IQ4HR 01/06/25 08:00 UNV Insulin Human Regular IQ4HR SC 01/06/25 08:00 UNV Exam Vital Signs Vital Signs Date Time Temp Pulse Resp B/P (MAP) Pulse Ox O2 Delivery O2 Flow Rate FiO2 01/06/25 03:47 50 95 Room Air* 0 21 01/06/25 03:33 14 128/64 01/06/25 00:30 98.0 98.0 General Appearance: Alert, Cooperative, No acute distress, Other (Oriented x2) HEENT: Atraumatic, PERRLA, EOMI, Mucous membr. moist/pink Respiratory: Normal air movement Cardiovascular: Regular rate, Normal S1, Normal S2, No murmurs Abdominal: Normal bowel sounds, Soft, No tenderness, No hepatospenomegaly, No masses Extremities: No clubbing, No cyanosis, No edema, Normal pulses, No tenderne ss/swelling Skin: No rashes, No significant lesion Neuro: Normal tone, Sensation intact, Cranial nerves 3-12 NL, Reflexes 2+, Other (Generalized weakness) Psych/Mental Status: Mental status NL, Mood NL Labs/Xrays Labs Test 01/06/25 01:26 01/06/25 01:12 Range/Units Blood Gas Specimen Type Arterial Blood Gas Sample Site Left radial Blood Gas Patient Temperature 37.0 Arterial Blood Date Drawn Arterial Blood pH 7.421 7.350-7.450 Arterial Blood Partial Pressure CO2 34.5 L 35.0-48.0 mmHg Arterial Blood Partial Pressure O2 87.4 83.0-108.0 mmHg Arterial Blood HCO3 21.9 21.0-28.0 mmol/L Arterial Blood Oxygen Saturation 95.8 94.0-98.0 % Arterial Blood Base Excess -1.9 -2.0-3.0 mmol/L Arterial Blood Oxyhemoglobin 93.9 L 94.0-98.0 % Arterial Blood Carboxyhemoglobin 1.7 H 0.5-1.5 % Arterial Blood Methemoglobin 0.3 0.0-1.5 % Lázaro Test Yes Blood Gas Total Hemoglobin 13.00 L 13.5-17.5 g/dL Blood Gas Liter Flow 0.00 Blood Gas Modality Room air FiO2 % 21.0 White Blood Count 6.9 4.4-10.8 10^3/uL Red Blood Count 3.68 L 4.5-5.90 10^6/uL Hemoglobin 12.4 L 13.5-17.5 g/dL Hematocrit 36.9 L 41.0-53.0 % Mean Corpuscular Volume 100.2 H 80.0-100.0 fL Mean Corpuscular Hemoglobin 33.7 H 28.0-32.0 pg Mean Corpuscular Hemoglobin Concent 33.7 32.0-36.0 g/dL Red Cell Distribution Width 13.1 11.8-14.3 % Platelet Count 233 140-450 10^3/uL Mean Platelet Volume 9.0 6.9-10.8 fL Neutrophils (%) (Auto) 58.8 37.0-80.0 % Lymphocytes (%) (Auto) 28.3 10.0-50.0 % Monocytes (%) (Auto) 11.2 0.0-12.0 % Eosinophils (%) (Auto) 1.0 0.0-7.0 % Basophils (%) (Auto) 0.7 0.0-2.0 % Neutrophils # (Auto) 4.1 1.6-8.6 10 ^3/uL Lymphocytes # (Auto) 2.0 0.4-5.4 10 ^3/uL Monocytes # (Auto) 0.8 0-1.3 10 ^3/uL Eosinophils # (Auto) 0.1 0-0.8 10 ^3/uL Basophils # (Auto) 0 0-0.2 10 ^3/uL Nucleated Red Blood Cells 0.1 % Sodium Level 124 L 136-145 mmol/L Potassium Level 4.7 3.5-5.1 mmol/L Chloride Level 94 L 98-107 mmol/L Carbon Dioxide Level 21 20-31 mmol/L Anion Gap 9 5-15 Blood Urea Nitrogen 20 9-23 mg/dL Creatinine 1.15 0.700-1.30 mg/dL Glomerular Filtration Rate Calc 85 >90 mL/min BUN/Creatinine Ratio 17.4 10.0-20.0 Serum Glucose 729 *H 74-106 mg/dL Calcium Level 9.5 8.7-10.4 mg/dL Magnesium Level 2.2 1.6-2.6 mg/dL Total Bilirubin 0.4 0.2-1.0 mg/dL Aspartate Amino Transferase (AST) 158 H 13-40 U/L Alanine Aminotransferase (ALT) 102 H 7-40 U/L Alkaline Phosphatase 179 H 46-116 U/L Total Protein 6.7 5.7-8.2 g/dL Albumin 4.0 3.2-4.8 g/dL Beta-Hydroxybutyric Acid 0.342 < 0.4 mmol/L SEPSIS Sepsis Screen Date sepsis recognized/suspect: Jan 06, 2025 Time Sepsis recognized/suspect: 0013 Recent Procedure: No On Antibiotic Therapy: No Respiratory Rate >20: No Heart Rate >90: No Temp<36 C (96.8 F) or >38.3 C: No SBP <90 or MAP <65 mmHG: No New Acute Mental Status Change: No Is the patient on CPAP, BIPAP,: No Physician Orders Electrocardigram (01/06/25 00:21) Abg W/ Co-Ox (01/06/25 01:02) Saline Lock (01/06/25 01:02) Urinalysis (01/06/25 01:02) Sodium Chloride 0.9% (01/06/25 04:00) Dextrose 50% Syringe (01/06/25 04:00) Dextrose 50% Syringe (01/06/25 04:00) Glucose Blood (Accu-Chek Comfort Curve T (01/06/25 21:15) Complete Blood Count (01/06/25 04:05) Comprehensive Metabolic Panel (01/06/25 04:05) Consistent Carb(Ccho)Diabetes (01/06/25 Breakfast) Glucose Blood (Accu-Chek Comfort Curve T (01/06/25 08:00) Agressive Insulin Ss (01/06/25 08:00) Dextrose 50% Syringe (01/06/25 04:15) Admit (01/06/25 04:05) Allergies (01/06/25 04:05) Code Status (01/06/25 04:05) 0.9% Ns 1000 Ml (01/06/25 04:15) Oxygen Per Hour (01/06/25 04:05) Hydrocodone-Acet 5/325mg Tab ([place] 5/32 (01/06/25 04:15) Ondansetron Hcl (Zofran) (01/06/25 04:15) Docusate Sodium Capsule (Colace Capsule) (01/06/25 04:15) Fall Risk Precautions In Place QSHIFT (01/06/25 04:05) Complete Blood Count (01/07/25 04:00) Comprehensive Metabolic Panel (01/07/25 04:00) Condition: Serious (01/06/25 04:05) Maintain Bed Rest (01/06/25 04:05) Sequential Compression Device (01/06/25 ) Nitroglycerin Sublingual (Ntrostat Subli (01/06/25 04:15) Morphine Sulfate Injection (01/06/25 04:15) Stat Ekg For Chest Pain (01/06/25 04:05) Notify Md Of Changes From Base (01/06/25 04:05) Fiberglass Machine Operator For 24 Hours (01/06/25 04:05) Emergency Dysrhythmia Protocol (01/06/25 04:05) Rhythm Strips Once Every Shift (01/06/25 04:05) Oxygen By Nasal Cannula (01/06/25 04:05) Ibuprofen Tablet (Motrin Tablet) (01/06/25 04:15) Vital Signs Date Time Temp Pulse Resp B/P (MAP) Pulse Ox O2 Delivery O2 Flow Rate FiO2 01/06/25 03:47 50 95 Room Air* 0 21 01/06/25 03:33 55 14 128/64 01/06/25 00:54 45 01/06/25 00:30 98.0 50 14 117/73 (88) 99 98.0 01/06/25 00:17 45 01/06/25 00:13 98.5 40 18 139/84 98 98.5 Laboratory Tests Test 01/06/25 01:12 White Blood Count 6.9 10^3/uL (4.4-10.8) Medications Medications Dose Ordered Sig/Lisa Route Start Time Stop Time Status Last Admin Dose Admin Morphine Sulfate 2 mg ONCE ONCE IV 01/06/25 01:15 01/06/25 01:16 DC 01/06/25 03:33 2 MG Sodium Chloride 1,000 ml @ 1,000 mls/hr Q1H ONCE IV 01/06/25 01:15 01/06/25 02:14 DC 01/06/25 02:05 1,000 MLS/HR Assessment/Plan Assessment/Plan Diabetes mellitus with hyperglycemia Hyponatremia Elevated liver enzymes Generalized weakness Plan 1. Admit to telemetry unit 2. Breathing treatment 3. Pain control management 4. Management of fluids and electrolytes 5. Consultation for hospitalist 6. Diagnostic tests chest x-ray 7. DVT prophylaxis on SCDs 8. Repeat labs CBC, CMP in a.m. 9. Continue with current medical management 10. Treatment plan discussed with patient and RN. Patient verbalized understanding. Plan discussed with: Patient, Other (RN) My Orders Orders - MASON BUCKLEY DNP Procedure Category Date Status Time Complete Blood Count LAB 01/06/25 Transmitted 04:05 Comprehensive LAB 01/06/25 Transmitted Metabolic Panel 04:05 Consistent DIET 01/06/25 Transmitted Carb(Ccho)Diabetes Breakfast Glucose Blood PHA 01/06/25 Logged (Accu-Chek Comfort 08:00 Agressive Insulin Ss PHA 01/06/25 Transmitted 08:00 Dextrose 50% Syringe PHA 01/06/25 Transmitted 04:15 Admit ADMIT 01/06/25 Transmitted 04:05 Allergies LISA 01/06/25 Transmitted 04:05 Code Status CODE 01/06/25 Transmitted 04:05 0.9% Ns 1000 Ml PHA 01/06/25 Transmitted 04:15 Oxygen Per Hour RT 01/06/25 Transmitted 04:05 Hydrocodone-Acet PHA 01/06/25 Transmitted 5/325mg Tab ([place] 04:15 Ondansetron Hcl PHA 01/06/25 Transmitted (Zofran) 04:15 Docusate Sodium PHA 01/06/25 Transmitted Capsule (Colace 04:15 Fall Risk Precautions LISA 01/06/[address] 04:05 Complete Blood Count LAB 01/07/25 Verified 04:00 Comprehensive LAB 01/07/25 Verified Metabolic Panel 04:00 Condition: Serious LISA 01/06/25 Transmitted 04:05 Maintain Bed Rest LISA 01/06/25 Transmitted 04:05 Sequential [facility] 01/06/25 Transmitted Compression Device Nitroglycerin [facility] 01/06/25 Transmitted Sublingual (Ntrostat 04:15 Morphine Sulfate [facility] 01/06/25 Transmitted Injection 04:15 Stat Ekg For Chest [facility] 01/06/25 Transmitted Pain 04:05 Notify Md Of Changes [facility] 01/06/25 Transmitted From Base 04:05 Fiberglass Machine Operator For [facility] 01/06/25 Transmitted 24 Hours 04:05 Emergency Dysrhythmia [facility] 01/06/25 Transmitted Protocol 04:05 Rhythm Strips Once [facility] 01/06/25 Transmitted Every Shift 04:05 Oxygen By Nasal 01/06/25 Transmitted Cannula 04:05 Ibuprofen Tablet [facility] 01/06/25 Transmitted (Motrin Tablet) 04:15 Problem List: (1) Diabetes mellitus with hyperglycemia (2) Hyponatremia (3) Elevated liver enzymes (4) Generalized weakness Date of Service: Jan 06, 2025 Billing Provider: MASON BUCKLEY DNP Common Visit Codes: [id number] INP/OBS CARE (HIGH) MASON BUCKLEY DNP Jan 06, 2025 04:11
[2025-01-06] MEDS ORDERED: ONDANSETRON HCL 4 MG/2 ML VIAL IV PRN (04:15)
[2025-01-06] MEDS ORDERED: IBUPROFEN 600 MG TAB PO PRN (04:15)
[2025-01-06] MEDS ORDERED: NITROGLYCERIN 0.4 MG SL TAB SL PRN (04:15)
[2025-01-06] MEDS ORDERED: DOCUSATE SOD 100 MG CAP PO PRN (04:15)
[2025-01-06] MEDS: InsuLIN REG 1unit/0.01ml Soln (100units/ml) IV ONE (04:20)
[2025-01-06] MEDS: ACCU-CHEK COMFORT CURVE STRIP VI STA (04:20)
[2025-01-06] MEDS ORDERED: InsuLIN REG 1unit/0.01ml Soln (100units/ml) ONE ×2 (04:21→08:22)
[2025-01-06] MEDS: SODIUM CHLORIDE 0.9% 1,000 ML IV SCH (04:51)
[2025-01-06 05:43] LABS: Hematocrit 38.3 % (41.0-53.0); Hemoglobin 13.0 g/dL (13.5-17.5); Mean Corpuscular Hemoglobin 33.5 pg (28.0-32.0); Mean Corpuscular Volume 98.2 fL (80.0-100.0); Nucleated Red Blood Cells % 0.1 %
[2025-01-06 05:54] LABS: Albumin 4.2 g/dL (3.2-4.8); Anion Gap 12 (5-15); BUN/Creatinine Ratio 16.8 (10.0-20.0); Blood Urea Nitrogen 17 mg/dL (9-23); Calcium 9.5 mg/dL (8.7-10.4); Carbon Dioxide 21 mmol/L (20-31); Chloride 102 mmol/L (98-107); Potassium 3.7 mmol/L (3.5-5.1); Total Protein 6.9 g/dL (5.7-8.2)
[2025-01-06 05:55] LABS: Bilirubin, Total 0.3 mg/dL (0.2-1.0)
[2025-01-06 05:58] LABS: Alanine Aminotransferase 94 U/L (7-40); Alkaline Phosphatase 167 U/L (46-116); Glucose 368 mg/dL (74-106); Sodium 135 mmol/L (136-145)
[2025-01-06 07:30] VITALS: PULSE 52; RESP 20; O2SAT 98
[2025-01-06] MEDS: ACCU-CHEK COMFORT CURVE STRIP VI SCH (08:21)
[2025-01-06] MEDS: InsuLIN REG 1unit/0.01ml Soln (100units/ml) SC SCH (08:21)
[2025-01-06] MEDS: HYDROcodone-ACET 5/325MG TAB PO PRN (09:00)
[2025-01-06] MEDS: DEXTROSE (50%) 50ML SYRG IV PRN (15:55)
[2025-01-06 16:21] VITALS: O2SAT 98
[2025-01-06 17:07] VITALS: BP 93/51; PULSE 68; RESP 20; TEMP 97.3; O2SAT 97
[2025-01-06 20:00] VITALS: PULSE 63; RESP 18; O2SAT 98
[2025-01-06 21:00] VITALS: BP 126/58; PULSE 67; RESP 18; TEMP 97.8; O2SAT 98
[2025-01-06] MEDS: ACCU-CHEK COMFORT CURVE STRIP VI ONE (21:15)
[2025-01-07] VITALS (8 sets, daily range): BP systolic 68–114; BP diastolic 64–87; PULSE 57–93; RESP 18–22; TEMP 97–98.3; O2SAT 94–99
[2025-01-07 06:57] LABS: Hematocrit 35.4 % (41.0-53.0); Hemoglobin 12.2 g/dL (13.5-17.5); Mean Corpuscular Hemoglobin 33.8 pg (28.0-32.0); Mean Corpuscular Volume 97.8 fL (80.0-100.0); Nucleated Red Blood Cells % 0.1 %
[2025-01-07 07:13] LABS: Albumin 3.8 g/dL (3.2-4.8); Alkaline Phosphatase 86 U/L (46-116); Anion Gap 12 (5-15); BUN/Creatinine Ratio 14.0 (10.0-20.0); Blood Urea Nitrogen 12 mg/dL (9-23); Calcium 8.9 mg/dL (8.7-10.4); Carbon Dioxide 21 mmol/L (20-31); Chloride 105 mmol/L (98-107); Potassium 3.9 mmol/L (3.5-5.1); Sodium 138 mmol/L (136-145); Total Protein 6.4 g/dL (5.7-8.2)
[2025-01-07 07:14] LABS: Alanine Aminotransferase 50 U/L (7-40); Bilirubin, Total 0.5 mg/dL (0.2-1.0); Glucose 217 mg/dL (74-106)
[2025-01-07] MEDS ORDERED: MORPHINE SULFATE INJ 2 MG/ml SYRG ONE ×2 (10:52→16:55)
[2025-01-07] MEDS ORDERED: ALUM-32 OR (10:55)
[2025-01-07] MEDS: MORPHINE SULFATE INJ 2 MG/ml SYRG IV PRN ×2 (10:56→21:40)
--- NOTE | 2025-01-07 11:00 | DVHPN2 ---
Progress Note Date Seen: Jan 07, 2025 Medical Necessity Reason Pt with a Central, PICC or Fol: No Objective vital signs Vital Sign Date Time Temp Pulse Resp B/P (MAP) Pulse Ox O2 Delivery O2 Flow Rate FiO2 01/07/25 10:56 89 18 127/76 01/07/25 09:00 97.9 97 97.9 01/06/25 20:00 Room Air* 0 21 Total Intake and Output 01/06/25 01/06/25 01/07/25 15:00 23:00 07:00 Intake Total 420 ml 794 ml Balance 420 ml 794 ml medications Current Medications Medications Dose Ordered Sig/Lisa Route Start Time Stop Time Status Last Admin Dose Admin Diagnostic Test (Pha) 1 strip IQ4HR 01/06/25 08:00 01/07/25 08:23 1 STRIP Insulin Human Regular IQ4HR SC 01/06/25 08:00 01/06/25 20:31 16 UNITS Dextrose 50 ml UD PRN IV 01/06/25 04:15 Sodium Chloride 1,000 ml @ 60 mls/hr [id number] IV 01/06/25 04:15 01/06/25 20:55 60 MLS/HR Acetaminophen/ Hydrocodone Bitart 1 tab Q4HP PRN PO 01/06/25 04:15 01/07/25 04:41 1 TAB Ondansetron HCl 4 mg Q4HP PRN IV 01/06/25 04:15 Docusate Sodium 100 mg BIDPRN PRN PO 01/06/25 04:15 Nitroglycerin 0.4 mg Q5MINP PRN SL 01/06/25 04:15 Morphine Sulfate 2 mg Q30M PRN IV 01/06/25 04:15 Ibuprofen 600 mg Q6HP PRN PO 01/06/25 04:15 Morphine Sulfate 2 mg Q4HPRN PRN IV 01/07/25 09:45 01/07/25 10:56 2 MG laboratory and microbiology Laboratory Tests 01/07/25 06:02 Test 01/07/25 06:02 Range/Units Serum Glucose 217 #H 74-106 mg/dL Labs and/or images reviewed: Labs reviewed by me, Image(s) reviewed by me Problem List/Assessment/Plan Problem List/Assessment/Plan DATE OF SERVICE 01/06/2025 Diabetes mellitus with hyperglycemia Hyponatremia Elevated liver enzymes Generalized weakness admitted to med/surg sliding scale Plan discussed with: Patient My Orders My Orders Orders - TARA DAVIS DO Procedure Category Date Status Time Morphine Sulfate PHA 01/07/25 In Process Injection 09:45 TARA DAVIS DO Jan 07, 2025 11:00
--- NOTE | 2025-01-07 11:00 | DVHHP2 ---
History of Present Illness HPI The patient is a 34-year-old male bed-bound with past medical history of diabetes mellitus, seizure, and anoxic brain injury presented to [facility] ED for evaluation of elevated blood sugar. [facility] having headaches, abdominal pain, and diarrhea for a week. EMS noted patient to have hyperglycemia above 600, bradycardia in the 40s, EN route to our facility ED. Patient was seen and evaluated in the ED, laboratory data shows WBC 6.9, hemoglobin 12.4, hematocrit 36.9, platelets 233, sodium 124, potassium 4.7, BUN 20, creatinine 1.15, GFR 85, blood glucose 729, anion gap 9, calcium 9.5, AST 158, ALT 102, acetone 0.342, blood pressure 128/64, heart rate 55, temperature 98.0 F, O2 saturation 99% on room air. Please see medication orders section in the computer. On my assessment, patient denied chest pain, no headache, dizziness, diaphoresis, seizures activity, dizziness, shortness of breaths, no diarrhea, nausea, vomiting, fever, no chills. Patient was admitted for further evaluation and medical management. Home Meds Active Scripts Oxycodone HCl (Oxycodone Hydrochloride) 5 Mg Tab, 5 MG PO Q6HR for 14 Days, #56 TAB Prov:LIVIA ELIZABETH MD 10/25/24 Hydrocodone-Acetaminophen (Hydrocodone Bitartrate/AC 5-325 mg) 1 Tab Tab, 1 TAB PO Q6HP PRN for 5 Days, #20 TAB Prov:LIVIA ELIZABETH MD 10/21/24 Ibuprofen Micronized (MOTRIN TABLET) 600 Mg Tb, 600 MG PO TID for 5 Days, #15 TAB *Black box warning-NSAIDS can increase risk of TN & hypertension, GI irritation, ulceration, bleed, perferation. Do not use post cardiac surgery. Use short duration/lowest effective dose. Prov:LIVIA ELIZABETH MD 10/21/24 Levetiracetam (Keppra) 1,000 Mg Tab, 1 TAB PO BID, #60 TAB 5 Refills Prov:REGINA SANCHEZ MD 04/21/23 Reported Medications Alum & Mag Hydrox-Simethicone (Itzel-Lanta) Loree, 1 OR, ML 01/07/25 Insulin Lispro (Humalog Kwikpen) 100 Unit/Ml Inj, 100 UNIT SC, INJ 12/16/24 Aripiprazole (Abilify) 2 Mg Tab, 5 TAB PO DAILY, #30 TAB 2 Refills 12/16/24 Metformin Hydrochloride (Metformin Hcl) 500 Mg Tab, PO DAILY for 30 Days, MG 10/19/24 Gabapentin (Gabapentin) 100 Mg Cap, PO BID for 30 Days, MG 10/19/24 Cholecalciferol (VITAMIN D3) 2,000 Unit Tab, 25 MCG PO DAILY, TAB 10/25/23 Topiramate (Topiramate) 50 Mg Tab, 50 MG PO QPM, TAB 10/25/23 Tamsulosin HCl (Tamsulosin Hydrochloride) 0.4 Mg Cap, 0.4 MG PO, CAP 10/25/23 Hydroxyzine Hcl (Hydroxyzine Hcl) 25 Mg Tab, 25 MG PO Q6HPRN PRN for ANXIETY, TAB 10/25/23 Alum & Mag Hydrox-Simethicone (Antacid Anti-Gas) 1 Ml Loree, 30 ML PO Q4HPRN, ML 10/25/23 Senna (Senokot) 8.6 Mg Tab, 1 TAB PO BID, #40 TAB 10/25/23 Rosuvastatin Calcium (Crestor) 5 Mg Tab, 5 MG PO QPM, TAB 10/25/23 Ramelteon (Rozerem) 8 Mg Tab, 1 TAB PO QPM, #30 TAB 1 Refill 10/25/23 Trazodone Hcl (Trazodone Hcl) 100 Mg Tab, 1 TAB PO QPM, #30 TAB 10/25/23 Ondansetron HCl (Ondansetron) 4 Mg Tab, 4 MG PO PRN PRN for Q6, TAB 10/25/23 Pantoprazole Sodium Sesquihydr (Protonix) 40 Mg Tab, 40 MG PO DAILY, #30 TAB 10/25/23 Metoclopramide Hcl (Metoclopramide Hcl) 5 Mg Tab, 5 MG PO TID, TAB 10/25/23 Famotidine (PEPCID TABLET) 20 Mg Tb, 1 TAB PO BID, #60 TAB 5 Refills 10/25/23 Duloxetine Hcl (Cymbalta) 60 Mg Cap, 1 CAP PO DAILY, #90 CAP 3 Refills 10/25/23 Baclofen (Baclofen) 20 Mg Tab, 5 MG PO TID, TAB 10/25/23 Pregabalin (LYRICA CAPSULE) 25 Mg Cp, 25 MG PO, CAP 10/25/23 Apixaban Base (ELIQUIS) 2.5 Mg Tab, 2.5 MG PO BID, TAB 10/25/23 Divalproex Sodium (Depakote) 250 Mg Tab, 1 TAB PO BID, #60 TAB 2 Refills 10/25/23 Insulin Detemir (Levemir) Inj, 11 SC BID, INJ 10/25/23 Past Medical History Patient Family History: Patient reports no known family medical history. Review of Systems Constitutional: No symptom reported Ears, Nose, & Throat: No symptom reported Pulmonary/Respiratory: No symptom reported Cardiovascular: No symptom reported Gastrointestinal: No symptom reported H&P Exam Vital Signs Vital Signs Date Time Temp Pulse Resp B/P (MAP) Pulse Ox O2 Delivery O2 Flow Rate FiO2 01/07/25 10:56 89 18 127/76 01/07/25 09:00 97.9 97 97.9 01/06/25 20:00 Room Air* 0 21 SEPSIS Sepsis Screen Date sepsis recognized/suspect: Jan 06, 2025 Time Sepsis recognized/suspect: 0 Recent Procedure: No On Antibiotic Therapy: No Respiratory Rate >20: No Heart Rate >90: No Temp<36 C (96.8 F) or >38.3 C: No SBP <90 or MAP <65 mmHG: No New Acute Mental Status Change: No Is the patient on CPAP, BIPAP,: No Physician Orders Morphine Sulfate Injection (01/07/25 09:45) Vital Signs Date Time Temp Pulse Resp B/P (MAP) Pulse Ox O2 Delivery O2 Flow Rate FiO2 01/07/25 10:56 89 18 127/76 01/07/25 09:00 97.9 65 22 112/64 (80) 97 97.9 01/07/25 05:00 97.0 62 20 68/ 98 97.0 Laboratory Tests Test 01/07/25 06:02 White Blood Count 10.1 10^3/uL (4.4-10.8) # Medications Medications Dose Ordered Sig/Lisa Route Start Time Stop Time Status Last Admin Dose Admin Morphine Sulfate 2 mg Q4HPRN PRN IV 01/07/25 09:45 01/07/25 10:56 2 MG Labs/Xrays Labs Test 01/07/25 08:04 01/07/25 06:02 01/06/25 01:26 01/06/25 01:12 Range/Units POC Glucose 348 H 70-106 mg/dl White Blood Count 10.1 # 4.4-10.8 10^3/uL Red Blood Count 3.62 L 4.5-5.90 10^6/uL Hemoglobin 12.2 L 13.5-17.5 g/dL Hematocrit 35.4 L 41.0-53.0 % Mean Corpuscular Volume 97.8 80.0-100.0 fL Mean Corpuscular Hemoglobin 33.8 H 28.0-32.0 pg Mean Corpuscular Hemoglobin Concent 34.6 32.0-36.0 g/dL Red Cell Distribution Width 13.3 11.8-14.3 % Platelet Count 272 140-450 10^3/uL Mean Platelet Volume 9.3 6.9-10.8 fL Neutrophils (%) (Auto) 73.5 37.0-80.0 % Lymphocytes (%) (Auto) 18.8 10.0-50.0 % Monocytes (%) (Auto) 6.3 0.0-12.0 % Eosinophils (%) (Auto) 0.9 0.0-7.0 % Basophils (%) (Auto) 0.5 0.0-2.0 % Neutrophils # (Auto) 7.5 1.6-8.6 10 ^3/uL Lymphocytes # (Auto) 1.9 0.4-5.4 10 ^3/uL Monocytes # (Auto) 0.6 0-1.3 10 ^3/uL Eosinophils # (Auto) 0.1 0-0.8 10 ^3/uL Basophils # (Auto) 0 0-0.2 10 ^3/uL Nucleated Red Blood Cells 0.1 % Sodium Level 138 136-145 mmol/L Potassium Level 3.9 3.5-5.1 mmol/L Chloride Level 105 98-107 mmol/L Carbon Dioxide Level 21 20-31 mmol/L Anion Gap 12 5-15 Blood Urea Nitrogen 12 9-23 mg/dL Creatinine 0.86 0.700-1.30 mg/dL Glomerular Filtration Rate Calc 116 >90 mL/min BUN/Creatinine Ratio 14.0 10.0-20.0 Serum Glucose 217 #H 74-106 mg/dL Calcium Level 8.9 8.7-10.4 mg/dL Total Bilirubin 0.5 0.2-1.0 mg/dL Aspartate Amino Transferase (AST) 24 13-40 U/L Alanine Aminotransferase (ALT) 50 H 7-40 U/L Alkaline Phosphatase 86 46-116 U/L Total Protein 6.4 5.7-8.2 g/dL Albumin 3.8 3.2-4.8 g/dL Blood Gas Specimen Type Arterial Blood Gas Sample Site Left radial Blood Gas Patient Temperature 37.0 Arterial Blood Date Drawn [id number] Arterial Blood pH 7.421 7.350-7.450 Arterial Blood Partial Pressure CO2 34.5 L 35.0-48.0 mmHg Arterial Blood Partial Pressure O2 87.4 83.0-108.0 mmHg Arterial Blood HCO3 21.9 21.0-28.0 mmol/L Arterial Blood Oxygen Saturation 95.8 94.0-98.0 % Arterial Blood Base Excess -1.9 -2.0-3.0 mmol/L Arterial Blood Oxyhemoglobin 93.9 L 94.0-98.0 % Arterial Blood Carboxyhemoglobin 1.7 H 0.5-1.5 % Arterial Blood Methemoglobin 0.3 0.0-1.5 % Lázaro Test Yes Blood Gas Total Hemoglobin 13.00 L 13.5-17.5 g/dL Blood Gas Liter Flow 0.00 Blood Gas Modality Room air FiO2 % 21.0 Magnesium Level 2.2 1.6-2.6 mg/dL Beta-Hydroxybutyric Acid 0.342 < 0.4 mmol/L Assessment/Plan Primary Diagnosis DATE OF SERVICE 01/06/2025 Diabetes mellitus with hyperglycemia Hyponatremia Elevated liver enzymes Generalized weakness admitted to med/surg sliding scale Plan discussed with: Patient TARA DAVIS Jan 07, 2025 11:00
[2025-01-07] MEDS: InsuLIN REG 1unit/0.01ml Soln (100units/ml) SC SCH (12:00)
[2025-01-07] MEDS ORDERED: DEXTROSE (50%) 50ML SYRG IV PRN (12:15)
[2025-01-07] MEDS ORDERED: InsuLIN REG 1unit/0.01ml Soln (100units/ml) ONE (12:32)
[2025-01-07] MEDS: ACCU-CHEK COMFORT CURVE STRIP VI SCH (16:14)
[2025-01-07] MEDS ORDERED: levETIRAcetam 500 MG TAB ONE (21:33)
[2025-01-07] MEDS: levETIRAcetam 500 MG TAB PO SCH (21:37)
[2025-01-08] VITALS (7 sets, daily range): BP systolic 103–125; BP diastolic 52–76; PULSE 64–96; RESP 17–20; TEMP 36.7; O2SAT 97–99
[2025-01-08] MEDS ORDERED: MORPHINE SULFATE 4 MG/ML SYR/VIAL ONE (02:41)
[2025-01-08] MEDS: INSULIN LANTUS (GLARGINE) 1 /0.01ml (100units/ml) SC SCH (06:57)
--- NOTE | 2025-01-17 23:46 | DVHDS2 ---
Discharge Summary Date of Admission Jan 06, 2025 at 04:05 Date of Discharge: Jan 08, 2025 Labs/Diagnostic Data: Laboratory Results Test 01/08/25 06:26 01/07/25 06:02 01/06/25 01:26 01/06/25 01:12 POC Glucose 140 mg/dl (70-106) White Blood Count 10.1 10^3/uL (4.4-10.8) Red Blood Count 3.62 10^6/uL (4.5-5.90) Hemoglobin 12.2 g/dL (13.5-17.5) Hematocrit 35.4 % (41.0-53.0) Mean Corpuscular Volume 97.8 fL (80.0-100.0) Mean Corpuscular Hemoglobin 33.8 pg (28.0-32.0) Mean Corpuscular Hemoglobin Concent 34.6 g/dL (32.0-36.0) Red Cell Distribution Width 13.3 % (11.8-14.3) Platelet Count 272 10^3/uL (140-450) Mean Platelet Volume 9.3 fL (6.9-10.8) Neutrophils (%) (Auto) 73.5 % (37.0-80.0) Lymphocytes (%) (Auto) 18.8 % (10.0-50.0) Monocytes (%) (Auto) 6.3 % (0.0-12.0) Eosinophils (%) (Auto) 0.9 % (0.0-7.0) Basophils (%) (Auto) 0.5 % (0.0-2.0) Neutrophils # (Auto) 7.5 10 ^3/uL (1.6-8.6) Lymphocytes # (Auto) 1.9 10 ^3/uL (0.4-5.4) Monocytes # (Auto) 0.6 10 ^3/uL (0-1.3) Eosinophils # (Auto) 0.1 10 ^3/uL (0-0.8) Basophils # (Auto) 0 10 ^3/uL (0-0.2) Nucleated Red Blood Cells 0.1 % Sodium Level 138 mmol/L (136-145) Potassium Level 3.9 mmol/L (3.5-5.1) Chloride Level 105 mmol/L (98-107) Carbon Dioxide Level 21 mmol/L (20-31) Anion Gap 12 (5-15) Blood Urea Nitrogen 12 mg/dL (9-23) Creatinine 0.86 mg/dL (0.700-1.30) Glomerular Filtration Rate Calc 116 mL/min (>90) BUN/Creatinine Ratio 14.0 (10.0-20.0) Serum Glucose 217 mg/dL (74-106) Calcium Level 8.9 mg/dL (8.7-10.4) Total Bilirubin 0.5 mg/dL (0.2-1.0) Aspartate Amino Transferase (AST) 24 U/L (13-40) Alanine Aminotransferase (ALT) 50 U/L (7-40) Alkaline Phosphatase 86 U/L (46-116) Total Protein 6.4 g/dL (5.7-8.2) Albumin 3.8 g/dL (3.2-4.8) Blood Gas Specimen Type Arterial Blood Gas Sample Site Left radial Blood Gas Patient Temperature 37.0 Arterial Blood Date Drawn Arterial Blood pH 7.421 (7.350-7.450) Arterial Blood Partial Pressure CO2 34.5 mmHg (35.0-48.0) Arterial Blood Partial Pressure O2 87.4 mmHg (83.0-108.0) Arterial Blood HCO3 21.9 mmol/L (21.0-28.0) Arterial Blood Oxygen Saturation 95.8 % (94.0-98.0) Arterial Blood Base Excess -1.9 mmol/L (-2.0-3.0) Arterial Blood Oxyhemoglobin 93.9 % (94.0-98.0) Arterial Blood Carboxyhemoglobin 1.7 % (0.5-1.5) Arterial Blood Methemoglobin 0.3 % (0.0-1.5) Lázaro Test Yes Blood Gas Total Hemoglobin 13.00 g/dL (13.5-17.5) Blood Gas Liter Flow 0.00 Blood Gas Modality Room air FiO2 % 21.0 Magnesium Level 2.2 mg/dL (1.6-2.6) Beta-Hydroxybutyric Acid 0.342 mmol/L (< 0.4) Other Laboratory Tests 01/07/25 06:02 Brief Hx & Hospital Course: DATE OF SERVICE 01/06/2025 Diabetes mellitus with hyperglycemia Hyponatremia Elevated liver enzymes Generalized weakness admitted to med/surg sliding scale improved and discharged back to [facility] Condition at Discharge: Fair Final Diagnosis/Problems List Diabetes Mellitus with hyperglycemia Discharge Disposition: Assisted Living Facility Discharge Instruct/Medications Diet: Cardiac 2g Na,low cholest Activity: No Restrictions, As Tolerated Scheduled Alum & Mag Hydrox-Simethicone (Antacid Anti-Gas), 30 ML PO Q4HPRN, (Reported) Apixaban Base (Eliquis), 2.5 MG PO BID, (Reported) Aripiprazole (Abilify), 5 TAB PO DAILY, (Reported) Baclofen (Baclofen), 5 MG PO TID, (Reported) Cholecalciferol (Vitamin D3), 25 MCG PO DAILY, (Reported) Divalproex Sodium (Depakote), 1 TAB PO BID, (Reported) Duloxetine Hcl (Cymbalta), 1 CAP PO DAILY, (Reported) Famotidine (Pepcid Tablet), 1 TAB PO BID, (Reported) Gabapentin (Gabapentin), Unknown Dose PO BID, (Reported) Ibuprofen Micronized (Motrin Tablet), 600 MG PO TID Insulin Detemir (Levemir), 11 SC BID, (Reported) Levetiracetam (Keppra), 1 TAB PO BID Metformin Hydrochloride (Metformin Hcl), Unknown Dose PO DAILY, (Reported) Metoclopramide Hcl (Metoclopramide Hcl), 5 MG PO TID, (Reported) Oxycodone HCl (Oxycodone Hydrochloride), 5 MG PO Q6HR Pantoprazole Sodium Sesquihydr (Protonix), 40 MG PO DAILY, (Reported) Ramelteon (Rozerem), 1 TAB PO QPM, (Reported) Rosuvastatin Calcium (Crestor), 5 MG PO QPM, (Reported) Senna (Senokot), 1 TAB PO BID, (Reported) Topiramate (Topiramate), 50 MG PO QPM, (Reported) Trazodone Hcl (Trazodone Hcl), 1 TAB PO QPM, (Reported) Scheduled PRN Hydrocodone-Acetaminophen (Hydrocodone Bitartrate/AC 5-325 mg), 1 TAB PO Q6HP PRN Hydroxyzine Hcl (Hydroxyzine Hcl), 25 MG PO Q6HPRN PRN for ANXIETY, (Reported) Ondansetron HCl (Ondansetron), 4 MG PO PRN PRN for Q6, (Reported) Miscellaneous Medications Alum & Mag Hydrox-Simethicone (Itzel-Lanta), 1 OR, (Reported) Insulin Lispro (Humalog Kwikpen), 100 UNIT SC, (Reported) Pregabalin (Lyrica Capsule), 25 MG PO, (Reported) Tamsulosin HCl (Tamsulosin Hydrochloride), 0.4 MG PO, (Reported) Discharge Statement: "Patient was advised to return to the ER or call 911 if any headaches, dizziness, shortness of breath, chest pain, abdominal pain, bleeding, fevers, or worsening of medical condition. Patient was counseled about treatment plan, medications, possible side effects, patientverbalized understanding. All questions were answered to the best of my ability. This discharge took greater then 30 minutes in planning, reviewing documentation, counseling the patient, and discussing with other team members." ASSESSMENT ASSESSMENT Assessment Diabetes Mellitus with hyperglycemia TARA DAVIS DO Jan 17, 2025 23:46
== END 2025-01-08 17:45 | disposition home or self-care (01) | DRG 420 ==
LOC: EDBD 00:13 → ER 00:13 → OVERFLOW 04:05 → EDUNIT# 04:05 → OVERFLOW 04:10 → TELE-WESTW 14:57
PROVIDERS: ADMIT Internal Medicine; ATTEND Internal Medicine
DX: E10.65 Type 1 diabetes mellitus with hyperglycemia (principal); R53.2 Functional quadriplegia; E87.1 Hypo-osmolality and hyponatremia; R74.8 Abnormal levels of other serum enzymes; Z74.01 Bed confinement status; Z79.4 Long term (current) use of insulin
CPT/HCPCS: 36415; 36600; 80053; 82010; 82805; 82962; 83735; 85025; 87081; 96361; 96374; G0378; J1815

== ENCOUNTER 2025-01-16 07:54 | Inpatient (IN) | payer MEDICAID ==
[~2025-01-16] VITALS: Ht 175.3 cm; Wt 72.2 kg
[~2025-01-16 07:54] MED LIST changes: -ACET1CAP14 PO; +ALUM-32 OR; -BISA-51 OR; -LIDO5DIS21 TOP; -OXYC325T14 PO; -POLYPOW85 PO
--- NOTE | 2025-01-16 08:08 | ED.PDOC ---
Musculoskeletal HPI Comments 34-year-old male with PMHx DM, seizure, TBI presents to the ED via EMS with a chief complaint of fall injury on today around 07:20. Per EMS, patient is from [facility], experienced an unwitnessed fall, was found on the ground by staff. Patient is currently experiencing LT hip pain, rates pain 10/10. Upon EMS arrival, BG was 214, he is A&O x4. Denies LOC, nausea, vomiting, headache, dizziness, shortness of breath, chest pain. No other symptoms or modifying factors present at this time. Chief Complaint: Lower Extremity Time Seen by MD: 08:05 Primary Care Provider: UNKNOWN NAME Reviewed Notes: Medications, Allergies Allergies: Coded Allergies: NO KNOWN ALLERGIES (Unverified , 10/25/23) [facility] staff, where pt lives, states he is not allergic to anything. Home Meds Active Scripts Oxycodone HCl (Oxycodone Hydrochloride) 5 Mg Tab, 5 MG PO Q6HR for 14 Days, #56 TAB Prov:LIVIA ELIZABETH MD 10/25/24 Hydrocodone-Acetaminophen (Hydrocodone Bitartrate/AC 5-325 mg) 1 Tab Tab, 1 TAB PO Q6HP PRN for 5 Days, #20 TAB Prov:LIVIA ELIZABETH MD 10/21/24 Ibuprofen Micronized (MOTRIN TABLET) 600 Mg Tb, 600 MG PO TID for 5 Days, #15 TAB *Black box warning-NSAIDS can increase risk of MS & hypertension, GI irritation, ulceration, bleed, perferation. Do not use post cardiac surgery. Use short duration/lowest effective dose. Prov:LIVIA ELIZABETH MD 10/21/24 Levetiracetam (Keppra) 1,000 Mg Tab, 1 TAB PO BID, #60 TAB 5 Refills Prov:REGINA SANCHEZ MD 04/21/23 Reported Medications Alum & Mag Hydrox-Simethicone (Itzel-Lanta) Loree, 1 OR, ML 01/07/25 Insulin Lispro (Humalog Kwikpen) 100 Unit/Ml Inj, 100 UNIT SC, INJ 12/16/24 Aripiprazole (Abilify) 2 Mg Tab, 5 TAB PO DAILY, #30 TAB 2 Refills 12/16/24 Metformin Hydrochloride (Metformin Hcl) 500 Mg Tab, PO DAILY for 30 Days, MG 10/19/24 Gabapentin (Gabapentin) 100 Mg Cap, PO BID for 30 Days, MG 10/19/24 Cholecalciferol (VITAMIN D3) 2,000 Unit Tab, 25 MCG PO DAILY, TAB 10/25/23 Topiramate (Topiramate) 50 Mg Tab, 50 MG PO QPM, TAB 10/25/23 Tamsulosin HCl (Tamsulosin Hydrochloride) 0.4 Mg Cap, 0.4 MG PO, CAP 10/25/23 Hydroxyzine Hcl (Hydroxyzine Hcl) 25 Mg Tab, 25 MG PO Q6HPRN PRN for ANXIETY, TAB 10/25/23 Alum & Mag Hydrox-Simethicone (Antacid Anti-Gas) 1 Ml Loree, 30 ML PO Q4HPRN, ML 10/25/23 Senna (Senokot) 8.6 Mg Tab, 1 TAB PO BID, #40 TAB 10/25/23 Rosuvastatin Calcium (Crestor) 5 Mg Tab, 5 MG PO QPM, TAB 10/25/23 Ramelteon (Rozerem) 8 Mg Tab, 1 TAB PO QPM, #30 TAB 1 Refill 10/25/23 Trazodone Hcl (Trazodone Hcl) 100 Mg Tab, 1 TAB PO QPM, #30 TAB 10/25/23 Ondansetron HCl (Ondansetron) 4 Mg Tab, 4 MG PO PRN PRN for Q6, TAB 10/25/23 Pantoprazole Sodium Sesquihydr (Protonix) 40 Mg Tab, 40 MG PO DAILY, #30 TAB 10/25/23 Metoclopramide Hcl (Metoclopramide Hcl) 5 Mg Tab, 5 MG PO TID, TAB 10/25/23 Famotidine (PEPCID TABLET) 20 Mg Tb, 1 TAB PO BID, #60 TAB 5 Refills 10/25/23 Duloxetine Hcl (Cymbalta) 60 Mg Cap, 1 CAP PO DAILY, #90 CAP 3 Refills 10/25/23 Baclofen (Baclofen) 20 Mg Tab, 5 MG PO TID, TAB 10/25/23 Pregabalin (LYRICA CAPSULE) 25 Mg Cp, 25 MG PO, CAP 10/25/23 Apixaban Base (ELIQUIS) 2.5 Mg Tab, 2.5 MG PO BID, TAB 10/25/23 Divalproex Sodium (Depakote) 250 Mg Tab, 1 TAB PO BID, #60 TAB 2 Refills 10/25/23 Insulin Detemir (Levemir) Inj, 11 SC BID, INJ 10/25/23 Information Source: Patient, Emergency Med Personnel Mode of Arrival: EMS Location: Left Extremity Location: Hip Timing: Hours Prehospital treatment: None Severity: Moderate Able to Move Extremity: Yes Pain: Moderate Mechanism: Spontaneous Circumstances: Fall Symptoms: Pain DVT Risk Factors: NONE Associated signs and symptoms: Hip pain Past Medical History PAST MEDICAL HISTORY: DM, Seizures Past Medical History (Other): TBI Surgical History: Denies all surgeries Family History Family History: Reviewed,noncontributory to illness Social History Smoker: Non-Smoker Alcohol: Denies ETOH Use Drugs: Denies Drug Use Lives In: Home, [facility] Constitutional: denies: chills, diaphoresis, fatigue, fever, malaise, sweats, weakness, others EENTM: denies: blurred vision, double vision, ear bleeding, ear discharge, ear drainage, ear pain, ear ringing, eye pain, eye redness, hearing loss, mouth pain, mouth swelling, nasal discharge, nose bleeding, nose congestion, nose pain , photophobia, tearing, throat pain, throat swelling, voice changes, others Respiratory: denies: cough, hemoptysis, orthopnea, SOB at rest, shortness of breath, SOB with excertion, stridor, wheezing, others Cardiovascular: denies: chest pain, dizzy spells, diaphoresis, Dyspnea on exertion, edema, irregular heart beat, left arm pain, lightheadedness, palpitations, PND, syncope, others Gastrointestinal: denies: abdomen distended, abdominal pain, blood streaked bowels, constipated, diarrhea, dysphagia, difficulty swallowing, hematemesis, melena, nausea, poor appetite, poor fluid intake, rectal bleeding, rectal pain, vomiting, others Genitourinary: denies: burning, dysuria, flank pain, frequency, hematuria, incontinence, penile discharge, penile sore, pain, testicle pain, testicle swelling, urgency, others Neurological: denies: dizziness, fainting, headache, left sided numbness, left sided weakness, numbness, paresthesia, pre-existing deficit, right sided numbness, right sided weakness, seizure, speech problems, tingling, tremors, weakness, others Musculoskeletal: reports: others (LT hip pain); denies: back pain, gout, joint pain, joint swelling, muscle pain, muscle stiffness, neck pain Integumetry: denies: bruises, change in color, change in hair/nails, dryness, laceration, lesions, lumps, rash, wounds, others Allergic/Immunocompromised: denies: Difficulty Healing, Frequent Infections, Hives, Itching, others Hematologic/Lymphatic: denies: anemia, blood clots, easy bleeding, easy bruising, swollen glands, others Endocrine: denies: excessive hunger, excessive sweating, excessive thirst, excessive urination, flushing, intolerance to cold, intolerance to heat, unexplained weight gain, unexplained weight loss, others Psychiatric: denies: anxiety, bipolar disorder, depression, hopeless, panic disorder, schizophrenia, sleepless, suicidal, others All Other Systems: Reviewed and Negative Physical Exam General Appearance: Moderate Distress, Normal HEENT: Normal ENT Inspection, Pharynx Normal, TMs Normal Neck: Full Range of Motion, Non-Tender, Normal, Normal Inspection Respiratory: Chest Non-Tender, Lungs Clear, No Accessory Muscle Use, No Respiratory Distress, Normal Breath Sounds Cardiovascular: No Edema, No JVD, No Murmur, No Gallop, Normal Peripheral Pulses, Regular Rate/Rhythm Breast Exam: Deferred Gastrointestinal: No Organomegaly, Non Tender, No Pulsatile Mass, Normal Bowel Sounds, Soft Genitalia: Deferred Pelvic: Deferred Rectal: Deferred Extremities: No calf tenderness, Normal capillary refill, No pedal edema Musculoskeletal : Apperance: Normal Neurologic: Alert, No Motor Deficits, Normal Affect, Normal Mood, No Sensory Deficits Cerebellar Function: NOT DONE Reflexes: NOT DONE Skin: Dry, Normal Color, Warm Peripheral Pulses: 3+ Radial (R), 3+ Radial (L) Lymphatic: No Adenopathy Was a procedure done? Was a procedure done?: No Differential Diagnosis EXT Differential Diagnosis: Sprain, Strain X-Ray, Labs, Meds, VS Vital Signs Date Time Temp Pulse Resp B/P (MAP) Pulse Ox O2 Delivery O2 Flow Rate FiO2 01/16/25 08:09 97.6 72 18 130/70 (90) 96 97.6 01/16/25 08:09 96 Room Air* 0 21 01/16/25 08:02 97.5 72 18 130/70 96 97.5 Lab Test 01/16/25 08:15 Range/Units White Blood Count 4.9 4.4-10.8 10^3/uL Red Blood Count 4.10 L 4.5-5.90 10^6/uL Hemoglobin 13.6 13.5-17.5 g/dL Hematocrit 40.8 L 41.0-53.0 % Mean Corpuscular Volume 99.4 80.0-100.0 fL Mean Corpuscular Hemoglobin 33.3 H 28.0-32.0 pg Mean Corpuscular Hemoglobin Concent 33.4 32.0-36.0 g/dL Red Cell Distribution Width 13.8 11.8-14.3 % Platelet Count 231 140-450 10^3/uL Mean Platelet Volume 9.3 6.9-10.8 fL Neutrophils (%) (Auto) 51.7 37.0-80.0 % Lymphocytes (%) (Auto) 37.5 10.0-50.0 % Monocytes (%) (Auto) 7.5 0.0-12.0 % Eosinophils (%) (Auto) 1.9 0.0-7.0 % Basophils (%) (Auto) 1.4 0.0-2.0 % Neutrophils # (Auto) 2.5 1.6-8.6 10 ^3/uL Lymphocytes # (Auto) 1.8 0.4-5.4 10 ^3/uL Monocytes # (Auto) 0.4 0-1.3 10 ^3/uL Eosinophils # (Auto) 0.1 0-0.8 10 ^3/uL Basophils # (Auto) 0.1 0-0.2 10 ^3/uL Nucleated Red Blood Cells 0.0 % Sodium Level 142 136-145 mmol/L Potassium Level 4.9 3.5-5.1 mmol/L Chloride Level 104 98-107 mmol/L Carbon Dioxide Level 31 20-31 mmol/L Anion Gap 7 5-15 Blood Urea Nitrogen 25 H 9-23 mg/dL Creatinine 1.02 0.700-1.30 mg/dL Glomerular Filtration Rate Calc 98 >90 mL/min BUN/Creatinine Ratio 24.5 H 10.0-20.0 Serum Glucose 229 H 74-106 mg/dL Calcium Level 8.3 L 8.7-10.4 mg/dL [facility] [id number] [facility] [address] Ph: [phone] DIAGNOSTIC IMAGING Diagnostic Imaging Report : [id number] Signed PATIENT: EMERY ANDRADE ACCT: [id number] UNIT: [id number] : 1990 LOC: ER ROOM / BED: / AGE / SEX: 34 / M ADM STATUS: REG ER SERVICE 4 ORDERING PHYSICIAN: HECTOR JARQUIN MD PROCEDURE(s): PELVS - PELVIS AP REASON: fall ORDER NUMBER(s): [id number], ACCESSION NUMBER(s): [id number] CLINICAL INFORMATION: Fall injury. TECHNIQUE: Single AP view of the pelvis was obtained. COMPARISON: Radiographs of the pelvis and left hip dated 10/24/2024. FINDINGS: Severe deformity of the left femoral head, likely sequelae of osteonecrosis. Severe arthritic changes at the left hip with severe joint space narrowing and prominent subchondral sclerosis. Findings appear similar compared to the prior radiographs. No acute fracture visualized. Moderate arthritic changes in the right hip. Prominent osseous spurring at the right anterior inferior iliac spine. Sacrum and coccyx are partially obscured by bowel gas and stool. No significant soft tissue abnormality identified. IMPRESSION: 1. No acute fracture visualized. Correlate with clinical findings. If there remains clinical concern for acute fracture, CT could be obtained. 2. Similar-appearing deformity at the left femoral head, likely sequelae of osteonecrosis and severe arthritic changes at the left hip. 3. Additional nonacute findings as described above. ATED BY: CORNEL VAZQUEZ DO DICTATED DATE/TIME: 01/16/25852 SIGNED BY: CORNEL VAZQUEZ DO SIGNED DATE/TIME: 01/16/25852 CC: Patient alert. Came in because of a fall. Vitals stable. Answering questions. Has a speech affected after his head injury. X-ray of the pelvis does show possible osteonecrosis worsening. Severe arthritis. No sign of any fracture. Spoke with hospitalist. Explained to the patient. Continue monitoring. Time of 1ST Reevaluation: 08:35 Reevaluation 1ST: Unchanged Patient Education/Counseling: Diagnosis, Treatment, Prognosis Family Education/Counseling: No Family Present Departure 1 Departure Time of Disposition: 09:46 Impression: Primary Impression: Osteonecrosis Disposition: ADMITTED INPATIENT Admit to: Med Surg Condition: Guarded Critical Care Note Critical Care Time?: No Stability Stability form required: No Heart Score Heart Score: Heart Score Response (Comments) Value History N/A 0 EKG N/A 0 Age N/A 0 Risk Factors N/A 0 Troponin N/A 0 Total 0 I personally scribed for HECTOR JARQUIN MD ([email or web address]) on 01/16/25 at 08:07. Electronically submitted by Mireya Trotter ([email or web address]). I personally scribed for HECTRO JARQUIN MD ([email or web address]) on 01/16/25 at 08:59. Electronically submitted by Mireya Trotter ([email or web address]). HECTOR JARQUIN MD Jan 16, 2025 08:07
[2025-01-16 08:09] VITALS: O2SAT 96
[2025-01-16 08:34] LABS: Hematocrit 40.8 % (41.0-53.0); Hemoglobin 13.6 g/dL (13.5-17.5); Mean Corpuscular Hemoglobin 33.3 pg (28.0-32.0); Mean Corpuscular Volume 99.4 fL (80.0-100.0); Nucleated Red Blood Cells % 0.0 %
[2025-01-16 08:43] LABS: Chloride 104 mmol/L (98-107); Potassium 4.9 mmol/L (3.5-5.1); Sodium 142 mmol/L (136-145)
[2025-01-16 08:44] LABS: Anion Gap 7 (5-15); Carbon Dioxide 31 mmol/L (20-31)
[2025-01-16 08:46] LABS: Calcium 8.3 mg/dL (8.7-10.4)
[2025-01-16 08:50] LABS: BUN/Creatinine Ratio 24.5 (10.0-20.0); Blood Urea Nitrogen 25 mg/dL (9-23); Glucose 229 mg/dL (74-106)
--- NOTE | 2025-01-16 08:55 | DVH ---
CLINICAL INFORMATION: Fall injury. TECHNIQUE: Single AP view of the pelvis was obtained. COMPARISON: Radiographs of the pelvis and left hip dated 10/24/2024. FINDINGS: Severe deformity of the left femoral head, likely sequelae of osteonecrosis. Severe arthritic changes at the left hip with severe joint space narrowing and prominent subchondral sclerosis. Findings appear similar compared to the prior radiographs. No acute fracture visualized. Moderate arthritic changes in the right hip. Prominent osseous spurring at the right anterior inferior iliac spine. Sacrum and coccyx are partially obscured by bowel gas and stool. No significant soft tissue abnormality identified. IMPRESSION: 1. No acute fracture visualized. Correlate with clinical findings. If there remains clinical concern for acute fracture, CT could be obtained. 2. Similar-appearing deformity at the left femoral head, likely sequelae of osteonecrosis and severe arthritic changes at the left hip. 3. Additional nonacute findings as described above.
[2025-01-16] MEDS ORDERED: ACETAMINOPHEN 325 MG TAB PO PRN (12:00)
[2025-01-16] MEDS ORDERED: NITROGLYCERIN 0.4 MG SL TAB SL PRN (12:00)
[2025-01-16] MEDS ORDERED: ONDANSETRON HCL 4 MG/2 ML VIAL IV PRN (12:00)
[2025-01-16] MEDS ORDERED: MORPHINE SULFATE INJ 2 MG/ml SYRG IV PRN (12:00)
[2025-01-16] MEDS: HYDROcodone-ACET 5/325MG TAB PO PRN (15:24)
[2025-01-16] MEDS: MORPHINE SULFATE INJ 2 MG/ml SYRG IV PRN (16:59)
[2025-01-16] MEDS: MORPHINE SULFATE 4 MG/ML SYR/VIAL ONE ×2 (16:59→21:25)
[2025-01-16 19:15] VITALS: PULSE 66; O2SAT 95
[2025-01-17 00:49] LABS: Urine Protein, UAD Negative (Negative)
[2025-01-17] MEDS: MORPHINE SULFATE 4 MG/ML SYR/VIAL ONE ×2 (01:31→06:06)
[2025-01-17 03:41] LABS: Hematocrit 39.4 % (41.0-53.0); Hemoglobin 13.4 g/dL (13.5-17.5); Mean Corpuscular Hemoglobin 33.4 pg (28.0-32.0); Mean Corpuscular Volume 98.4 fL (80.0-100.0); Nucleated Red Blood Cells % 0.1 %
[2025-01-17 04:07] LABS: Alanine Aminotransferase 17 U/L (7-40); Alkaline Phosphatase 105 U/L (46-116); Anion Gap 10 (5-15); BUN/Creatinine Ratio 17.3 (10.0-20.0); Blood Urea Nitrogen 17 mg/dL (9-23); Calcium 9.7 mg/dL (8.7-10.4); Carbon Dioxide 23 mmol/L (20-31); Chloride 103 mmol/L (98-107); Potassium 3.9 mmol/L (3.5-5.1); Sodium 136 mmol/L (136-145); Total Protein 7.1 g/dL (5.7-8.2)
[2025-01-17 04:08] LABS: Albumin 4.4 g/dL (3.2-4.8); Bilirubin, Total 0.4 mg/dL (0.2-1.0)
[2025-01-17 04:12] LABS: Glucose 377 mg/dL (74-106)
[2025-01-17 09:00] VITALS: PULSE 92; RESP 20; O2SAT 97
[2025-01-17] MEDS: ENOXAPARIN SOD 40 MG/0.4 ML SYRINGE SC SCH (09:50)
[2025-01-17] MEDS: MORPHINE SULFATE 4 MG/ML SYR/VIAL IV PRN (11:38)
[2025-01-17 19:30] VITALS: BP 115/56; PULSE 74; PULSE 75; RESP 16; TEMP 98.9; O2SAT 97
--- NOTE | 2025-01-17 20:37 | DVHPN2 ---
Progress Note Date Seen: Jan 17, 2025 Medical Necessity Reason Pt with a Central, PICC or Fol: No Subjective Review of Systems: HEENT:Normal, CVS:Normal Objective vital signs Vital Sign Date Time Temp Pulse Resp B/P (MAP) Pulse Ox O2 Delivery O2 Flow Rate FiO2 01/17/25 20:13 84 17 116/68 01/17/25 19:30 98.9 97 98.9 01/17/25 19:30 Room Air* 0 21 Total Intake and Output 01/16/25 01/16/25 01/17/25 15:00 23:00 07:00 Intake Total 675 ml Output Total 1100 ml Balance -425 ml medications Current Medications Medications Dose Ordered Sig/Lisa Route Start Time Stop Time Status Last Admin Dose Admin Acetaminophen/ Hydrocodone Bitart 1 tab Q4HP PRN PO 01/16/25 12:00 01/17/25 16:29 1 TAB Ondansetron HCl 4 mg Q4HP PRN IV 01/16/25 12:00 Enoxaparin Sodium 40 mg DAILY SC 01/17/25 10:00 01/17/25 09:50 40 MG Acetaminophen 650 mg Q6HP PRN PO 01/16/25 12:00 Nitroglycerin 0.4 mg Q5MINP PRN SL 01/16/25 12:00 Morphine Sulfate 2 mg Q30M PRN IV 01/16/25 12:00 Morphine Sulfate 2 mg Q4HPRN PRN IV 01/17/25 09:15 01/17/25 20:13 2 MG Examination: GENERAL:Normal laboratory and microbiology Laboratory Tests 01/17/25 02:53 Test 01/17/25 02:53 Range/Units Serum Glucose 377 #H 74-106 mg/dL Labs and/or images reviewed: Labs reviewed by me, Image(s) reviewed by me Problem List/Assessment/Plan Problem List/Assessment/Plan DATE OF SERVICE: 01/16/2025 Osteonecrosis left hip pain left hip/pelvis fracture, possible acute seizure hx DM hx of CVA pain control consult to ortho sliding scale Plan discussed with: Patient My Orders My Orders Orders - TARA DAVIS DO Procedure Category Date Status Time Morphine Sulfate PHA 01/17/25 In Process Injection 09:15 TARA DAVIS DO Jan 17, 2025 20:37
--- NOTE | 2025-01-17 20:38 | DVHHP2 ---
History of Present Illness HPI 34-year-old male with PMHx DM, seizure, TBI presents to the ED via EMS with a chief complaint of fall injury on today around 07:20. Per EMS, patient is from [facility], experienced an unwitnessed fall, was found on the ground by staff. Patient is currently experiencing LT hip pain, rates pain 10/10. Upon EMS arrival, BG was 214, he is A&O x4. Denies LOC, nausea, vomiting, headache, dizziness, shortness of breath, chest pain. No other symptoms or modifying factors present at this time. Home Meds Active Scripts Oxycodone HCl (Oxycodone Hydrochloride) 5 Mg Tab, 5 MG PO Q6HR for 14 Days, #56 TAB Prov:LIVIA ELIZABETH MD 10/25/24 Hydrocodone-Acetaminophen (Hydrocodone Bitartrate/AC 5-325 mg) 1 Tab Tab, 1 TAB PO Q6HP PRN for 5 Days, #20 TAB Prov:LIVIA ELIZABETH MD 10/21/24 Ibuprofen Micronized (MOTRIN TABLET) 600 Mg Tb, 600 MG PO TID for 5 Days, #15 TAB *Black box warning-NSAIDS can increase risk of OR & hypertension, GI irritation, ulceration, bleed, perferation. Do not use post cardiac surgery. Use short duration/lowest effective dose. Prov:LIVIA ELIZABETH MD 10/21/24 Levetiracetam (Keppra) 1,000 Mg Tab, 1 TAB PO BID, #60 TAB 5 Refills Prov:REGINA SANCHEZ MD 04/21/23 Reported Medications Alum & Mag Hydrox-Simethicone (Itzel-Lanta) Loree, 1 OR, ML 01/07/25 Insulin Lispro (Humalog Kwikpen) 100 Unit/Ml Inj, 100 UNIT SC, INJ 12/16/24 Aripiprazole (Abilify) 2 Mg Tab, 5 TAB PO DAILY, #30 TAB 2 Refills 12/16/24 Metformin Hydrochloride (Metformin Hcl) 500 Mg Tab, PO DAILY for 30 Days, MG 10/19/24 Gabapentin (Gabapentin) 100 Mg Cap, PO BID for 30 Days, MG 10/19/24 Cholecalciferol (VITAMIN D3) 2,000 Unit Tab, 25 MCG PO DAILY, TAB 10/25/23 Topiramate (Topiramate) 50 Mg Tab, 50 MG PO QPM, TAB 10/25/23 Tamsulosin HCl (Tamsulosin Hydrochloride) 0.4 Mg Cap, 0.4 MG PO, CAP 10/25/23 Hydroxyzine Hcl (Hydroxyzine Hcl) 25 Mg Tab, 25 MG PO Q6HPRN PRN for ANXIETY, TAB 10/25/23 Alum & Mag Hydrox-Simethicone (Antacid Anti-Gas) 1 Ml Loree, 30 ML PO Q4HPRN, ML 10/25/23 Senna (Senokot) 8.6 Mg Tab, 1 TAB PO BID, #40 TAB 10/25/23 Rosuvastatin Calcium (Crestor) 5 Mg Tab, 5 MG PO QPM, TAB 10/25/23 Ramelteon (Rozerem) 8 Mg Tab, 1 TAB PO QPM, #30 TAB 1 Refill 10/25/23 Trazodone Hcl (Trazodone Hcl) 100 Mg Tab, 1 TAB PO QPM, #30 TAB 10/25/23 Ondansetron HCl (Ondansetron) 4 Mg Tab, 4 MG PO PRN PRN for Q6, TAB 10/25/23 Pantoprazole Sodium Sesquihydr (Protonix) 40 Mg Tab, 40 MG PO DAILY, #30 TAB 10/25/23 Metoclopramide Hcl (Metoclopramide Hcl) 5 Mg Tab, 5 MG PO TID, TAB 10/25/23 Famotidine (PEPCID TABLET) 20 Mg Tb, 1 TAB PO BID, #60 TAB 5 Refills 10/25/23 Duloxetine Hcl (Cymbalta) 60 Mg Cap, 1 CAP PO DAILY, #90 CAP 3 Refills 10/25/23 Baclofen (Baclofen) 20 Mg Tab, 5 MG PO TID, TAB 10/25/23 Pregabalin (LYRICA CAPSULE) 25 Mg Cp, 25 MG PO, CAP 10/25/23 Apixaban Base (ELIQUIS) 2.5 Mg Tab, 2.5 MG PO BID, TAB 10/25/23 Divalproex Sodium (Depakote) 250 Mg Tab, 1 TAB PO BID, #60 TAB 2 Refills 10/25/23 Insulin Detemir (Levemir) Inj, 11 SC BID, INJ 10/25/23 Past Medical History Patient Family History: Patient reports no known family medical history. Review of Systems Constitutional: No symptom reported Ears, Nose, & Throat: No symptom reported Eyes: No symptom reported Pulmonary/Respiratory: No symptom reported Cardiovascular: No symptom reported H&P Exam Vital Signs Vital Signs Date Time Temp Pulse Resp B/P (MAP) Pulse Ox O2 Delivery O2 Flow Rate FiO2 01/17/25 20:13 84 17 116/68 01/17/25 19:30 98.9 97 98.9 01/17/25 19:30 Room Air* 0 21 General Appeara: Well developed, Well nourished, Normal Appearance Cardiovascular/Chest: Normal inspection SEPSIS Sepsis Screen Date sepsis recognized/suspect: Jan 17, 2025 Time Sepsis recognized/suspect: 829 Recent Procedure: No On Antibiotic Therapy: No Respiratory Rate >20: No Heart Rate >90: Yes Temp<36 C (96.8 F) or >38.3 C: No SBP <90 or MAP <65 mmHG: No New Acute Mental Status Change: No Is the patient on CPAP, BIPAP,: No Physician Orders Education - Smoking Cessation (01/17/25 20:16) * Smoking Cessation Consult (01/17/25 20:16) Vital Signs Date Time Temp Pulse Resp B/P (MAP) Pulse Ox O2 Delivery O2 Flow Rate FiO2 01/17/25 20:13 84 17 116/68 01/17/25 19:30 98.9 75 16 115/56 (75) 97 98.9 01/17/25 19:30 74 16 97 Room Air* 0 21 01/17/25 16:00 74 18 115/54 (74) 97 01/17/25 16:00 74 15 115/54 01/17/25 15:34 106 13 107/80 01/17/25 15:18 98.3 98.3 01/17/25 14:15 106 13 107/80 (89) 96 01/17/25 13:00 81 19 121/64 01/17/25 12:58 81 19 121/64 (83) 96 Medications Medications Dose Ordered Sig/Lisa Route Start Time Stop Time Status Last Admin Dose Admin Enoxaparin Sodium 40 mg DAILY SC 01/17/25 10:00 01/17/25 09:50 40 MG Morphine Sulfate 2 mg Q4HPRN PRN IV 01/17/25 09:15 01/17/25 20:13 2 MG Labs/Xrays Labs Test 01/17/25 15:01 01/17/25 02:53 01/16/25 23:40 Range/Units POC Glucose 335 H 70-106 mg/dl White Blood Count 9.5 # 4.4-10.8 10^3/uL Red Blood Count 4.00 L 4.5-5.90 10^6/uL Hemoglobin 13.4 L 13.5-17.5 g/dL Hematocrit 39.4 L 41.0-53.0 % Mean Corpuscular Volume 98.4 80.0-100.0 fL Mean Corpuscular Hemoglobin 33.4 H 28.0-32.0 pg Mean Corpuscular Hemoglobin Concent 33.9 32.0-36.0 g/dL Red Cell Distribution Width 13.4 11.8-14.3 % Platelet Count 229 140-450 10^3/uL Mean Platelet Volume 9.8 6.9-10.8 fL Neutrophils (%) (Auto) 72.2 37.0-80.0 % Lymphocytes (%) (Auto) 19.6 10.0-50.0 % Monocytes (%) (Auto) 6.6 0.0-12.0 % Eosinophils (%) (Auto) 0.5 0.0-7.0 % Basophils (%) (Auto) 1.1 0.0-2.0 % Neutrophils # (Auto) 6.9 1.6-8.6 10 ^3/uL Lymphocytes # (Auto) 1.9 0.4-5.4 10 ^3/uL Monocytes # (Auto) 0.6 0-1.3 10 ^3/uL Eosinophils # (Auto) 0 0-0.8 10 ^3/uL Basophils # (Auto) 0.1 0-0.2 10 ^3/uL Nucleated Red Blood Cells 0.1 % Sodium Level 136 # 136-145 mmol/L Potassium Level 3.9 3.5-5.1 mmol/L Chloride Level 103 98-107 mmol/L Carbon Dioxide Level 23 20-31 mmol/L Anion Gap 10 5-15 Blood Urea Nitrogen 17 9-23 mg/dL Creatinine 0.98 0.700-1.30 mg/dL Glomerular Filtration Rate Calc 103 >90 mL/min BUN/Creatinine Ratio 17.3 10.0-20.0 Serum Glucose 377 #H 74-106 mg/dL Calcium Level 9.7 8.7-10.4 mg/dL Total Bilirubin 0.4 0.2-1.0 mg/dL Aspartate Amino Transferase (AST) 16 13-40 U/L Alanine Aminotransferase (ALT) 17 7-40 U/L Alkaline Phosphatase 105 46-116 U/L Total Protein 7.1 5.7-8.2 g/dL Albumin 4.4 3.2-4.8 g/dL Urine Color Light-yellow Yellow Urine Clarity Clear Clear Urine pH 7.0 5.0-9.0 Urine Specific [place] 1.027 1.001-1.035 Urine Protein Negative Negative Urine Ketones 1+ H Negative Urine Blood Negative Negative /uL Urine Nitrite Negative Negative Urine Bilirubin Negative Negative Urine Urobilinogen Normal Negative mg/dL Urine Leukocyte Esterase Negative Negative /uL Urine RBC 3 0 - 3 /hpf Urine Microscopic WBC 1 0-3 /HPF Urine Squamous Epithelial Cells None seen <5 /hpf Urine Bacteria None seen None Seen /hpf Urine Glucose 4+ H Normal mg/dL Assessment/Plan Primary Diagnosis DATE OF SERVICE: 01/16/2025 Osteonecrosis left hip pain left hip/pelvis fracture, possible acute seizure hx DM hx of CVA pain control consult to ortho sliding scale Plan discussed with: Patient TARA DAVIS DO Jan 17, 2025 20:37
[2025-01-17 21:00] VITALS: BP 116/68; PULSE 87; RESP 18; TEMP 97.6; O2SAT 96
[2025-01-17] MEDS: levETIRAcetam 500 MG TAB PO SCH (21:21)
[2025-01-18] VITALS (7 sets, daily range): BP systolic 111–125; BP diastolic 72–80; PULSE 68–94; RESP 16–19; TEMP 97–98.2; O2SAT 94–97
[2025-01-18] MEDS: InsuLIN REG 1unit/0.01ml Soln (100units/ml) SC SCH ×3 (00:28→22:05)
[2025-01-18] MEDS: INSULIN LANTUS (GLARGINE) 1 /0.01ml (100units/ml) SC SCH ×2 (00:29→06:44)
[2025-01-18] MEDS ORDERED: DEXTROSE (50%) 50ML SYRG IV PRN ×2 (03:15)
[2025-01-18] MEDS: ACCU-CHEK COMFORT CURVE STRIP VI SCH (06:42)
[2025-01-18] MEDS ORDERED: InsuLIN REG 1unit/0.01ml Soln (100units/ml) SC SCH (07:00)
[2025-01-18] MEDS ORDERED: ACCU-CHEK COMFORT CURVE STRIP VI SCH (07:00)
--- NOTE | 2025-01-18 10:09 | DVH ---
INDICATION: left hip fracture COMPARISON: XY L HIP COMPLETE XRAY on DOS: 12/20/24 TECHNIQUE: CT of the left hip was performed without contrast. Volume transverse images were obtained and reconstructed in multiple planes using bone and soft tissue algorithms. CONTRAST: None Radiation Dose Information: CT Dose: CTDI volume is 14.49 mGy. Dose-length product is 431.37 mGy*cm FINDINGS: Kessler catheter in place with partially decompressed bladder with mild bladder wall thickening which could be related to underdistention. Mild rectal wall thickening. Severe chronic deformity of the left hip joint with shallow acetabulum. There are multiple hip joint osseous bodies. Unchanged chronic lucencies and sclerosis seen in the deformed left femur. No significant left hip soft tissue swelling or hematoma. IMPRESSION: Unchanged severe left hip chronic deformity. No acute fracture. Persistent circumferential rectal wall thickening. Correlate for proctitis. Consider colonoscopy if not recently performed if there is concern for underlying mass. Mild bladder wall thickening. Correlate for cystitis with urinalysis.
[2025-01-18 13:01] LABS: Urine Protein, UAD 2+ (Negative)
[2025-01-19] VITALS (8 sets, daily range): BP systolic 107–120; BP diastolic 69–85; PULSE 71–88; RESP 16–20; TEMP 97.6–99.1; O2SAT 93–99
[2025-01-20] VITALS (7 sets, daily range): BP systolic 102–130; BP diastolic 68–98; PULSE 67–91; RESP 16–20; TEMP 97.6–98.5; O2SAT 95–98
[2025-01-20] MEDS: ALPRAZolam 0.5 MG TAB PO ONE (00:33)
[2025-01-20] MEDS: ALPRAZolam 0.5 MG TAB PO SCH (20:40)
[2025-01-21] VITALS (7 sets, daily range): BP systolic 115–137; BP diastolic 77–84; PULSE 68–88; RESP 16–20; TEMP 97.6–98.9; O2SAT 96–99
[2025-01-21] MEDS: LORazepam 2MG/ML-1ML VIAL IM ONE (00:47)
--- NOTE | 2025-01-21 08:22 | DVHHP2 ---
History Allergies: Coded Allergies: NO KNOWN ALLERGIES (Unverified , 10/25/23) [facility] staff, where pt lives, states he is not allergic to anything. Chief Complaint: Left hip pain Present Illness(Onset/Duration 34M, left hip pain, several years. H/o CVA and subsequent TBI, non ambulator for several years, mechanical fall from WC a few days ago with increase in left hip/groin pain. no F,C,N,V Past Surgical History non contrib Physical Exam Skin intact Abdomen ND NT, soft Extremities Pt poor commuinicator due to TBI poor motor control of all extremities Left hip, 30 deg flexion contracture, pain with PROM, NVI, no warmth Vital Signs Vital Signs Date Time Temp Pulse Resp B/P (MAP) Pulse Ox O2 Delivery O2 Flow Rate FiO2 01/21/25 05:00 98.0 74 18 124/84 (97) 99 98.0 01/20/25 19:31 Room Air* 0 21 Impressions/Description 34M, traumatic brain injury, non-ambulator x several years, end stage OA left hip with no current evidence of infection 1) clear for dc from ortho view 2) future elective options could include [place] resectin of proximal femur, no indication for acture ortho intervention at this time 3) f/U ortho clinic 2-4 wks, prn Plan see above clear for dc from ortho view F/U ortho clinic 2-4 wks / prn ALISSA MOSCOSO MD Jan 21, 2025 08:22
[2025-01-21] MEDS ORDERED: MORPHINE SULFATE 4 MG/ML SYR/VIAL IV PRN (17:15)
[2025-01-21] MEDS: HALOPERIDOL LACTATE 5 MG/ML INJ VIAL IM ONE (17:42)
== END 2025-01-21 20:15 | disposition home or self-care (01) | DRG 351 ==
LOC: EDBD 07:54 → ER 07:54 → OVERFLOW 12:00 → WEST WING 01-17 18:33
PROVIDERS: ADMIT Internal Medicine; ATTEND Internal Medicine
DX: M87.852 Other osteonecrosis, left femur (principal); E11.9 Type 2 diabetes mellitus without complications; Z86.73 Personal history of transient ischemic attack (TIA), and cerebral infarction without residual deficits
CPT/HCPCS: 36415; 72170; 73700; 80048; 80053; 81001; 82962; 85025; 87081; G0378; J1815

== ENCOUNTER 2025-01-22 08:36 | Emergency (ER) | payer MEDICAID ==
[~2025-01-22] VITALS: Ht 175.3 cm; Wt 86.0 kg
--- NOTE | 2025-01-22 08:39 | ED.PDOC ---
[place]. trauma (HPI) HPI Comments 34 y/o M, BIBA, with PMHx of epilepsy and DM presents to the ED for CC of s/p fall injury. EMS reports, patient is coming from [facility] where patient had an unwitnessed fall. Per faculty, following trauma patient c/o left- hip pain. EMS further relays, patient has chronic left hip pain d/t chronic left hip dislocation. Patient is A&Ox1 to self only, and no other symptoms or modifying factors are obtainable. Time Seen by MD: 08:40 Primary Care Provider: UNKNOWN NAME Reviewed notes: Nurses Notes, Buckle Sewer Machine Notes, Medications, Allergies Allergies: Coded Allergies: NO KNOWN ALLERGIES (Unverified , 10/25/23) [facility] staff, where pt lives, states he is not allergic to anything. Home Meds Active Scripts Oxycodone HCl (Oxycodone Hydrochloride) 5 Mg Tab, 5 MG PO Q6HR for 14 Days, #56 TAB Prov:LIVIA ELIZABETH MD 10/25/24 Hydrocodone-Acetaminophen (Hydrocodone Bitartrate/AC 5-325 mg) 1 Tab Tab, 1 TAB PO Q6HP PRN for 5 Days, #20 TAB Prov:LIVIA ELIZABETH MD 10/21/24 Ibuprofen Micronized (MOTRIN TABLET) 600 Mg Tb, 600 MG PO TID for 5 Days, #15 TAB *Black box warning-NSAIDS can increase risk of KS & hypertension, GI irritation, ulceration, bleed, perferation. Do not use post cardiac surgery. Use short duration/lowest effective dose. Prov:LIVIA ELIZABETH MD 10/21/24 Levetiracetam (Keppra) 1,000 Mg Tab, 1 TAB PO BID, #60 TAB 5 Refills Prov:REGINA SANCHEZ MD 04/21/23 Reported Medications Alum & Mag Hydrox-Simethicone (Itzel-Lanta) Loree, 1 OR, ML 01/07/25 Insulin Lispro (Humalog Kwikpen) 100 Unit/Ml Inj, 100 UNIT SC, INJ 12/16/24 Aripiprazole (Abilify) 2 Mg Tab, 5 TAB PO DAILY, #30 TAB 2 Refills 12/16/24 Metformin Hydrochloride (Metformin Hcl) 500 Mg Tab, PO DAILY for 30 Days, MG 9/3/25 Gabapentin (Gabapentin) 100 Mg Cap, PO BID for 30 Days, MG 10/19/24 Cholecalciferol (VITAMIN D3) 2,000 Unit Tab, 25 MCG PO DAILY, TAB 10/25/23 Topiramate (Topiramate) 50 Mg Tab, 50 MG PO QPM, TAB 10/25/23 Tamsulosin HCl (Tamsulosin Hydrochloride) 0.4 Mg Cap, 0.4 MG PO, CAP 10/25/23 Hydroxyzine Hcl (Hydroxyzine Hcl) 25 Mg Tab, 25 MG PO Q6HPRN PRN for ANXIETY, TAB 10/25/23 Alum & Mag Hydrox-Simethicone (Antacid Anti-Gas) 1 Ml Loree, 30 ML PO Q4HPRN, ML 10/25/23 Senna (Senokot) 8.6 Mg Tab, 1 TAB PO BID, #40 TAB 10/25/23 Rosuvastatin Calcium (Crestor) 5 Mg Tab, 5 MG PO QPM, TAB 10/25/23 Ramelteon (Rozerem) 8 Mg Tab, 1 TAB PO QPM, #30 TAB 1 Refill 10/25/23 Trazodone Hcl (Trazodone Hcl) 100 Mg Tab, 1 TAB PO QPM, #30 TAB 10/25/23 Ondansetron HCl (Ondansetron) 4 Mg Tab, 4 MG PO PRN PRN for Q6, TAB 10/25/23 Pantoprazole Sodium Sesquihydr (Protonix) 40 Mg Tab, 40 MG PO DAILY, #30 TAB 10/25/23 Metoclopramide Hcl (Metoclopramide Hcl) 5 Mg Tab, 5 MG PO TID, TAB 10/25/23 Famotidine (PEPCID TABLET) 20 Mg Tb, 1 TAB PO BID, #60 TAB 5 Refills 10/25/23 Duloxetine Hcl (Cymbalta) 60 Mg Cap, 1 CAP PO DAILY, #90 CAP 3 Refills 10/25/23 Baclofen (Baclofen) 20 Mg Tab, 5 MG PO TID, TAB 10/25/23 Pregabalin (LYRICA CAPSULE) 25 Mg Cp, 25 MG PO, CAP 10/25/23 Apixaban Base (ELIQUIS) 2.5 Mg Tab, 2.5 MG PO BID, TAB 10/25/23 Divalproex Sodium (Depakote) 250 Mg Tab, 1 TAB PO BID, #60 TAB 2 Refills 10/25/23 Insulin Detemir (Levemir) Inj, 11 SC BID, INJ 10/25/23 Information Source: Emergency Med Personnel Mode of Arrival: EMS Severity: Moderate Timing: Days Duration: Since onset Prehospital treatment: None Location: (L) Hip Location of laceration: None Mechanism: Fall Associated signs and symtoms: None Past Medical History PAST MEDICAL HISTORY: DM, Seizures Surgical History: Denies all surgeries Family History Family History: Reviewed,noncontributory to illness Social History Smoker: Non-Smoker Alcohol: Denies ETOH Use Drugs: Denies Drug Use Lives In: Home, Care Home Unable to Obtain due to: Other (A&Ox1) Physical Exam General Appearance: No Apparent Distress, Normal HEENT: Normal ENT Inspection, Pharynx Normal Neck: Full Range of Motion, Non-Tender, Normal, Normal Inspection Respiratory: Chest Non-Tender, Lungs Clear, No Accessory Muscle Use, No Respiratory Distress, Normal Breath Sounds Cardiovascular: No Edema, No Murmur, No Gallop, Normal Peripheral Pulses, Regular Rate/Rhythm Breast Exam: Deferred Gastrointestinal: No Organomegaly, Non Tender, No Pulsatile Mass, Normal Bowel Sounds, Soft Genitalia: Deferred Pelvic: Deferred Rectal: Deferred Extremities: No calf tenderness, Normal capillary refill, Normal inspection, Normal range of motion, Non-tender, No pedal edema Musculoskeletal : Location: Left Extremity Location: Hip Apperance: Tenderness (chronic) 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 Was a procedure done?: No Differential Diagnosis Multiple Trauma: Other (chronic left hip pain, dislocation) X-Ray, Labs, Meds, VS Vital Signs Date Time Temp Pulse Resp B/P (MAP) Pulse Ox O2 Delivery O2 Flow Rate FiO2 01/22/25 10:00 61 12 117/78 (91) 96 01/22/25 09:30 70 12 97 Room Air* 0 21 01/22/25 09:15 98.4 70 12 126/77 (93) 97 98.4 01/22/25 08:43 97.8 75 18 118/78 97 97.8 Lab Test 01/22/25 10:21 01/22/25 09:18 Range/Units Troponin I High Sensitivity 4 3 L </=54 ng/L White Blood Count 6.2 # 4.4-10.8 10^3/uL Red Blood Count 3.93 L 4.5-5.90 10^6/uL Hemoglobin 13.3 L 13.5-17.5 g/dL Hematocrit 39.1 L 41.0-53.0 % Mean Corpuscular Volume 99.5 80.0-100.0 fL Mean Corpuscular Hemoglobin 33.8 H 28.0-32.0 pg Mean Corpuscular Hemoglobin Concent 33.9 32.0-36.0 g/dL Red Cell Distribution Width 13.7 11.8-14.3 % Platelet Count 168 140-450 10^3/uL Mean Platelet Volume 9.2 6.9-10.8 fL Neutrophils (%) (Auto) 73.2 37.0-80.0 % Lymphocytes (%) (Auto) 16.5 10.0-50.0 % Monocytes (%) (Auto) 5.7 0.0-12.0 % Eosinophils (%) (Auto) 3.6 0.0-7.0 % Basophils (%) (Auto) 1.0 0.0-2.0 % Neutrophils # (Auto) 4.6 1.6-8.6 10 ^3/uL Lymphocytes # (Auto) 1.0 0.4-5.4 10 ^3/uL Monocytes # (Auto) 0.4 0-1.3 10 ^3/uL Eosinophils # (Auto) 0.2 0-0.8 10 ^3/uL Basophils # (Auto) 0.1 0-0.2 10 ^3/uL Nucleated Red Blood Cells 0.0 % Prothrombin Time 10.3 9.3-11.8 sec Prothrombin Time INR 0.97 0.9-1.15 Activated Partial Thromboplast Time 25.9 24.5-34.5 SEC Sodium Level 135 L 136-145 mmol/L Potassium Level 4.5 3.5-5.1 mmol/L Chloride Level 102 98-107 mmol/L Carbon Dioxide Level 28 20-31 mmol/L Anion Gap 5 5-15 Blood Urea Nitrogen 17 9-23 mg/dL Creatinine 1.08 0.700-1.30 mg/dL Glomerular Filtration Rate Calc 92 >90 mL/min BUN/Creatinine Ratio 15.7 10.0-20.0 Serum Glucose 436 *H 74-106 mg/dL Calcium Level 9.5 8.7-10.4 mg/dL Current Medications Medications (Trade) Dose Ordered Sig/Lisa Route Start Time Stop Time Status Last Admin Haloperidol Lactate (Haldol) 10 mg ONCE ONCE IM 01/22/25 09:30 01/22/25 09:31 DC 01/22/25 09:48 [place] [id number] Ph: [phone] DIAGNOSTIC IMAGING Diagnostic Imaging Report : [id number] Signed PATIENT: EMERY ANDRADE ACCT: [id number] UNIT: [id number] : 1990 LOC: ER ROOM / BED: / AGE / SEX: 34 / M ADM STATUS: REG ER SERVICE 8 ORDERING PHYSICIAN: MICHAEL DAY MD PROCEDURE(s): CXRP - CHEST PORTABLE REASON: fall ORDER NUMBER(s): [id number], ACCESSION NUMBER(s): [id number] CLINICAL INFORMATION: Fall injury. TECHNIQUE: Single AP portable chest radiograph was obtained. COMPARISON: XY CHEST XRAY 1 VIEW on DOS: 12/12/24, XY CHEST XRAY 1 VIEW on DOS: 10/24/24, XY CHEST PORTABLE on DOS: 10/28/23 FINDINGS: Lungs: Mild atelectasis in the lung bases. No focal consolidation. No pneumothorax or pleural effusion. Cardiac: Heart size is within normal limits. Pulmonary vasculature: Unremarkable. Mediastinum/xuan: Unremarkable. Bones: No acute osseous abnormality identified. Other: No other significant findings. IMPRESSION: No evidence of acute disease in the chest. ATED BY: CORNEL VAZQUEZ DO DICTATED DATE/TIME: 01/22/25935 SIGNED BY: CORNEL VAZQUEZ DO SIGNED DATE/TIME: 01/22/25935 CC: Time of 1ST Reevaluation: 09:10 Reevaluation 1ST: Unchanged Patient Education/Counseling: Diagnosis, Treatment Family Education/Counseling: No Family Present Departure 1 Departure Time of Disposition: 12:06 (Patient well known to the ER. Patient had baseline. Workup is benign. Patient DrLeonela Granados we will follow up patient's labs.) Impression: Primary Impression: Abrasion Disposition: 03 [facility] FACILITY Condition: Stable Additional Instructions: Your workup today was benign. You can take Tylenol or Motrin as needed for pain. You should follow up with your regular doctor within 1 week. You should stay well rested and well hydrated. If your symptoms worsen or you have any other concerns please return to the emergency room. Discharged With: Self, Professional Nurse Critical Care Note Critical Care Time?: No Stability Stability form required: No Heart Score Heart Score: Heart Score Response (Comments) Value History N/A 0 EKG N/A 0 Age N/A 0 Risk Factors N/A 0 Troponin N/A 0 Total 0 I personally scribed for MICHAEL DAY MD ([email or web address]) on 01/22/25 at 08:39. Electronically submitted by Marina Terrell ([email or web address]). I personally scribed for MICHAEL DAY MD ([email or web address]) on 01/22/25 at 08:57. Electronically submitted by Marina Terrell ([email or web address]). I personally scribed for MICHAEL DAY MD ([email or web address]) on 01/22/25 at 10:20. Electronically submitted by Marina Terrell ([email or web address]). MICHAEL DAY MD Jan 22, 2025 08:39
[2025-01-22 09:30] VITALS: PULSE 70; RESP 12; O2SAT 97
--- NOTE | 2025-01-22 09:38 | DVH ---
CLINICAL INFORMATION: Fall injury. TECHNIQUE: Single AP portable chest radiograph was obtained. COMPARISON: XY CHEST XRAY 1 VIEW on DOS: 12/12/24, XY CHEST XRAY 1 VIEW on DOS: 10/24/24, XY CHEST PORTABLE on DOS: 10/28/23 FINDINGS: Lungs: Mild atelectasis in the lung bases. No focal consolidation. No pneumothorax or pleural effusion. Cardiac: Heart size is within normal limits. Pulmonary vasculature: Unremarkable. Mediastinum/xuan: Unremarkable. Bones: No acute osseous abnormality identified. Other: No other significant findings. IMPRESSION: No evidence of acute disease in the chest.
[2025-01-22 09:41] LABS: Hematocrit 39.1 % (41.0-53.0); Hemoglobin 13.3 g/dL (13.5-17.5); Mean Corpuscular Hemoglobin 33.8 pg (28.0-32.0); Mean Corpuscular Volume 99.5 fL (80.0-100.0); Nucleated Red Blood Cells % 0.0 %
[2025-01-22] MEDS: HALOPERIDOL LACTATE 5 MG/ML INJ VIAL IM ONE (09:48)
[2025-01-22 09:55] LABS: INR 0.97 (0.9-1.15); Partial Thromboplastin Time 25.9 SEC (24.5-34.5); Prothrombin Time 10.3 sec (9.3-11.8)
[2025-01-22 10:01] LABS: Chloride 102 mmol/L (98-107); Potassium 4.5 mmol/L (3.5-5.1)
[2025-01-22 10:02] LABS: Anion Gap 5 (5-15); Calcium 9.5 mg/dL (8.7-10.4); Carbon Dioxide 28 mmol/L (20-31)
[2025-01-22 10:03] LABS: Sodium 135 mmol/L (136-145)
[2025-01-22 10:07] LABS: BUN/Creatinine Ratio 15.7 (10.0-20.0); Blood Urea Nitrogen 17 mg/dL (9-23)
[2025-01-22 10:09] LABS: Glucose 436 mg/dL (74-106)
[2025-01-22] MEDS: MIDAZOLAM HCL 5 MG/ML-1ML VIAL IM ONE (10:28)
--- NOTE | 2025-01-22 11:58 | DVH ---
CLINICAL INFORMATION: 34 years old, Male; fall. TECHNIQUE: Axial imaging was obtained through the brain without contrast. Coronal and sagittal reformatted images were obtained, reviewed, and stored. Images were reviewed in brain and bone windows. All CT scans at this medical facility are performed using dose modulation techniques as appropriate to a performed exam including the following: Automated exposure control was utilized; adjustment of the MA and/or KV according to patient size; and use of iterative reconstruction technique. CTDIvol = 62.06 mGy DLP = 1222.84 mGy-cm COMPARISON: CT HEAD WITHOUT CONTRAST on DOS: 07/06/24, CT HEAD WITHOUT CONTRAST on DOS: 10/29/23, CT HEAD WITHOUT CONTRAST on DOS: 10/23/23 FINDINGS: There is no acute intracranial hemorrhage. No mass effect or midline shift. The ventricles and sulci are within normal limits in size for age. Basal cisterns are patent. The calvarium is unremarkable. Mild mucosal thickening of the paranasal sinuses. IMPRESSION: No CT evidence of acute intracranial abnormality.
[2025-01-22 14:00] VITALS: TEMP 98.4
[2025-01-22 16:00] VITALS: BP 115/70; PULSE 65; RESP 18; O2SAT 98
[2025-01-22] MEDS: InsuLIN REG 1unit/0.01ml Soln (100units/ml) SC ONE (16:19)
== END 2025-01-22 16:30 ==
LOC: ER 08:36 → EDUNIT# 08:36 → EDBD 08:36 → ER 16:30
DX: S70.212A Abrasion, left hip, initial encounter (principal); E11.9 Type 2 diabetes mellitus without complications; G89.29 Other chronic pain; R42 Dizziness and giddiness; Z79.899 Other long term (current) drug therapy; Z86.2 Personal history of diseases of the blood and blood-forming organs and certain disorders involving the immune mechanism; W19.XXXA Unspecified fall, initial encounter; Y93.89 Activity, other specified; Y92.89 Other specified places as the place of occurrence of the external cause; Y99.8 Other external cause status
CPT/HCPCS: 36415; 70450; 71045; 80048; 82947; 84484; 85025; 85610; 85730; 96372; 99285; J1630; J1815; 82962; J2250

== ENCOUNTER 2025-02-08 13:49 | Inpatient (IN) | payer MEDICAID ==
[~2025-02-08] VITALS: Ht 170.2 cm; Wt 74.2 kg
--- NOTE | 2025-02-08 14:22 | ED.PDOC ---
History of Present Illness HPI Comments This is a 34-year old male with past medical history of traumatic brain injury, diabetes mellitus-insulin dependent, cardiac arrest, seizure disorder and chronic hip pain who was brought in by ambulance form [facility] living [facility] for 2 witnessed seizures this morning. Per EMS, he refused to take kep pra dose this morning, following which he had 2 generalised tonic clonic seizures with no oral trauma or incontinence. On the way to the hospital, his blood glucose was 351. He was given 5mg im versed. Chief Complaint: seizure Time Seen by MD: 13:55 Primary Care Provider: UNKNOWN NAME Allergies: Coded Allergies: NO KNOWN ALLERGIES (Unverified , 10/25/23) [facility], where pt lives, states he is not allergic to anything. Home Meds Active Scripts Oxycodone HCl (Oxycodone Hydrochloride) 5 Mg Tab, 5 MG PO Q6HR for 14 Days, #56 TAB Prov:LIVIA ELIZABETH MD 10/25/24 Hydrocodone-Acetaminophen (Hydrocodone Bitartrate/AC 5-325 mg) 1 Tab Tab, 1 TAB PO Q6HP PRN for 5 Days, #20 TAB Prov:LIVIA ELIZABETH MD 10/21/24 Ibuprofen Micronized (MOTRIN TABLET) 600 Mg Tb, 600 MG PO TID for 5 Days, #15 TAB *Black box warning-NSAIDS can increase risk of [place] & hypertension, GI irritation, ulceration, bleed, perferation. Do not use post cardiac surgery. Use short duration/lowest effective dose. Prov:LIVIA ELIZABETH MD 10/21/24 Levetiracetam (Keppra) 1,000 Mg Tab, 1 TAB PO BID, #60 TAB 5 Refills Prov:REGINA SANCHEZ MD 04/21/23 Reported Medications Alum & Mag Hydrox-Simethicone (Itzel-Lanta) Loree, 1 OR, ML 01/07/25 Insulin Lispro (Humalog Kwikpen) 100 Unit/Ml Inj, 100 UNIT SC, INJ 12/16/24 Aripiprazole (Abilify) 2 Mg Tab, 5 TAB PO DAILY, #30 TAB 2 Refills 12/16/24 Metformin Hydrochloride (Metformin Hcl) 500 Mg Tab, PO DAILY for 30 Days, MG 10/19/24 Gabapentin (Gabapentin) 100 Mg Cap, PO BID for 30 Days, MG 10/19/24 Cholecalciferol (VITAMIN D3) 2,000 Unit Tab, 25 MCG PO DAILY, TAB 10/25/23 Topiramate (Topiramate) 50 Mg Tab, 50 MG PO QPM, TAB 10/25/23 Tamsulosin HCl (Tamsulosin Hydrochloride) 0.4 Mg Cap, 0.4 MG PO, CAP 10/25/23 Hydroxyzine Hcl (Hydroxyzine Hcl) 25 Mg Tab, 25 MG PO Q6HPRN PRN for ANXIETY, TAB 10/25/23 Alum & Mag Hydrox-Simethicone (Antacid Anti-Gas) 1 Ml Loree, 30 ML PO Q4HPRN, ML 10/25/23 Senna (Senokot) 8.6 Mg Tab, 1 TAB PO BID, #40 TAB 10/25/23 Rosuvastatin Calcium (Crestor) 5 Mg Tab, 5 MG PO QPM, TAB 10/25/23 Ramelteon (Rozerem) 8 Mg Tab, 1 TAB PO QPM, #30 TAB 1 Refill 10/25/23 Trazodone Hcl (Trazodone Hcl) 100 Mg Tab, 1 TAB PO QPM, #30 TAB 10/25/23 Ondansetron HCl (Ondansetron) 4 Mg Tab, 4 MG PO PRN PRN for Q6, TAB 10/25/23 Pantoprazole Sodium Sesquihydr (Protonix) 40 Mg Tab, 40 MG PO DAILY, #30 TAB 10/25/23 Metoclopramide Hcl (Metoclopramide Hcl) 5 Mg Tab, 5 MG PO TID, TAB 10/25/23 Famotidine (PEPCID TABLET) 20 Mg Tb, 1 TAB PO BID, #60 TAB 5 Refills 10/25/23 Duloxetine Hcl (Cymbalta) 60 Mg Cap, 1 CAP PO DAILY, #90 CAP 3 Refills 10/25/23 Baclofen (Baclofen) 20 Mg Tab, 5 MG PO TID, TAB 10/25/23 Pregabalin (LYRICA CAPSULE) 25 Mg Cp, 25 MG PO, CAP 10/25/23 Apixaban Base (ELIQUIS) 2.5 Mg Tab, 2.5 MG PO BID, TAB 10/25/23 Divalproex Sodium (Depakote) 250 Mg Tab, 1 TAB PO BID, #60 TAB 2 Refills 10/25/23 Insulin Detemir (Levemir) Inj, 11 SC BID, INJ 10/25/23 Information Source: Emergency Med Personnel Mode of Arrival: EMS Severity: Moderate Timing: Hours Duration: Since onset Prehospital treatment: Other (versed 5mg im) Past Medical History PAST MEDICAL HISTORY: DM, Seizures Surgical History: Denies all surgeries Family History Family History: Reviewed,noncontributory to illness Social History Smoker: Non-Smoker Alcohol: Denies ETOH Use Drugs: Denies Drug Use Lives In: Assisted Care, [facility] Constitutional: denies: chills, diaphoresis, fatigue, fever, malaise, sweats, weakness, others EENTM: denies: blurred vision, double vision, ear bleeding, ear discharge, ear drainage, ear pain, ear ringing, eye pain, eye redness, hearing loss, mouth pain, mouth swelling, nasal discharge, nose bleeding, nose congestion, nose pain, photophobia, tearing, throat pain, throat swelling, voice changes, others Respiratory: denies: cough, hemoptysis, orthopnea, SOB at rest, shortness of breath, SOB with excertion, stridor, wheezing, others Cardiovascular: denies: chest pain, dizzy spells, diaphoresis, Dyspnea on exertion, edema, irregular heart beat, left arm pain, lightheadedness, palpitations, PND, syncope, others Gastrointestinal: denies: abdomen distended, abdominal pain, blood streaked bowels, constipated, diarrhea, dysphagia, difficulty swallowing, hematemesis, melena, nausea, poor appetite, poor fluid intake, rectal bleeding, rectal pain, vomiting, others Genitourinary: denies: burning, dysuria, flank pain, frequency, hematuria, incontinence, penile discharge, penile sore, pain, testicle pain, testicle swelling, urgency, others Neurological: reports: seizure; denies: dizziness, fainting, headache, left sided numbness, left sided weakness, numbness, paresthesia, pre-existing deficit, right sided numbness, right sided weakness, speech problems, tingling, tremors, weakness, others Musculoskeletal: denies: back pain, gout, joint pain, joint swelling, muscle pain, muscle stiffness, neck pain, others Integumetry: denies: bruises, change in color, change in hair/nails, dryness, laceration, lesions, lumps, rash, wounds, others Allergic/Immunocompromised: denies: Difficulty Healing, Frequent Infections, Hives, Itching, others Hematologic/Lymphatic: denies: anemia, blood clots, easy bleeding, easy bruising, swollen glands, others Endocrine: denies: excessive hunger, excessive sweating, excessive thirst, excessive urination, flushing, intolerance to cold, intolerance to heat, unexplained weight gain, unexplained weight loss, others Psychiatric: denies: anxiety, bipolar disorder, depression, hopeless, panic disorder, schizophrenia, sleepless, suicidal, others Physical Exam General Appearance: Normal HEENT: Normal ENT Inspection Neck: Non-Tender, Normal, Normal Inspection Respiratory: Lungs Clear, No Respiratory Distress, Normal Breath Sounds Cardiovascular: No Edema, No Murmur, Normal Peripheral Pulses, Regular Rate/Rhythm Breast Exam: Normal Gastrointestinal: Non Tender, Normal Bowel Sounds Genitalia: Deferred Pelvic: Deferred Rectal: Deferred Extremities: Decreased range of motion, Normal inspection, No pedal edema Neurologic: Disoriented Cerebellar Function: Unable to Test Reflexes: Normal Skin: Normal Color Lymphatic: No Adenopathy Was a procedure done? Was a procedure done?: No Differential Dx Considerations may include: seizure disorder, medication non compliance Time of 1ST Reevaluation: 14:10 Reevaluation 1ST: Unchanged Patient Education/Counseling: Other (disoriented) Family Education/Counseling: No Family Present SEPSIS Sepsis Screen Physician Orders Complete Blood Count (02/08/25 13:50) Basic Metabolic Panel (02/08/25 13:50) Chest Portable (02/08/25 13:57) Urinalysis (02/08/25 13:50) Sodium Chloride 0.9% (02/08/25 14:00) Sodium Chloride 0.9% (02/08/25 14:00) Departure 1 Departure Time of Disposition: 14:20 Impression: Primary Impression: Seizure disorder Additional Impressions: Recurrent seizures Metabolic encephalopathy Uncontrolled diabetes mellitus Diabetes mellitus with hyperglycemia Disposition: 30 STILL A PATIENT Condition: Fair Critical Care Note Critical Care Time?: No Stability Stability form required: MARY [place] RESIDENT Feb 08, 2025 14:22
[2025-02-08 14:24] LABS: Hematocrit 43.5 % (41.0-53.0); Hemoglobin 14.8 g/dL (13.5-17.5); Mean Corpuscular Hemoglobin 33.2 pg (28.0-32.0); Mean Corpuscular Volume 97.3 fL (80.0-100.0); Nucleated Red Blood Cells % 0.0 %
[2025-02-08 14:28] LABS: Chloride 101 mmol/L (98-107); Potassium 4.0 mmol/L (3.5-5.1); Sodium 138 mmol/L (136-145)
[2025-02-08 14:29] LABS: Anion Gap 11 (5-15); Carbon Dioxide 26 mmol/L (20-31)
[2025-02-08 14:30] LABS: Calcium 10.3 mg/dL (8.7-10.4)
[2025-02-08 14:34] LABS: BUN/Creatinine Ratio 14.2 (10.0-20.0); Blood Urea Nitrogen 15 mg/dL (9-23)
[2025-02-08 14:35] LABS: Glucose 257 mg/dL (74-106)
[2025-02-08 14:36] VITALS: PULSE 92; RESP 14; O2SAT 94
--- NOTE | 2025-02-08 14:37 | DVH ---
CHEST RADIOGRAPH REASON FOR EXAM: Shortness of breath COMPARISON: XY CHEST PORTABLE on DOS: 01/22/25, XY CHEST XRAY 1 VIEW on DOS: 12/12/24, XY CHEST XRAY 1 VIEW on DOS: 10/24/24, XY CHEST PORTABLE on DOS: 10/28/23, XY CHEST PORTABLE on DOS: 06/10/23 TECHNIQUE: One view of the chest is provided FINDINGS: The cardiomediastinal silhouette is within normal limits for size. There is diffuse interstitial prominence suggestive of interstitial edema. There are low inspiratory volumes causing crowding and exaggeration of the pulmonary markings. There is no significant pleural effusion. There is no pneumothorax. No acute osseous abnormality is identified. IMPRESSION: Low inspiratory volumes. Diffuse interstitial prominence suggestive of interstitial edema.
[2025-02-08] MEDS: SODIUM CHLORIDE 0.9% 1,000 ML IV ONE ×2 (14:48→14:59)
[2025-02-08] MEDS: levETIRAcetam 1000 mg/100ml 100 ML IV ONE (14:48)
[2025-02-08] MEDS: DEXTROSE (50%) 50ML SYRG IV ONE (16:43)
[2025-02-08] MEDS ORDERED: DOCUSATE SOD 100 MG CAP PO PRN (16:45)
[2025-02-08] MEDS ORDERED: ONDANSETRON HCL 4 MG/2 ML VIAL IV PRN (16:45)
[2025-02-08] MEDS ORDERED: NITROGLYCERIN 0.4 MG SL TAB SL PRN (16:45)
[2025-02-08] MEDS ORDERED: MORPHINE SULFATE 4 MG/ML SYR/VIAL IV PRN (16:45)
[2025-02-08] MEDS: DEXTROSE 50% SYRINGE 50 ML IV ONE (16:59)
--- NOTE | 2025-02-08 17:07 | DVHHP2 ---
History of Present Illness HPI This is a 34-year old male with past medical history of traumatic brain injury, diabetes mellitus-insulin dependent, cardiac arrest, seizure disorder and chronic hip pain who was brought in by ambulance form [facility] living [facility] for 2 witnessed seizures this morning. Per EMS, he refused to take keppra dose this morning, following which he had 2 generalised tonic clonic seizures with no oral trauma or incontinence. On the way to the hospital, his blood glucose was 351. He was given 5mg im versed. Home Meds Active Scripts Oxycodone HCl (Oxycodone Hydrochloride) 5 Mg Tab, 5 MG PO Q6HR for 14 Days, #56 TAB Prov:LIVIA ELIZABETH MD 10/25/24 Hydrocodone-Acetaminophen (Hydrocodone Bitartrate/AC 5-325 mg) 1 Tab Tab, 1 TAB PO Q6HP PRN for 5 Days, #20 TAB Prov:LIVIA ELIZABETH MD 10/21/24 Ibuprofen Micronized (MOTRIN TABLET) 600 Mg Tb, 600 MG PO TID for 5 Days, #15 TAB *Black box warning-NSAIDS can increase risk of [place] & hypertension, GI irritation, ulceration, bleed, perferation. Do not use post cardiac surgery. Use short duration/lowest effective dose. Prov:LIVIA ELIZABETH MD 10/21/24 Levetiracetam (Keppra) 1,000 Mg Tab, 1 TAB PO BID, #60 TAB 5 Refills Prov:REGINA SANCHEZ MD 04/21/23 Reported Medications Alum & Mag Hydrox-Simethicone (Itzel-Lanta) Loree, 1 OR, ML 01/07/25 Insulin Lispro (Humalog Kwikpen) 100 Unit/Ml Inj, 100 UNIT SC, INJ 12/16/24 Aripiprazole (Abilify) 2 Mg Tab, 5 TAB PO DAILY, #30 TAB 2 Refills 12/16/24 Metformin Hydrochloride (Metformin Hcl) 500 Mg Tab, PO DAILY for 30 Days, MG 10/19/24 Gabapentin (Gabapentin) 100 Mg Cap, PO BID for 30 Days, MG 10/19/24 Cholecalciferol (VITAMIN D3) 2,000 Unit Tab, 25 MCG PO DAILY, TAB 10/25/23 Topiramate (Topiramate) 50 Mg Tab, 50 MG PO QPM, TAB 10/25/23 Tamsulosin HCl (Tamsulosin Hydrochloride) 0.4 Mg Cap, 0.4 MG PO, CAP 10/25/23 Hydroxyzine Hcl (Hydroxyzine Hcl) 25 Mg Tab, 25 MG PO Q6HPRN PRN for ANXIETY, TAB 10/25/23 Alum & Mag Hydrox-Simethicone (Antacid Anti-Gas) 1 Ml Loree, 30 ML PO Q4HPRN, ML 10/25/23 Senna (Senokot) 8.6 Mg Tab, 1 TAB PO BID, #40 TAB 10/25/23 Rosuvastatin Calcium (Crestor) 5 Mg Tab, 5 MG PO QPM, TAB 10/25/23 Ramelteon (Rozerem) 8 Mg Tab, 1 TAB PO QPM, #30 TAB 1 Refill 10/25/23 Trazodone Hcl (Trazodone Hcl) 100 Mg Tab, 1 TAB PO QPM, #30 TAB 10/25/23 Ondansetron HCl (Ondansetron) 4 Mg Tab, 4 MG PO PRN PRN for Q6, TAB 10/25/23 Pantoprazole Sodium Sesquihydr (Protonix) 40 Mg Tab, 40 MG PO DAILY, #30 TAB 10/25/23 Metoclopramide Hcl (Metoclopramide Hcl) 5 Mg Tab, 5 MG PO TID, TAB 10/25/23 Famotidine (PEPCID TABLET) 20 Mg Tb, 1 TAB PO BID, #60 TAB 5 Refills 10/25/23 Duloxetine Hcl (Cymbalta) 60 Mg Cap, 1 CAP PO DAILY, #90 CAP 3 Refills 10/25/23 Baclofen (Baclofen) 20 Mg Tab, 5 MG PO TID, TAB 10/25/23 Pregabalin (LYRICA CAPSULE) 25 Mg Cp, 25 MG PO, CAP 10/25/23 Apixaban Base (ELIQUIS) 2.5 Mg Tab, 2.5 MG PO BID, TAB 10/25/23 Divalproex Sodium (Depakote) 250 Mg Tab, 1 TAB PO BID, #60 TAB 2 Refills 10/25/23 Insulin Detemir (Levemir) Inj, 11 SC BID, INJ 10/25/23 Past Medical History Patient Family History: Patient reports no known family medical history. H&P Exam Vital Signs Vital Signs Date Time Temp Pulse Resp B/P (MAP) Pulse Ox O2 Delivery O2 Flow Rate FiO2 02/08/25 15:04 92 14 122/77 (92) 94 02/08/25 14:55 98.4 98.4 02/08/25 14:36 Room Air* 0 21 SEPSIS Sepsis Screen Date sepsis recognized/suspect: Feb 08, 2025 Time Sepsis recognized/suspect: 1346 Recent Procedure: No On Antibiotic Therapy: No Respiratory Rate >20: No Heart Rate >90: Yes Temp<36 C (96.8 F) or >38.3 C: No SBP <90 or MAP <65 mmHG: No New Acute Mental Status Change: No Is the patient on CPAP, BIPAP,: No Physician Orders Chest Portable (02/08/25 13:57) Urinalysis (02/08/25 13:50) Sodium Chloride 0.9% (02/08/25 14:00) Admit (02/08/25 16:34) Code Status (02/08/25 16:34) 2 Gm Sodium Diet (02/08/25 Dinner) Ondansetron Hcl (Zofran) (02/08/25 16:45) Docusate Sodium Capsule (Colace Capsule) (02/08/25 16:45) Enoxaparin Sodium (Lovenox) (02/09/25 10:00) Fall Risk Precautions In Place QSHIFT (02/08/25 16:34) Complete Blood Count (02/09/25 04:00) Comprehensive Metabolic Panel (02/09/25 04:00) Condition: Serious (02/08/25 16:34) Nitroglycerin Sublingual (Ntrostat Subli (02/08/25 16:45) Stat Ekg For Chest Pain (02/08/25 16:34) Notify Md Of Changes From Base (02/08/25 16:34) Bias Cutting Machine Operator For 24 Hours (02/08/25 16:34) Emergency Dysrhythmia Protocol (02/08/25 16:34) Rhythm Strips Once Every Shift (02/08/25 16:34) Oxygen By Nasal Cannula (02/08/25 16:34) Morphine Sulfate Injection (02/08/25 16:45) Vital Signs Date Time Temp Pulse Resp B/P (MAP) Pulse Ox O2 Delivery O2 Flow Rate FiO2 02/08/25 15:04 92 14 122/77 (92) 94 02/08/25 14:55 98.4 110 18 152/93 99 98.4 02/08/25 14:36 92 14 122/77 (92) 94 02/08/25 14:36 92 14 94 Room Air* 0 21 Laboratory Tests Test 02/08/25 14:10 White Blood Count 8.6 10^3/uL (4.4-10.8) Medications Medications Dose Ordered Sig/Lisa Route Start Time Stop Time Status Last Admin Dose Admin Dextrose 50 ml ONCE ONCE IV 02/08/25 16:40 02/08/25 17:02 DC 02/08/25 16:43 50 ML Levetiracetam 100 ml @ 400 mls/hr ONCE ONCE IV 02/08/25 14:30 02/08/25 14:44 DC 02/08/25 14:48 400 MLS/HR Sodium Chloride 1,000 ml @ 1,000 mls/hr Q1H ONCE IV 02/08/25 14:00 02/08/25 14:59 DC 02/08/25 14:48 1,000 MLS/HR Labs/Xrays Labs Test 02/08/25 16:23 02/08/25 14:10 Range/Units POC Glucose 43 *L 70-106 mg/dl White Blood Count 8.6 4.4-10.8 10^3/uL Red Blood Count 4.47 L 4.5-5.90 10^6/uL Hemoglobin 14.8 13.5-17.5 g/dL Hematocrit 43.5 41.0-53.0 % Mean Corpuscular Volume 97.3 80.0-100.0 fL Mean Corpuscular Hemoglobin 33.2 H 28.0-32.0 pg Mean Corpuscular Hemoglobin Concent 34.1 32.0-36.0 g/dL Red Cell Distribution Width 13.5 11.8-14.3 % Platelet Count 244 140-450 10^3/uL Mean Platelet Volume 9.1 6.9-10.8 fL Neutrophils (%) (Auto) 83.8 H 37.0-80.0 % Lymphocytes (%) (Auto) 10.3 10.0-50.0 % Monocytes (%) (Auto) 5.4 0.0-12.0 % Eosinophils (%) (Auto) 0.1 0.0-7.0 % Basophils (%) (Auto) 0.4 0.0-2.0 % Neutrophils # (Auto) 7.2 1.6-8.6 10 ^3/uL Lymphocytes # (Auto) 0.9 0.4-5.4 10 ^3/uL Monocytes # (Auto) 0.5 0-1.3 10 ^3/uL Eosinophils # (Auto) 0 0-0.8 10 ^3/uL Basophils # (Auto) 0 0-0.2 10 ^3/uL Nucleated Red Blood Cells 0.0 % Sodium Level 138 136-145 mmol/L Potassium Level 4.0 3.5-5.1 mmol/L Chloride Level 101 98-107 mmol/L Carbon Dioxide Level 26 20-31 mmol/L Anion Gap 11 5-15 Blood Urea Nitrogen 15 9-23 mg/dL Creatinine 1.06 0.700-1.30 mg/dL Glomerular Filtration Rate Calc 94 >90 mL/min BUN/Creatinine Ratio 14.2 10.0-20.0 Serum Glucose 257 H 74-106 mg/dL Calcium Level 10.3 8.7-10.4 mg/dL Assessment/Plan Primary Diagnosis Seizure disorder, recurrent seizure medical noncomplianct Recurrent seizures Metabolic encephalopathy Uncontrolled diabetes mellitus Diabetes mellitus with hyperglycemia left hip pain chronic hip fracture admitted pain control seizure management Plan discussed with: Patient TARA DAVIS DO Feb 08, 2025 17:07
[2025-02-08 19:40] VITALS: O2SAT 95
[2025-02-08 21:00] VITALS: BP 130/101; PULSE 77; RESP 18; TEMP 98.2; O2SAT 99
[2025-02-08 22:12] VITALS: BP 130/101; PULSE 66; PULSE 77; RESP 18; TEMP 98; O2SAT 98; O2SAT 99
[2025-02-08] MEDS: HYDROcodone-ACET 5/325MG TAB PO PRN (22:53)
[2025-02-09 01:00] VITALS: BP 126/94; PULSE 70; RESP 18; TEMP 98.6; O2SAT 97
[2025-02-09] MEDS ORDERED: DEXTROSE (50%) 50ML SYRG IV PRN (02:15)
[2025-02-09 05:00] VITALS: BP 124/87; PULSE 66; RESP 18; TEMP 97.9; O2SAT 98
[2025-02-09] MEDS: InsuLIN REG 1unit/0.01ml Soln (100units/ml) SC SCH (06:43)
[2025-02-09] MEDS: ACCU-CHEK COMFORT CURVE STRIP VI SCH (06:43)
[2025-02-09 06:51] LABS: Hematocrit 39.1 % (41.0-53.0); Hemoglobin 13.2 g/dL (13.5-17.5); Mean Corpuscular Hemoglobin 33.3 pg (28.0-32.0); Mean Corpuscular Volume 98.6 fL (80.0-100.0); Nucleated Red Blood Cells % 0.2 %
[2025-02-09 06:59] LABS: Alanine Aminotransferase 13 U/L (7-40); Albumin 4.1 g/dL (3.2-4.8); Alkaline Phosphatase 87 U/L (46-116); Anion Gap 15 (5-15); BUN/Creatinine Ratio 11.3 (10.0-20.0); Blood Urea Nitrogen 12 mg/dL (9-23); Calcium 9.5 mg/dL (8.7-10.4); Carbon Dioxide 20 mmol/L (20-31); Potassium 4.3 mmol/L (3.5-5.1); Total Protein 6.7 g/dL (5.7-8.2)
[2025-02-09 07:00] LABS: Bilirubin, Total 0.7 mg/dL (0.2-1.0)
[2025-02-09 07:25] LABS: Chloride 97 mmol/L (98-107); Sodium 132 mmol/L (136-145)
[2025-02-09 07:30] LABS: Glucose 478 mg/dL (74-106)
[2025-02-09] MEDS: InsuLIN REG 1unit/0.01ml Soln (100units/ml) IV ONE (07:45)
[2025-02-09 09:00] VITALS: BP 123/82; PULSE 66; RESP 18; O2SAT 97
[2025-02-09] MEDS: ENOXAPARIN SOD 40 MG/0.4 ML SYRINGE SC SCH (10:10)
--- NOTE | 2025-02-09 12:27 | DVHPN2 ---
Progress Note Date Seen: Feb 09, 2025 Medical Necessity Reason Pt with a Central, PICC or Fol: No Objective vital signs Vital Sign Date Time Temp Pulse Resp B/P (MAP) Pulse Ox O2 Delivery O2 Flow Rate FiO2 02/09/25 09:00 66 18 123/82 (96) 97 02/09/25 08:00 Room Air* 0 21 02/09/25 05:00 97.9 97.9 Total Intake and Output 02/08/25 02/08/25 02/09/25 15:00 23:00 07:00 Intake Total 1100 ml 400 ml Output Total 300 ml Balance 1100 ml 100 ml medications Current Medications Medications Dose Ordered Sig/Lisa Route Start Time Stop Time Status Last Admin Dose Admin Ondansetron HCl 4 mg Q4HP PRN IV 02/08/25 16:45 Docusate Sodium 100 mg BIDPRN PRN PO 02/08/25 16:45 Enoxaparin Sodium 40 mg DAILY SC 02/09/25 10:00 02/09/25 10:10 40 MG Nitroglycerin 0.4 mg Q5MINP PRN SL 02/08/25 16:45 Morphine Sulfate 2 mg Q30M PRN IV 02/08/25 16:45 Acetaminophen/ Hydrocodone Bitart 1 tab Q6HPRN PRN PO 02/08/25 22:30 02/09/25 12:22 1 TAB Diagnostic Test (Pha) 1 strip ACHS 02/09/25 07:00 02/09/25 06:43 1 STRIP Insulin Human Regular ACHS SC 02/09/25 07:00 02/09/25 06:43 10 UNITS Dextrose 50 ml UD PRN IV 02/09/25 02:15 laboratory and microbiology Laboratory Tests 02/09/25 04:59 Test 02/09/25 04:59 Range/Units Serum Glucose 478 #*H 74-106 mg/dL Labs and/or images reviewed: Labs reviewed by me, Image(s) reviewed by me Problem List/Assessment/Plan Problem List/Assessment/Plan Seizure disorder, recurrent seizure medical noncomplianct Recurrent seizures Metabolic encephalopathy Uncontrolled diabetes mellitus Diabetes mellitus with hyperglycemia left hip pain chronic hip fracture admitted pain control seizure management improving Plan discussed with: Patient My Orders My Orders Orders - TARA DAVIS DO Procedure Category Date Status Time Admit ADMIT 02/08/25 Transmitted 16:34 Code Status CODE 02/08/25 Transmitted 16:34 2 Gm Sodium Diet DIET 02/08/25 Transmitted Dinner Ondansetron Hcl PHA 02/08/25 In Process (Zofran) 16:45 Docusate Sodium PHA 02/08/25 In Process Capsule (Colace 16:45 Enoxaparin Sodium PHA 02/09/25 In Process (Lovenox) 10:00 Fall Risk Precautions LISA 02/08/[address] 16:34 Condition: Serious LISA 02/08/25 In Process 16:34 Nitroglycerin PHA 02/08/25 In Process Sublingual (Ntrostat 16:45 Stat Ekg For Chest LISA 02/08/25 In Process Pain 16:34 Notify Md Of Changes LISA 02/08/25 In Process From Base 16:34 Motorcoach Operator For LISA 02/08/25 In Process 24 Hours 16:34 Emergency Dysrhythmia LISA 02/08/25 In Process Protocol 16:34 Rhythm Strips Once LISA 02/08/25 In Process Every Shift 16:34 Oxygen By Nasal RT 02/08/25 Transmitted Cannula 16:34 Morphine Sulfate PHA 02/08/25 In Process Injection 16:45 * Wound Consult CONS 02/09/25 Transmitted * Dietary Consult CONS 02/09/25 Transmitted 09:32 Hydrocodone-Acet PHA 02/09/25 Transmitted 10/325mg Tab ([place] 12:30 Hydromorphone PHA 02/09/25 Transmitted Injection (Dilaudid 12:30 Lorazepam 2mg/Ml Inj PHA 02/09/25 Transmitted (Ativan Inj) 12:30 Levetiracetam Ivpb PHA 02/09/25 Transmitted Keppra 22:00 TARA DAVIS DO Feb 09, 2025 12:27
[2025-02-09 13:00] VITALS: BP 127/92; PULSE 73; RESP 18; TEMP 98.4; O2SAT 96
[2025-02-09] MEDS: HYDROmorphone HCL 2 MG/ML VL/or syr IV PRN (13:36)
[2025-02-09 17:00] VITALS: BP 119/81; PULSE 97; RESP 20; TEMP 97.6; O2SAT 94
[2025-02-09] MEDS: LORazepam 2MG/ML-1ML VIAL IV PRN (17:17)
[2025-02-09] MEDS: HYDROcodone-ACET 10/325MG TAB PO PRN (20:10)
[2025-02-09 21:00] VITALS: BP 116/83; PULSE 114; RESP 20; TEMP 98.4; O2SAT 95
[2025-02-09] MEDS: levETIRAcetam 1000 mg/100ml 100 ML IV SCH (22:12)
[2025-02-10 00:49] VITALS: BP 121/88; PULSE 90; RESP 18; TEMP 98; O2SAT 99
[2025-02-10 05:00] VITALS: BP 129/92; PULSE 101; RESP 18; TEMP 98; O2SAT 97
[2025-02-10 09:00] VITALS: BP 116/83; PULSE 91; RESP 18; TEMP 97; O2SAT 99
[2025-02-10 17:00] VITALS: BP 128/80; PULSE 67; RESP 16; TEMP 98.1; O2SAT 95
[2025-02-10 21:00] VITALS: BP 115/83; PULSE 74; RESP 18; TEMP 98.1; O2SAT 96
[2025-02-11] VITALS (7 sets, daily range): BP systolic 116–141; BP diastolic 66–94; PULSE 72–96; RESP 15–20; TEMP 97.2–98.1; O2SAT 95–99
[2025-02-12 01:00] VITALS: BP 136/89; PULSE 104; RESP 20; TEMP 97.9; O2SAT 97
[2025-02-12 05:00] VITALS: BP 128/79; PULSE 107; RESP 20; TEMP 98.1; O2SAT 96
[2025-02-12 09:30] VITALS: BP 131/89; PULSE 90; RESP 14; TEMP 97.7; O2SAT 99
--- NOTE | 2025-02-12 13:03 | DVHPN2 ---
Progress Note Date Seen: Feb 10, 2025 Medical Necessity Reason Pt with a Central, PICC or Fol: No Objective vital signs Vital Sign Date Time Temp Pulse Resp B/P (MAP) Pulse Ox O2 Delivery O2 Flow Rate FiO2 02/12/25 09:54 70 18 121/70 02/12/25 09:30 97.7 99 97.7 02/12/25 08:00 Room Air* 0 21 Total Intake and Output 02/11/25 02/11/25 02/12/25 15:00 23:00 07:00 Intake Total 890 ml 1500 ml Balance 890 ml 1500 ml medications Current Medications Medications Dose Ordered Sig/Lisa Route Start Time Stop Time Status Last Admin Dose Admin Ondansetron HCl 4 mg Q4HP PRN IV 02/08/25 16:45 Docusate Sodium 100 mg BIDPRN PRN PO 02/08/25 16:45 Enoxaparin Sodium 40 mg DAILY SC 02/09/25 10:00 02/12/25 09:23 40 MG Nitroglycerin 0.4 mg Q5MINP PRN SL 02/08/25 16:45 Morphine Sulfate 2 mg Q30M PRN IV 02/08/25 16:45 Diagnostic Test (Pha) 1 strip ACHS 02/09/25 07:00 02/12/25 11:35 1 STRIP Insulin Human Regular ACHS SC 02/09/25 07:00 02/12/25 11:53 6 UNITS Dextrose 50 ml UD PRN IV 02/09/25 02:15 Acetaminophen/ Hydrocodone Bitart 1 tab Q6HP PRN PO 02/09/25 12:30 02/11/25 11:40 1 TAB Hydromorphone HCl 0.5 mg Q4HPRN PRN IV 02/09/25 12:30 02/12/25 09:24 0.5 MG Lorazepam 1 mg Q2HP PRN IV 02/09/25 12:30 02/12/25 11:30 1 MG Levetiracetam 100 ml @ 400 mls/hr BID IV 02/09/25 22:00 02/12/25 09:23 400 MLS/HR laboratory and microbiology Laboratory Tests 02/09/25 04:59 Test 02/09/25 04:59 Range/Units Serum Glucose 478 #*H 74-106 mg/dL Labs and/or images reviewed: Image(s) reviewed by me Problem List/Assessment/Plan Problem List/Assessment/Plan Seizure disorder, recurrent seizure medical noncomplianct Recurrent seizures Metabolic encephalopathy Uncontrolled diabetes mellitus Diabetes mellitus with hyperglycemia left hip pain chronic hip fracture admitted pain control seizure management improving Plan discussed with: Other (nursing staff) My Orders My Orders Orders - TARA DAVIS DO Procedure Category Date Status Time Discharge DISCHARGE 02/11/25 Transmitted 19:09 * Triage Register Nurse CONS 02/11/25 Transmitted Consult Discharge DISCHARGE 02/12/25 Transmitted 12:59 Ac Moderate Insulin LISA 02/12/25 In Process Scale (Not 13:00 Insulin Lantus PHA 02/12/25 Logged (Glargine) (Lantus) 22:00 Dietary Evaluation Review Comments: Nutrition Recommendation: 1) CCHO 60gm 2) Monitor PO intake, lab values, weight trend, and I/O Expected Outcomes/Goals: Lab values to improve FU 3-5 days TARA DAVIS DO Feb 12, 2025 13:03
--- NOTE | 2025-02-12 13:03 | DVHPN2 ---
Progress Note Date Seen: Feb 11, 2025 Medical Necessity Reason Pt with a Central, PICC or Fol: No Objective vital signs Vital Sign Date Time Temp Pulse Resp B/P (MAP) Pulse Ox O2 Delivery O2 Flow Rate FiO2 02/12/25 09:54 70 18 121/70 02/12/25 09:30 97.7 99 97.7 02/12/25 08:00 Room Air* 0 21 Total Intake and Output 02/11/25 02/11/25 02/12/25 15:00 23:00 07:00 Intake Total 890 ml 1500 ml Balance 890 ml 1500 ml medications Current Medications Medications Dose Ordered Sig/Lisa Route Start Time Stop Time Status Last Admin Dose Admin Ondansetron HCl 4 mg Q4HP PRN IV 02/08/25 16:45 Docusate Sodium 100 mg BIDPRN PRN PO 02/08/25 16:45 Enoxaparin Sodium 40 mg DAILY SC 02/09/25 10:00 02/12/25 09:23 40 MG Nitroglycerin 0.4 mg Q5MINP PRN SL 02/08/25 16:45 Morphine Sulfate 2 mg Q30M PRN IV 02/08/25 16:45 Diagnostic Test (Pha) 1 strip ACHS 02/09/25 07:00 02/12/25 11:35 1 STRIP Insulin Human Regular ACHS SC 02/09/25 07:00 02/12/25 11:53 6 UNITS Dextrose 50 ml UD PRN IV 02/09/25 02:15 Acetaminophen/ Hydrocodone Bitart 1 tab Q6HP PRN PO 02/09/25 12:30 02/11/25 11:40 1 TAB Hydromorphone HCl 0.5 mg Q4HPRN PRN IV 02/09/25 12:30 02/12/25 09:24 0.5 MG Lorazepam 1 mg Q2HP PRN IV 02/09/25 12:30 02/12/25 11:30 1 MG Levetiracetam 100 ml @ 400 mls/hr BID IV 02/09/25 22:00 02/12/25 09:23 400 MLS/HR laboratory and microbiology Laboratory Tests 02/09/25 04:59 Test 02/09/25 04:59 Range/Units Serum Glucose 478 #*H 74-106 mg/dL Labs and/or images reviewed: Labs reviewed by me, Image(s) reviewed by me Problem List/Assessment/Plan Problem List/Assessment/Plan Seizure disorder, recurrent seizure medical noncomplianct Recurrent seizures Metabolic encephalopathy Uncontrolled diabetes mellitus Diabetes mellitus with hyperglycemia left hip pain chronic hip fracture admitted pain control seizure management improving Plan discussed with: Other (nursing) My Orders My Orders Orders - TARA DAVIS DO Procedure Category Date Status Time Discharge DISCHARGE 02/11/25 Transmitted 19:09 * Health Claims Examiner CONS 02/11/25 Transmitted Consult Discharge DISCHARGE 02/12/25 Transmitted 12:59 Ac Moderate Insulin LISA 02/12/25 In Process Scale (Not 13:00 Insulin Lantus PHA 02/12/25 Logged (Glargine) (Lantus) 22:00 Dietary Evaluation Review Comments: Nutrition Recommendation: 1) CCHO 60gm 2) Monitor PO intake, lab values, weight trend, and I/O Expected Outcomes/Goals: Lab values to improve FU 3-5 days TARA DAVIS DO Feb 12, 2025 13:03
--- NOTE | 2025-02-12 13:04 | DVHDS2 ---
Discharge Summary Date of Admission Feb 08, 2025 at 16:34 Date of Discharge: Feb 12, 2025 Labs/Diagnostic Data: Laboratory Results Test 02/12/25 11:19 02/09/25 04:59 POC Glucose 268 mg/dl (70-106) White Blood Count 7.1 10^3/uL (4.4-10.8) Red Blood Count 3.96 10^6/uL (4.5-5.90) Hemoglobin 13.2 g/dL (13.5-17.5) Hematocrit 39.1 % (41.0-53.0) Mean Corpuscular Volume 98.6 fL (80.0-100.0) Mean Corpuscular Hemoglobin 33.3 pg (28.0-32.0) Mean Corpuscular Hemoglobin Concent 33.8 g/dL (32.0-36.0) Red Cell Distribution Width 13.2 % (11.8-14.3) Platelet Count 195 10^3/uL (140-450) Mean Platelet Volume 9.7 fL (6.9-10.8) Neutrophils (%) (Auto) 70.4 % (37.0-80.0) Lymphocytes (%) (Auto) 19.7 % (10.0-50.0) Monocytes (%) (Auto) 7.8 % (0.0-12.0) Eosinophils (%) (Auto) 1.3 % (0.0-7.0) Basophils (%) (Auto) 0.8 % (0.0-2.0) Neutrophils # (Auto) 5.0 10 ^3/uL (1.6-8.6) Lymphocytes # (Auto) 1.4 10 ^3/uL (0.4-5.4) Monocytes # (Auto) 0.6 10 ^3/uL (0-1.3) Eosinophils # (Auto) 0.1 10 ^3/uL (0-0.8) Basophils # (Auto) 0.1 10 ^3/uL (0-0.2) Nucleated Red Blood Cells 0.2 % Sodium Level 132 mmol/L (136-145) Potassium Level 4.3 mmol/L (3.5-5.1) Chloride Level 97 mmol/L (98-107) Carbon Dioxide Level 20 mmol/L (20-31) Anion Gap 15 (5-15) Blood Urea Nitrogen 12 mg/dL (9-23) Creatinine 1.06 mg/dL (0.700-1.30) Glomerular Filtration Rate Calc 94 mL/min (>90) BUN/Creatinine Ratio 11.3 (10.0-20.0) Serum Glucose 478 mg/dL (74-106) Calcium Level 9.5 mg/dL (8.7-10.4) Total Bilirubin 0.7 mg/dL (0.2-1.0) Aspartate Amino Transferase (AST) 16 U/L (13-40) Alanine Aminotransferase (ALT) 13 U/L (7-40) Alkaline Phosphatase 87 U/L (46-116) Total Protein 6.7 g/dL (5.7-8.2) Albumin 4.1 g/dL (3.2-4.8) Other Laboratory Tests 02/09/25 04:59 Brief Hx & Hospital Course: Seizure disorder, recurrent seizure medical noncomplianct Recurrent seizures Metabolic encephalopathy Uncontrolled diabetes mellitus Diabetes mellitus with hyperglycemia left hip pain chronic hip fracture admitted pain control seizure management discharged back to [facility] Condition at Discharge: Fair Final Diagnosis/Problems List seizure Discharge Disposition: Assisted Living Facility Discharge Instruct/Medications Diet: Cardiac 2g Na,low cholest Activity: No Restrictions, As Tolerated Scheduled Alum & Mag Hydrox-Simethicone (Antacid Anti-Gas), 30 ML PO Q4HPRN, (Reported) Apixaban Base (Eliquis), 2.5 MG PO BID, (Reported) Aripiprazole (Abilify), 5 TAB PO DAILY, (Reported) Baclofen (Baclofen), 5 MG PO TID, (Reported) Cholecalciferol (Vitamin D3), 25 MCG PO DAILY, (Reported) Divalproex Sodium (Depakote), 1 TAB PO BID, (Reported) Duloxetine Hcl (Cymbalta), 1 CAP PO DAILY, (Reported) Famotidine (Pepcid Tablet), 1 TAB PO BID, (Reported) Gabapentin (Gabapentin), Unknown Dose PO BID, (Reported) Ibuprofen Micronized (Motrin Tablet), 600 MG PO TID Insulin Detemir (Levemir), 11 SC BID, (Reported) Levetiracetam (Keppra), 1 TAB PO BID Metformin Hydrochloride (Metformin Hcl), Unknown Dose PO DAILY, (Reported) Metoclopramide Hcl (Metoclopramide Hcl), 5 MG PO TID, (Reported) Oxycodone HCl (Oxycodone Hydrochloride), 5 MG PO Q6HR Pantoprazole Sodium Sesquihydr (Protonix), 40 MG PO DAILY, (Reported) Ramelteon (Rozerem), 1 TAB PO QPM, (Reported) Rosuvastatin Calcium (Crestor), 5 MG PO QPM, (Reported) Senna (Senokot), 1 TAB PO BID, (Reported) Topiramate (Topiramate), 50 MG PO QPM, (Reported) Trazodone Hcl (Trazodone Hcl), 1 TAB PO QPM, (Reported) Scheduled PRN Hydrocodone-Acetaminophen (Hydrocodone Bitartrate/AC 5-325 mg), 1 TAB PO Q6HP PRN Hydroxyzine Hcl (Hydroxyzine Hcl), 25 MG PO Q6HPRN PRN for ANXIETY, (Reported) Ondansetron HCl (Ondansetron), 4 MG PO PRN PRN for Q6, (Reported) Miscellaneous Medications Alum & Mag Hydrox-Simethicone (Itzel-Lanta), 1 OR, (Reported) Insulin Lispro (Humalog Kwikpen), 100 UNIT SC, (Reported) Pregabalin (Lyrica Capsule), 25 MG PO, (Reported) Tamsulosin HCl (Tamsulosin Hydrochloride), 0.4 MG PO, (Reported) Discharge Statement: "Patient was advised to return to the ER or call 911 if any headaches, dizziness, shortness of breath, chest pain, abdominal pain, bleeding, fevers, or worsening of medical condition. Patient was counseled about treatment plan, medications, possible side effects, patientverbalized understanding. All questions were answered to the best of my ability. This discharge took greater then 30 minutes in planning, reviewing documentation, counseling the patient, and discussing with other team members." ASSESSMENT ASSESSMENT Assessment TARA DAVIS DO Feb 12, 2025 13:04
[2025-02-12 13:30] VITALS: BP 125/72; PULSE 79; RESP 20; TEMP 98; O2SAT 96
[2025-02-12] MEDS ORDERED: INSULIN LANTUS (GLARGINE) 1 /0.01ml (100units/ml) SC SCH (22:00)
== END 2025-02-12 15:20 | disposition home or self-care (01) | DRG 53 ==
LOC: ER 13:49 → EDBD 13:49 → UNDOADMIN 16:34 → OVERFLOW 16:34 → WEST WING 20:46
PROVIDERS: ADMIT Internal Medicine; ATTEND Internal Medicine
DX: G40.909 Epilepsy, unspecified, not intractable, without status epilepticus (principal); Z86.74 Personal history of sudden cardiac arrest; E11.65 Type 2 diabetes mellitus with hyperglycemia; Z79.01 Long term (current) use of anticoagulants; M25.552 Pain in left hip; G89.29 Other chronic pain; Z87.820 Personal history of traumatic brain injury; Z79.4 Long term (current) use of insulin; Z79.84 Long term (current) use of oral hypoglycemic drugs; Z79.899 Other long term (current) drug therapy; Z91.199 Patient's noncompliance with other medical treatment and regimen due to unspecified reason
CPT/HCPCS: 36415; 71045; 80048; 80053; 82962; 85025; G0378; J1815